=== PATIENT | male | born 1955 | race Caucasian/White ===

== ENCOUNTER 2018-12-16 23:18 | Inpatient (IN) | payer OTHER ==
[~2018-12-16 23:18] MED LIST: ISOVUE-370 76%-LOCM 1 ML ONE
--- NOTE | 2018-12-16 23:42 | RAD ---
Chest one view HISTORY: Chest pain. COMPARISON: 03/08/2016. FINDINGS: Cardiac silhouette is magnified by projection. Pulmonary vasculature is unremarkable. Media stinum is midline. No lobar consolidation or evidence of pneumothorax. IMPRESSION: No active cardiopulmonary abnormalities are demonstrated.
[2018-12-17] MEDS ORDERED: Ketorolac Tromethamine 30 MG/ML VIAL ONE (00:06)
[2018-12-17 00:18] LABS: #Basophils 0.1 thou/uL (0.0-0.2); #Lymphocytes 2.3 thou/uL (1.20-3.40); #Monocytes 0.5 thou/uL (0.11-0.59); %Basophils 1.5 % (0.0-1.0); %Eosinophils 0.6 % (0.0-10.0); %Lymphocytes 38.7 % (21.0-51.0); %Monocytes 9.1 % (0.0-10.0); Hemoglobin 14.5 g/dL (14.0-18.0); Mean Corpuscular HGB CONC 33.4 g/dL (32.0-36.0); Mean Corpuscular Volume 95.9 fL (78.0-98.0); Mean Platelet Volume 5.5 fL (7.4-10.4); Platelet Count 275 thou/uL (130-400); RBC Distribution Width 13.4 % (11.5-14.5); Red Blood Cell (RBC) Count 4.53 mill/uL (4.70-6.10)
[2018-12-17 00:27] LABS: Bilirubin Negative (Negative); Blood, Urine Negative (Negative); Clarity CLOUDY (Clear); Glucose, Urine (Dipstick) Negative (Negative); Leukocyte Negative (Negative); Nitrite Negative (Negative); Protein, Urine (Dipstick) Negative (Neg-Trace); Specific Gravity, Urine 1.004 (1.002-1.036); Urobilinogen 0.2 mg/dL (0.2-1.0); pH, Urine 7.5 (5.0-9.0)
[2018-12-17 00:37] LABS: Acetaminophen Less than 6.0 mcg/mL (10.0-30.0); Alcohol 288 mg/dL (Less than 10); Salicylate Less than 8.0 mg/dL (15.0-30.0)
[2018-12-17 00:38] LABS: ALT (SGPT) 22 U/L (8-55); AST (SGOT) 32 U/L (5-34); Albumin 4.2 g/dL (3.4-4.8); Alkaline Phosphatase 92 U/L (40-150); Anion Gap 13 mmol/L (10-20); BUN (Urea Nitrogen) 9 mg/dL (8.4-25.7); Bilirubin, Total 0.3 mg/dL (0.2-1.2); Calc. Creatinine Clearance 0 mL/min (70-130); Calcium 9.1 mg/dL (7.8-10.44); Carbon Dioxide 30 mmol/L (23-31); Chloride 106 mmol/L (98-107); Estimated GFR-MDRD 74; Globulin 3.2 g/dL (2.4-3.5); Glucose 89 mg/dL (80-115); Lipase 32 U/L (8-78); Potassium 3.9 mmol/L (3.5-5.1); Protein, Total 7.4 g/dL (5.8-8.1); Sodium 145 mmol/L (136-145)
[2018-12-17 00:41] LABS: Amphetamine Not Detected (NotDetected); Barbiturates Screen Not Detected (NotDetected); Benzodiazepine Screen Not Detected (NotDetected); Cocaine Metabolite Screen Not Detected (NotDetected); Medtox Control Line Valid? VALID (VALID); Medtox Reader # READER 4; Methadone Not Detected (NotDetected); Methamphetamine Not Detected (NotDetected); Opiate Screen Not Detected (NotDetected); Oxycodone Screen Not Detected (NotDetected); Phencyclidine (PCP) Not Detected (NotDetected); THC/Cannabinoid Screen Not Detected (NotDetected); Tricyclic Screen Not Detected (NotDetected)
[2018-12-17] MEDS ORDERED: Morphine 4 MG/ML VIAL ONE ×2 (01:27→04:50)
[2018-12-17] MEDS ORDERED: chlordiazePOXIDE HCl 25 MG CAP ONE (01:27)
[2018-12-17 03:24] LABS: Troponin I Less than 0.010 ng/mL (< 0.028)
[2018-12-17] MEDS ORDERED: Multivitamins, Adult 10 ML, Folic Acid 1 MG, Thiamine HCl 100 MG in Dextrose 5 %-0.45 %... IV SCH (04:00)
[2018-12-17] MEDS ORDERED: Acetaminophen 325 MG TAB PO PRN (04:37)
[2018-12-17 05:19] VITALS: BMI 26.5
--- NOTE | 2018-12-17 06:09 | HP ---
CHIEF COMPLAINT: Chest pain. HISTORY OF PRESENT ILLNESS: This patient is a 63-year-old male with a history of prior significant alcohol use, history of pyloric stenosis and history of gastric and duodenal ulcers, who presented via the emergency department. The patient reported that he was having some chest pain. He reported he had been pulling some weeds and started having the discomfort in his left chest area. He sat down outside to try to rest and fell out of the chair, says everything just went blank. He subsequently got up, went inside and tried to drink something and sit down again and the same thing happened. Reported that he was having some dizziness as well. Reports that the pain in his chest was 10/10. Reported that it happened a couple of times in the past, but has had spontaneously resolved and had not bothered him subsequent. He describes it is being in the left lateral sternal area. He is indicating that when the ER physician examined him there earlier, it was very tender. The pain does seem to increase with movement. He has some associated shortness of breath and when that resolves, he says he has a coughing or choking sensation. The patient also reports pain in his left hip area, states that has been present for the last year since he had a partial left knee replacement, says that the discomfort in that hip leads to him to fall frequently. REVIEW OF SYSTEMS: The patient reports that he has frequent vomiting after eating and that has been present for a couple of years. States that is worse with heavy or greasy type foods. Otherwise, all systems reviewed and all pertinent positives and negatives noted in history of present illness. PAST MEDICAL HISTORY: History of pyloric stenosis and history of gastric and duodenal ulcers and that records also indicate that the patient has a history of alcohol abuse and associated pancreatitis. PAST SURGICAL HISTORY: Had two lumbar diskectomies in the . Has had a left medial partial knee replacement, left wrist and left elbow surgery. FAMILY HISTORY: Both his parents are . He is unaware of any medical problems that they might have had. SOCIAL HISTORY: The patient reports he dips snuff, but does not smoke and says he drinks 4-5 beers per day in the past. He drinks 2-3 times that amount. States the last time he went without drinking more than 24 hours was last weekend where he went for 3 days with no alcohol and had no problems. He is single. He is full code. His brother would be his surrogate decision maker. ALLERGIES: NONE. MEDICATIONS: None. The patient reports that Dr. Berman has put him on B vitamins including folate previously, but when this ran out, he did not get any more and he takes nothing on a regular basis now. PHYSICAL EXAMINATION: VITAL SIGNS: Blood pressure 153/91, pulse 88, respirations 17, O2 saturation 96% on room air. GENERAL APPEARANCE: Age-appropriate male. He is somewhat difficult to understand simply because he does not enunciate very well and his words are a bit garbled. HEENT: PERRL. No OP lesions. NECK: Supple and symmetric. No lymphadenopathy, JVD, or bruits. HEART: Regular rate and rhythm. No murmurs, gallops, or rubs. LUNGS: Clear to auscultation with no wheezes or rales. ABDOMEN: Soft, nontender, and nondistended. Positive bowel sounds. No masses. No organomegaly. EXTREMITIES: No cyanosis, clubbing, or edema. MUSCULOSKELETAL: Reveals very slight tenderness to palpation in the left mid buttock and hip joint area. He has good flexion of the hip and only slight discomfort with internal and external rotation. He does not currently have any tenderness to palpation over the left chest area. LABORATORY DATA: White count 6.0, hemoglobin 14.5, platelets 275. Chemistries normal other than a CK of 205. Troponin is less than 0.01 x2. Urinalysis negative. Drug screen negative. Alcohol level was 288. Chest x-ray is negative. CT dissection protocol apparently reveals some pancreatic head mass, that full dictation is still pending. Pelvic x-rays also reportedly shows some evidence of small potentially lytic lesions, although that report is still pending as well. IMPRESSION AND PLAN: 1. Chest pain. The patient described more of a musculoskeletal type pain and initial tenderness to palpation, although that is not the case now after having received some pain medications. He is also describing some evidence of possibly near syncope, although he was clearly intoxicated at the time his labs were drawn here, so it is difficult to know what to make of that. We will keep him on tele. Continue to rule out for myocardial infarction. We will need to consider the possibility of stress testing and echocardiogram. 2. Left hip pain, unclear etiology, concern for the possibility of these small lytic lesions described by the ER physician, although we will need to follow up on the actual radiology report. 3. Possible pancreatic head mass. This patient has a history of pancreatitis and this may be a scar, but again we will need to get further input from the radiologist to know how to approach that going forward. He does not have significant tenderness at the pancreas presently. 4. Alcohol abuse. The patient has a long history of alcohol abuse, sounds like he is actually drinking less now than he has in the past. 5. Frequent postprandial vomiting in a patient with a history of pyloric stenosis. This may need to be followed upon and can likely be done as an outpatient. Job ID: [id number]
--- NOTE | 2018-12-17 07:24 | CT ---
CTA CHEST AND ABDOMEN AND PELVIS WITH CONTRAST WITH 3D VOLUME RENDERING CT AORTOGRAM: Date: 12/16/18 INDICATION: Chest pain. FINDINGS: There is no evidence of a focal dissection of the thoracoabdominal aorta. No aneurysmal dilatation or evidence of periaortic hematoma. The visualized bilateral iliac arteries are patent. The great vesse ls that emanate from the aortic arch, as well as from the abdominal aorta, reveal no significant sten osis. There are nonspecific scattered patchy bilateral pulmonary parenchymal opacities. There is evid ence of prior cholecystectomy with reservoir effect of the biliary system. There is also nonspecific prominence of the pancreatic duct. There is limited evaluation of the solid abdominal organs by arter ial phase of enhancement. The bowel is incompletely assessed without enteric contrast administration. Prominent degenerative change is present at the lower lumbar spine. Subtle nonspecific scattered oss eous lucencies are too small to definitively characterize. These are most notable within the pelvis, bilaterally. IMPRESSION: 1. No acute aortic dissection. 2. Nonspecific small osseous lucencies are incidentally noted. The possibility of small lytic metas tasis or marrow proliferative process cannot be entirely excluded on the basis of this exam. Therefor e, recommend clinical correlation, as well as imaging follow-up to exclude progression. While these f indings would be too small for detection by bone scan, bone scan could prove useful for evaluation of the entirety of the skeletal structures. POS: DEBBIE
--- NOTE | 2018-12-17 07:45 | RAD ---
AP PELVIS: Date: 12/17/18 INDICATION: History of pelvic pain. COMPARISON: Prior CT of pelvis dated 11/23/18. FINDINGS: There is mild degenerative arthrosis of both hips. No acute fracture is evident. There is advanced di sc degenerative disease at L4-5. IMPRESSION: No acute osseous abnormality. Scattered degenerative change. POS: BH
[2018-12-17 08:03] LABS: Troponin I Less than 0.010 ng/mL (< 0.028)
[2018-12-17 09:57] LABS: Troponin I Less than 0.010 ng/mL (< 0.028)
[2018-12-17] MEDS ORDERED: Bisacodyl 5 MG TAB PO PRN (10:56)
[2018-12-17] MEDS ORDERED: Eucerin (Mineral Oil/Petrolatum,White) 30 gm Jar TOP PRN (10:56)
[2018-12-17] MEDS ORDERED: Diabetic Tussin 200 MG/10 ML UDCUP PO PRN (10:56)
[2018-12-17] MEDS ORDERED: Sodium Chloride 0.65% Nasal 44 ML BOT EA NARE PRN (10:56)
[2018-12-17] MEDS ORDERED: Loratadine 10 MG TAB PO PRN (10:56)
[2018-12-17] MEDS ORDERED: Artificial Tears 18 DROP/0.9 ML EA EYE PRN (10:56)
[2018-12-17] MEDS ORDERED: Ondansetron ODT 4 MG TAB SL PRN (10:56)
[2018-12-17] MEDS ORDERED: Zolpidem Tartrate 5 MG TAB PO PRN (10:56)
[2018-12-17] MEDS ORDERED: Calcium Carbonate 500 MG ChewTAB PO PRN (10:56)
[2018-12-17] MEDS ORDERED: Cepastat Lozenges 1 LOZ PO PRN (10:56)
[2018-12-17] MEDS ORDERED: Loperamide HCl 2 MG CAP PO PRN (10:56)
[2018-12-17] MEDS ORDERED: hydrALAZINE 20 MG/ML VIAL SLOW IVP PRN (10:56)
[2018-12-17] MEDS ORDERED: Ondansetron PF 4 MG/2 ML Vial IVP PRN (10:56)
[2018-12-17] MEDS ORDERED: Senokot S 8.6-50 MG TAB PO PRN (10:56)
--- NOTE | 2018-12-17 19:01 | CON ---
DATE OF CONSULTATION: REASON FOR CONSULTATION: Gastric thickening and cirrhosis. HISTORY OF PRESENT ILLNESS: Mr. Acosta is a 63-year-old gentleman, who came to the emergency room at 2300 hours last night with complaints of chest pain. He reported at that time he had a heat stroke after working in his yard and he laid down inside and the pain came back. He felt like a sharp pain in the chest region and over the left precordium. When I asked him what it felt like, he stated "like a heart attack." He, however, notes he has not had a heart attack in the past. He had no diaphoresis or shortness of breath. Apparently, he has had also some left hip pain that he came in for. He reports that his primary physician told him he may have some liver problems in the past as well. In the emergency room, he had a negative evaluation with nonischemic EKG. A CT dissection and CAT scan that was ordered that showed no dissection, some possible bony abnormalities in the left bone. He was given Librium, banana bag, aspirin, Toradol, and normal saline. The diagnosis states that he brought him in for a possible pancreatic head mass. The CAT scan reports that he has a prior cholecystectomy, nonspecific prominence of pancreatic duct. Limited evaluation of solid abdominal organs by arterial phase enhancement. There was no oral contrast given. The final report notes no acute aortic dissection. Small nonspecific lucencies in the bone, it was felt these would be too small for detection on bone scan. This was apparently in the pelvis. There is no comment on a pancreatic head mass anywhere in the report. PAST MEDICAL HISTORY: Hypertension. The patient states he sees doctors in [place] occasionally. He has also been here with electrocution injury, previous carpal tunnel release. In 2011, he was seen by my partner, Dr. vAinash Blank, here, who has noted he has had a previous cholecystectomy at that time. He had an EGD that was 2011 and he had a duodenal stricture, an ulcer, retained gastric contents, and a severe erosive esophagitis. He had a CAT scan that showed diverticulosis, no diverticulitis. PAST SURGICAL HISTORY: 1. Cholecystectomy. 2. Lumbar diskectomy. 3. Medial partial knee replacement. 4. Left wrist and elbow surgery. PAST ENDOSCOPIC HISTORY: As above. REVIEW OF SYSTEMS: The patient denies any diarrhea. Denies any melena, hematochezia, or hematemesis. He intermittently has vomiting. He intermittently has reflux. He denies weight loss. FAMILY HISTORY: Unaware of medical family history. SOCIAL HISTORY: He dips snuff. He is drinking about 10 beers a day, tried to cut back recently. ALLERGIES: NONE. MEDICATIONS: 1. B vitamins. 2. Folate in the distant past. Medications, here; 1. Tylenol. 2. Dulcolax. 3. Tums. 4. B12. 5. Folic acid. 6. Robitussin. 7. Apresoline. 8. Hydrocodone. 9. Imodium. 10. Claritin. 11. Eucerin. 12. Zofran. 13. Protonix. 14. Senokot. 15. Thiamine. 16. Throat lozenges. 17. Ambien. PHYSICAL EXAMINATION: VITAL SIGNS: Blood pressure is 142/81, pulse is 67, and temperature is 98. GENERAL: The patient is resting comfortably in bed. He is in no distress. He states his chest pain has gone. He denies any abdominal pain. HEENT: His oropharynx, no lesions. NECK: Supple without any adenopathy. LUNGS: Clear. HEART: Regular rate and rhythm without murmurs. ABDOMEN: Soft and nontender without palpable hepatosplenomegaly. EXTREMITIES: Without clubbing, cyanosis, or edema. SKIN: Without stigmata of chronic liver disease. LABORATORY STUDIES: White count 6, hemoglobin 14, platelet count 275. Sodium 145, potassium 3.9, chloride 109, bicarb 30, BUN 9, and creatinine 1.1. AST 32, ALT 22, alkaline phosphatase 92, albumin 4.2, and lipase 32. AFP done was 6.3 that was on 12/17/2018. PSA is 4. ASSESSMENT: 1. Admission for chest pain and left hip pain, apparently this is felt to be noncardiac, although the patient states it felt like he was having a heart attack. He was intoxicated with a blood alcohol of 288 when he came in. He does not appear to be in any distress at this point in time. The primary team has ordered a bone scan. 2. Possible prominent pancreatic duct in the head of the pancreas with no overt mass or lesions in the head of the pancreas. Reviewing the report, it does not seem that they distinctly say there is a pancreatic head mass. CT dissection protocol study is not the right study to look at a pancreatic head mass. If this wants to be investigated if there is. He could be at risk for pancreatic malignancies. He may have had chronic pancreatitis in the past, but he denies it. If there is a desire to further look at this in the inpatient setting, a 3-phase CT scan with thin cuts of the pancreas would be the test to perform as he is in the observational setting, that could be done in the outpatient setting with his primary physician in followup. 3. Prior history of gastric outlet obstruction or pyloric stenosis and ulcer disease. Presently, he now has no complaints of gastric outlet symptoms. He has no signs of this on his CAT scan. He does have some symptoms of intermittent vomiting and regurgitation, but he is drinking 10-12 beers a day and he came in with a blood alcohol of over 300. I do not see any role for emergent evaluation of upper GI tract. RECOMMENDATIONS: 1. Multivitamin, thiamine, and folate. 2. Observe for DT withdrawals. 3. PPI therapy to protect from ulcer disease. 4. Again, if there is a desire to further evaluate the possible pancreatic abnormalities brought up on the dissection protocol CT, that would necessitate a 3-phase CT scan of the pancreas with oral and IV contrast, alternatively an MRCP, but again these could be done in the outpatient setting with his primary physician. We will follow from a distance. If I can be of further assistance, please do not hesitate to contact me. Job ID: [id number]
--- NOTE | 2018-12-17 19:20 | PRG ---
DATE OF SERVICE: 12/17/2018 SUBJECTIVE: Mr. Acosta is a 63-year-old male with past medical history significant for alcoholism, history of gastric and duodenal ulcers, as well as pyloric stenosis, who presented to the emergency department with complaints of chest and left hip pain. The patient complains of chest pain that is reproducible with palpation or movement of his left arm. He continues to complain of left hip pain and some general soreness throughout his body. He denies any substernal chest pain, shortness of breath, nausea, or vomiting. He denies palpitations. OBJECTIVE: VITAL SIGNS: Blood pressure 137/83, pulse 63, O2 saturation is 97% on room air, respirations are 20, temperature is 97.6. GENERAL: The patient is resting comfortably in bed, in no acute distress. He is alert and oriented x3. He appears his stated age. HEENT: His head is atraumatic and normocephalic. Extraocular eye movements intact. Mucous membranes are moist. NECK: No lymphadenopathy. No JVD. Trachea is midline. CV: S1 and S2. Regular rate and rhythm. No appreciable murmurs, rubs, or gallops. LUNGS: Regular respiratory rate and pattern, overall clear. ABDOMEN: Soft. Positive bowel sounds. Nontender. MUSCULOSKELETAL: No joint effusion or swelling, the patient is tender to palpation along the anterior portion of the left side of his chest. EXTREMITIES: No edema. Extremities are warm and well perfused. LABORATORY DATA: White blood cell count 6, hemoglobin 14.5, hematocrit 43.4, MCH 32, and platelet 275. Sodium 145, potassium 3.9, chloride 106, BUN 9, and creatinine 1.01. All liver enzymes within normal limits. Lipase is 32. AFP is 6.3. Plasma alcohol on arrival was 288 and is 142 this morning. ASSESSMENT: 1. Musculoskeletal chest and shoulder pain, likely secondary to falls yesterday when the patient was intoxicated. 2. Possible pancreatic head mass, with lytic lesions seen on bones per CT. 3. Alcohol abuse. PLAN: Given the complexity of CT findings, the plan will be for inpatient admission and further workup. Case discussed with Dr. Hernandez. We will also consult GI. Per Dr. Hernandez, we will follow up with tumor marker AFP as well as PSA. Given the complexity of the workup involved to appropriately diagnose the nature of the patient's pain and bony lesions, he meets inpatient status at this time. As mentioned, the above care of this patient was discussed with Dr. Hernandez, who agrees with the above. Job ID: [id number]
[2018-12-18] MEDS: HYDROcodone/Acetaminophen 5/325 mg Tablet PO PRN ×2 (00:15→17:02)
--- NOTE | 2018-12-18 08:54 | PDOC.PN ---
- Subjective Encounter Start Date: 12/18/18 Encounter Start Time: 08:10 Patient seen and examined. No new complaints. No overnight events - Objective Resuscitation Status - Order Detail: 12/17/18 04:37 Resuscitation Status Routine Resuscitation Status: FULL: Full Resuscitation MAR Reviewed: Yes Vital Signs & Weight: Vital Signs (12 hours) Temp Pulse Resp BP Pulse Ox 12/18/18 07:30 97.8 F 54 L 16 144/74 H 97 12/17/18 23:34 98.4 F 63 16 144/82 H 95 Weight Weight 164 lb 8 oz I&O: 12/17/18 12/18/18 12/19/18 06:59 06:59 06:59 Intake Total 1452 Output Total 301 Balance 1151 Result Diagrams: 12/17/18 00:05 12/17/18 00:05 EKG Reviewed by me: Yes Phys Exam - Physical Examination Constitutional: NAD HEENT: PERRLA, moist MMs, sclera anicteric Neck: no JVD, supple Respiratory: no wheezing, no rales, no rhonchi Cardiovascular: RRR, no significant murmur, no rub Gastrointestinal: soft, non-tender, no distention, positive bowel sounds Musculoskeletal: no edema, pulses present Neurological: non-focal, normal sensation Lymphatic: no nodes Psychiatric: normal affect, A&O x 3 Skin: no rash, normal turgor Dx/Plan (1) Bone metastases Code(s): C79.51 - SECONDARY MALIGNANT NEOPLASM OF BONE Status: Suspected (2) Pancreatic mass Status: Suspected (3) Gastric wall thickening Code(s): K31.89 - OTHER DISEASES OF STOMACH AND DUODENUM Status: Acute (4) Alcohol abuse Code(s): F10.10 - ALCOHOL ABUSE, UNCOMPLICATED Status: Chronic - Plan cont current plan of care * will get MRCP * will get bone scan * GI recommendation appreciated * medication reviewed as below * symptomatic treatment. Review of Systems - Review of Systems ENT: negative: Ear Pain, Ear Discharge, Nose Pain, Nose Discharge, Nose Congestion, Mouth Pain, Mouth Swelling, Throat Pain, Throat Swelling, Other Respiratory: negative: Cough, Dry, Shortness of Breath, Hemoptysis, SOB with Excertion, Pleuritic Pain, Sputum, Wheezing Cardiovascular: negative: chest pain, palpitations, orthopnea, paroxysmal nocturnal dyspnea, edema, light headedness, other Gastrointestinal: negative: Nausea, Vomiting, Abdominal Pain, Diarrhea, Constipation, Melena, Hematochezia, Other Genitourinary: negative: Dysuria, Frequency, Incontinence, Hematuria, Retention , Other Musculoskeletal: negative: Neck Pain, Shoulder Pain, Arm Pain, Back Pain, Hand Pain, Leg Pain, Foot Pain, Other Skin: negative: Rash, Lesions, Chris, Bruising, Other - Medications/Allergies Allergies/Adverse Reactions: Allergies Allergy/AdvReac Type Severity Reaction Status Date / Time No Known Drug Allergies Allergy Verified 12/17/18 05:22 Medications: Current Medications Acetaminophen (Tylenol) 650 mg PO Q4H PRN PRN Reason: Headache/Fever/Mild Pain (1-3) Hydrocodone Bitart/Acetaminophen ([place] 5/325) 1 tab PO Q4H PRN PRN Reason: Moderate Pain (4-6) Last Admin: 12/18/18 00:15 Dose: 1 tab Artificial Tears (Tears Naturale) 2 drop EA EYE PRN PRN PRN Reason: Dry Eyes Bisacodyl (Dulcolax) 10 mg PO DAILYPRN PRN PRN Reason: Constipation Calcium Carbonate (Tums) 1,000 mg PO Q4H PRN PRN Reason: Heartburn or Indigestion Cyanocobalamin (Vitamin B-12) 1,000 mcg PO DAILY [facility] Folic Acid (Folvite) 1 mg PO DAILY [facility] Guaifenesin (Robitussin Sf) 200 mg PO Q4H PRN PRN Reason: Cough Hydralazine HCl (Apresoline) 10 mg SLOW IVP Q4H PRN PRN Reason: SBP > 180 and HR < 70 Loperamide HCl (Imodium) 2 mg PO PRN PRN PRN Reason: Diarrhea/Loose Stools Loratadine (Claritin) 10 mg PO DAILYPRN PRN PRN Reason: Sinus Symptoms Mineral Oil/White Petrolatum (Eucerin Cream) 0 gm TOP BIDPRN PRN PRN Reason: Dry Skin Ondansetron HCl (Zofran Odt) 4 mg SL Q6H PRN PRN Reason: Nausea/Vomiting Ondansetron HCl (Zofran) 4 mg IVP Q6H PRN PRN Reason: Nausea/Vomiting Pantoprazole Sodium (Protonix) 40 mg PO DAILY [facility] Senna/Docusate Sodium (Senokot S) 2 tab PO BID PRN PRN Reason: Constipation Sodium Chloride ([place] Nasal [place] 0.65%) 0 ml EA NARE QIDPRN PRN PRN Reason: Nasal Congestion Thiamine HCl (Thiamine) 100 mg PO DAILY [facility] Throat Lozenges (Cepastat Lozenges) 1 jo ann PO Q2H PRN PRN Reason: Sore Throat Zolpidem Tartrate (Ambien) 5 mg PO HSPRN PRN PRN Reason: Insomnia
[2018-12-18] MEDS ORDERED: Lorazepam 0.5 MG TAB PO PRN (08:55)
[2018-12-18] MEDS: Cyanocobalamin (Vitamin B-12) 1,000 MCG TAB PO SCH (10:08)
[2018-12-18] MEDS: Folic Acid 1 MG TAB PO SCH (10:08)
[2018-12-18] MEDS: Thiamine 100 MG TAB PO SCH (10:08)
--- NOTE | 2018-12-18 12:46 | NM ---
EXAM: NM Bone Scan STANDARD PROVIDED CLINICAL HISTORY: Bone lesions COMPARISON: CT examination 12/17/2018 FINDINGS: 27 mCi technetium 99 M labeled MDP was given intravenously. Anterior and posterior whole-body planar imaging after a delay was performed as well as anterior and posterior planar imaging focused on the sternum. Degenerative changes are seen at the sternoclavicular and sternomanubrial joints. Degenerative change s are seen involving the shoulders and knees. Possible changes of arthroplasty involve the left knee. IMPRESSION: No scintigraphic evidence for osseous metastatic disease.
--- NOTE | 2018-12-18 17:49 | RAD ---
Left hip 2 views HISTORY: Fall. Left hip injury. FINDINGS: Mild joint space narrowing, osteophytosis, and subchondral sclerosis. Femoral head contours maintained. No acute fracture or dislocation. IMPRESSION: Mild osteoarthritic changes left hip.
[2018-12-19] MEDS: HYDROcodone/Acetaminophen 5/325 mg Tablet PO PRN (03:19)
--- NOTE | 2018-12-19 08:15 | MRI ---
Exam: MRI of the abdomen without and with contrast COMPARISON: None HISTORY: Pancreatic lesion. Chest pain and shortness of breath. History of cirrhosis. TECHNIQUE: Multiplanar multi sequence MR images were taken of the abdomen without and with IV contras t. MRCP images were performed. FINDINGS: Liver: No focal liver lesions are seen. The liver does not appear cirrhotic. There is mild stable miguel tral intrahepatic biliary dilatation. Gallbladder: Removed Common bile duct: Enlarged but stable and likely a reservoir effect from prior cholecystectomy. A cys tic duct remnant is visualized. Adrenal glands: Unremarkable. Kidneys: No hydronephrosis or focal renal lesions. Spleen: Unremarkable. Pancreas: No pancreatic mass is seen. There is increased prominence of the pancreatic duct.. Retroperitoneum: No enlarged lymph nodes Bones: No marrow signal abnormality. IMPRESSION: Slight increased prominence of the pancreatic duct without pancreatic mass visualized
[2018-12-19] MEDS: Folic Acid 1 MG TAB PO SCH (09:01)
[2018-12-19] MEDS: Cyanocobalamin (Vitamin B-12) 1,000 MCG TAB PO SCH (09:01)
[2018-12-19] MEDS: Thiamine 100 MG TAB PO SCH (09:01)
--- NOTE | 2018-12-19 12:01 | PDOC.PN ---
- Subjective Encounter Start Date: 12/19/18 Encounter Start Time: 07:45 Patient seen and examined. No new complaints. No overnight events - Objective Resuscitation Status - Order Detail: 12/17/18 04:37 Resuscitation Status Routine Resuscitation Status: FULL: Full Resuscitation MAR Reviewed: Yes Vital Signs & Weight: Vital Signs (12 hours) Temp Pulse Resp BP BP Pulse Ox 12/19/18 08:29 98.2 F 68 13 132/73 97 12/19/18 08:00 132/73 12/19/18 04:00 97.4 F L 64 14 143/85 H 98 Weight Weight 154 lb 9 oz I&O: 12/18/18 12/19/18 12/20/18 06:59 06:59 06:59 Intake Total 1452 700 Output Total 301 600 Balance 1151 100 Result Diagrams: 12/17/18 00:05 12/17/18 00:05 Radiology Reviewed by me: Yes Phys Exam - Physical Examination Constitutional: NAD HEENT: PERRLA, moist MMs, sclera anicteric Neck: no JVD, supple Respiratory: no wheezing, no rales, no rhonchi Cardiovascular: RRR, no significant murmur, no rub Gastrointestinal: soft, non-tender, no distention, positive bowel sounds Musculoskeletal: no edema, pulses present Neurological: non-focal, normal sensation, moves all 4 limbs Lymphatic: no nodes Psychiatric: normal affect, A&O x 3 Skin: no rash, normal turgor Dx/Plan (1) Bone metastases Code(s): C79.51 - SECONDARY MALIGNANT NEOPLASM OF BONE Status: Suspected (2) Pancreatic mass Status: Suspected (3) Gastric wall thickening Code(s): K31.89 - OTHER DISEASES OF STOMACH AND DUODENUM Status: Acute (4) Alcohol abuse Code(s): F10.10 - ALCOHOL ABUSE, UNCOMPLICATED Status: Chronic - Plan cont current plan of care * medication reviewed as below * symptomatic treatment * see discharge [place]. Review of Systems - Review of Systems ENT: negative: Ear Pain, Ear Discharge, Nose Pain, Nose Discharge, Nose Congestion, Mouth Pain, Mouth Swelling, Throat Pain, Throat Swelling, Other Respiratory: negative: Cough, Dry, Shortness of Breath, Hemoptysis, SOB with Excertion, Pleuritic Pain, Sputum, Wheezing Cardiovascular: negative: chest pain, palpitations, orthopnea, paroxysmal nocturnal dyspnea, edema, light headedness, other Gastrointestinal: negative: Nausea, Vomiting, Abdominal Pain, Diarrhea, Constipation, Melena, Hematochezia, Other Genitourinary: negative: Dysuria, Frequency, Incontinence, Hematuria, Retention , Other Musculoskeletal: negative: Neck Pain, Shoulder Pain, Arm Pain, Back Pain, Hand Pain, Leg Pain, Foot Pain, Other - Medications/Allergies Allergies/Adverse Reactions: Allergies Allergy/AdvReac Type Severity Reaction Status Date / Time No Known Drug Allergies Allergy Verified 12/17/18 05:22 Medications: Current Medications Acetaminophen (Tylenol) 650 mg PO Q4H PRN PRN Reason: Headache/Fever/Mild Pain (1-3) Hydrocodone Bitart/Acetaminophen ([place] 5/325) 1 tab PO Q4H PRN PRN Reason: Moderate Pain (4-6) Last Admin: 12/19/18 03:19 Dose: 1 tab Artificial Tears (Tears Naturale) 2 drop EA EYE PRN PRN PRN Reason: Dry Eyes Bisacodyl (Dulcolax) 10 mg PO DAILYPRN PRN PRN Reason: Constipation Calcium Carbonate (Tums) 1,000 mg PO Q4H PRN PRN Reason: Heartburn or Indigestion Cyanocobalamin (Vitamin B-12) 1,000 mcg PO DAILY [facility] Last Admin: 12/19/18 09:01 Dose: 1,000 mcg Folic Acid (Folvite) 1 mg PO DAILY [facility] Last Admin: 12/19/18 09:01 Dose: 1 mg Guaifenesin (Robitussin Sf) 200 mg PO Q4H PRN PRN Reason: Cough Hydralazine HCl (Apresoline) 10 mg SLOW IVP Q4H PRN PRN Reason: SBP > 180 and HR < 70 Loperamide HCl (Imodium) 2 mg PO PRN PRN PRN Reason: Diarrhea/Loose Stools Loratadine (Claritin) 10 mg PO DAILYPRN PRN PRN Reason: Sinus Symptoms Lorazepam (Ativan) 0.5 mg PO Q4H PRN PRN Reason: Anxiety Mineral Oil/White Petrolatum (Eucerin Cream) 0 gm TOP BIDPRN PRN PRN Reason: Dry Skin Ondansetron HCl (Zofran Odt) 4 mg SL Q6H PRN PRN Reason: Nausea/Vomiting Ondansetron HCl (Zofran) 4 mg IVP Q6H PRN PRN Reason: Nausea/Vomiting Pantoprazole Sodium (Protonix) 40 mg PO DAILY [facility] Last Admin: 12/19/18 09:01 Dose: 40 mg Senna/Docusate Sodium (Senokot S) 2 tab PO BID PRN PRN Reason: Constipation Sodium Chloride ([place] Nasal [place] 0.65%) 0 ml EA NARE QIDPRN PRN PRN Reason: Nasal Congestion Thiamine HCl (Thiamine) 100 mg PO DAILY [facility] Last Admin: 12/19/18 09:01 Dose: 100 mg Throat Lozenges (Cepastat Lozenges) 1 jo ann PO Q2H PRN PRN Reason: Sore Throat Zolpidem Tartrate (Ambien) 5 mg PO HSPRN PRN PRN Reason: Insomnia
[2018-12-19 12:44] VITALS: BP 155/83; TEMP 98.1
--- NOTE | 2018-12-19 13:14 | DIS ---
DATE OF ADMISSION: 12/17/2018 DATE OF DISCHARGE: 12/19/2018 PRIMARY CARE PHYSICIAN: Erickson Berman MD DISCHARGE DISPOSITION: Home. PRIMARY DISCHARGE DIAGNOSES: 1. Alcohol abuse. 2. Bone metastasis, ruled out. 3. Pancreatic mass, ruled out. SECONDARY DISCHARGE DIAGNOSIS: Alcohol abuse. PRIMARY PROCEDURE/OPERATION: None. RADIOLOGICAL INVESTIGATION: CT dissection, chest x-ray, pelvis x-ray, hip x-ray, bone scan, abdomen MRI. SIGNIFICANT LABORATORY DATA: Hemoglobin 14.5, creatinine 1.01. Cardiac enzyme negative. LFT and BMP normal. Urinalysis normal. Urine drug screen negative. DISCHARGE MEDICATION: 1. Folic acid 1 mg p.o. daily. 2. Thiamine 100 mg daily. 3. Vitamin B12 1000 mcg p.o. daily. 4. Protonix 40 mg p.o. daily. CONTRAINDICATION: None. CODE STATUS: Full code. INPATIENT DELINEATOR: Dr. Kothair. TEST RESULTS PENDING ON DISCHARGE: None. ALLERGIES: NO KNOWN DRUG ALLERGIES. DISCHARGE PLAN: Posthospital, the patient is advised to follow up with bacteriology technician. HOSPITAL COURSE: A 63-year-old male with above-mentioned medical problem, who was admitted by Dr. Strange. Please see his H and P for further details. The patient was intoxicated and he was complaining of vague chest pain. He had negative cardiac enzymes. His telemetry remained unremarkable. He had alcohol level that was significantly high. He had a CT abdomen and pelvis with suspected gastric wall thickening and pancreatic prominence and that is why we did MRI abdomen, which ruled out pancreatic mass. There was fullness of pancreatic duct and that is why he may need outpatient endoscopic ultrasound for evaluation and that is why I advised this patient to follow up with bacteriology technician. He also had suspected finding of bone metastasis and that is why we did a bone scan, which ruled out bone metastasis. This patient was completely asymptomatic. He was given counseling to avoid alcohol abuse. Otherwise, the patient is medically stable for discharge and he is advised to follow up with primary care physician and bacteriology technician. Job ID: [id number]
== END 2018-12-19 12:16 | disposition home or self-care (01) | DRG 897 ==
LOC: ERS 23:18 → OBSVTOIN 12-17 03:34 → 2SW 12-17 03:34 → 2NO 12-18 17:37
PROVIDERS: ADMIT Internal Medicine; ATTEND Internal Medicine
DX: F10.229 Alcohol dependence with intoxication, unspecified (principal); Y90.8 Blood alcohol level of 240 mg/100 ml or more; R07.89 Other chest pain; J45.909 Unspecified asthma, uncomplicated; K21.9 Gastro-esophageal reflux disease without esophagitis; M25.552 Pain in left hip; I10 Essential (primary) hypertension; K31.89 Other diseases of stomach and duodenum; Z72.0 Tobacco use; Z90.49 Acquired absence of other specified parts of digestive tract; Z79.899 Other long term (current) drug therapy
CPT/HCPCS: 36415; 71045; 71275; 72170; 74183; 78306; 80053; 80306; 80307; 81003; 82105; 82550; 83690; 84484; 85025; 93005; 96361; 96365; 96375; 96376; A9503; G0103; J1885; J2270; J3411; J7042; Q9966

== ENCOUNTER 2019-01-23 23:03 | Emergency (ER) | payer OTHER ==
[2019-01-23 23:53] LABS: Hemoglobin 13.6 g/dL (14.0-18.0); Mean Corpuscular HGB CONC 34.1 g/dL (32.0-36.0); Mean Corpuscular Hemoglobin 31.7 pg (27.0-31.0); Mean Platelet Volume 5.5 fL (7.4-10.4); Platelet Count 296 thou/uL (130-400); RBC Distribution Width 13.1 % (11.5-14.5); Red Blood Cell (RBC) Count 4.27 mill/uL (4.70-6.10); White Blood Cell (WBC) Count 4.1 thou/uL (4.8-10.8)
[2019-01-24 00:08] LABS: ALT (SGPT) 45 U/L (8-55); AST (SGOT) 75 U/L (5-34); Albumin 4.1 g/dL (3.4-4.8); Alcohol 258 mg/dL (Less than 10); Alkaline Phosphatase 146 U/L (40-150); Anion Gap 16 mmol/L (10-20); BUN (Urea Nitrogen) 7 mg/dL (8.4-25.7); Bilirubin, Total 0.5 mg/dL (0.2-1.2); CK (CPK) 231 U/L (30-200); Calc. Creatinine Clearance 0 mL/min (70-130); Calcium 8.8 mg/dL (7.8-10.44); Carbon Dioxide 21 mmol/L (23-31); Chloride 105 mmol/L (98-107); Estimated GFR-MDRD 76; Glucose 97 mg/dL (80-115); Lipase 28 U/L (8-78); Potassium 4.1 mmol/L (3.5-5.1); Protein, Total 7.1 g/dL (5.8-8.1); Sodium 138 mmol/L (136-145)
[2019-01-24 00:09] LABS: Lymphocytes 33 % (21-51); MDiff Complete? YES; Monocytes 14 % (0-10); Neutrophil 53 % (42-75); Platelet Morphology Comment Appears Adequate; RBC Morphology Normal
--- NOTE | 2019-01-24 00:41 | RAD ---
AP view chest. HISTORY: Chest pain. AP view chest is obtained. The lungs are well aerated. No evidence of active intrathoracic disease se en. IMPRESSION: unremarkable AP view chest.
[2019-01-24] MEDS ORDERED: Mag-Al 1200 mg/1200 mg/30 ML UDCUP ONE (00:43)
[2019-01-24] MEDS ORDERED: Lidocaine Viscous Sol 2% 15 ml UD Cup ONE (00:43)
[2019-01-24 10:29] LABS: Troponin I Less than 0.010 ng/mL (< 0.028)
== END 2019-01-24 11:40 | disposition home or self-care (01) ==
LOC: ERS 23:03
DX: R07.89 Other chest pain (principal); F10.129 Alcohol abuse with intoxication, unspecified; I10 Essential (primary) hypertension; J45.909 Unspecified asthma, uncomplicated; F17.220 Nicotine dependence, chewing tobacco, uncomplicated
CPT/HCPCS: 36415; 71045; 80053; 80307; 82550; 83690; 84484; 85025; 93005; 99406

== ENCOUNTER 2019-03-12 06:23 | Inpatient (IN) | payer OTHER ==
[2019-03-12] MEDS ORDERED: Nicotine 14 MG PATCH ONE (09:38)
[2019-03-12] MEDS ORDERED: Ondansetron ODT 4 MG TAB SL PRN (11:08)
[2019-03-12] MEDS ORDERED: Ondansetron PF 4 MG/2 ML Vial IVP PRN ×2 (11:08→12:59)
[2019-03-12] MEDS ORDERED: Acetaminophen 325 MG TAB PO PRN (11:08)
[2019-03-12] MEDS ORDERED: Nitroglycerin 50 MG/250 ML BOT 250 ML IVPB SCH (11:15)
[2019-03-12 11:48] VITALS: BMI 24.8
[2019-03-12] MEDS ORDERED: Lorazepam 2 MG/ML VIAL SLOW IVP PRN (12:59)
[2019-03-12] MEDS ORDERED: Ondansetron ODT 4 MG TAB PO PRN (12:59)
[2019-03-12 14:05] LABS: ALT (SGPT) 247 U/L (8-55); AST (SGOT) 262 U/L (5-34); Albumin 3.8 g/dL (3.4-4.8); Alkaline Phosphatase 208 U/L (40-150); Bilirubin, Direct 3.8 mg/dL (0.1-0.3); Bilirubin, Total 5.1 mg/dL (0.2-1.2); Protein, Total 6.9 g/dL (5.8-8.1)
[2019-03-12 14:10] LABS: Troponin I 0.026 ng/mL (< 0.028)
--- NOTE | 2019-03-12 14:53 | HP ---
PRIMARY CARE PHYSICIAN: Erickson Berman MD CHIEF COMPLAINT: "My body was hurting on the right side." HISTORY OF PRESENT ILLNESS: Mr. Acosta is a pleasant 63-year-old gentleman, who was recently discharged from our facility back in December. At that time, he was evaluated for possible pancreatic mass, which was ruled out by MRI of the abdomen and he is also known to have a history of alcohol abuse. He apparently had presented himself to the outside emergency room due to pain on his whole right side. He said it was hurting and he says it is worse when he tries to move in the chair. He also noted some nausea, and he said he vomited some water, but denies any hematemesis. He also noted some pains in the epigastric region as well, and says he has had some dyspnea on exertion off and on. As a result of this, he came to the emergency room, and at that time, it was found that his liver function tests were elevated above previous and he was also noted to have a dangerously high blood pressure, and for this reason, he is being admitted. Otherwise, he is a very poor historian and cannot really offer me much additional history. REVIEW OF SYSTEMS: Again, also quite unreliable due to the patient being a very poor historian, but all systems were reviewed and are negative, except for that mentioned in the history of present illness. PAST MEDICAL HISTORY: Significant for gastric and duodenal ulcers, alcohol abuse, and pancreatitis. PAST SURGICAL HISTORY: He has had lumbar diskitis, a left partial knee replacement, a left wrist and elbow surgery. ALLERGIES: NO KNOWN DRUG ALLERGIES. SOCIAL HISTORY: He dips snuff, and he is single. He drinks about he says quite a lot, that is what he told me, but at least 2 to 3 six packs a day. He says he has several children and grandchildren. FAMILY HISTORY: No history of any heritable diseases. CURRENT MEDICATIONS: These will need to be clarified, but he had been discharged on, 1. Thiamine 100 mg daily. 2. Protonix 40 mg daily. 3. Folic acid 1 mg daily. 4. Vitamin B12 1000 mcg p.o. daily. PHYSICAL EXAMINATION: GENERAL: He is alert and oriented. He appears to be in no acute distress. VITAL SIGNS: Current blood pressure is 158/90, heart rate is 63, respiratory rate of 17, and O2 saturation is 100% on room air. HEENT: Pupils are equal, round, and reactive to light. Extraocular muscles are intact. His sclerae are anicteric. Throat, there is no erythema, no exudates. NECK: No adenopathy. No bruits. He does have some mild scleral icterus. LUNGS: Clear to auscultation. He does have mild expiratory wheeze. CARDIOVASCULAR: He has a normal S1 and S2. There is no S3 or S4. No murmurs, clicks or rubs. ABDOMEN: Soft. He has some right upper quadrant tenderness; however, I am not able to palpate his liver. There is no rebound, no guarding. There was no evidence of ascites. No fluid wave. EXTREMITIES: There is no edema and no calf tenderness and no joint effusions. NEUROLOGICAL: The exam is grossly nonfocal. SKIN AND INTEGUMENT: Again, he does have some yellowish discoloration of the skin, but no rashes. LABORATORY RESULTS: His white blood cell count is 12, hemoglobin is 15, hematocrit is 44.5, and platelet count is 254. Sodium is 138, potassium is 3.6, chloride is 97, CO2 is 28, BUN of 15, creatinine of 1.2, glucose is 97. AST was 439, ALT was 306, alkaline phosphatase was 244, and his total bilirubin was 6.0. CK was 231. Acetaminophen level was less than 6. Urine drug screen was negative. ASSESSMENT AND PLAN: This is a 63-year-old gentleman, who presents to the emergency room with poorly controlled blood pressure. He seemed primarily to complain of right upper quadrant tenderness and epigastric pain, likely as a result of alcoholic hepatitis. His chest pain seemed to be less of a concern for him; however, he was found to have some EKG changes on admission with some T-wave inversions. For this reason, he is being admitted to the [facility] due to hypertensive urgency as well as alcoholic hepatitis. 1. For the hypertensive urgency, this has actually improved. We will start him on a scheduled antihypertensive as well as p.r.n. medications. 2. Alcoholic hepatitis. He has been counseled on the need for alcohol cessation. He will be placed on thiamine and folic acid as well as multivitamins. We will get coagulation panel, and with this, we can calculate a discriminant function and see if he would benefit from steroids. 3. Chest pain. I suspect this is likely related to the hypertensive urgency. He does not appear to be in any shape to do a stress test at this time. Therefore, we will defer that. Continue to trend his troponins and get an echocardiogram. If there is any significant wall motion abnormality or reduction in his ejection fraction, then we will consider a stress test. 4. For alcohol abuse, he will be placed on an [facility] protocol. Job ID: [id number]
[2019-03-12 16:34] LABS: Troponin I 0.022 ng/mL (< 0.028)
[2019-03-12] MEDS: traMADol HCl 50 MG TAB PO PRN (19:21)
[2019-03-13] MEDS: traMADol HCl 50 MG TAB PO PRN ×2 (04:19→09:14)
[2019-03-13 05:02] LABS: #Eosinphils 0.1 thou/uL (0.0-0.7); #Neutrophils 4.7 thou/uL (1.40-6.50); %Basophils 0.6 % (0.0-1.0); %Eosinophils 1.4 % (0.0-10.0); %Lymphocytes 14.6 % (21.0-51.0); %Monocytes 13.9 % (0.0-10.0); %Neutrophils 69.6 % (42.0-75.0); Hemoglobin 13.8 g/dL (14.0-18.0); Mean Corpuscular HGB CONC 33.5 g/dL (32.0-36.0); Mean Corpuscular Hemoglobin 33.2 pg (27.0-31.0); Mean Corpuscular Volume 99.1 fL (78.0-98.0); Mean Platelet Volume 6.1 fL (7.4-10.4); Platelet Count 219 thou/uL (130-400); RBC Distribution Width 13.1 % (11.5-14.5); Red Blood Cell (RBC) Count 4.16 mill/uL (4.70-6.10); White Blood Cell (WBC) Count 6.8 thou/uL (4.8-10.8)
[2019-03-13 05:24] LABS: ALT (SGPT) 190 U/L (8-55); AST (SGOT) 143 U/L (5-34); Albumin 3.6 g/dL (3.4-4.8); Alkaline Phosphatase 187 U/L (40-150); Anion Gap 12 mmol/L (10-20); BUN (Urea Nitrogen) 18 mg/dL (8.4-25.7); Bilirubin, Total 1.9 mg/dL (0.2-1.2); Calc. Creatinine Clearance 73 mL/min (70-130); Calcium 9.3 mg/dL (7.8-10.44); Carbon Dioxide 30 mmol/L (23-31); Cardiac Risk 2.8 (Less than 4.5); Chloride 96 mmol/L (98-107); Cholesterol 174 mg/dl (< 200 Desired); Estimated GFR-MDRD 72; Glucose 101 mg/dL (80-115); HDL Cholesterol 63 mg/dL (>60 Neg Risk); LDL Cholesterol, Calculated 87 mg/dL; Protein, Total 6.9 g/dL (5.8-8.1); Sodium 135 mmol/L (136-145); Triglycerides 120 mg/dL (Less than 150)
[2019-03-13 05:30] LABS: Potassium 2.9 mmol/L (3.5-5.1)
[2019-03-13] MEDS: Potassium Chloride 20 MEQ TAB PO SCH ×4 (07:41→21:01)
[2019-03-13] MEDS ORDERED: Thiamine 100 MG TAB PO SCH (09:00)
[2019-03-13] MEDS: Multivitamin W/ Minerals 1 TAB PO SCH (09:05)
[2019-03-13] MEDS: Amlodipine 5 MG TAB PO SCH (09:05)
[2019-03-13] MEDS: Folic Acid 1 MG TAB PO SCH (09:05)
[2019-03-13] MEDS ORDERED: hydrALAZINE 20 MG/ML VIAL SLOW IVP PRN (11:19)
[2019-03-13] MEDS ORDERED: Magnesium Sulfate 3 GM in Sodium Chloride 0.9% 100 ML IVPB SCH (11:30)
[2019-03-13] MEDS: Sodium Chloride 0.9% 1,000 ML IV SCH ×2 (11:48→21:01)
[2019-03-13 11:51] LABS: CRP (Inflammatory) 7.04 mg/dL (= or < 0.5)
--- NOTE | 2019-03-13 12:43 | CON ---
DATE OF CONSULTATION: 03/13/2019 REASON FOR CONSULTATION: IMCU placement. HISTORY OF PRESENT ILLNESS: The patient is a 63-year-old male, who is not very conversant. In fact, he does not want to talk to me at all. According to history and physical, he came in yesterday with right-sided abdominal pain. The patient did indicate to me he is hurting in the region of his liver. He has no other complaints at this time. Apparently, he is an alcoholic and drinks at least 2 to 3 six packs per day and has no desire to quit. At the time of admission, he had extremely elevated LFTs. PAST MEDICAL HISTORY: 1. Alcohol abuse. 2. Peptic ulcer disease. 3. Pancreatitis. PAST SURGICAL HISTORY: 1. Lumbar diskitis. 2. Left partial knee replacement. 3. Left wrist and elbow surgery. ALLERGIES: NONE. SOCIAL HISTORY: Alcohol intake as outlined above. Dips snuff. He is single. FAMILY MEDICAL HISTORY: Unremarkable. MEDICATIONS: Prior to admission, 1. Thiamine 100 mg daily. 2. Protonix 40 mg daily. 3. Folate 1 mg daily. 4. Vitamin B12 1000 mcg daily. There is no indication that he is taking any of these. REVIEW OF SYSTEMS: The patient basically will not answer any questions for me in that regard. PHYSICAL EXAMINATION: VITAL SIGNS: Temperature 98.6, pulse 79, blood pressure 120/75, O2 saturation 100%. GENERAL: He is awake and alert, and in no distress. HEENT: Unremarkable. NECK: Without adenopathy or JVD. LUNGS: Clear to auscultation. CARDIAC: S1 and S2 regular without audible murmur. ABDOMEN: Slightly tender in the right upper quadrant beneath the right costal margin. Otherwise, normoactive bowel sounds. EXTREMITIES: No clubbing, cyanosis, or edema. LABORATORY DATA: White blood cell count 6.8, hematocrit 41.2, and platelet count 219. Sodium 135, potassium 2.9, chloride 96, CO2 of 30, BUN 18, creatinine 1.0, glucose 101, AST 143, ALT 190, alkaline phosphatase 197, total bilirubin 1.0. Lipase is 14. Amylase does not appear to be measured. Plasma alcohol level was less than 10. ASSESSMENT: 1. Alcoholic hepatitis. 2. Severe alcohol abuse. PLAN: The patient seems to be stable with hydration and medical therapy. I think he can be transferred out to the medical floor. He needs to stop drinking, but that does not appear to be important to him at this time. We will follow. Job ID: [id number]
--- NOTE | 2019-03-13 14:01 | PDOC.PN ---
- Subjective Encounter Start Date: 03/13/19 Encounter Start Time: 10:15 Subjective: pt up in bed complains of pain to his abdomen - Objective Resuscitation Status - Order Detail: 03/12/19 12:53 Resuscitation Status Routine Resuscitation Status: FULL: Full Resuscitation Vital Signs & Weight: Vital Signs (12 hours) Temp Pulse Ox 03/13/19 10:38 98.3 F 03/13/19 08:00 98 03/13/19 07:28 98.6 F 03/13/19 04:00 97.7 F Weight Weight 158 lb 9.6 oz Most Recent Monitor Data Heart Rate from ECG 74 NIBP 131/81 NIBP BP-Mean 97 Respiration from ECG 16 SpO2 100 I&O: 03/12/19 03/13/19 03/14/19 06:59 06:59 06:59 Intake Total 1080 Output Total 550 Balance 530 Result Diagrams: 03/13/19 04:52 03/13/19 04:52 Phys Exam - Physical Examination Neck: no nodes, no JVD, supple, full ROM Respiratory: no wheezing, no rales, no rhonchi, wheezing present, clear to auscultation bilateral Cardiovascular: RRR, no significant murmur, no rub, gallop, irregular Gastrointestinal: soft, no distention, positive bowel sounds Dx/Plan (1) Abdominal pain Code(s): R10.9 - UNSPECIFIED ABDOMINAL PAIN Status: Acute (2) Alcohol abuse Code(s): F10.10 - ALCOHOL ABUSE, UNCOMPLICATED Status: Chronic (3) Elevated LFTs Code(s): R94.5 - ABNORMAL RESULTS OF LIVER FUNCTION STUDIES Status: Acute (4) Electrolyte abnormality Code(s): E87.8 - OTH DISORDERS OF ELECTROLYTE AND FLUID BALANCE, NEC Status: Acute - Plan will keep pt on cl diet. will continue pain meds -: lipase normal, will get ruq ultrasound * . Review of Systems - Review of Systems Respiratory: negative: Cough, Dry, Shortness of Breath, Hemoptysis, SOB with Excertion, Pleuritic Pain, Sputum, Wheezing Cardiovascular: negative: chest pain, palpitations, orthopnea, paroxysmal nocturnal dyspnea, edema, light headedness, other Gastrointestinal: Abdominal Pain - Medications/Allergies Allergies/Adverse Reactions: Allergies Allergy/AdvReac Type Severity Reaction Status Date / Time No Known Drug Allergies Allergy Verified 12/17/18 05:22 Medications: Current Medications Amlodipine Besylate (Norvasc) 5 mg PO DAILY [facility] Last Admin: 03/13/19 09:05 Dose: 5 mg Folic Acid (Folvite) 1 mg PO DAILY [facility] Last Admin: 03/13/19 09:05 Dose: 1 mg Hydralazine HCl (Apresoline) 5 mg SLOW IVP Q6H PRN PRN Reason: sbp >180 Sodium Chloride (Normal Saline 0.9%) 1,000 mls @ 100 mls/hr IV .Q10H [facility] Last Admin: 03/13/19 11:48 Dose: 1,000 mls Iron/Minerals/Multivitamins (Theragran M) 1 tab PO DAILY [facility] Last Admin: 03/13/19 09:05 Dose: 1 tab Lorazepam (Ativan) 1 mg SLOW IVP Q4H PRN PRN Reason: Anxiety/Agitation Morphine Sulfate (Morphine) 4 mg SLOW IVP Q4H PRN PRN Reason: Pain Ondansetron HCl (Zofran Odt) 4 mg PO Q6H PRN PRN Reason: Nausea/Vomiting Ondansetron HCl (Zofran) 4 mg IVP Q6H PRN PRN Reason: Nausea/Vomiting Pantoprazole Sodium (Protonix) 40 mg IVP BID [facility] Potassium Chloride (K-Dur) 40 meq PO Q6H [facility] Stop: 03/14/19 07:01 Last Admin: 03/13/19 12:49 Dose: 40 meq Sodium Chloride (Flush - Normal Saline) 10 ml IVF Q12HR [facility] Last Admin: 03/13/19 10:34 Dose: Not Given Sodium Chloride (Flush - Normal Saline) 10 ml IVF PRN PRN PRN Reason: Saline Flush Thiamine HCl (Thiamine Hcl) 100 mg SLOW IVP 0900 [facility]
[2019-03-13 14:25] LABS: Prothrombin Time 12.8 SEC (12.0-14.7)
[2019-03-13] MEDS: Morphine 4 MG/ML VIAL SLOW IVP PRN ×2 (16:21→21:05)
--- NOTE | 2019-03-13 16:29 | ULT ---
ULTRASOUND ABDOMEN LIMITED: (RIGHT UPPER QUADRANT) DATE: 03/13/2019 HISTORY: 63-year-old female with right upper quadrant abdominal pain FINDINGS: Gallbladder:Surgically absent. Common duct: 19 mm. Liver:No hepatomegaly. Diffusely slightly coarse echotexture. Mild to moderate intrahepatic biliary d uctal dilation. Pancreas:Completely obscured by shadowing from bowel gas. Right kidney:No hydronephrosis. IMPRESSION: 1) dilated biliary tree, especially the common duct (19 mm). This could be due to the status post cho lecystectomy, but correlation with serum bilirubin levels is recommended to rule out distal common bile duct obstruction. 2) probable hepatic steatosis. 3.) Status post cholecystectomy.
[2019-03-13] MEDS: Pantoprazole 40 MG VIAL IVP SCH (20:57)
[2019-03-14] MEDS: Potassium Chloride 20 MEQ TAB PO SCH ×2 (00:27→06:34)
[2019-03-14] MEDS: Morphine 4 MG/ML VIAL SLOW IVP PRN ×3 (00:29→09:00)
--- NOTE | 2019-03-14 08:27 | PRG ---
DATE OF SERVICE: 03/14/2019 SUBJECTIVE: He is sitting up in bed, eating his breakfast. He has no acute complaints. OBJECTIVE: VITAL SIGNS: Temperature 98.4, pulse 78, blood pressure 154/92, O2 saturation 99%. HEENT: Unremarkable. NECK: Without adenopathy, JVD, or bruits. LUNGS: Clear to auscultation without wheezing. CARDIAC: S1, S2. Regular. ABDOMEN: Soft. No right upper quadrant tenderness palpated today. EXTREMITIES: No clubbing, cyanosis, or edema. LABORATORY DATA: No new labs have resulted for today. ASSESSMENT: 1. Alcoholic hepatitis. 2. Severe alcohol abuse. 3. Electrolyte abnormalities. PLAN: This patient can be transferred out to the medical floor. No further Pulmonary recommendations. We will sign off. Job ID: [id number]
[2019-03-14] MEDS: Pantoprazole 40 MG VIAL IVP SCH ×2 (08:55→21:29)
[2019-03-14] MEDS: Folic Acid 1 MG TAB PO SCH (08:55)
[2019-03-14] MEDS: Amlodipine 5 MG TAB PO SCH (08:55)
[2019-03-14] MEDS: Sodium Chloride 0.9% 1,000 ML IV SCH ×2 (08:55→17:39)
[2019-03-14] MEDS: Multivitamin W/ Minerals 1 TAB PO SCH (08:55)
[2019-03-14] MEDS ORDERED: Thiamine HCl 200 MG/2 ML VIAL SLOW IVP SCH (09:00)
[2019-03-14 09:02] VITALS: BP 138/86
[2019-03-14 09:57] LABS: ALT (SGPT) 120 U/L (8-55); AST (SGOT) 63 U/L (5-34); Albumin 3.3 g/dL (3.4-4.8); Alkaline Phosphatase 166 U/L (40-150); Anion Gap 9 mmol/L (10-20); BUN (Urea Nitrogen) 9 mg/dL (8.4-25.7); Calc. Creatinine Clearance 83 mL/min (70-130); Calcium 8.5 mg/dL (7.8-10.44); Carbon Dioxide 27 mmol/L (23-31); Chloride 105 mmol/L (98-107); Estimated GFR-MDRD 83; Globulin 2.8 g/dL (2.4-3.5); Glucose 107 mg/dL (80-115); Protein, Total 6.1 g/dL (5.8-8.1); Sodium 136 mmol/L (136-145)
--- NOTE | 2019-03-14 14:10 | RAD ---
EXAM: XR Abdomen 1 View/KUB DATE: 03/14/2019 12:59 PM INDICATION: Abdominal pain COMPARISON: None. FINDING: There are cholecystectomy clips within the right upper quadrant. There is a prominent amoun t of retained stool within the ascending colon, transverse colon and descending colon. No acute osseous abnormalities noted. There is scattered degenerative and osteoarthritic change present. IMPRESSION:Mild to moderate amount of retained stool colon.
--- NOTE | 2019-03-14 16:14 | PDOC.PN ---
- Subjective Encounter Start Date: 03/14/19 Encounter Start Time: 12:30 Subjective: pt up in bed complains of pain to his abd - Objective Resuscitation Status - Order Detail: 03/12/19 12:53 Resuscitation Status Routine Resuscitation Status: FULL: Full Resuscitation Vital Signs & Weight: Vital Signs (12 hours) Temp BP 03/14/19 15:48 97.8 F 03/14/19 11:07 98.4 F 03/14/19 08:55 138/86 03/14/19 07:37 98.4 F Weight Admit Weight 158 lb 9.6 oz Weight 158 lb 9.6 oz Most Recent Monitor Data Heart Rate from ECG 63 NIBP 169/103 NIBP BP-Mean 125 Respiration from ECG 18 SpO2 96 I&O: 03/13/19 03/14/19 03/15/19 06:59 06:59 06:59 Intake Total 1080 2190 Output Total 550 1600 Balance 530 590 Result Diagrams: 03/13/19 04:52 03/14/19 09:07 Phys Exam - Physical Examination Respiratory: no wheezing, no rales, no rhonchi, wheezing present, clear to auscultation bilateral Cardiovascular: RRR, no significant murmur, no rub, gallop, irregular Gastrointestinal: soft, positive bowel sounds tender Musculoskeletal: no edema, pulses present, edema present Dx/Plan (1) Abdominal pain Code(s): R10.9 - UNSPECIFIED ABDOMINAL PAIN Status: Acute (2) Alcohol abuse Code(s): F10.10 - ALCOHOL ABUSE, UNCOMPLICATED Status: Chronic (3) Elevated LFTs Code(s): R94.5 - ABNORMAL RESULTS OF LIVER FUNCTION STUDIES Status: Acute (4) Electrolyte abnormality Code(s): E87.8 - OTH DISORDERS OF ELECTROLYTE AND FLUID BALANCE, NEC Status: Acute - Plan will get a abd xray -: will start stool softners -: advance diet, will continue ppi * . Review of Systems - Review of Systems Respiratory: negative: Cough, Dry, Shortness of Breath, Hemoptysis, SOB with Excertion, Pleuritic Pain, Sputum, Wheezing Cardiovascular: negative: chest pain, palpitations, orthopnea, paroxysmal nocturnal dyspnea, edema, light headedness, other Gastrointestinal: negative: Nausea, Vomiting, Abdominal Pain, Diarrhea, Constipation, Melena, Hematochezia, Other - Medications/Allergies Allergies/Adverse Reactions: Allergies Allergy/AdvReac Type Severity Reaction Status Date / Time No Known Drug Allergies Allergy Verified 12/17/18 05:22 Medications: Current Medications Amlodipine Besylate (Norvasc) 5 mg PO DAILY REPLACED BY [facility] Last Admin: 03/14/19 08:55 Dose: 5 mg Bisacodyl (Dulcolax) 10 mg PO NOW REPLACED BY [facility] Folic Acid (Folvite) 1 mg PO DAILY REPLACED BY [facility] Last Admin: 03/14/19 08:55 Dose: 1 mg Hydralazine HCl (Apresoline) 5 mg SLOW IVP Q6H PRN PRN Reason: sbp >180 Sodium Chloride (Normal Saline 0.9%) 1,000 mls @ 100 mls/hr IV .Q10H REPLACED BY [facility] Last Admin: 03/14/19 08:55 Dose: 1,000 mls Iron/Minerals/Multivitamins (Theragran M) 1 tab PO DAILY REPLACED BY [facility] Last Admin: 03/14/19 08:55 Dose: 1 tab Lorazepam (Ativan) 1 mg SLOW IVP Q4H PRN PRN Reason: Anxiety/Agitation Morphine Sulfate (Morphine) 4 mg SLOW IVP Q4H PRN PRN Reason: Pain Last Admin: 03/14/19 09:00 Dose: 4 mg Ondansetron HCl (Zofran Odt) 4 mg PO Q6H PRN PRN Reason: Nausea/Vomiting Ondansetron HCl (Zofran) 4 mg IVP Q6H PRN PRN Reason: Nausea/Vomiting Pantoprazole Sodium (Protonix) 40 mg IVP BID REPLACED BY [facility] Last Admin: 03/14/19 08:55 Dose: 40 mg Senna/Docusate Sodium (Senokot S) 1 tab PO BID REPLACED BY [facility] Sodium Chloride (Flush - Normal Saline) 10 ml IVF Q12HR REPLACED BY [facility] Last Admin: 03/14/19 09:02 Dose: 10 ml Sodium Chloride (Flush - Normal Saline) 10 ml IVF PRN PRN PRN Reason: Saline Flush Thiamine HCl (Thiamine Hcl) 100 mg SLOW IVP 0900 REPLACED BY [facility] Last Admin: 03/14/19 10:20 Dose: Not Given
[2019-03-14] MEDS ORDERED: Bisacodyl 5 MG TAB PO SCH (16:30)
[2019-03-14] MEDS: Senokot S 8.6-50 MG TAB PO SCH (21:28)
[2019-03-15] MEDS: Sodium Chloride 0.9% 1,000 ML IV SCH (03:56)
[2019-03-15 09:01] LABS: #Eosinphils 0.1 thou/uL (0.0-0.7); #Monocytes 0.8 thou/uL (0.11-0.59); #Neutrophils 3.4 thou/uL (1.40-6.50); %Basophils 0.4 % (0.0-1.0); %Eosinophils 1.2 % (0.0-10.0); %Lymphocytes 18.9 % (21.0-51.0); %Monocytes 14.2 % (0.0-10.0); %Neutrophils 65.3 % (42.0-75.0); Hemoglobin 14.5 g/dL (14.0-18.0); Mean Corpuscular HGB CONC 32.8 g/dL (32.0-36.0); Mean Corpuscular Hemoglobin 32.5 pg (27.0-31.0); Mean Corpuscular Volume 99.1 fL (78.0-98.0); Mean Platelet Volume 6.4 fL (7.4-10.4); Platelet Count 270 thou/uL (130-400); Red Blood Cell (RBC) Count 4.47 mill/uL (4.70-6.10); White Blood Cell (WBC) Count 5.3 thou/uL (4.8-10.8)
[2019-03-15 09:38] LABS: Anion Gap 11 mmol/L (10-20); BUN (Urea Nitrogen) 5 mg/dL (8.4-25.7); Calc. Creatinine Clearance 80 mL/min (70-130); Calcium 9.9 mg/dL (7.8-10.44); Carbon Dioxide 24 mmol/L (23-31); Chloride 105 mmol/L (98-107); Estimated GFR-MDRD 78; Glucose 87 mg/dL (80-115); Magnesium 1.9 mg/dL (1.6-2.6); Potassium 4.7 mmol/L (3.5-5.1); Sodium 135 mmol/L (136-145)
[2019-03-15] MEDS: Amlodipine 5 MG TAB PO SCH (09:54)
[2019-03-15] MEDS: Multivitamin W/ Minerals 1 TAB PO SCH (09:55)
[2019-03-15] MEDS: Folic Acid 1 MG TAB PO SCH (09:55)
[2019-03-15] MEDS: Senokot S 8.6-50 MG TAB PO SCH (09:55)
[2019-03-15 14:12] LABS: ALT (SGPT) 101 U/L (8-55); AST (SGOT) 45 U/L (5-34); Albumin 3.7 g/dL (3.4-4.8); Alkaline Phosphatase 175 U/L (40-150); Bilirubin, Direct 0.6 mg/dL (0.1-0.3); Bilirubin, Total 1.1 mg/dL (0.2-1.2)
[2019-03-15 15:14] VITALS: TEMP 99
--- NOTE | 2019-03-16 23:32 | DIS ---
DATE OF ADMISSION: 03/12/2019 DATE OF DISCHARGE: 03/15/2019 DISCHARGE DIAGNOSES: As of the followin. Abdominal pain. 2. Alcohol abuse. 3. Elevated LFTs. 4. Electrolyte abnormalities. HOSPITAL COURSE: The patient is a 63-year-old male who has a history of alcohol abuse, who presented to the hospital with complaints of generalized weakness, saying my whole body hurts on the right side. The patient in the past has been ruled out for pancreatic mass and has had a history of known alcohol abuse. The patient at this time did undergo a right upper abdominal ultrasound, which indicated significant hepatic steatosis and also dilated biliary tree, especially in the common bile duct. I did review his previous records, especially the MRI that he has had done on 12/23, which did indicate that he also had slight increased prominence of the pancreatic duct also and the common bile duct was enlarged, but likely reservoir from prior cholecystectomy. There was no visualization. At this time, the patient did have some elevated LFTs with total bilirubin of 1.9, AST of 143, ALT of 190, and alkaline phosphatase of 187. He was found to be hypokalemic. His bilirubin improved, but his LFTs continued to be mildly elevated. Job ID: [id number]
--- NOTE | 2019-03-16 23:59 | DIS ---
DATE OF ADMISSION: 03/12/2019 DATE OF DISCHARGE: 03/15/2019 DISCHARGE DIAGNOSES: As of the followin. Alcohol abuse. 2. Abdominal pain. 3. Elevated LFTs, most likely secondary to alcohol. 4. Electrolyte abnormalities. HOSPITAL COURSE: The patient is a 63-year-old male, who initially presented to the hospital with complaints of generalized abdominal pain and pain all over. The patient at this time was thought to have possible alcohol hepatitis. He also was found to be hypertensive at that time. The patient's coagulations were negative. His LFTs and bilirubin continued to improve. Electrolytes were replaced. He was initially observed in the IMCU. I did do a right-sided abdominal ultrasound which indicated hepatic steatosis and dilated biliary tree, especially common bile duct which was 90 mm dilated. The patient also was checked for lipase, which was normal. He did have an elevated CRP of 7.04. He was initially kept n.p.o., was given IV fluids and then transitioned to clear liquids. The patient actually improved. He was able to tolerate whole meal without any problems. The patient did not have any more nausea. He did have abdominal x-ray that indicated [id number] amount of retained stool in his colon. He was given laxatives. The patient was discharged back home. He was started on some following medications: 1. Norvasc 5 mg daily. 2. Folic acid one p.o. daily. 3. Protonix 40 mg b.i.d. 4. Thiamine 100 mg daily. Again, he will be discharged home. He will follow up with his primary care doctor. PHYSICAL EXAMINATION: VITAL SIGNS: 98.6 temperature, 71 heart rate, 128/75, and 99% on room air. GENERAL: He is awake, alert, and oriented x3. Does not appear in distress. CV: S1, S2 present. No murmurs, rubs, or gallops. ABDOMEN: Soft and nontender. Bowel sounds are present. EXTREMITIES: No edema. Again, he will be discharged home. He will follow up with his primary care doctor. Job ID: [id number]
--- NOTE | 2019-03-18 10:59 | EKG ---
Test Reason : ABD PAIN Blood Pressure : / mmHG Vent. Rate : 068 BPM Atrial Rate : 068 BPM P-R Int : 138 ms QRS Dur : 086 ms QT Int : 426 ms P-R-T Axes : 024 000 -02 degrees QTc Int : 452 ms Normal sinus rhythm Normal ECG Confirmed by TIFF RAMÍREZ ([id number]), fashion editor FLORA DONATO ([id number]) on 03/18/2019 10:59:21 AM Referred By: DESIREE Confirmed By:TIFF RAMÍREZ
--- NOTE | 2019-03-18 10:59 | EKG ---
Test Reason : Blood Pressure : / mmHG Vent. Rate : 076 BPM Atrial Rate : 076 BPM P-R Int : 128 ms QRS Dur : 084 ms QT Int : 392 ms P-R-T Axes : 063 -17 -11 degrees QTc Int : 441 ms Normal sinus rhythm Possible Left atrial enlargement Left ventricular hypertrophy Abnormal ECG Confirmed by TIFF RAMÍREZ ([id number]), wastewater plant civil engineer FLORA DONATO ([id number]) on 03/18/2019 10:59:15 AM Referred By: Confirmed By:TIFF RAMÍREZ
== END 2019-03-15 18:05 | disposition home or self-care (01) | DRG 433 ==
LOC: ERS 06:23 → IMCU/EMU 08:06
PROVIDERS: ADMIT Internal Medicine; ATTEND Internal Medicine
DX: K70.10 Alcoholic hepatitis without ascites (principal); F10.188 Alcohol abuse with other alcohol-induced disorder; K21.9 Gastro-esophageal reflux disease without esophagitis; I10 Essential (primary) hypertension; I16.0 Hypertensive urgency; E87.8 Other disorders of electrolyte and fluid balance, not elsewhere classified; K76.0 Fatty (change of) liver, not elsewhere classified; E87.6 Hypokalemia; Z79.899 Other long term (current) drug therapy
CPT/HCPCS: 36415; 74018; 76705; 80048; 80053; 80061; 80076; 83690; 83735; 84443; 85025; 85610; 85652; 85730; 86140; 93005; 93306; 94760; 96365; C9113; J2270; J3411; J3475; J3490

== ENCOUNTER 2019-08-09 19:09 | Observation (INO) | payer MEDICARE, MEDICAID ==
--- NOTE | 2019-08-09 19:56 | RAD ---
Exam: Chest one view HISTORY:Chest pain Comparison: 03/12/2019 FINDINGS: Cardiac silhouette: Normal Aorta: Unremarkable Pulmonary vessels: Normal Costophrenic angles: Clear LUNGS: No masses or consolidation. Pneumothorax: None Osseous abnormalities: None IMPRESSION: No acute cardiopulmonary process.
[2019-08-09 19:59] LABS: #Lymphocytes 2.9 thou/uL (1.20-3.40); #Monocytes 0.5 thou/uL (0.11-0.59); %Basophils 0.7 % (0.0-1.0); %Eosinophils 0.2 % (0.0-10.0); %Monocytes 7.9 % (0.0-10.0); %Neutrophils 46.1 % (42.0-75.0); Hemoglobin 14.8 g/dL (14.0-18.0); Mean Corpuscular HGB CONC 34.9 g/dL (32.0-36.0); Mean Corpuscular Hemoglobin 31.6 pg (27.0-31.0); Mean Corpuscular Volume 90.5 fL (78.0-98.0); Mean Platelet Volume 6.1 fL (7.4-10.4); Platelet Count 316 thou/uL (130-400); RBC Distribution Width 12.4 % (11.5-14.5); Red Blood Cell (RBC) Count 4.67 mill/uL (4.70-6.10); White Blood Cell (WBC) Count 6.4 thou/uL (4.8-10.8)
[2019-08-09] MEDS ORDERED: Ondansetron PF 4 MG/2 ML Vial ONE (20:14)
[2019-08-09] MEDS ORDERED: Morphine 4 MG/ML VIAL ONE (20:14)
[2019-08-09 20:24] LABS: ALT (SGPT) 44 U/L (8-55); AST (SGOT) 43 U/L (5-34); Albumin 4.2 g/dL (3.4-4.8); Alkaline Phosphatase 120 U/L (40-110); Anion Gap 18 mmol/L (10-20); BUN (Urea Nitrogen) 11 mg/dL (8.4-25.7); Bilirubin, Total 0.6 mg/dL (0.2-1.2); Calc. Creatinine Clearance 0 mL/min (70-130); Carbon Dioxide 21 mmol/L (23-31); Chloride 103 mmol/L (98-107); Estimated GFR-MDRD 75; Globulin 3.2 g/dL (2.4-3.5); Glucose 89 mg/dL (80-115); Lipase 25 U/L (8-78); Potassium 3.8 mmol/L (3.5-5.1); Protein, Total 7.4 g/dL (5.8-8.1); Sodium 138 mmol/L (136-145)
[2019-08-09] MEDS ORDERED: Aspirin Chewable 81 MG TAB ONE (21:04)
[2019-08-09] MEDS ORDERED: Fentanyl 100 MCG/2 ML VIAL ONE (22:04)
[2019-08-09 22:39] VITALS: BMI 27.0
[2019-08-10] MEDS ORDERED: Senokot S 8.6-50 MG TAB PO PRN (00:01)
[2019-08-10] MEDS ORDERED: Acetaminophen 325 MG TAB PO PRN (00:01)
[2019-08-10] MEDS ORDERED: Multivitamins, Adult 10 ML, Folic Acid 1 MG, Thiamine HCl 100 MG in Dextrose 5 %-0.45 %... IV SCH (00:15)
[2019-08-10 00:25] LABS: Troponin I Less than 0.010 ng/mL (< 0.028)
--- NOTE | 2019-08-10 01:11 | HP ---
PRIMARY CARE PHYSICIAN: None. CHIEF COMPLAINT: Chest pain. HISTORY OF PRESENT ILLNESS: Mr. Acosta is a 64-year-old man, who reported to the emergency room today via EMS with chief complaint of chest pain which started 2 days ago and worsening. He reported to EMS that he was short of breath and they gave him three nitro, some nitro paste, fluids, and Zofran en route. Patient denies any smoking, but does dip and reports he drinks alcohol daily. Reports that he drank two large beers today. He reports that he has been admitted for chest pain in the past, but denies any significant cardiology history. Does have a history of hypertension and GERD. On exam here, patient reports that he has left shoulder pain. Reports that it has been hurting for the last six months, but it does radiate into his chest. Chest x-ray in the emergency room was negative. LABORATORY DATA: White blood cell count 6.4, hemoglobin 14.8, hematocrit 42.2, and platelet count 316. Chemistry unremarkable other than a carbon dioxide of 21, AST 43, and alk phos 120. Troponin x1 is undetectable. Lipase is 25. EKG in the emergency room, normal sinus rhythm. It was compared to a previous EKG from March 12, 2019, which was similar. He had T-waves inverted in V2 V5, more pronounced on this EKG than the last one. He will be admitted to the observation unit for further management. REVIEW OF SYSTEMS: Reports the left shoulder pain that radiates into his chest. Reports some shortness of breath. Reports some nausea, intermittent abdominal pain. Denied fever or chills. Denied any change in stool. All systems are reviewed and are negative unless mentioned in the HPI. PAST MEDICAL HISTORY: GERD, stomach ulcers, pancreatitis, reflux, and hypertension. PAST SURGICAL HISTORY: Back surgery, knee surgery, and appendectomy. PSYCHIATRIC HISTORY: None. SOCIAL HISTORY: Drinks. He said three Tallboys beer everyday. Chews tobacco. Lives at home with family. ALLERGIES: NONE. CURRENT MEDICATIONS: He is supposed to be taking; 1. Norvasc 5 mg p.o. daily, but reports that he stopped taking that because it upset his stomach. 2. Does take two aspirins everyday. PHYSICAL EXAMINATION: VITAL SIGNS: Blood pressure 115/62, pulse is 80, respirations 18, temperature is 98.4, and pO2 sats are 95% on room air. CONSTITUTIONAL: The patient appears poorly groomed, appears intoxicated. HEENT: Head is atraumatic and normocephalic. Eyes, pupils are equally round and reactive to light. Extraocular muscles are intact. ENT; mouth exam is normal. Mucous membranes are moist. NECK: Normal range of motion. Trachea is midline. RESPIRATORY/CHEST: Breath sounds are clear. Chest expansion is equal. CARDIOVASCULAR: Regular heart rate and rhythm. Heart sounds are normal. ABDOMEN: Nontender. Bowel sounds are heard. BACK: Normal range of motion. No tenderness. Upper extremity, normal range of motion. Normal motor strength. Radial pulses are normal. Lower extremity, normal range of motion. Motor strength is normal. Pedal pulses are normal. No edema is noted. NEUROLOGIC: Oriented to person, place, and time. Speech is normal. SKIN: Warm and dry. Normal in color. PSYCH: He has normal affect. PLAN/ASSESSMENT: 1. Left shoulder pain radiates into the chest. Reports that this has been ongoing for six months, worse in the last 2 weeks. Potential EKG changes. Smell of alcohol on patient's breath is noticed. We will admit him to the observation unit. Banana bag is 70 mL per hour. Trend troponins. OLIVIER protocol started. Patient is more alert. Stress test in the a.m. to be considered. 2. Alcohol abuse. protocol, banana bag. 3. History of hypertension. Current blood pressure is 118/82. We will monitor. Add p.r.n. as needed. 4. GI and deep venous thrombosis prophylaxis started. Hospital course is dependent on clinical findings. Job ID: [id number]
[2019-08-10] MEDS ORDERED: Morphine 2 MG/ML SYRINGE SLOW IVP SCH (01:30)
[2019-08-10 03:37] LABS: #Basophils 0.1 thou/uL (0.0-0.2); #Lymphocytes 2.1 thou/uL (1.20-3.40); #Monocytes 0.4 thou/uL (0.11-0.59); %Basophils 1.4 % (0.0-1.0); %Eosinophils 0.9 % (0.0-10.0); %Lymphocytes 46.4 % (21.0-51.0); %Monocytes 9.2 % (0.0-10.0); %Neutrophils 42.2 % (42.0-75.0); Hemoglobin 13.2 g/dL (14.0-18.0); Mean Corpuscular HGB CONC 34.2 g/dL (32.0-36.0); Mean Corpuscular Hemoglobin 31.3 pg (27.0-31.0); Mean Corpuscular Volume 91.4 fL (78.0-98.0); Mean Platelet Volume 5.9 fL (7.4-10.4); Platelet Count 269 thou/uL (130-400); RBC Distribution Width 12.5 % (11.5-14.5); Red Blood Cell (RBC) Count 4.24 mill/uL (4.70-6.10); White Blood Cell (WBC) Count 4.6 thou/uL (4.8-10.8)
[2019-08-10 03:59] LABS: Anion Gap 14 mmol/L (10-20); BUN (Urea Nitrogen) 9 mg/dL (8.4-25.7); Calc. Creatinine Clearance 77 mL/min (70-130); Carbon Dioxide 22 mmol/L (23-31); Chloride 108 mmol/L (98-107); Estimated GFR-MDRD 73; Potassium 4.2 mmol/L (3.5-5.1); Sodium 140 mmol/L (136-145)
[2019-08-10 04:00] LABS: ALT (SGPT) 40 U/L (8-55); AST (SGOT) 42 U/L (5-34); Albumin 3.7 g/dL (3.4-4.8); Alkaline Phosphatase 107 U/L (40-110); Bilirubin, Total 0.6 mg/dL (0.2-1.2); Calcium 8.2 mg/dL (7.8-10.44); Cardiac Risk 2.9 (Less than 4.5); Cholesterol 212 mg/dl (< 200 Desired); Glucose 78 mg/dL (80-115); HDL Cholesterol 72 mg/dL (>60 Neg Risk); LDL Cholesterol, Calculated 114 mg/dL; Protein, Total 6.7 g/dL (5.8-8.1); Triglycerides 129 mg/dL (Less than 150)
[2019-08-10 04:02] LABS: Troponin I Less than 0.010 ng/mL (< 0.028)
[2019-08-10 04:16] LABS: Thyroid Stimulating Hormone 3.4641 uIU/mL (0.35-4.94)
[2019-08-10] MEDS ORDERED: Enoxaparin Sodium 40 MG/0.4 ML SYRINGE SC SCH (09:00)
[2019-08-10] MEDS ORDERED: Famotidine 20 MG TAB PO SCH (09:00)
--- NOTE | 2019-08-10 14:34 | NM ---
EXAM: CARDIAC SPECT HISTORY: Chest pain TECHNIQUE: A myocardial perfusion scan was performed using the single isotope 1 day protocol with laura hnetium 99m sestamibi. [10 mCi] was injected intravenously for the rest exam followed by 30 mCi for the stress study. Pharmacologic stress with adenosine was monitored and interpreted by JENA Medeiros FINDINGS: Homogeneous tracer distribution is seen in the myocardial segments on stress and rest image s without fixed or reversible defects. Gated SPECT LVEF: 71% Wall motion exam: Normal IMPRESSION: Normal myocardial perfusion scan
[2019-08-10 15:20] VITALS: BP 142/83; TEMP 97.7
[2019-08-10] MEDS ORDERED: ADENOSINE 60 MG/20 ML VIAL ONE (16:25)
--- NOTE | 2019-08-11 07:41 | DIS ---
DATE OF ADMISSION: 08/09/2019 DATE OF DISCHARGE: 08/10/2019 DISCHARGE DISPOSITION: Home. PRIMARY DISCHARGE DIAGNOSIS: Left shoulder pain/chest pain, acute coronary syndrome ruled out. SECONDARY DISCHARGE DIAGNOSES: Hypertension, gastroesophageal reflux disease, alcohol abuse. PROCEDURES DONE DURING HOSPITALIZATION: Chest x-ray done showed, no acute cardiopulmonary abnormality. Nuclear stress test showed normal wall motion with normal myocardial perfusion scan. Ejection fraction was 71%. H and H 13 and 38, MCV is 91 with platelet count of 269. BUN 9, creatinine 1.0, total cholesterol 212, triglycerides 129, LDL 114, HDL 72, vitamin B12 of 306, folic acid 14, TSH 3.46. Troponin x3 negative. DISCHARGE MEDICATIONS: Norvasc 5 mg p.o. daily. ALLERGIES: NO KNOWN DRUG ALLERGIES. DISCHARGE PLAN: The patient to follow up with his primary care physician, Dr. Berman, in 1 week BRIEF COURSE DURING HOSPITALIZATION: The patient initially came in with complaints of left shoulder and forearm pain. In view of risk factors, the patient was placed under observation on telemetry to rule out ACS. He has known history of alcohol abuse and has had hospitalizations here before. He has had 3 sets of troponin done, which was negative and nuclear stress test done, showed no reversible ischemia. He was counseled regarding alcohol usage and to stop it completely. He remained hemodynamically stable with no further chest pains. Likely, his left shoulder pain is musculoskeletal in nature. Please note, I have seen and examined the patient on the day of discharge. Job ID: [id number] MTDD
== END 2019-08-10 17:23 | disposition home or self-care (01) ==
LOC: ERS 19:09 → 2SW 22:35
PROVIDERS: ADMIT Internal Medicine; ATTEND Internal Medicine
DX: R07.9 Chest pain, unspecified (principal); M25.512 Pain in left shoulder; I10 Essential (primary) hypertension; K21.9 Gastro-esophageal reflux disease without esophagitis; F10.10 Alcohol abuse, uncomplicated; F17.220 Nicotine dependence, chewing tobacco, uncomplicated; Z79.82 Long term (current) use of aspirin; Z79.899 Other long term (current) drug therapy
CPT/HCPCS: 71045; 78452; 80053; 80061; 82607; 82746; 83690; 84484 ×3; 85025; 93005; 93017; 96361 ×2; 96365; 96372; 96375; 96376; 97139; 99285; A9500; G0378 ×3; 36415; 84443; 96374; J0153; J1650; J2270; J2405; J3010; J3411; J7042

== ENCOUNTER 2019-09-17 00:10 | Inpatient (IN) | payer MEDICARE, MEDICAID ==
[2019-09-17 00:49] LABS: Hemoglobin 13.8 g/dL (14.0-18.0); Mean Corpuscular HGB CONC 35.5 g/dL (32.0-36.0); Mean Corpuscular Hemoglobin 33.4 pg (27.0-31.0); Mean Platelet Volume 6.9 fL (7.4-10.4); Platelet Count 132 thou/uL (130-400); RBC Distribution Width 14.6 % (11.5-14.5); Red Blood Cell (RBC) Count 4.15 mill/uL (4.70-6.10); White Blood Cell (WBC) Count 8.5 thou/uL (4.8-10.8)
[2019-09-17 00:58] LABS: Band 5 % (5-11); Lymphocytes 1 % (21-51); MDiff Complete? YES; Monocytes 4 % (0-10); Neutrophil 90 % (42-75); Platelet Morphology Comment Appears Adequate
[2019-09-17 01:34] LABS: ALT (SGPT) 268 U/L (8-55); AST (SGOT) 1042 U/L (5-34); Albumin 3.6 g/dL (3.4-4.8); Alkaline Phosphatase 319 U/L (40-110); Anion Gap 20 mmol/L (10-20); BUN (Urea Nitrogen) 6 mg/dL (8.4-25.7); Bilirubin, Total 6.1 mg/dL (0.2-1.2); Calc. Creatinine Clearance 0 mL/min (70-130); Calcium 8.5 mg/dL (7.8-10.44); Carbon Dioxide 18 mmol/L (23-31); Chloride 100 mmol/L (98-107); Estimated GFR-MDRD 78; Glucose 83 mg/dL (80-115); Potassium 3.9 mmol/L (3.5-5.1); Protein, Total 6.6 g/dL (5.8-8.1); Sodium 134 mmol/L (136-145)
[2019-09-17] MEDS ORDERED: Ondansetron PF 4 MG/2 ML Vial ONE (01:39)
[2019-09-17] MEDS ORDERED: Morphine 4 MG/ML VIAL ONE (01:39)
[2019-09-17] MEDS ORDERED: Ondansetron PF 4 MG/2 ML Vial IVP PRN (03:47)
[2019-09-17] MEDS ORDERED: Ondansetron ODT 4 MG TAB PO PRN (03:47)
[2019-09-17] MEDS ORDERED: Acetaminophen 325 MG TAB PO PRN (03:47)
[2019-09-17] MEDS ORDERED: Sodium Chloride 0.9% 1,000 ML IV SCH (04:00)
[2019-09-17] MEDS: Sodium Chloride 0.9% 1,000 ML IV SCH ×3 (04:35→19:30)
[2019-09-17] MEDS: Piperacillin/Tazobactam 3.375 GM in Sodium Chloride 0.9% 100 ML IVPB SCH ×3 (04:35→19:30)
[2019-09-17 04:45] VITALS: BMI 25.8
--- NOTE | 2019-09-17 04:46 | HP ---
PRIMARY CARE PHYSICIAN: None. CHIEF COMPLAINT: Right upper abdominal pain x1 week, worsened x1 day. HISTORY OF PRESENT ILLNESS: This is a 64-year-old male, with past medical history of hypertension, GERD, prior cholecystectomy, and chronic daily beer intake without prior alcohol withdrawal symptoms, who presented to [facility] ER via EMS for 1-week history of pain in epigastrium and right upper quadrant associated with nausea and anorexia with increasing severity of pain today to 10/10 without radiation, prompting further ED evaluation via EMS. The patient has been trying oral ibuprofen 800 mg tablets without any pain relief. He reports his last episode of emesis was the day after being released from [facility] on 09/07/[facility], after trying to eat a microwave meal. For the past week, he has only attempted candies and liquid intake. He denies any changes to bowel or bladder function. He denies any sweats, but notes over the past couple of days having feeling hot and cold. In ER, laboratory values revealed unremarkable CBC but chemistries revealed a total bilirubin of 6.1, alkaline phosphatase of 319, AST 1042 and ALT of 268 with anion gap metabolic acidosis also noted on chemistries. The patient was administered IV morphine. A stat right upper quadrant ultrasound was done revealing a common bile duct dilatation up to 15 mm with increased liver echogenicity noted and no obvious focal hepatic lesions. On-call GI was consulted. The patient will be admitted for further evaluation. Review of prior electronic records notes similar hospital evaluation at which time a March 2019 ultrasound revealed a dilated biliary tree, especially involving the common duct measuring 19 mm and previously underwent an MRI of the abdomen in December 2018 revealing slight increased prominence of the pancreatic duct without pancreatic mass visualized and no focal liver lesion seen without cirrhotic appearing liver and mild stable central intrahepatic biliary dilatation. PAST MEDICAL HISTORY: Hypertension, GERD, chronic beer use. PAST SURGICAL HISTORY: Cholecystectomy, back surgery, knee surgery. SOCIAL HISTORY: The patient admits to dipping snuff. He drinks 4 cans of beer on a daily basis. He denies any illicit drug use. Denies any history of HIV or hepatitis. ALLERGIES: NONE DOCUMENTED. REVIEW OF SYSTEMS: Pertinent positives as per HPI. Remainder of review of systems negative. HOME MEDICATIONS: Reviewed as per admission medication reconciliation including; 1. Ibuprofen 800 mg tablets. 2. Aspirin. 3. Antacid medications. 4. Unspecified blood pressure medications. FAMILY HISTORY: The patient's grandmother had heart disease. The patient denies any family history of stroke. PHYSICAL EXAMINATION: VITAL SIGNS: T-max afebrile 99.2, pulse 84 to 91, sinus rhythm, blood pressure 120/70, oxygen saturation 97% on room air, respirations 14 to 16 unlabored. GENERAL APPEARANCE: This is an elderly appearing male who is awake, alert, oriented, coherent, lucid, nontoxic in appearance, in mild intermittent distress. HEENT: Normocephalic, atraumatic. No facial asymmetry. Pupils equally round. Extraocular muscles intact. No conjunctival pallor, but there is notable scleral icterus. Mucous membranes are moist. NECK: Supple. CARDIOVASCULAR: S1, S2. Regular rate and rhythm. No harsh murmurs. No chest wall tenderness to palpation. LUNGS: Bilateral equal air entry on bilateral anterior auscultation. Symmetrical chest expansion. No wheezing or rales. ABDOMEN: Soft, nondistended. There is tenderness to mild palpation in the epigastrium and right upper quadrant and the right mid abdomen. No peritoneal signs. Normoactive bowel sounds. EXTREMITIES: No edema, cyanosis, or deformities appreciated. Full passive range of motion of arms and legs. SKIN: Warm to touch without rash or pallor or abrasion. There is a jaundiced appearing skin discoloration noted. LABORATORY DATA: WBC 8.5, H and H 13.8/39, platelets 132. Chemistries; sodium 134, potassium 3.9, chloride 100, bicarb 18, glucose 80, BUN and creatinine 6/0.97, GFR 78. Troponin I negative x1. Total bilirubin 6.1, AST 1042, ALT 268, alkaline phosphatase 319, total protein 6.6, albumin 3.6, lipase of 18. IMAGING DATA: A right upper quadrant limited ultrasound reveals; 1. Increased echogenicity of the liver, most consistent with fibrosis and/or cirrhosis but steatosis could have a similar appearance. No focal hepatic lesions although ultrasound is inherently insensitive for detecting this. 2. Common bile duct dilatation to 15 mm. ASSESSMENT: 1. Obstructive jaundice with hyperbilirubinemia of unspecified etiology. Evaluate for choledocholithiasis. The patient will be admitted as inpatient status and placed on Med/Surg unit. He has had a prior history of cholecystectomy and has had similar symptoms in March 2019, at which time an abdominal ultrasound revealed CBD dilatation without choledocholithiasis. Ultrasound today also does not reveal choledocholithiasis. On-call Gastroenterology will be consulted for further evaluation. We will maintain patient n.p.o., bolus IV fluids 1 L with maintenance IV fluids, and continue empiric antibiotics for biliary coverage. If no obvious evidence of choledocholithiasis or biliary sludge, MRCP may be necessary to evaluate for any underlying tumors. We will trend LFTs and await further GI input. 2. Anion gap metabolic acidosis likely secondary to starvation ketoacidosis. Bolus IV fluids and continue maintenance fluids and monitor for anion gap closure. 3. Hypertension, benign. 4. History of cholecystectomy. 5. Nicotine dependence. The patient will require cessation counseling. 6. Chronic alcohol dependence with daily beer intake. The patient will require cessation counseling. He denies any prior history of alcohol withdrawal symptoms. 7. Deep venous thrombosis prophylaxis: Sequential compression devices. Avoid anticoagulation until further GI consultation is completed. 8. Disposition. The patient will be admitted to inpatient status and placed on Med/Surg unit. 9. Code status: Full code. 10. The patient is seen and examined on 09/17/2019. Job ID: [id number]
--- NOTE | 2019-09-17 07:39 | ULT ---
PRELIMINARY REPORT/[facility]/EMERGENCY AFTER HOURS PROCEDURE EXAM: US Abdomen Limited, Right Upper Quadrant. CLINICAL HISTORY: HX: RUQ AND EPIGASTRIC PAIN. SEE NOTES ON LAST IMAGE. THANKS TECHNIQUE: Real-time ultrasound of the right upper quadrant with image documentation. COMPARISON: None provided. FINDINGS: LIVER: The liver is diffusely increased in echogenicity with coarsened echotexture and nodularity sug gested. There are no focal hepatic lesions. Hepatopedal portal venous flow. GALLBLADDER: The gallbladder is removed. COMMON BILE DUCT: The common bile duct measures 15 mm. No contents seen within the common bile duct w ithin the field of view. PANCREAS: Unremarkable as visualized. The distal pancreas is obscured by overlying bowel gas. RIGHT KIDNEY: The right kidney measures 6.9 cm in length. No hydronephrosis or stones. IMPRESSION: 1. Increased echogenicity of the liver most consistent with fibrosis and/or cirrhosis. Steatosis co uld have a similar appearance. No focal hepatic lesions although ultrasound is inherently insensitive for detection of solid organ masses compared with CT and MRI. 2. Common bile duct dilation to 15 mm. This could represent reservoir effect from postcholecystecto my status although obstruction is not ruled out. Correlate with laboratory values and consider further evaluation with MRCP or ERCP as clinically warranted. ELECTRONICALLY SIGNED BY: Rhett Guzman M.D. Sep 17, 2019 1:24:33 AM TRAFFIC CONTROL TECHNICIAN This report is intended for review by the ordering physician only, in accordance of law. If you recei ve this report in error, please call [facility] at [phone]. FINAL REPORT US Gallbladder RUQ History: Pain Comparison: Gallbladder ultrasound March 2019 Findings: Real-time grayscale, color evaluation of the right upper quadrant of the abdomen was perfor med. Impression: Findings mostly consistent with the preliminary report. Marked intrahepatic and extra hep atic biliary dilatation, relatively similar to the comparison examination. Nonemergent follow-up ERCP/MRCP recommended. Transcribed Date/Time: 09/17/2019 7:49 AM
--- NOTE | 2019-09-17 08:05 | RAD ---
XR Chest 1 View Portable History: Chest pain Comparison: Radiograph August 2019 Findings: Pulmonary arteries are dilated. Mild atelectatic changes both lung bases. No confluent airs pace consolidation or pneumothorax. No acute osseous abnormality. Impression: 1. No acute intrathoracic abnormality. Next and 2. Findings of possible pericardial calcifications. Echocardiogram may be beneficial.
[2019-09-17 10:06] LABS: INR-International Normal Ratio 1.1; Prothrombin Time 14.3 SEC (12.0-14.7)
[2019-09-17] MEDS: Morphine 4 MG/ML VIAL SLOW IVP PRN ×2 (14:35→19:21)
[2019-09-17] MEDS: Multivitamins, Adult 10 ML, Folic Acid 1 MG, Thiamine HCl 100 MG in Dextrose 5 %-0.45 %... IV SCH (17:14)
[2019-09-17 17:31] LABS: Acetaminophen Less than 6.0 mcg/mL (10.0-30.0)
[2019-09-18] MEDS: Morphine 4 MG/ML VIAL SLOW IVP PRN ×4 (00:09→23:09)
--- NOTE | 2019-09-18 00:53 | CON ---
DATE OF CONSULTATION: 09/17/2019 REASON FOR CONSULT: Elevated liver enzymes. CONSULTING PHYSICIAN: Dr. Overton. HISTORY OF PRESENT ILLNESS: Mr. Swanson is a 64-year-old gentleman who has been in this hospital multiple times. Most recently, he was in the hospital and discharged on 08/11 when he had been here for chest pain. He had a nuclear stress test, showed normal myocardial perfusion scan with the ejection fraction of 71%. He returned the last night to the emergency room secondary to pain in the epigastric region. He states he has not had pain like this in the past, it has been worse over the past week, but he really states this started on , it is so sharp pain that seems to come from both sides. It does not radiate to the back. There has been no associated nausea, vomiting, although he has lost some appetite. He has had no fever or chills. No rashes. He has been taking ibuprofen at home. He is a heavy drinker of alcohol and last drink yesterday morning, actually he drinks about 3 to 7 tall boys a day. In the emergency room, he had a normal CBC, but he had a bilirubin of 6.1, alkaline phosphatase of 319, and AST and ALT of 1042 and 286. He was given some morphine and ultrasound showed a 15 mm common bile duct which is not new. At that time, he had an MRCP which showed mild prominence in the head of the pancreas but no overt mass seen. PAST MEDICAL HISTORY: Hypertension, reflux, chronic tobacco use, chronic nicotine use. PAST SURGICAL HISTORY: Previous cholecystectomy, back surgery, knee surgery. Carpal tunnel release. History of duodenal stricture with ulcer in 2011. SOCIAL HISTORY: The patient dips. He drinks about 4-8 cans of beer per day. Denies drug use. ALLERGIES: NONE KNOWN. MEDICATIONS: At home, 1. Ibuprofen 800 mg. 2. Aspirin. 3. Antacids. 4. Blood pressure medicine, does not know the name of. Medications here, 1. Acetaminophen. 2. Morphine. 3. Zofran. 4. Zosyn. 5. Normal saline 125 an hour. FAMILY HISTORY: Negative for liver disease. REVIEW OF SYSTEMS: The patient denies taking any Tylenol, NEW MEDICTIONS: Vitamins. He is feeling a little bit better now. He has had no fever or chills. He denies weight loss. Denies dysphagia, odynophagia, melena, hematochezia, or hematemesis. PHYSICAL EXAMINATION: GENERAL: He is resting in bed. VITAL SIGNS: Temperature is 98.3, T-max is 98.8, pulse 80, blood pressure is 104/56 to 103/58. He is sitting in bed comfortably. He is in no distress. LUNGS: Clear. HEART: Regular without clicks or murmurs. ABDOMEN: Soft. There is no tenderness. There is no rebound. There is no guarding. No palpable hepatomegaly. He has no spider angioma. LABORATORY DATA: White count is 8.5, hemoglobin is 13, platelet count is 132. Sodium is 134, potassium is 3.9, BUN is 6, creatinine is 0.97. Bilirubin 6.1, back in March it gone up to 5.1. His AST is 1042, in March was 430, but came down normal between those two. His ALT was 268, back in March it was 300. On 08/10, his liver function tests were notable for only an AST of 42, normal bilirubin, ALT, and alkaline phosphatase. Here his alkaline phosphatase is 319, lipase is 18. Cholesterol is 212. B12 of 306, previous gastrin of 301 in 2012. Previous labs for immunology significant for a negative monoclonal antibody in 2012. Alcohol level this admission was not obtained last night, but this morning was less than 10. ASSESSMENT: AST elevation with bilirubin elevation. Vague right upper quadrant pain with no overt signs of cholangitis. Normal white blood cell count, normal hemoglobin, normal platelets. He has had a persistently dilated common bile duct which dates back to last year. MRCP has not shown pancreatic masses or choledocholithiasis in the past. His pain is quite vague. Differential diagnosis would include choledocholithiasis or biliary obstruction, but reflux or peptic disease could cause the same pain. His elevated LFTs are a little bit atypical for choledocholithiasis and usually you will see ALT greater than AST in that setting. Other concerns to be viral hepatitis, toxin exposure including Tylenol. He does not look overtly ill and he is not coagulopathic and does not appear septic. RECOMMENDATIONS: I would check a Tylenol level in this patient, one has not been done. I placed him on a PPI as he has had ulcers before. He has epigastric pain. Get an MRCP to look at his biliary and have head of his pancreas scan. We will follow along with you. Job ID: [id number]
[2019-09-18] MEDS: Piperacillin/Tazobactam 3.375 GM in Sodium Chloride 0.9% 100 ML IVPB SCH ×3 (04:23→20:04)
[2019-09-18] MEDS: Sodium Chloride 0.9% 1,000 ML IV SCH ×3 (04:58→20:19)
[2019-09-18 05:31] LABS: INR-International Normal Ratio 1.1; Prothrombin Time 14.2 SEC (12.0-14.7)
[2019-09-18 05:53] LABS: ALT (SGPT) 371 U/L (8-55); AST (SGOT) 785 U/L (5-34); Albumin 3.2 g/dL (3.4-4.8); Alkaline Phosphatase 209 U/L (40-110); Anion Gap 13 mmol/L (10-20); BUN (Urea Nitrogen) 7 mg/dL (8.4-25.7); Calc. Creatinine Clearance 77 mL/min (70-130); Calcium 8.1 mg/dL (7.8-10.44); Carbon Dioxide 22 mmol/L (23-31); Chloride 103 mmol/L (98-107); Estimated GFR-MDRD 77; Glucose 96 mg/dL (80-115); Lipase 7 U/L (8-78); Potassium 3.8 mmol/L (3.5-5.1); Protein, Total 6.2 g/dL (5.8-8.1); Sodium 134 mmol/L (136-145)
[2019-09-18 06:03] LABS: #Lymphocytes 0.6 thou/uL (1.20-3.40); #Monocytes 0.4 thou/uL (0.11-0.59); #Neutrophils 6.7 thou/uL (1.40-6.50); %Eosinophils 0.3 % (0.0-10.0); %Lymphocytes 7.2 % (21.0-51.0); %Monocytes 5.1 % (0.0-10.0); %Neutrophils 87.4 % (42.0-75.0); Hemoglobin 12.8 g/dL (14.0-18.0); Mean Corpuscular Hemoglobin 31.7 pg (27.0-31.0); Mean Corpuscular Volume 96.1 fL (78.0-98.0); Mean Platelet Volume 7.4 fL (7.4-10.4); Platelet Count 108 thou/uL (130-400); RBC Distribution Width 14.9 % (11.5-14.5); Red Blood Cell (RBC) Count 4.02 mill/uL (4.70-6.10); White Blood Cell (WBC) Count 7.7 thou/uL (4.8-10.8)
[2019-09-18 06:09] LABS: HBCM Index 0.08 S/CO (0-0.79); HBSAg Index 0.12 S/CO (0-0.99); Hep A IgM AB Non-Reactive (NonReactive); Hep A IgM S/CO 0.12 S/CO (0-0.79); Hep B Surf Ag Non-Reactive S/CO (NonReactive); Hep C IgG Ab Non-Reactive (NonReactive); Hep C Index 0.08 S/CO (0-0.79); Hepatitis B Core IgM Abs Non-Reactive (NonReactive)
[2019-09-18] MEDS: Pantoprazole 40 MG VIAL IVP SCH (08:00)
--- NOTE | 2019-09-18 12:05 | MRI ---
MR of the abdomen without IV contrast INDICATION: Dilated intrahepatic and extra hepatic biliary ducts TECHNIQUE: Multiplanar multisequence MR images were obtained of the abdomen with and without contrast utilizing MRCP protocol. Contrast: No contrast administered COMPARISON: MR of the abdomen with and without contrast dated December 18, 2018 FINDINGS: Liver: There is worsening moderate intrahepatic biliary ductal dilatation when compared to the recent MR examination. The extrahepatic biliary ductal dilatation is also slightly more prominent. There is prominent fatty infiltration of the liver. Gallbladder and biliary system: There is a focal filling defect within the distal common bile duct me asuring 6.6 mm suspicious for choledocholithiasis.The common bile duct measures: 2.1 cm. The common bile duct previously measured 1.9 cm on the comparison dated December 18, 2018. Pancreas: There is worsening main pancreatic ductal dilatation with the duct measuring 6.8 mm within the pancreatic body. This previously measured 3.5 mm Adrenal glands: Normal appearing. Kidneys: Normal appearing.. Spleen: Normal in size and signal intensity. Retroperitoneum and peritoneal cavity: No free fluid or lymphadenopathy is evident. Osseous structures: Bone marrow signal intensity is within normal limits. IMPRESSION: 1. Worsening intrahepatic and extra hepatic biliary ductal dilatation with a 6.6 mm suspected stone i nvolving the distal common bile but near the ampulla. This is inducing worsening [id number] pancreatic ductal dilatation. 2. Prominent fatty liver
--- NOTE | 2019-09-18 12:35 | PDOC.HOSPP ---
- Subjective Encounter Date: 09/18/19 Encounter Time: 10:30 Subjective: has mild ruq pain, no nausea. C/o loose stools multiple times - Objective Vital Signs & Weight: Vital Signs (12 hours) Temp Pulse Resp BP BP Pulse Ox 09/18/19 08:00 94 L 09/18/19 07:13 98.1 F 85 18 110/67 94 L 09/18/19 05:52 98.1 F 63 18 104/66 94 L 09/18/19 04:00 98.2 F 74 16 101/65 95 Weight Weight 160 lb 1 oz I&O: 09/17/19 09/18/19 09/19/19 06:59 06:59 06:59 Intake Total 120 2279 Balance 120 2279 Result Diagrams: 09/18/19 05:07 09/18/19 05:07 Hospitalist ROS - Medication Medications: Active Medications Generic Name Dose Route Start Last Admin Trade Name Freq PRN Reason Stop Dose Admin Sodium Chloride 1,000 mls @ 125 mls/hr 09/17/19 04:00 09/18/19 12:30 Normal Saline 0.9% IV 1,000 mls .Q8H [facility] Administration Piperacillin Sod/Tazobactam 100 mls @ 200 mls/hr 09/17/19 04:00 09/18/19 12: 29 Sod 3.375 gm/ Sodium Chloride IVPB 100 mls 0400,1200,2000 [facility] Administration Multivitamins 10 ml/ Folic 1,011.2 mls @ 100 mls/hr 09/17/19 16:30 09/17/19 17:14 Acid 1 mg/ Thiamine HCl 100 mg IV 1,011.2 mls / Dextrose/Sodium Chloride Q24HR [facility] Administration Morphine Sulfate 4 mg 09/17/19 03:50 09/18/19 08:04 Morphine SLOW IVP 4 mg Q4H PRN Administration Severe Pain (7-10) Pantoprazole Sodium 40 mg 09/18/19 09:00 09/18/19 08:00 Protonix IVP 40 mg DAILY [facility] Administration - Exam General Appearance: awake alert Eye: PERRL, scleral icterus ENT: no oropharyngeal lesions, dry oral mucosa Neck: supple, no JVD Heart: RRR, no murmur Respiratory: no wheezes, no rales, no ronchi Gastrointestinal: soft, non-tender, non-distended, normal bowel sounds Extremities: no cyanosis, no edema Neurological: cranial nerve grossly intact, no focal deficits Psychiatric: normal affect, A&O x 3 Hosp A/P (1) Elevated LFTs Code(s): R94.5 - ABNORMAL RESULTS OF LIVER FUNCTION STUDIES Status: Acute (2) Choledocholithiasis Code(s): K80.50 - CALCULUS OF BILE DUCT W/O CHOLANGITIS OR CHOLECYST W/O OBST Status: Acute (3) Abdominal pain Code(s): R10.9 - UNSPECIFIED ABDOMINAL PAIN Status: Acute Qualifiers: Abdominal location: right upper quadrant Qualified Code(s): R10.11 - Right upper quadrant pain (4) HTN (hypertension) Code(s): I10 - ESSENTIAL (PRIMARY) HYPERTENSION Status: Chronic Qualifiers: Hypertension type: essential hypertension Qualified Code(s): I10 - Essential (primary) hypertension (5) Alcohol abuse Code(s): F10.10 - ALCOHOL ABUSE, UNCOMPLICATED Status: Chronic - Plan mrcp results noted await GI advice is on zosyn, morphine, iv hydration, npo for now prior ef was 40%, CT scan showed calcification around pericardium, repeat echo, bnp is normal hemostable to amb as tolerated
[2019-09-18] MEDS: Multivitamins, Adult 10 ML, Folic Acid 1 MG, Thiamine HCl 100 MG in Dextrose 5 %-0.45 %... IV SCH (16:21)
--- NOTE | 2019-09-18 18:38 | PRG ---
DATE OF SERVICE: 09/18/2019 SUBJECTIVE: Mr. Acosta still has epigastric abdominal pain today. He had MRI done today. OBJECTIVE: VITAL SIGNS: Temperature 98.1, pulse 85, and blood pressure 110/67. GENERAL: He is in no acute distress. He is awake and alert. LUNGS: Clear to auscultation bilaterally. HEART: Regular rate and rhythm without murmur. ABDOMEN: Soft, tender in the epigastric to right upper quadrant region. Bowel sounds are present. EXTREMITIES: No lower extremity edema. LABORATORY DATA: White blood cell count 7.7, hemoglobin 12.8, platelets 108. INR 1.1. Bilirubin 7.0, AST 785, ALT 391, alkaline phosphatase 209, creatinine 0.98, albumin 3.2, and lipase 7. IMPRESSION: 1. Choledocholithiasis. MRCP confirms evidence of choledocholithiasis with suspected 6.6 mm stone in the common bile duct. The common bile duct measures up to 2.1 cm. He has had prior cholecystectomy. 2. Alcohol abuse and alcoholic liver disease. His platelets are low, which along with the coarsened echotexture noted by ultrasound is suspicious for cirrhosis. RECOMMENDATIONS: ERCP tomorrow. I discussed the risks and benefits of the procedure with him including failure to cannulate, pancreatitis, bleeding, infection, and perforation. Job ID: [id number]
[2019-09-19] MEDS: Piperacillin/Tazobactam 3.375 GM in Sodium Chloride 0.9% 100 ML IVPB SCH ×3 (04:04→20:53)
[2019-09-19] MEDS: Sodium Chloride 0.9% 1,000 ML IV SCH ×3 (04:05→20:54)
[2019-09-19 05:51] LABS: #Monocytes 0.5 thou/uL (0.11-0.59); #Neutrophils 4.3 thou/uL (1.40-6.50); %Basophils 0.1 % (0.0-1.0); %Eosinophils 0.6 % (0.0-10.0); %Lymphocytes 17.2 % (21.0-51.0); %Monocytes 9.2 % (0.0-10.0); %Neutrophils 72.9 % (42.0-75.0); Hemoglobin 12.1 g/dL (14.0-18.0); Mean Corpuscular HGB CONC 30.9 g/dL (32.0-36.0); Mean Corpuscular Hemoglobin 30.1 pg (27.0-31.0); Mean Corpuscular Volume 97.5 fL (78.0-98.0); Mean Platelet Volume 7.4 fL (7.4-10.4); Platelet Count 105 thou/uL (130-400); RBC Distribution Width 14.9 % (11.5-14.5); Red Blood Cell (RBC) Count 4.02 mill/uL (4.70-6.10); White Blood Cell (WBC) Count 5.9 thou/uL (4.8-10.8)
[2019-09-19 06:08] LABS: Albumin 3.1 g/dL (3.4-4.8); Alkaline Phosphatase 215 U/L (40-110); Anion Gap 13 mmol/L (10-20); BUN (Urea Nitrogen) 4 mg/dL (8.4-25.7); Bilirubin, Total 7.2 mg/dL (0.2-1.2); Calc. Creatinine Clearance 86 mL/min (70-130); Calcium 8.6 mg/dL (7.8-10.44); Carbon Dioxide 24 mmol/L (23-31); Chloride 103 mmol/L (98-107); Estimated GFR-MDRD 87; Globulin 2.9 g/dL (2.4-3.5); Glucose 73 mg/dL (80-115); Potassium 3.2 mmol/L (3.5-5.1); Sodium 137 mmol/L (136-145)
[2019-09-19 06:09] LABS: ALT (SGPT) 317 U/L (8-55); AST (SGOT) 522 U/L (5-34); Lipase 7 U/L (8-78)
[2019-09-19] MEDS: Morphine 4 MG/ML VIAL SLOW IVP PRN ×2 (07:36→20:54)
[2019-09-19] MEDS: Pantoprazole 40 MG VIAL IVP SCH (07:37)
[2019-09-19] MEDS ORDERED: ePHEDrine/0.9% NaCl/PF SYRINGE 50 mg/10 ml ONE (09:47)
[2019-09-19] MEDS ORDERED: Glycopyrrolate 0.2 MG/ML 5 ML SYRINGE ONE (09:47)
[2019-09-19] MEDS ORDERED: Lidocaine 1% PF 5 ML VIAL ONE (09:47)
[2019-09-19] MEDS ORDERED: PROPOFOL 200 MG/20 ML VIAL ONE (09:47)
[2019-09-19] MEDS ORDERED: Ondansetron PF 4 MG/2 ML Vial ONE (09:47)
[2019-09-19] MEDS ORDERED: Rocuronium Bromide 10 MG/ML (10ML VIAL) ONE (09:47)
--- NOTE | 2019-09-19 11:36 | PDOC.HOSPP ---
- Subjective Encounter Date: 09/19/19 Encounter Time: 09:00 Subjective: abd pain is better, no nausea still has watery diarrhea is npo for ercp today - Objective Vital Signs & Weight: Vital Signs (12 hours) Temp Pulse Resp BP BP Pulse Ox 09/19/19 08:00 96 09/19/19 07:26 98.3 F 81 18 143/89 H 96 09/19/19 04:34 97.9 F 86 18 145/87 H 96 Weight Weight 160 lb 1 oz I&O: 09/18/19 09/19/19 09/20/19 06:59 06:59 06:59 Intake Total 2279 1750 Balance 2279 1750 Result Diagrams: 09/19/19 05:22 09/19/19 05:22 Hospitalist ROS - Medication Medications: Active Medications Generic Name Dose Route Start Last Admin Trade Name Freq PRN Reason Stop Dose Admin Sodium Chloride 1,000 mls @ 125 mls/hr 09/17/19 04:00 09/19/19 04:05 Normal Saline 0.9% IV 1,000 mls .Q8H [facility] Administration Piperacillin Sod/Tazobactam 100 mls @ 200 mls/hr 09/17/19 04:00 09/19/19 11: 20 Sod 3.375 gm/ Sodium Chloride IVPB 100 mls 0400,1200,2000 [facility] Administration Multivitamins 10 ml/ Folic 1,011.2 mls @ 100 mls/hr 09/17/19 16:30 09/18/19 16:21 Acid 1 mg/ Thiamine HCl 100 mg IV 1,011.2 mls / Dextrose/Sodium Chloride Q24HR [facility] Administration Morphine Sulfate 4 mg 09/17/19 03:50 09/19/19 07:36 Morphine SLOW IVP 4 mg Q4H PRN Administration Severe Pain (7-10) Pantoprazole Sodium 40 mg 09/18/19 09:00 09/19/19 07:37 Protonix IVP 40 mg DAILY [facility] Administration - Exam General Appearance: awake alert Eye: PERRL, scleral icterus ENT: no oropharyngeal lesions, moist mucosa Neck: supple, no JVD Heart: RRR, no murmur Respiratory: no wheezes, no rales Gastrointestinal: soft, non-distended, normal bowel sounds, no guarding, no rigidity Extremities: no cyanosis, no edema Neurological: cranial nerve grossly intact, no focal deficits Psychiatric: normal affect, A&O x 3 Hosp A/P (1) Elevated LFTs Code(s): R94.5 - ABNORMAL RESULTS OF LIVER FUNCTION STUDIES Status: Acute (2) Choledocholithiasis Code(s): K80.50 - CALCULUS OF BILE DUCT W/O CHOLANGITIS OR CHOLECYST W/O OBST Status: Acute (3) Abdominal pain Code(s): R10.9 - UNSPECIFIED ABDOMINAL PAIN Status: Acute Qualifiers: Abdominal location: right upper quadrant Qualified Code(s): R10.11 - Right upper quadrant pain (4) HTN (hypertension) Code(s): I10 - ESSENTIAL (PRIMARY) HYPERTENSION Status: Chronic Qualifiers: Hypertension type: essential hypertension Qualified Code(s): I10 - Essential (primary) hypertension (5) Alcohol abuse Code(s): F10.10 - ALCOHOL ABUSE, UNCOMPLICATED Status: Chronic - Plan For ERCP today, is npo mrcp results noted is on zosyn, morphine, iv hydration, npo for now prior ef was 40%, CT scan showed calcification around pericardium, repeat echo now no evidence of pericardial effusion or thickening, bnp is normal hemostable to amb as tolerated
[2019-09-19] MEDS ORDERED: Iothalamate Meglumine 60% 50 ML VIAL FS ONE (12:48)
[2019-09-19] MEDS ORDERED: Indomethacin 50 MG SUPP ONE (12:48)
[2019-09-19] MEDS ORDERED: Fentanyl 100 MCG/2 ML VIAL ONE (12:55)
--- NOTE | 2019-09-19 16:09 | OP ---
DATE OF PROCEDURE: 09/19/2019 PROCEDURES PERFORMED: 1. Endoscopic retrograde cholangiopancreatography (incomplete). 2. Esophagogastroduodenoscopy with dilation. INDICATION FOR PROCEDURE: Abnormal LFTs and abnormal imaging of the liver, showing probable choledocholithiasis. DESCRIPTION OF PROCEDURE: After the risks and benefits of the procedure were explained to the patient including risks of bleeding, infection, perforation, reactions to anesthesia, post-ERCP pancreatitis, and/or pain, informed consent was obtained. The patient was then taken to the endoscopy suite, where general anesthesia was administered with endotracheal tube intubation. Once the patient was intubated and sedated, he was maneuvered into the prone position in anticipation of the ERCP. Once in adequate position, the standard duodenoscope was introduced into the mouth with intubation of the esophagus and the stomach at least initially. At the pylorus within the stomach, a high-grade stricture was encountered with inability to pass the duodenoscope past the stricture. Subsequently, the duodenoscope was exchanged for a gastroscope with visualization of a moderate grade stricture at the pylorus. Using balloon dilation, the pylorus was then successively dilated to approximately 15 mm in size with a small mucosal rent noted along the inferior aspect of the pylorus. Upon completion of the dilation, the gastroscope was then exchanged back for the duodenoscope and the duodenoscope was advanced through the pylorus and into the small bowel successfully. However, significant increased mucosal erythema and edema were encountered within the duodenal bulb and second portion of the duodenum with inability to accurately identify the ampulla of Vater. Given the inability to identify the ampulla after multiple attempts, the procedure was then aborted and the patient was transferred to PACU in satisfactory condition. The patient tolerated the procedure well with no immediate perioperative complications. EGD FINDINGS: Esophagus: Normal-appearing mucosa was seen in the proximal, mid, and distal esophagus. There was no evidence of erosions, ulcerations, mass lesions, or active/recent bleeding. Stomach: Normal-appearing mucosa was seen in the gastric cardia, fundus, body, greater curvature, and incisura. However, within the antrum, a higher grade stricture/stenosis was encountered at the pylorus with significant increased surrounding mucosal erythema. As above, the duodenoscope was not initially able to be traversed across this stenosis as well as the gastroscope as well. Using successive dilation through the scope balloon, the pylorus was then successfully dilated to 15 mm in size and was then able to be safely traversed with both the gastroscope and duodenoscope. The pylorus was also noted to be eccentrically placed just left of midline when viewed with the EGD scope. Otherwise, there was no evidence of ulcerations or mass lesions. Minimal amount of bleeding was seen status post dilation with a small mucosal tear at the inferior aspect of the pylorus. Duodenum: Increased mucosal erythema and mild edema were seen in both the duodenal bulb and second portion of the duodenum. There was no evidence of erosions, ulcerations, mass lesions, or active/recent bleeding. However, with dilation of the pylorus, there was some increased bleeding, which obscured the view of the small intestinal mucosa. As such, the ampulla of Vater was not easily identified using the duodenoscope despite multiple attempts in order to identify it accurately. Otherwise, there was no evidence of erosions, ulcerations, mass lesions, or active/recent bleeding. ERCP FINDINGS: Limited views were obtained of the esophagus and stomach during the ERCP portion of this exam. Once the pylorus was successfully dilated to 15 mm, the duodenoscope was easily traversed through the pylorus and into the bulb and second portion. However, with the increased mucosal erythema, mild edema, and bleeding from the dilation of the pylorus, the ampulla was not able to be accurately identified. Therefore, no attempts at cannulation were made. As such, the procedure was then prematurely aborted. IMPRESSION: 1. Higher grade pyloric stricture status post dilation to 15 mm with a small mucosal rent and minimal amount of bleeding seen. 2. Unsuccessful identification of the ampulla of Vater with no attempts at cannulation made. RECOMMENDATIONS: 1. Would continue to trend the patient's LFTs for monitoring of liver function. 2. Would continue antibiotics as you are doing for prophylaxis against ascending cholangitis. 3. I will confer with Dr. Ramsay about re-attempting the ERCP tomorrow versus transferring the patient to a tertiary care facility for ERCP there. 4. Would continue pantoprazole 40 mg daily. 5. Would trend the patient's hemoglobin and hematocrit and transfuse as necessary to maintain hemoglobin and hematocrit of 7/21, especially with the dilation and bleeding seen afterwards. 6. Would monitor the patient in the postoperative period for signs of perforation versus post-ERCP pancreatitis (the latter being unlikely). We will continue to follow. Please call with any questions. Job ID: [id number]
[2019-09-19] MEDS: Multivitamins, Adult 10 ML, Folic Acid 1 MG, Thiamine HCl 100 MG in Dextrose 5 %-0.45 %... IV SCH (16:16)
[2019-09-20] MEDS: Piperacillin/Tazobactam 3.375 GM in Sodium Chloride 0.9% 100 ML IVPB SCH ×3 (03:44→19:45)
[2019-09-20] MEDS: Sodium Chloride 0.9% 1,000 ML IV SCH ×3 (03:45→19:47)
[2019-09-20] MEDS: Morphine 4 MG/ML VIAL SLOW IVP PRN ×3 (03:58→19:52)
[2019-09-20] MEDS: Pantoprazole 40 MG VIAL IVP SCH (07:49)
--- NOTE | 2019-09-20 12:14 | PDOC.HOSPP ---
- Subjective Encounter Date: 09/20/19 Encounter Time: 08:30 Subjective: Patient seen and examined. No new complaints. No overnight events, pt has mild epigastric abdominal pain - Objective Vital Signs & Weight: Vital Signs (12 hours) Temp Pulse Resp BP Pulse Ox 09/20/19 08:00 96 09/20/19 07:37 98.0 F 66 18 157/79 H 96 09/20/19 03:45 98.4 F 65 19 132/80 95 Weight Weight 160 lb 1 oz I&O: 09/19/19 09/20/19 09/21/19 06:59 06:59 06:59 Intake Total 1750 2039 360 Balance [id number] 360 Result Diagrams: 09/19/19 05:22 09/19/19 05:22 Radiology Reviewed by me: Yes Hospitalist ROS - Review of Systems Constitutional: denies: fever, chills, sweats, weakness, malaise, other Eyes: denies: pain, vision change, conjunctivae inflammation, eyelid inflammation, redness, other ENT: denies: ear pain, ear discharge, nose pain, nose discharge, nose congestion , mouth pain, mouth swelling, throat pain, throat swelling, other Respiratory: denies: cough, dry, shortness of breath, hemoptysis, SOB with excertion, pleuritic pain, sputum, wheezing, other Cardiovascular: denies: chest pain, palpitations, orthopnea, paroxysmal noc. dyspnea, edema, light headedness, other Gastrointestinal: reports: nausea, abdominal pain. denies: vomiting, diarrhea, constipation, melena, hematochezia, other Genitourinary: denies: dysuria, frequency, incontinence, hematuria, retention, other Musculoskeletal: denies: neck pain, shoulder pain, arm pain, back pain, hand pain, leg pain, foot pain, other Skin: denies: rash, lesions, delia, bruising, other - Medication Medications: Active Medications Generic Name Dose Route Start Last Admin Trade Name Freq PRN Reason Stop Dose Admin Sodium Chloride 1,000 mls @ 125 mls/hr 09/17/19 04:00 09/20/19 03:45 Normal Saline 0.9% IV 1,000 mls .Q8H [facility] Administration Piperacillin Sod/Tazobactam 100 mls @ 200 mls/hr 09/17/19 04:00 09/20/19 11: 32 Sod 3.375 gm/ Sodium Chloride IVPB 100 mls 0400,1200,2000 [facility] Administration Multivitamins 10 ml/ Folic 1,011.2 mls @ 100 mls/hr 09/17/19 16:30 09/19/19 16:16 Acid 1 mg/ Thiamine HCl 100 mg IV 1,011.2 mls / Dextrose/Sodium Chloride Q24HR [facility] Administration Morphine Sulfate 4 mg 09/17/19 03:50 09/20/19 03:58 Morphine SLOW IVP 4 mg Q4H PRN Administration Severe Pain (7-10) Pantoprazole Sodium 40 mg 09/18/19 09:00 09/20/19 07:49 Protonix IVP 40 mg DAILY [facility] Administration - Exam General Appearance: NAD, awake alert Eye: PERRL, scleral icterus ENT: normocephalic atraumatic, no oropharyngeal lesions Neck: supple, symmetric, no JVD, no thyromegaly Heart: RRR, no murmur, no gallops, no rubs Respiratory: CTAB, no wheezes, no rales, no ronchi Gastrointestinal: soft, non-distended, normal bowel sounds Gastrointestinal - other findings: RUQ tenderness Extremities: no cyanosis, no clubbing, no edema Skin: normal turgor, no lesions, no rashes Neurological: no focal deficits Musculoskeletal: normal tone, normal strength Psychiatric: normal affect, normal behavior, A&O x 3 Hosp A/P (1) Choledocholithiasis Code(s): K80.50 - CALCULUS OF BILE DUCT W/O CHOLANGITIS OR CHOLECYST W/O OBST Status: Acute (2) Elevated LFTs Code(s): R94.5 - ABNORMAL RESULTS OF LIVER FUNCTION STUDIES Status: Acute (3) Thrombocytopenia Code(s): D69.6 - THROMBOCYTOPENIA, UNSPECIFIED Status: Acute (4) Pyloric stenosis Code(s): K31.1 - ADULT HYPERTROPHIC PYLORIC STENOSIS Status: Acute (5) Fatty liver Code(s): K76.0 - FATTY (CHANGE OF) LIVER, NOT ELSEWHERE CLASSIFIED Status: Chronic (6) Alcohol abuse Code(s): F10.10 - ALCOHOL ABUSE, UNCOMPLICATED Status: Chronic (7) HTN (hypertension) Code(s): I10 - ESSENTIAL (PRIMARY) HYPERTENSION Status: Chronic Qualifiers: Hypertension type: essential hypertension Qualified Code(s): I10 - Essential (primary) hypertension - Plan old records reviewed/req 09/20/19 ERCP was not successful, will initiate transfer to higher level of care medication reviewed and continue to provide symptomatic care and supportive care will repeat labs if remains in house Review of Systems - Review of Systems Constitutional: negative: fever, chills, sweats, weakness, malaise, other Eyes: negative: pain, vision change, conjunctival inflammation, eyelid inflammation, redness, other ENT: negative: ear pain, ear discharge, nose pain, nose discharge, nose congestion, mouth pain, mouth swelling, throat pain, throat swelling, other Respiratory: negative: cough, dry, shortness of breath, hemoptysis, SOB with excertion, pleuritic pain, sputum, wheezing, other Cardiovascular: negative: chest pain, palpitations, orthopnea, paroxysmal nocturnal dyspnea, edema, light headedness, other Gastrointestinal: nausea, abdominal pain. negative: vomiting, diarrhea, constipation, melena, hematochezia, other Genitourinary: negative: dysuria, frequency, incontinence, hematuria, retention , other Musculoskeletal: negative: neck pain, shoulder pain, arm pain, back pain, hand pain, leg pain, foot pain, other Skin: negative: rash, lesions, delia, bruising, other Neurological: negative: weakness, numbness, incoordination, change in speech, confusion, seizures, other - Medications/Allergies Allergies/Adverse Reactions: Allergies Allergy/AdvReac Type Severity Reaction Status Date / Time No Known Drug Allergies Allergy Verified 08/09/19 22:57 Medications: Current Medications Acetaminophen (Tylenol) 650 mg PO Q4H PRN PRN Reason: Headache/Fever/Mild Pain (1-3) Sodium Chloride (Normal Saline 0.9%) 1,000 mls @ 125 mls/hr IV .Q8H [facility] Last Admin: 09/20/19 03:45 Dose: 1,000 mls Piperacillin Sod/Tazobactam (Sod 3.375 gm/ Sodium Chloride) 100 mls @ 200 mls/ hr IVPB 0400,1200,2000 [facility] Last Admin: 09/20/19 11:32 Dose: 100 mls Multivitamins 10 ml/ Folic Acid 1 mg/ Thiamine HCl 100 mg / Dextrose/Sodium Chloride 1,011.2 mls @ 100 mls/hr IV Q24HR [facility] Last Admin: 09/19/19 16:16 Dose: 1,011.2 mls Morphine Sulfate (Morphine) 4 mg SLOW IVP Q4H PRN PRN Reason: Severe Pain (7-10) Last Admin: 09/20/19 03:58 Dose: 4 mg Ondansetron HCl (Zofran Odt) 4 mg PO Q6H PRN PRN Reason: Nausea/Vomiting Ondansetron HCl (Zofran) 4 mg IVP Q6H PRN PRN Reason: Nausea/Vomiting Pantoprazole Sodium (Protonix) 40 mg IVP DAILY [facility] Last Admin: 09/20/19 07:49 Dose: 40 mg Sodium Chloride (Flush - Normal Saline) 10 ml IVF PRN PRN PRN Reason: Saline Flush
[2019-09-20] MEDS: Multivitamins, Adult 10 ML, Folic Acid 1 MG, Thiamine HCl 100 MG in Dextrose 5 %-0.45 %... IV SCH (16:14)
--- NOTE | 2019-09-20 18:11 | PRG ---
DATE OF SERVICE: 09/20/2019 SUBJECTIVE: Mr. Acosta does not have significant abdominal pain today. OBJECTIVE: VITAL SIGNS: Temperature 98.0, pulse 66, and blood pressure 157/79. GENERAL: He is in no acute distress. He is alert and oriented x3. LUNGS: Clear to auscultation bilaterally. HEART: Regular rate and rhythm without murmur. ABDOMEN: Soft. Mild epigastric tenderness without guarding. Bowel sounds are present. EXTREMITIES: No lower extremity edema. LABORATORY DATA: White blood cell count 5.9, hemoglobin 12.1 that from yesterday. LFTs from yesterday, bilirubin was 7.2, AST 522, ALT 317, alkaline phosphatase 215, and lipase 7. IMPRESSION: 1. Choledocholithiasis. MRCP confirms choledocholithiasis with suspected 6.6 mm stone in the common bile duct. The common bile duct was dilated up to 2.1 cm. He has had prior cholecystectomy. 2. Alcohol abuse and alcoholic liver disease. He has coarsened echotexture of the liver and low platelets concerning for possible cirrhosis. 3. Attempted endoscopic retrograde cholangiopancreatography by Dr. Mosher yesterday was incomplete. He had a pyloric stricture, which required balloon dilation to 15 mm to get the scope beyond the pylorus. The ampulla of Vater could not be identified and no attempt at cannulation was performed. RECOMMENDATIONS: We have recommended transfer to tertiary center for ERCP expertise and repeat attempt at ERCP. He has been accepted and is awaiting a bed. Job ID: [id number]
[2019-09-20 19:19] VITALS: BP 123/75; TEMP 98.1
--- NOTE | 2019-09-20 20:13 | PDOC.EVN ---
Event Note - Event Note Event Note: Covering for Dr Hernandez. I was notified that pt has bed available at [facility]. Pt being discharged to [facility].
--- NOTE | 2019-09-21 08:38 | DIS ---
DATE OF ADMISSION: 09/17/2019 DATE OF DISCHARGE: 09/20/2019 DISCHARGE DISPOSITION: [facility]. PRIMARY DISCHARGE DIAGNOSES: Choledocholithiasis, right upper quadrant abdominal pain due to problem #1, abnormal electrolytes, abnormal LFT, pyloric stenosis, status post dilatation. SECONDARY DISCHARGE DIAGNOSES: Thrombocytopenia, alcohol abuse, fatty liver, hypertension. PRIMARY PROCEDURE/OPERATION: Endoscopic retrograde cholangiopancreatography was tried but cannulation of CBD was unsuccessful. The patient had pyloric stenosis which was dilated and some rent and bleeding noted. RADIOLOGICAL INVESTIGATION: Abdominal ultrasound, abdomen MRI, echocardiography. SIGNIFICANT LABORATORY DATA: Hemoglobin 12.1. INR 1.1. Creatinine 0.88. AST 522, ALT 317, alkaline phosphatase 215, albumin 3.1. Hepatitis profile negative. DISCHARGE MEDICATIONS: Prior to admission, the patient was on; 1. Aspirin 325 mg daily. 2. Amlodipine 5 mg p.o. daily. After discharge from [facility], discharge medication will be deferred to them. CONTRAINDICATION: None. CODE STATUS: Full code. INPATIENT COMMUNICATIONS DIRECTOR: The patient was admitted under hospitalist service and Gastroenterology Team was consulted. TEST RESULTS PENDING ON DISCHARGE: None. ALLERGIES: NO KNOWN DRUG ALLERGIES. DISCHARGE PLAN: Posthospital, the patient will follow up with primary care physician as well as primary quality assurance representative. HOSPITAL COURSE: A 64-year-old male with above-mentioned medical problem, who was admitted by Dr. Overton. Please see his H and P for further details. The patient was having right upper quadrant abdominal pain. He was having jaundice. In the emergency room, the patient had abdominal ultrasound which showed fatty liver. The patient also underwent abdomen MRI which showed choledocholithiasis. Echocardiography was unremarkable. The patient was evaluated by Gastroenterology Team and the patient underwent ERCP procedure, but that ERCP procedure completely unsuccessful. There was pyloric stenosis and that I had to dilate and there was rent happen and some bleeding noted. Otherwise, normal esophagus without any ulceration. They were not able to identify ampulla of Vater. As ERCP was unsuccessful and the patient needs that procedure and that is why we transferred this patient to [facility] for higher level of care. On the day of discharge, the patient was seen and examined. Please see my progress note from that day. Bed was available last night and the patient was discharged to [facility]. Job ID: [id number]
--- NOTE | 2019-09-23 11:18 | EKG ---
Test Reason : Blood Pressure : / mmHG Vent. Rate : 098 BPM Atrial Rate : 098 BPM P-R Int : 124 ms QRS Dur : 070 ms QT Int : 352 ms P-R-T Axes : 072 -05 025 degrees QTc Int : 449 ms Normal sinus rhythm Possible Left atrial enlargement Borderline ECG Confirmed by ELIZABETH CALZADA M.D. ([id number]), editor continuity and script FLORA DONATO ([id number]) on 09/23/2019 11:18:11 AM Referred By: Confirmed By:ELIZABETH CALZADA M.D.
== END 2019-09-20 21:17 | disposition short-term general hospital (02) | DRG 445 ==
LOC: ERS 00:10 → T4-B 04:15
PROVIDERS: ADMIT Hospitalist; ATTEND Hospitalist
PROC: 0FJB8ZZ Inspection of Hepatobiliary Duct, Via Natural or Artificial Opening Endoscopic (ICD-10-PCS; principal; 2019-09-19)
PROC: 0D768ZZ Dilation of Stomach, Via Natural or Artificial Opening Endoscopic (ICD-10-PCS; 2019-09-19)
DX: K80.51 Calculus of bile duct without cholangitis or cholecystitis with obstruction (principal); E87.2 Acidosis; F10.288 Alcohol dependence with other alcohol-induced disorder; K31.1 Adult hypertrophic pyloric stenosis; I10 Essential (primary) hypertension; F17.220 Nicotine dependence, chewing tobacco, uncomplicated; D69.6 Thrombocytopenia, unspecified; K70.0 Alcoholic fatty liver; K21.9 Gastro-esophageal reflux disease without esophagitis; Z90.49 Acquired absence of other specified parts of digestive tract; Z79.82 Long term (current) use of aspirin; Z79.899 Other long term (current) drug therapy
CPT/HCPCS: 36415; 71045; 74181; 76000; 76705; 80053; 80074; 80307; 83690; 83880; 84484; 85025; 85610; 93005; 93306; 96374; 96375; C1726; C9113; J2001; J2270; J2405; J2543; J2704; J3010; J3411; J3490; J7042

== ENCOUNTER 2020-02-03 12:27 | Emergency (ER) | payer MEDICARE, OTHER ==
[2020-02-03] MEDS ORDERED: Iopamidol-370 76% 500 ML 1 ML ONE (13:09)
[2020-02-03] MEDS ORDERED: Morphine 4 MG/ML VIAL ONE ×2 (13:26→18:54)
[2020-02-03] MEDS ORDERED: Ondansetron PF 4 MG/2 ML Vial ONE (13:27)
[2020-02-03 13:35] LABS: Hemoglobin 12.3 g/dL (14.0-18.0); Mean Corpuscular HGB CONC 32.8 g/dL (32.0-36.0); Mean Corpuscular Hemoglobin 30.4 pg (27.0-31.0); Mean Corpuscular Volume 92.6 fL (78.0-98.0); Mean Platelet Volume 7.2 fL (7.4-10.4); Platelet Count 605 thou/uL (130-400); RBC Distribution Width 13.4 % (11.5-14.5); Red Blood Cell (RBC) Count 4.07 mill/uL (4.70-6.10); White Blood Cell (WBC) Count 24.6 thou/uL (4.8-10.8)
[2020-02-03 13:47] LABS: Acetaminophen Less than 6.0 mcg/mL (10.0-30.0); Alcohol Less than 10 mg/dL (Less than 10); Salicylate Less than 8.0 mg/dL (15.0-30.0)
[2020-02-03 13:48] LABS: Band 20 % (5-11); Lymphocytes 8 % (21-51); MDiff Complete? YES; Metamyelocyte 1 % (0-0); Monocytes 2 % (0-10); Neutrophil 69 % (42-75); Platelet Morphology Comment Appears Increased; Polychromasia SLIGHT = 2-3 cells (100X) (0-2/hpf); Target Cells SLIGHT = 2-5 cells (100X) (0-1/hpf); Toxic Granulation SLIGHT; Vacuoles SLIGHT
[2020-02-03 13:49] LABS: ALT (SGPT) 96 U/L (8-55); AST (SGOT) 90 U/L (5-34); Albumin 3.1 g/dL (3.4-4.8); Alcohol Less than 10 mg/dL (Less than 10); Alkaline Phosphatase 583 U/L (40-110); Anion Gap 16 mmol/L (10-20); BUN (Urea Nitrogen) 15 mg/dL (8.4-25.7); CK (CPK) 27 U/L (30-200); Calc. Creatinine Clearance 0 mL/min (70-130); Calcium 8.5 mg/dL (7.8-10.44); Carbon Dioxide 31 mmol/L (23-31); Chloride 88 mmol/L (98-107); Estimated GFR-MDRD 72; Globulin 3.7 g/dL (2.4-3.5); Glucose 100 mg/dL (80-115); Lipase 8 U/L (8-78); Potassium 3.2 mmol/L (3.5-5.1); Protein, Total 6.8 g/dL (5.8-8.1); Sodium 132 mmol/L (136-145)
--- NOTE | 2020-02-03 13:53 | RAD ---
LEFT HIP TWO VIEWS: 02/03/20 HISTORY: Fall, left hip pain. FINDINGS/IMPRESSION: No acute fracture or dislocation is seen. POS: OFF
[2020-02-03 14:57] LABS: Bilirubin 4+ (Negative); Blood, Urine 1+ (Negative); Clarity Turbid (Clear); Glucose, Urine (Dipstick) Normal (Negative); Leukocyte Negative Leu/uL (Negative); Mucous/LPF Rare LPF (<2+); Nitrite Negative (Negative); Protein, Urine (Dipstick) 20 mg/dL (Neg-Trace); Squamous Epithelial 0-3 HPF (0-3); Urobilinogen 3 mg/dL (Less than 2)
[2020-02-03 14:57] LABS: INR-International Normal Ratio 1.2; PTT 35.4 sec (22.9-36.1); Prothrombin Time 15.2 sec (12.0-14.7)
[2020-02-03 15:05] LABS: Medtox Reader # READER 1; Opiate Screen Detected (NotDetected)
[2020-02-03 15:06] LABS: Amphetamine Not Detected (NotDetected); Barbiturates Screen Not Detected (NotDetected); Benzodiazepine Screen Not Detected (NotDetected); Cocaine Metabolite Screen Not Detected (NotDetected); Medtox Control Line Valid? VALID (VALID); Methadone Not Detected (NotDetected); Methamphetamine Not Detected (NotDetected); Oxycodone Screen Not Detected (NotDetected); Phencyclidine (PCP) Not Detected (NotDetected); THC/Cannabinoid Screen Not Detected (NotDetected); Tricyclic Screen Not Detected (NotDetected)
[2020-02-03 15:11] LABS: RBC/HPF 0-3 HPF (0-3)
[2020-02-03 15:12] LABS: Bacteria/HPF None Seen HPF (None Seen)
[2020-02-03 15:13] LABS: Cellular Cast 0-3 LPF (None Seen)
[2020-02-03] MEDS ORDERED: Magnesium 2 GM/50 ML BAG (IN WATER) ONE (15:30)
[2020-02-03] MEDS ORDERED: Potassium Chloride 40 MEQ in Sodium Chloride 0.9% 250 ML 250 ML IVPB SCH (15:30)
--- NOTE | 2020-02-03 16:14 | CT ---
CT ABDOMEN AND PELVIS WITH IV CONTRAST: 02/03/20 HISTORY: Intermittent epigastric and right upper quadrant abdominal pain, jaundice. FINDINGS: Comparison to CT of 12/17/18 and contrast enhanced exam of 09/18/11. There are dependent changes in the lung bases. The patient is post cholecystectomy with intra and ext rahepatic biliary ductal dilatation and air in the biliary system. The common bile duct is proximally dilated and tapers to normal diameter in the head of the pancreas. The pancreatic duct is dilated me asuring 5 mm. This is stable compared to the exam of 12/17/18. No hepatic mass is identified. The sple en, pancreatic parenchyma, adrenal glands and kidneys are normal. No free air, free fluid or lymphade nopathy is seen in the abdomen or pelvis. The small bowel loops are not abnormally dilated. There is no evidence of aneurysmal dilatation of the abdominal aorta. There are degenerative changes in the sp ine. No evidence of pneumothoraces is seen. IMPRESSION: 1. Status post cholecystectomy with intrahepatic biliary dilatation. 2. Stable dilated pancreatic duct since 12/17/18. 3. Biliary air: Correlate for cholangitis, sphincterotomy POS: OFF
--- NOTE | 2020-02-03 16:18 | ULT ---
RIGHT UPPER QUADRANT ULTRASOUND CLINICAL HISTORY: Epigastric and right upper quadrant abdominal pain. COMPARISON: CT the abdomen and pelvis dated February 03, 2020 at 2:49 PM FINDINGS: Liver:There is moderate intrahepatic and extra hepatic biliary ductal dilatation. No focal hepatic le jaycee is evident. Intrahepatic bile ducts: Moderate intrahepatic biliary ductal dilatation.; Common bile duct: 1.9 cm. Gallbladder: Surgically absent Gracia's sign:None Main portal vein:Patent with hepatopedal flow. Pancreas:There is very mild ductal dilatation of the pancreas at the level pancreatic head measuring 5 mm. Right kidney: Right kidney measures 11.4 x 4.9 x 5.3 cm. No focal renal lesion or hydronephrosis. Additional findings: None. IMPRESSION: Moderate intrahepatic and extrahepatic biliary ductal dilatation. Findings may be related to postchol ecystectomy state. Distal obstructing process within the common bile duct is not entirely excluded. If clinically indicated further evaluation with MRCP may be helpful. Mild main pancreatic duct dilatation.
[2020-02-03] MEDS ORDERED: Piperacillin/Tazobactam 4.5 GM VIAL ONE (18:54)
== END 2020-02-03 21:51 | disposition short-term general hospital (02) ==
LOC: ERS 12:27
DX: E87.6 Hypokalemia (principal); E80.6 Other disorders of bilirubin metabolism; R10.11 Right upper quadrant pain; K21.9 Gastro-esophageal reflux disease without esophagitis; I10 Essential (primary) hypertension; K74.60 Unspecified cirrhosis of liver; F32.9 Major depressive disorder, single episode, unspecified; F17.220 Nicotine dependence, chewing tobacco, uncomplicated; Z79.82 Long term (current) use of aspirin; Z79.899 Other long term (current) drug therapy
CPT/HCPCS: 74177; 76705; 80053; 80306; 80307; 81003; 81015; 82140; 82550; 83690; 83735; 84484; 85025; 85610; 85730; 93005; 96361; 96365; 96366; 96368; 96375; 96376; J2270; J2405; J2543; J3475; J3480; J7050; Q9967

== ENCOUNTER 2020-04-26 08:13 | Outpatient (CLI) | payer MEDICARE, MEDICAID ==
--- NOTE | 2020-04-26 10:42 | MRI ---
MRI LUMBAR SPINE NONCONTRAST: DATE: 04/26/2020 HISTORY: 64-year-old male with lumbar radiculopathy COMPARISON: None FINDINGS: For the purposes of this report, it will be assumed that there are 5 lumbar-type vertebrae. Vertebral body heights are maintained. Vertebral body heights are maintained. Conus medullaris terminates at T12-L1. There is clumping of lo wer level cauda equina nerve roots bilaterally laterally, suggestive of chronic arachnoiditis. T12-L1:No high-grade disc space narrowing. Minimal disc bulge. No central spinal canal stenosis. No h igh-grade neural foraminal stenosis. L1-2:No high-grade disc space narrowing. Minimal retrolisthesis of L1 on L2. No central spinal canal stenosis. No high-grade neural foraminal stenosis. L2-3:Schmorl's node at anterior superior endplate of L3 with rim of marrow edema. Central annular fis sures. Mild disc space narrowing. No central or neural foraminal stenosis. L3-4:No high-grade disc space narrowing. Slight retrolisthesis of L3 on L4, plus diffuse disc bulge. No significant central spinal canal stenosis or high-grade neural foraminal stenosis. Mild bilateral facet DJD. L4-5:Moderate disc space narrowing, worse on the right side, where there are Modic type II endplate m arrow changes. Retrolisthesis of L4 on L5. Mild bilateral neural foraminal stenosis. Moderate bilateral facet DJD. No central spinal canal stenosis. Anterior epidural lipomatosis begins at this l evel, and extends down throughout all sacral levels. L5-S1: Right facet joint is hypoplastic and has some DJD. There is at least mild left facet DJD. No c entral spinal canal stenosis. Thecal sac is very small in caliber due to large anterior epidural lipomatosis. Mild right neural foraminal stenosis. No left neural foraminal stenosis. No high-grade d isc space narrowing. Diffuse disc bulge. Extensive annular fissures at mid and posterior aspects of the disc. There is a left hemilaminectomy defect, towards which the thecal sac is focally deviated. IMPRESSION: 1) lumbar spondylosis with multilevel degenerative disc disease of varying degrees, worst at L4-5, an d high-grade facet osteoarthrosis at L4-5. 2) no central spinal canal stenosis at any level (although there is severe narrowing of the thecal sa c at L5-S1 due to large amount of epidural fat). 3) no high-grade neural foraminal stenosis at any level. 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 5) status post left hemilaminectomy at L5-S1 with associated distortion of thecal sac.
== END 2020-04-26 08:14 | disposition home or self-care (01) ==
LOC: BICMRI 08:13
PROVIDERS: ATTEND Orthopaedic Surgery
DX: M47.26 Other spondylosis with radiculopathy, lumbar region (principal); M51.16 Intervertebral disc disorders with radiculopathy, lumbar region; Z98.890 Other specified postprocedural states
CPT/HCPCS: 72148

== ENCOUNTER 2020-05-27 10:23 | Inpatient (IN) | payer MEDICARE, MEDICAID, OTHER ==
[2020-05-27] MEDS ORDERED: Aspirin Chewable 81 MG TAB ONE (10:35)
[2020-05-27] MEDS ORDERED: Multivitamins, Adult 10 ML, Thiamine HCl 100 MG, Folic Acid 1 MG in Dextrose 5 %-0.45 %... IV SCH (11:00)
--- NOTE | 2020-05-27 11:04 | RAD ---
XR Chest 1 View Portable HISTORY: Chest pain COMPARISON: 09/17/2019 FINDINGS: The heart size is at upper limits of normal. The lungs are well expanded without focal area s of consolidation, pneumothorax or pleural effusions. IMPRESSION: No radiographic evidence of acute cardiopulmonary process.
[2020-05-27 11:16] LABS: Hemoglobin 12.7 g/dL (14.0-18.0); Mean Corpuscular HGB CONC 32.3 g/dL (32.0-36.0); Mean Corpuscular Hemoglobin 32.5 pg (27.0-31.0); Mean Platelet Volume 6.3 fL (7.4-10.4); Platelet Count 467 thou/uL (130-400); RBC Distribution Width 13.7 % (11.5-14.5); Red Blood Cell (RBC) Count 3.91 mill/uL (4.70-6.10); White Blood Cell (WBC) Count 16.3 thou/uL (4.8-10.8)
[2020-05-27 11:39] LABS: ALT (SGPT) 18 U/L (8-55); AST (SGOT) 22 U/L (5-34); Albumin 3.1 g/dL (3.4-4.8); Alkaline Phosphatase 211 U/L (40-110); Anion Gap 18 mmol/L (10-20); BUN (Urea Nitrogen) 5 mg/dL (8.4-25.7); Bilirubin, Total 0.5 mg/dL (0.2-1.2); Calc. Creatinine Clearance 0 mL/min (70-130); Carbon Dioxide 27 mmol/L (23-31); Chloride 97 mmol/L (98-107); Estimated GFR-MDRD Greater than 90; Globulin 4.6 g/dL (2.4-3.5); Glucose 95 mg/dL (80-115); Potassium 3.6 mmol/L (3.5-5.1); Protein, Total 7.7 g/dL (5.8-8.1); Sodium 138 mmol/L (136-145)
[2020-05-27 12:01] LABS: Band 18 % (5-11); Eosinophils 2 % (0-10); Lymphocytes 10 % (21-51); MDiff Complete? YES; Monocytes 10 % (0-10); Neutrophil 60 % (42-75); Platelet Morphology Comment Appears Increased; RBC Morphology Normal
--- NOTE | 2020-05-27 12:34 | PDOC.HHP ---
Hospitalist HPI - History of Present Illness Chest pain History of Present Illness: PCP: Dr. Berman Patient is a 65-year-old male with a past medical history significant for alcoholic cirrhosis, GERD, esophagitis, hypertension and alcohol abuse that presents to the emergency department for the above complaint. The patient reports having chest pain for the past several months. He reports that the pain is located sometimes in his abdomen and sometimes substernally, described as a dull aching pain, exacerbated and relieved by nothing. Denies any associated shortness of breath or cough. Has no history of COPD or asthma. He is a former smoker. No history of DVT/PE. Reports history of heavy alcohol intake. Drank approximately 24 beers per day, however, he changed to drinking 3 gallons of wine per week approximately 3 months ago. Reports feeling nauseous with intermittent vomiting which she describes as "all the time" denies hematemesis. Reports stooling daily, however, the last several stools have been green in color. Denies hematechezia or melena. Never been hospitalized for alcohol withdrawal. Denies any urinary symptoms. Reports his urine is clear or yellow. Denies any recent fever or chills. Of note, the patient reports that he had renal stents removed by Dr.Wasif Colón ([facility]) approximately 2 weeks ago. Again, denies any hematuria and dysuria. Denies fever or chills. No known sick contacts. ED Course: VITAL SIGNS WedMay 27, 2020 10:25 SCOT Ortiz Lacee BP: 122/88, Pulse: 101, Resp: 18, Temp: 98.3 (Oral), Pain: 10, O2 sat: 98 on (R oom Air), Time: 05/27/2020 10:25. VITAL SIGNS WedMay 27, 2020 12:19 SCOT Orourke Cullen BP: 121/77, Pulse: 79, Resp: 18, O2 sat: 99 on (Room Air), Time: 05/27/2020 12:19. Medication Administration: BANANA BAG 1 L IV Fluid Infusion Given 11:49 05/27/2020 Normal Saline 1 L IV Fluid Infusion Given 10:57 05/27/2020 Hospitalist ROS - Review of Systems Constitutional: denies: fever, chills Respiratory: denies: cough, shortness of breath, sputum, wheezing Cardiovascular: reports: chest pain. denies: palpitations, edema, light headedness Gastrointestinal: reports: nausea (Chronic), vomiting (Chronic), abdominal pain (Intermittent, chronic). denies: diarrhea, constipation, melena, hematochezia Genitourinary: denies: dysuria, hematuria Neurological: denies: weakness, incoordination, change in speech All other systems reviewed; all pertinent +/- noted in HPI/Subj - Medication Medications: aspirin oral tablet : Strength - 325 mg : ORAL Patient Dose: Unknown. amLODIPine tablet : Strength - 5 mg : ORAL Patient Dose: 5 mg Oral once a day. omeprazole capsule,delayed release(DR/EC) : Strength - 40 mg : ORAL Patient Dose: 40 mg Oral 2 times a day. latanoprost drops : Strength - 0.005 % : OPHTHALMIC (EYE) Patient Dose: 1 Drps Eyes Both once a day (at bedtime).ONE DROP INTO EACH EYE DAILY. brimonidine drops : Strength - 0.2 % : OPHTHALMIC (EYE) Patient Dose: 1 Drps Eye Right 2 times a day.INSTILL ONE DROP INTO RIGHT EYE TWICE DAILY. Allergies: NKDA Hospitalist History - Past Medical History Source: patient, RN notes reviewed Cardiac: reports: HTN Gastrointestinal: reports: GERD, Other (Esophagitis) Hepatobiliary: reports: Cirrhosis Psych: reports: Addictions (EtOH abuse), Depression - Past Surgical History Past Surgical History: reports: Appendectomy, Other (Back and knee surgery, renal stents) - Family History Family History: reports: cardiac disorder - Social History Smoking Status: Current every day smoker Tobacco Type: cigarettes Alcohol: reports: Heavy (Drinks 3 to 4 gallons of wine per week) Living Situation: With Family Occupation: Does not work Activity level: independent ambulation - Exam General Appearance: NAD, awake alert General - other findings: Appears older than stated age Eye: PERRL, scleral icterus (Mild) ENT: normocephalic atraumatic, dry oral mucosa Neck: supple, symmetric, no JVD Heart: RRR, no murmur, no gallops, no rubs, normal peripheral pulses Respiratory: CTAB, no wheezes, no rales, no ronchi, normal chest expansion, no tachypnea Respiratory - other findings: Diminished lower lobes Gastrointestinal: soft, no guarding, no rigidity, tender to palpation (Right upper quadrant, positive Garcia sign), distended Extremities: no cyanosis, no edema Skin: no rashes Neurological: cranial nerve grossly intact, no focal deficits Musculoskeletal: normal tone, normal strength Psychiatric: A&O x 3, flat affect Hospitalist Results - Labs Result Diagrams: 05/27/20 10:53 05/27/20 10:53 Lab results: WBC 16.3 thou/uL (4.8-10.8) H 05/27/20 10:53 Hgb 12.7 g/dL (14.0-18.0) L 05/27/20 10:53 Hct 39.4 % (42.0-52.0) L 05/27/20 10:53 MCV 101.0 fL (78.0-98.0) H 05/27/20 10:53 Plt Count 467 thou/uL (130-400) H 05/27/20 10:53 Band Neuts % (Manual) 18 % (5-11) H 05/27/20 10:53 Sodium 138 mmol/L (136-145) 05/27/20 10:53 Potassium 3.6 mmol/L (3.5-5.1) 05/27/20 10:53 Chloride 97 mmol/L (98-107) L 05/27/20 10:53 Carbon Dioxide 27 mmol/L (23-31) 05/27/20 10:53 BUN 5 mg/dL (8.4-25.7) L 05/27/20 10:53 Creatinine 0.83 mg/dL (0.7-1.3) 05/27/20 10:53 Glucose 95 mg/dL (80-115) 05/27/20 10:53 Calcium 9.0 mg/dL (7.8-10.44) 05/27/20 10:53 Total Bilirubin 0.5 mg/dL (0.2-1.2) 05/27/20 10:53 AST 22 U/L (5-34) 05/27/20 10:53 ALT 18 U/L (8-55) 05/27/20 10:53 Alkaline Phosphatase 211 U/L (40-110) H 05/27/20 10:53 Troponin I Less than 0.010 ng/mL (< 0.028) 05/27/20 10:53 B-Natriuretic Peptide 55.2 pg/mL (0-100) 05/27/20 10:53 Serum Total Protein 7.7 g/dL (5.8-8.1) 05/27/20 10:53 Albumin 3.1 g/dL (3.4-4.8) L 05/27/20 10:53 - EKG Interpretation EK lead EKG interpreted by Emergency Department Physician at time of study, Rate 96 bpm. Left axis deviation. Normal KS interval normal QRS duration. Inverted T waves in V2 through V5 subtle ST segment depression in V3. No ST segment elevation. Impression anterior lateral ischemia. - Radiology Interpretation Chest x-ray Status: report reviewed by me Additional Comment: IMPRESSION: No radiographic evidence of acute cardiopulmonary process. Hospitalist H&P A/P - Problem (1) Chest pain Code(s): R07.9 - CHEST PAIN, UNSPECIFIED Status: Acute (2) Alcohol abuse Code(s): F10.10 - ALCOHOL ABUSE, UNCOMPLICATED Status: Acute (3) Elevated alkaline phosphatase level Code(s): R74.8 - ABNORMAL LEVELS OF OTHER SERUM ENZYMES Status: Acute (4) Leukocytosis Code(s): D72.829 - ELEVATED WHITE BLOOD CELL COUNT, UNSPECIFIED Status: Acute (5) Macrocytic anemia Code(s): D53.9 - NUTRITIONAL ANEMIA, UNSPECIFIED Status: Resolved (6) GERD with esophagitis Code(s): K21.0 - GASTRO-ESOPHAGEAL REFLUX DISEASE WITH ESOPHAGITIS Status: Chronic (7) Hypertension Code(s): I10 - ESSENTIAL (PRIMARY) HYPERTENSION Status: Chronic - Plan Plan: 65/M with PMH alcohol abuse, cirrhosis, GERD with esophagitis and hypertension presents for chest pain x 2 mos. Will admit to telemetry floor, observation status. Expected length of stay greater than 2 midnights. Presented afebrile, NL BP, tachycardic, NL RR, NL SPO2. EKG normal sinus rhythm no ST elevation. CXR no acute process. Troponin negative, BNP 55.2. WBC 16.3, ALP 211. #Chest pain Symptoms sound more GI related. Trend troponins, check TSH, mag level. Patient took full dose aspirin x2 at home. Continue aspirin daily. #Alcohol abuse Drinks 3 gallons of wine per week. Drink 24 beers per day prior to changing to wine. We will start ASE protocol, Ativan as needed. Continue banana bag and IV fluids. Check electrolytes, UDS and serum drug screen. #Elevated alk phosphatase level ALP 211 PE: Positive Garcia sign T bili 0.5, AST 22, ALT 18 We will check GGT, PT/INR. RUQ ultrasound #Leukocytosis WBC 16.3, unknown etiology Presented afebrile. CXR negative. Check UA. #Macrocytic anemia Likely secondary to history of alcohol abuse. Denies hematemesis, hematochezia or melena. Hgb 12.7, HCT 39.4, stable We will check B12, folate and iron studies. #GERD with esophagitis Takes omeprazole 40 mg twice daily at home. Family member reports noncompliant. Will start on Protonix IVP twice daily. #Hypertension Presented normotensive and tachycardic. Takes amlodipine at home. Family member reports noncompliant with medications. We will monitor BP. We will restart home dose of amlodipine. SCDs for DVT prophylaxis. PPI for GI prophylaxis. Full code. Medical power trust and estates attorney is Sarah Aragon (cousin) at [phone]. Discussed case with Dr. Ching.
[2020-05-27] MEDS ORDERED: Nitroglycerin 0.4 MG TAB (25 Tab Bottle) SL PRN (12:59)
[2020-05-27] MEDS ORDERED: Acetaminophen 650 MG Suppository PR PRN (13:02)
[2020-05-27] MEDS ORDERED: Calcium Carbonate 500 MG ChewTAB PO PRN (13:02)
[2020-05-27] MEDS ORDERED: Diazepam 5 MG TAB PO PRN (13:22)
[2020-05-27] MEDS ORDERED: Lorazepam 2 MG/ML VIAL SLOW IVP PRN (13:25)
[2020-05-27] MEDS ORDERED: Diazepam 5 MG TAB PO SCH (13:30)
[2020-05-27] MEDS ORDERED: Thiamine HCl 200 MG/2 ML VIAL IM SCH (13:30)
[2020-05-27] MEDS ORDERED: Lorazepam 2 MG/ML VIAL SLOW IVP SCH (13:30)
--- NOTE | 2020-05-27 14:17 | ULT ---
Exam: Right upper quadrant ultrasound: HISTORY: Epigastric abdominal pain COMPARISON: Right upper quadrant ultrasound 02/03/[address] abdomen on 02/03/2020 FINDINGS: Liver: Increased echogenicity suggesting diffuse fatty infiltration. Liver is mildly enlarged measuri ng 18 cm in craniocaudal dimensions. There are linear echogenic foci with shadowing present in the left hepatic lobe most suggestive of gas. Patient was noted to have evidence of pneumobilia on prior CT exam which likely accounts for this finding. No focal hepatic mass is appreciated. Gallbladder: Surgically absent. Common bile duct: Dilated measuring 1.3 cm in diameter. Diameter of the common duct has decreased whe n compared to prior ultrasound examination where the dilated common duct measured 1.9 cm in diameter. Pancreas: Majority pancreas is obscured by shadowing from bowel gas. The limited visualized region of the head of the pancreas has a normal sonographic appearance. Right kidney: Right kidney demonstrates a normal sonographic appearance. The right kidney measures 1 1.1 cm in length. IVC: The visualized IVC demonstrates a normal sonographic appearance. IMPRESSION: 1. Hepatic steatosis with mild hepatomegaly. 2. Postcholecystectomy changes with dilatation of the common duct measuring 1.3 [address] in diameter. Di[address] ter of the common duct has diminished compared to prior study, and the common duct diameter was approximately 1.9 cm. 3. Linear echogenic foci left hepatic lobe with shadowing present suggesting gas within the left hepa tic lobe. Patient was noted to have evidence of pneumobilia on prior CT examination which likely accounts for this finding.
[2020-05-27 15:17] VITALS: BMI 25.8
[2020-05-27 15:31] LABS: Reticulocyte Count 2.1 % (0.5-1.5)
[2020-05-27 15:36] LABS: INR-International Normal Ratio 1.2; PTT 43.2 sec (22.9-36.1)
[2020-05-27 15:52] LABS: Iron 12 ug/dL (65-175); Iron Binding Capacity, Total 123 mcg/dL (261-462)
[2020-05-27 15:53] LABS: Troponin I Less than 0.010 ng/mL (< 0.028)
[2020-05-27 15:55] LABS: Acetaminophen Less than 6.0 mcg/mL (10.0-30.0); Alcohol Less than 10 mg/dL (Less than 10); Magnesium 1.9 mg/dL (1.6-2.6); Phosphorus 2.7 mg/dL (2.3-4.7); Salicylate Less than 8.0 mg/dL (15.0-30.0)
[2020-05-27 15:56] LABS: Gamma GT (GGT) 181 U/L (12-64); Iron 12 ug/dL (65-175); Iron Binding Capacity, Total 121 mcg/dL (261-462)
[2020-05-27 16:15] LABS: Ferritin 848.16 ng/mL (22-322); Thyroid Stimulating Hormone 0.679 uIU/mL (0.35-4.94)
[2020-05-27 18:04] LABS: Troponin I Less than 0.010 ng/mL (< 0.028)
[2020-05-27] MEDS: Pantoprazole 40 MG VIAL IVP SCH (20:20)
[2020-05-27] MEDS: Acetaminophen 325 MG TAB PO PRN (20:20)
[2020-05-27 22:14] LABS: Clarity Clear (Clear); Glucose, Urine (Dipstick) Normal (Negative); Ketone, Urine Negative (Negative); Leukocyte Negative Leu/uL (Negative); Nitrite Negative (Negative); Protein, Urine (Dipstick) 10 mg/dL (Neg-Trace); Specific Gravity, Urine 1.015 (1.002-1.036); Urobilinogen Normal mg/dL (Less than 2)
[2020-05-27 22:15] LABS: Bacteria/HPF None Seen HPF (None Seen); Bilirubin Negative (Negative); Blood, Urine 2+ (Negative); Mucous/LPF 1+ LPF (<2+); Squamous Epithelial 0-3 HPF (0-3); WBC/HPF 0-3 HPF (0-3)
[2020-05-27 22:21] LABS: Amphetamine Not Detected (NotDetected); Barbiturates Screen Not Detected (NotDetected); Benzodiazepine Screen Not Detected (NotDetected); Cocaine Metabolite Screen Not Detected (NotDetected); Medtox Control Line Valid? VALID (VALID); Medtox Reader # READER 1; Methadone Not Detected (NotDetected); Methamphetamine Not Detected (NotDetected); Opiate Screen Not Detected (NotDetected); Oxycodone Screen Not Detected (NotDetected); Phencyclidine (PCP) Not Detected (NotDetected); THC/Cannabinoid Screen Not Detected (NotDetected); Tricyclic Screen Not Detected (NotDetected)
[2020-05-27] MEDS: Sodium Chloride 0.9% 1,000 ML IV SCH (22:59)
--- NOTE | 2020-05-27 22:59 | CON ---
DATE OF CONSULTATION: 05/27/2020 REASON FOR CONSULTATION: Liver disease and abdominal pain. HISTORY OF PRESENT ILLNESS: Raghav Acosta is a 65-year-old man previously seen by my GI colleague, Dr. Mac Ramsay. He has a history of significant ongoing heavy alcohol abuse. He has had peptic ulcer disease with resulting duodenal stricture. He had several EGDs for dilation of duodenal stricture back in 2011. More recently, he presented here in September 2019 with choledocholithiasis, significant elevation in LFTs. My partner Dr. Mosher performed EGD and had a dilated duodenal stricture in order to advance the duodenoscope into the duodenum for attempted ERCP. However, the ampulla was unable to be identified at that time. The patient was actually transferred down to [facility] and underwent completion of ERCP with Dr. Beckford. Dr. Beckford left a biliary stent in place and had the patient followup about 1 month ago for biliary stent removal, which was evidently successful. Dr. Beckford had recommended the patient follow up with us for repeat dilations of his duodenal stricture and also mentioned that the patient had severe esophagitis noted. The patient was supposed to be taking omeprazole 40 mg twice daily, but he says he is not taking that at all. He says he will have some [id number] antacids from [id number]. With all of this, he says that for several months, but especially over the past month he has been having daily pain in the epigastrium, right upper quadrant and chest. This is a burning and stabbing sensation. It is associated with nausea and frequent vomiting which is nonbloody. The bowel movements are okay. There is no weight loss. Despite all of the pain and vomiting, he continues to drink very heavily. He will have 3 gallons of wine over the course of a week. Upon presentation here, LFTs are essentially normal except GGT elevation to 181, INR only 1.2, platelets normal. An abdominal ultrasound showed some common bile duct dilation 1.3 cm, but this is much improved from his September presentation. REVIEW OF SYSTEMS: Full review of systems including constitutional, head, eyes, ears, nose, throat, GI, , cardiovascular, respiratory, musculoskeletal, neurologic systems is negative except as noted in the HPI. PAST MEDICAL HISTORY: Chronic alcohol abuse; chronic nicotine use; hypertension; GERD; cholecystectomy; duodenal stricture with ulcer, status post multiple dilations in 2011 and 2019; back surgery; knee surgery; choledocholithiasis, status post ERCP in September 2019, subsequent stent removal around April 2020. SOCIAL HISTORY: The patient dips. He will have about 3 gallons of wine over the course of a week. No drug use. ALLERGIES: NO KNOWN DRUG ALLERGIES. HOME MEDICATIONS: His list includes; 1. Aspirin 325 mg daily. 2. Amlodipine 5 mg daily. 3. Omeprazole 40 mg twice daily, but he says he does not take omeprazole. FAMILY HISTORY: Noncontributory. PHYSICAL EXAMINATION: VITAL SIGNS: Temperature 98.2, pulse 93, blood pressure 131/67, and 97% oxygen saturation on room air. GENERAL: A 65-year-old man, lying in bed comfortably, in no acute distress. SKIN: No jaundice. No rashes were palpable. EYES: No scleral icterus. Extraocular movements intact. ENT: Mucous membranes moist. No oral lesions. LYMPH: No submandibular or supraclavicular lymphadenopathy. THYROID: Nontender to palpation. HEART: Regular rate and rhythm. LUNGS: Clear to auscultation bilaterally. ABDOMEN: Nondistended bowel sounds present. Soft. Tender to palpation in the epigastrium and right upper quadrant, but no guarding or rebound tenderness. EXTREMITIES: No peripheral edema. VESSELS: Radial pulses 2+ bilaterally. NEURO: Cranial nerves 2 through 12 intact bilaterally. No focal deficits. LABORATORY STUDIES: WBC 16.3, hemoglobin 12.7, and platelets 467. Folic acid 6.3. Vitamin B12 greater than 2000. TSH 0.67. Troponin negative. INR 1.2. GGT 181. Sodium 138, potassium 3.6, BUN 5, creatinine 0.83, and glucose 95. Total bilirubin 0.5, alkaline phosphatase 211, AST 22, ALT 18, and albumin 3.1. BNP only 55. Ferritin is 848, iron 12, TIBC 121 showing a mixed pattern. IMAGING STUDIES: Chest x-ray showed no acute processes. Abdominal ultrasound shows post cholecystectomy reservoir effect with common bile duct measuring 1.3 cm, which is much improved from prior presentation. He has fatty liver. ASSESSMENT AND PLAN: 1. Epigastric pain. 2. Chest pain. 3. Nausea and vomiting. 4. Duodenal stricture. 5. Ongoing alcohol abuse. The patient's current presentation really does not appear to represent any new biliary etiology. He does have some residual common bile duct dilation, but notably LFTs are nearly normal. He had good result from ERCP and eventually stent removal with Dr. Beckford last month. I think the elevation in GGT and alkaline phosphatase are due to his ongoing alcohol abuse. With regard to his symptoms, it is more likely that they represent ongoing severe esophagitis and perhaps new peptic ulcer disease, as well as his duodenal stricture with relative gastric outlet obstruction. I advised the patient that he really needs to take twice daily PPI as had been recommended by multiple providers in the past. He also really needs to quit drinking. We will schedule him for esophagogastroduodenoscopy tomorrow for reassessment, and potentially dilation of his known duodenal stricture. Thank you for the consultation. Please call anytime with questions or concerns. Job ID: [id number]
[2020-05-28] MEDS ORDERED: Diazepam 5 MG TAB PO PRN (04:00)
[2020-05-28 04:38] LABS: #Lymphocytes 1.3 thou/uL (1.20-3.40); #Monocytes 1.5 thou/uL (0.11-0.59); #Neutrophils 9.7 thou/uL (1.40-6.50); %Basophils 0.1 % (0.0-1.0); %Eosinophils 0.3 % (0.0-10.0); %Lymphocytes 10.2 % (21.0-51.0); %Monocytes 11.7 % (0.0-10.0); %Neutrophils 77.7 % (42.0-75.0); Hemoglobin 10.2 g/dL (14.0-18.0); Mean Corpuscular HGB CONC 32.9 g/dL (32.0-36.0); Mean Corpuscular Hemoglobin 33.1 pg (27.0-31.0); Platelet Count 360 thou/uL (130-400); RBC Distribution Width 13.7 % (11.5-14.5); Red Blood Cell (RBC) Count 3.08 mill/uL (4.70-6.10); White Blood Cell (WBC) Count 12.5 thou/uL (4.8-10.8)
[2020-05-28 04:58] LABS: ALT (SGPT) 13 U/L (8-55); AST (SGOT) 16 U/L (5-34); Albumin 2.4 g/dL (3.4-4.8); Alkaline Phosphatase 153 U/L (40-110); Anion Gap 12 mmol/L (10-20); BUN (Urea Nitrogen) 5 mg/dL (8.4-25.7); Bilirubin, Total 0.4 mg/dL (0.2-1.2); Calc. Creatinine Clearance 118 mL/min (70-130); Calcium 8.1 mg/dL (7.8-10.44); Carbon Dioxide 24 mmol/L (23-31); Cardiac Risk 2.4 (Less than 4.5); Chloride 105 mmol/L (98-107); Cholesterol 81 mg/dl (< 200 Desired); Estimated GFR-MDRD Greater than 90; Globulin 3.4 g/dL (2.4-3.5); Glucose 87 mg/dL (80-115); HDL Cholesterol 34 mg/dL (>60 Neg Risk); LDL Cholesterol, Calculated 37 mg/dL; Potassium 3.6 mmol/L (3.5-5.1); Protein, Total 5.8 g/dL (5.8-8.1); Sodium 137 mmol/L (136-145); Triglycerides 49 mg/dL (Less than 150)
[2020-05-28] MEDS: Pantoprazole 40 MG VIAL IVP SCH ×2 (08:14→20:01)
[2020-05-28] MEDS ORDERED: Aspirin 325 mg Enteric Coated Tablet PO SCH (09:00)
[2020-05-28] MEDS: Sodium Chloride 0.9% 1,000 ML IV SCH ×2 (09:18→22:30)
[2020-05-28 13:27] LABS: SARS-CoV-2 MS2 Positive; SARS-CoV-2 N Gene Negative; SARS-CoV-2 S Gene Negative; SARS-CoV-2 by NAA Not Detected (NotDetected); SARS-CoV-2 orf1ab Negative
[2020-05-28] MEDS ORDERED: PROPOFOL 200 MG/20 ML VIAL ONE (14:10)
[2020-05-28] MEDS ORDERED: Lidocaine 1% PF 5 ML VIAL ONE (14:10)
--- NOTE | 2020-05-28 14:26 | PDOC.HOSPP ---
- Subjective Encounter Date: 05/28/20 Subjective: Denies nausea, vomiting, or abdominal pain. - Objective Vital Signs & Weight: Vital Signs (12 hours) Temp Pulse Pulse Pulse Resp BP BP 05/28/20 11:20 98.3 F 100 18 05/28/20 08:52 87 85 134/86 139/78 05/28/20 07:28 98.1 F 86 16 05/28/20 06:15 97.4 F L 101 H 19 BP Pulse Ox 05/28/20 11:20 143/86 H 97 05/28/20 08:52 05/28/20 07:28 132/80 95 05/28/20 06:15 134/82 96 Weight Weight 165 lb 1.6 oz I&O: 05/27/20 05/28/20 05/29/20 06:59 06:59 06:59 Intake Total 340 995 Balance 340 995 Result Diagrams: 05/28/20 04:23 05/28/20 04:23 Hospitalist ROS - Medication Medications: Active Medications Generic Name Dose Route Start Last Admin Trade Name Freq PRN Reason Stop Dose Admin Acetaminophen 650 mg 05/27/20 13:02 05/27/20 20:20 Acetaminophen 325 Mg Tab PO 650 mg Q4H PRN Administration Headache/Fever/Mild Pain (1-3) Sodium Chloride 1,000 mls @ 100 mls/hr 05/27/20 13:00 05/28/20 09:18 Normal Saline 0.9% IV 1,000 mls .Q10H PERCY Administration Pantoprazole Sodium 40 mg 05/27/20 21:00 05/28/20 08:14 Pantoprazole 40 Mg Vial IVP 40 mg Q12HR PERCY Administration - Exam General Appearance: awake alert ENT: normocephalic atraumatic Neck: supple Respiratory: normal chest expansion, no tachypnea Neurological: cranial nerve grossly intact, no focal deficits Hosp A/P (1) Chest pain Code(s): R07.9 - CHEST PAIN, UNSPECIFIED Status: Acute (2) HTN (hypertension) Code(s): I10 - ESSENTIAL (PRIMARY) HYPERTENSION Status: Chronic Qualifiers: Hypertension type: essential hypertension Qualified Code(s): I10 - Essential (primary) hypertension (3) Alcohol abuse Code(s): F10.10 - ALCOHOL ABUSE, UNCOMPLICATED Status: Acute (4) Alcoholic gastritis Code(s): K29.20 - ALCOHOLIC GASTRITIS WITHOUT BLEEDING Status: Acute - Plan Epigastric pain with DDX of Alcoholic gastritis, esohagitis or PUD. Continue PPI. For EGD today.
[2020-05-28] MEDS ORDERED: Ondansetron HCl/PF 4 MG/2 ML Vial IVP PRN (17:09)
[2020-05-28] MEDS ORDERED: Promethazine HCl 25 MG/ML VIAL SLOW IVP PRN (17:09)
[2020-05-28] MEDS ORDERED: Promethazine HCl 25 MG/ML VIAL IM PRN (17:09)
[2020-05-28] MEDS ORDERED: Fentanyl 100 MCG/2 ML VIAL ONE (17:30)
[2020-05-28] MEDS: Multivitamin W/ Minerals 1 TAB PO SCH (18:12)
[2020-05-28] MEDS: Folic Acid 1 MG TAB PO SCH (18:12)
[2020-05-28] MEDS: Magnesium Oxide 400 MG TAB PO SCH (18:12)
[2020-05-28] MEDS: Thiamine 100 MG TAB PO SCH (18:12)
[2020-05-28] MEDS ORDERED: Aspirin 81 mg Enteric Coated Tablet PO SCH (18:30)
[2020-05-28] MEDS: Acetaminophen 325 MG TAB PO PRN (19:12)
[2020-05-28] MEDS: Ondansetron PF 4 MG/2 ML Vial IVP PRN (19:12)
--- NOTE | 2020-05-28 22:12 | OP ---
DATE OF PROCEDURE: 05/28/2020 PROCEDURE PERFORMED: Esophagogastroduodenoscopy with biopsy. INDICATIONS FOR PROCEDURE: Midepigastric abdominal pain, nausea, vomiting, and known duodenal stricture. DESCRIPTION OF PROCEDURE: After the risks and benefits of the procedure were explained to the patient including risks of bleeding, infection, perforation, reactions to anesthesia, aspiration and/or pain, informed consent was obtained. The patient was then taken to the endoscopy suite, where he was maneuvered into the left lateral decubitus position, followed by introduction of deep sedation via propofol and anesthesia support. Once the patient was adequately sedated, the standard gastroscope was introduced into the mouth with intubation of the esophagus, stomach, and the proximal small intestines with the findings listed below. The patient tolerated the procedure well with no immediate perioperative complications. Upon conclusion of the procedure, all equipment was removed from the patient and he was transferred to PACU in satisfactory condition. FINDINGS: Esophagus: Normal-appearing mucosa was seen in the proximal and mid esophagus; however, two small ulcerations were seen at the gastroesophageal junction measuring approximately 2 to 3 mm in size, but not extending between esophageal folds. There was no associated bleeding with these lesions. The diaphragmatic pinch was seen at approximately 40 cm while the gastroesophageal junction was seen at 37 cm denoting a 3-cm hiatal hernia. Otherwise, there was no evidence of mass lesions or active/recent bleeding. Stomach: Normal-appearing mucosa was seen in the gastric cardia, fundus, body, greater curvature, antrum, and incisura. There were no evidence of erosions, ulcerations, mass lesions or active/recent bleeding. Multiple random biopsies were taken from the gastric mucosa for evaluation of possible H pylori. Duodenum: Significant narrowing of the duodenum was observed in the distal duodenal bulb that was initially able to be traversed with some difficulty with the gastroscope. This narrowing of the duodenal bulb and extending into the second portion of the duodenum was likely secondary to a 2-cm clean-based duodenal ulceration with no evidence of active or recent bleeding. However, he did have associated edema, most likely contributing to the stenosis in this region. Multiple biopsies were taken from the ulceration and placed in a specimen jar for further evaluation. After traversing the narrowed area with some difficulty, normal-appearing mucosa was seen in the second portion and third portion of the duodenum. A large amount of bile was seen emanating from the remnants of the ampulla of Vater with surgical change consistent with prior ERCP. IMPRESSION: 1. A large duodenal ulceration seen along the anterior wall of the duodenal bulb measuring approximately 2 cm in diameter, was seen causing significant stenosis and edema extending into the second portion of the duodenum, but was traversed with some difficulty with the gastroscope; multiple biopsies taken for further evaluation. 2. 3-cm hiatal hernia. 3. LA grade B reflux esophagitis, likely secondary to #2. RECOMMENDATIONS: 1. We would follow up on the biopsy results with further care guided by their pathology report. 2. We would place the patient on a full liquid diet given the significant narrowing of the duodenum secondary to the ulceration. 3. We would continue the patient on pantoprazole 40 mg IV b.i.d. 4. We would refrain from any NSAIDs both during and after this admission. 5. We would most likely advance the patient's diet after approximately 5 to 7 days on a liquid diet and assess for response to therapy. 6. Antinausea, control as you are doing. 7. Strongly encouraged alcohol cessation. We will continue to follow. Please call with any questions. Job ID: [id number]
[2020-05-29] MEDS: Acetaminophen 325 MG TAB PO PRN ×4 (06:17→21:14)
[2020-05-29] MEDS: Sodium Chloride 0.9% 1,000 ML IV SCH ×2 (08:36→18:46)
[2020-05-29] MEDS: Pantoprazole 40 MG VIAL IVP SCH ×2 (08:37→21:14)
[2020-05-29] MEDS: Aspirin 81 mg Enteric Coated Tablet PO SCH (08:40)
[2020-05-29] MEDS: Thiamine 100 MG TAB PO SCH (08:43)
[2020-05-29] MEDS: Folic Acid 1 MG TAB PO SCH (08:43)
[2020-05-29] MEDS: Magnesium Oxide 400 MG TAB PO SCH (08:43)
[2020-05-29] MEDS: Multivitamin W/ Minerals 1 TAB PO SCH (08:43)
--- NOTE | 2020-05-29 15:28 | PDOC.HOSPP ---
- Subjective Encounter Date: 05/29/20 Subjective: Status post EGD. - Objective Vital Signs & Weight: Vital Signs (12 hours) Temp Pulse Resp BP Pulse Ox 05/29/20 11:30 98 F 78 16 133/78 98 05/29/20 07:46 98.3 F 93 16 138/87 96 05/29/20 04:04 97.6 F 90 20 148/87 H 97 Weight Weight 165 lb 1.6 oz I&O: 05/28/20 05/29/20 05/30/20 06:59 06:59 06:59 Intake Total 340 995 Balance 340 995 Result Diagrams: 05/28/20 04:23 05/28/20 04:23 Hospitalist ROS - Medication Medications: Active Medications Generic Name Dose Route Start Last Admin Trade Name Freq PRN Reason Stop Dose Admin Acetaminophen 650 mg 05/27/20 13:02 05/29/20 11:57 Acetaminophen 325 Mg Tab PO 650 mg Q4H PRN Administration Headache/Fever/Mild Pain (1-3) Aspirin 81 mg 05/29/20 09:00 05/29/20 08:40 Aspirin 81 Mg Enteric Coated Tablet PO 81 mg DAILY PERCY Administration Folic Acid 1 mg 05/28/20 09:00 05/29/20 08:43 Folic Acid 1 Mg Tab PO Not Given DAILY PERCY Sodium Chloride 1,000 mls @ 100 mls/hr 05/27/20 13:00 05/29/20 08:36 Normal Saline 0.9% IV 1,000 mls .Q10H PERCY Administration Iron/Minerals/Multivitamins 1 tab 05/28/20 09:00 05/29/20 08:43 Multivitamin W/ Minerals 1 Tab PO Not Given DAILY PERCY Magnesium Oxide 400 mg 05/28/20 09:00 05/29/20 08:43 Magnesium Oxide 400 Mg Tab PO Not Given DAILY PERCY Ondansetron HCl 4 mg 05/27/20 13:02 05/28/20 19:12 Ondansetron Pf 4 Mg/2 Ml Vial IVP 4 mg Q6H PRN Administration Nausea/Vomiting Pantoprazole Sodium 40 mg 05/27/20 21:00 05/29/20 08:37 Pantoprazole 40 Mg Vial IVP 40 mg Q12HR PERCY Administration Sodium Chloride 10 ml 05/27/20 12:59 05/28/20 20:01 Flush - Normal Saline 10 Ml Syringe IVF 10 ml PRN PRN Administration Saline Flush Thiamine HCl 100 mg 05/28/20 09:00 05/29/20 08:43 Thiamine 100 Mg Tab PO Not Given DAILY PERCY - Exam General Appearance: awake alert Neck: supple, no JVD Heart: RRR Respiratory: normal chest expansion, no tachypnea Gastrointestinal: soft Neurological: cranial nerve grossly intact, no new deficit Hosp A/P (1) Duodenal ulcer Status: Acute (2) Chest pain Code(s): R07.9 - CHEST PAIN, UNSPECIFIED Status: Acute (3) HTN (hypertension) Code(s): I10 - ESSENTIAL (PRIMARY) HYPERTENSION Status: Chronic Qualifiers: Hypertension type: essential hypertension Qualified Code(s): I10 - Essential (primary) hypertension (4) Alcohol abuse Code(s): F10.10 - ALCOHOL ABUSE, UNCOMPLICATED Status: Acute - Plan Status post EGD showing duodenal ulcer with edema causing narrowing of the lumen. Continue PPI and liquid diet. Alcoholic gastritis ruled out.
[2020-05-29] MEDS: Mag-Al 1200 mg/1200 mg/30 ML UDCUP PO PRN (15:52)
--- NOTE | 2020-05-29 18:32 | PRG ---
DATE OF SERVICE: 05/29/2020 SUBJECTIVE: Mr. Acosta tolerating a liquid diet. He notes epigastric pain. He has had no vomiting. OBJECTIVE: VITAL SIGNS: Temperature is 97, pulse 76, blood pressure 152/82. ABDOMEN: Soft, nontender. There is no rebound. There is no guarding. ASSESSMENT: 1. Partial gastric outlet obstruction from large duodenal ulcer with edema, status post biopsy. Pathology pending. 2. Nausea and vomiting, resolved. 3. Leukocytosis, improving with drop in white count from 16 to 12. RECOMMENDATIONS: 1. Continue IV PPI b.i.d. 2. Low residue diet. 3. Continue on observation. If he has improved p.o. intake, lack of nausea and vomiting, and stable hemoglobin 24 to 48 hours, consider discharge home on p.o. PPI b.i.d. If he does not and fails medical therapy, we could place NG tube and continue a week of IV PPIs. If that did not work, he would need a surgery. We will follow along with you. Job ID: [id number]
[2020-05-29] MEDS: Brimonidine Tartrate 0.2% Ophth Soln 5 ml Bottle R EYE SCH (21:13)
[2020-05-29] MEDS: Latanoprost 0.005% Ophth Soln 2.5 ml Bottle EA EYE SCH (21:14)
[2020-05-30] MEDS: Mag-Al 1200 mg/1200 mg/30 ML UDCUP PO PRN ×3 (00:21→09:20)
[2020-05-30] MEDS: Acetaminophen 325 MG TAB PO PRN ×2 (03:39→08:38)
[2020-05-30] MEDS: Sodium Chloride 0.9% 1,000 ML IV SCH ×2 (03:43→13:44)
[2020-05-30] MEDS: Multivitamin W/ Minerals 1 TAB PO SCH (08:39)
[2020-05-30] MEDS: Magnesium Oxide 400 MG TAB PO SCH (08:39)
[2020-05-30] MEDS: Thiamine 100 MG TAB PO SCH (08:39)
[2020-05-30] MEDS: Folic Acid 1 MG TAB PO SCH (08:39)
[2020-05-30] MEDS: Aspirin 81 mg Enteric Coated Tablet PO SCH (08:39)
[2020-05-30] MEDS: Pantoprazole 40 MG VIAL IVP SCH ×2 (08:42→21:44)
[2020-05-30] MEDS: Latanoprost 0.005% Ophth Soln 2.5 ml Bottle EA EYE SCH ×2 (09:00→21:44)
[2020-05-30] MEDS: Brimonidine Tartrate 0.2% Ophth Soln 5 ml Bottle R EYE SCH ×2 (09:00→21:44)
[2020-05-30] MEDS: Ondansetron PF 4 MG/2 ML Vial IVP PRN ×2 (09:00→17:05)
[2020-05-30 10:54] LABS: #Eosinphils 0.1 thou/uL (0.0-0.7); #Lymphocytes 0.7 thou/uL (1.20-3.40); #Neutrophils 5.7 thou/uL (1.40-6.50); %Basophils 0.3 % (0.0-1.0); %Eosinophils 0.7 % (0.0-10.0); %Lymphocytes 9.8 % (21.0-51.0); %Monocytes 13.3 % (0.0-10.0); %Neutrophils 75.8 % (42.0-75.0); Hemoglobin 9.1 g/dL (14.0-18.0); Mean Corpuscular HGB CONC 32.5 g/dL (32.0-36.0); Mean Corpuscular Hemoglobin 33.4 pg (27.0-31.0); Mean Platelet Volume 5.8 fL (7.4-10.4); Platelet Count 398 thou/uL (130-400); RBC Distribution Width 13.7 % (11.5-14.5); Red Blood Cell (RBC) Count 2.73 mill/uL (4.70-6.10); White Blood Cell (WBC) Count 7.5 thou/uL (4.8-10.8)
[2020-05-30 11:14] LABS: Anion Gap 12 mmol/L (10-20); BUN (Urea Nitrogen) 4 mg/dL (8.4-25.7); Calc. Creatinine Clearance 133 mL/min (70-130); Calcium 7.8 mg/dL (7.8-10.44); Carbon Dioxide 22 mmol/L (23-31); Chloride 107 mmol/L (98-107); Estimated GFR-MDRD Greater than 90; Glucose 113 mg/dL (80-115); Potassium 3.3 mmol/L (3.5-5.1); Sodium 138 mmol/L (136-145)
[2020-05-30] MEDS: Fluconazole 100 MG TAB PO SCH (11:35)
[2020-05-30] MEDS: Morphine 4 MG/ML VIAL SLOW IVP PRN ×3 (11:37→21:57)
--- NOTE | 2020-05-30 11:53 | PRG ---
DATE OF SERVICE: 05/30/2020 SUBJECTIVE: Mr. Acosta complains of ongoing chest discomfort, which is random and also when trying to eat or drink. He has some migratory abdominal pain as well. He has continued on full liquid diet, but says that he was not able to tolerate even Cream of Wheat today, ended up throwing it up. OBJECTIVE: VITAL SIGNS: Temperature 98.9, pulse 80, blood pressure 174/99, 97% oxygen saturation on room air. GENERAL: Lying in bed comfortably, in no acute distress. HEART: Regular rate and rhythm. LUNGS: Clear to auscultation bilaterally. ABDOMEN: Bowel sounds present, soft. Diffuse tenderness to palpation, but no guarding rebound or rebound tenderness. EXTREMITIES: No peripheral edema. LABORATORY STUDIES: WBC down to 7.5, hemoglobin 9.1, platelets 398. INR 1.2 sodium 137, potassium 3.6, BUN 5, creatinine 0.65. ASSESSMENT/PLAN: 1. Large duodenal ulcer, with partial gastric outlet obstruction. 2. Abdominal pain, likely secondary to duodenal ulcer. We are still awaiting results of gastric biopsies. He continues on IV pantoprazole twice daily. I again discussed with the patient that it is going to take some time for this duodenal ulceration to heal. It is only partially obstructing. I agree that the goal should be to try to advance him to a low residue diet if he is able to tolerate this. If he is not able to advance his diet or maintain caloric intake within the next week or so, if he continues to have vomiting, then we may need to consult a surgeon for consideration of bypass. For today, continue on full liquid diet, see how he does. 3. Aminta esophagitis. I have spoken with Dr. Shakeel tillman in [place] who performed recent endoscopy on the patient. Dr. Beckford says that some biopsies came back showing Aminta esophagitis on his most recent EGD here, this was not specifically remarked upon, but it was noted he had several distal esophageal ulcerations. I wonder if his ongoing chest pain symptoms may actually be related to Aminta infection, which again was biopsy-proven on recent EGD in [place], and has not been treated since. Therefore, I am going to go ahead and start him on oral fluconazole 200 mg daily for a planned 14-day course. Job ID: [id number]
[2020-05-30] MEDS ORDERED: Potassium Chloride 20 MEQ TAB PO SCH (16:00)
--- NOTE | 2020-05-30 16:04 | PDOC.HOSPP ---
- Subjective Encounter Date: 05/30/20 Subjective: The patient still complaining of abdominal pain and nausea. - Objective Vital Signs & Weight: Vital Signs (12 hours) Temp Pulse Resp BP Pulse Ox 05/30/20 11:46 99.0 F 73 16 139/75 95 05/30/20 08:10 98.9 F 80 18 174/99 H 97 Weight Weight 165 lb 1.6 oz I&O: 05/29/20 05/30/20 05/31/20 06:59 06:59 06:59 Intake Total 995 1063 Output Total 500 Balance 995 563 Result Diagrams: 05/30/20 10:39 05/30/20 10:39 Hospitalist ROS - Medication Medications: Active Medications Generic Name Dose Route Start Last Admin Trade Name Freq PRN Reason Stop Dose Admin Acetaminophen 650 mg 05/27/20 13:02 05/30/20 08:38 Acetaminophen 325 Mg Tab PO 650 mg Q4H PRN Administration Headache/Fever/Mild Pain (1-3) Al Hydroxide/Mg Hydroxide 30 ml 05/27/20 13:25 05/30/20 09:20 Mag-Al 1200 Mg/1200 Mg/30 Ml Udcup PO 30 ml Q4H PRN Administration Indigestion Aspirin 81 mg 05/29/20 09:00 05/30/20 08:39 Aspirin 81 Mg Enteric Coated Tablet PO 81 mg DAILY PERCY Administration Brimonidine Tartrate 1 drop 05/29/20 21:00 05/30/20 09:00 Brimonidine Tartrate 0.2% Ophth Soln 5 Ml Bottle R EYE 1 drop BID PERCY Administration Fluconazole 200 mg 05/30/20 12:00 05/30/20 11:35 Fluconazole 100 Mg Tab PO 06/13/20 12:01 200 mg 1200 PERCY Administration Folic Acid 1 mg 05/28/20 09:00 05/30/20 08:39 Folic Acid 1 Mg Tab PO 1 mg DAILY PERCY Administration Sodium Chloride 1,000 mls @ 100 mls/hr 05/27/20 13:00 05/30/20 13:44 Normal Saline 0.9% IV 1,000 mls .Q10H PERCY Administration Iron/Minerals/Multivitamins 1 tab 05/28/20 09:00 05/30/20 08:39 Multivitamin W/ Minerals 1 Tab PO 1 tab DAILY PERCY Administration Latanoprost 1 drop 05/29/20 21:00 05/30/20 09:00 Latanoprost 0.005% Ophth Soln 2.5 Ml Bottle EA EYE Not Given BID PERCY Magnesium Oxide 400 mg 05/28/20 09:00 05/30/20 08:39 Magnesium Oxide 400 Mg Tab PO 400 mg DAILY PERCY Administration Morphine Sulfate 4 mg 05/30/20 09:35 05/30/20 11:37 Morphine 4 Mg/Ml Vial SLOW IVP 4 mg Q4H PRN Administration Pain Ondansetron HCl 4 mg 05/27/20 13:02 05/30/20 09:00 Ondansetron Pf 4 Mg/2 Ml Vial IVP 4 mg Q6H PRN Administration Nausea/Vomiting Pantoprazole Sodium 40 mg 05/27/20 21:00 05/30/20 08:42 Pantoprazole 40 Mg Vial IVP 40 mg Q12HR PERCY Administration Sodium Chloride 10 ml 05/27/20 12:59 05/29/20 21:16 Flush - Normal Saline 10 Ml Syringe IVF 10 ml PRN PRN Administration Saline Flush Thiamine HCl 100 mg 05/28/20 09:00 05/30/20 08:39 Thiamine 100 Mg Tab PO 100 mg DAILY PERCY Administration - Exam General Appearance: awake alert Neck: supple, no JVD Respiratory: normal chest expansion, no tachypnea Neurological: cranial nerve grossly intact, no focal deficits Hosp A/P (1) Duodenal ulcer Status: Acute (2) Chest pain Code(s): R07.9 - CHEST PAIN, UNSPECIFIED Status: Acute (3) HTN (hypertension) Code(s): I10 - ESSENTIAL (PRIMARY) HYPERTENSION Status: Chronic Qualifiers: Hypertension type: essential hypertension Qualified Code(s): I10 - Essential (primary) hypertension (4) Alcohol abuse Code(s): F10.10 - ALCOHOL ABUSE, UNCOMPLICATED Status: Acute - Plan Status post EGD showing duodenal ulcer with edema causing narrowing of the lumen. Continue PPI and liquid diet. Aminta esophagitis now on fluconazole. SCDs for DVT prophylaxis.
[2020-05-30] MEDS: Ondansetron ODT 4 MG TAB PO PRN (21:56)
[2020-05-31] MEDS: Sodium Chloride 0.9% 1,000 ML IV SCH ×3 (00:50→21:20)
[2020-05-31] MEDS: Morphine 4 MG/ML VIAL SLOW IVP PRN ×3 (02:23→21:14)
[2020-05-31 07:25] LABS: #Eosinphils 0.1 thou/uL (0.0-0.7); #Lymphocytes 1.7 thou/uL (1.20-3.40); #Monocytes 1.5 thou/uL (0.11-0.59); #Neutrophils 7.1 thou/uL (1.40-6.50); %Basophils 0.2 % (0.0-1.0); %Eosinophils 0.8 % (0.0-10.0); %Monocytes 14.4 % (0.0-10.0); %Neutrophils 68.7 % (42.0-75.0); Hemoglobin 9.4 g/dL (14.0-18.0); Mean Corpuscular HGB CONC 32.7 g/dL (32.0-36.0); Mean Corpuscular Hemoglobin 33.4 pg (27.0-31.0); Platelet Count 460 thou/uL (130-400); RBC Distribution Width 14.1 % (11.5-14.5); White Blood Cell (WBC) Count 10.4 thou/uL (4.8-10.8)
[2020-05-31 07:26] LABS: Anion Gap 13 mmol/L (10-20); BUN (Urea Nitrogen) Less than 4 mg/dL (8.4-25.7); Calc. Creatinine Clearance 118 mL/min (70-130); Carbon Dioxide 22 mmol/L (23-31); Chloride 106 mmol/L (98-107); Estimated GFR-MDRD Greater than 90; Glucose 78 mg/dL (80-115); Potassium 3.7 mmol/L (3.5-5.1); Sodium 137 mmol/L (136-145)
[2020-05-31] MEDS: Magnesium Oxide 400 MG TAB PO SCH (08:33)
[2020-05-31] MEDS: Aspirin 81 mg Enteric Coated Tablet PO SCH (08:33)
[2020-05-31] MEDS: Acetaminophen 325 MG TAB PO PRN ×2 (08:33→22:39)
[2020-05-31] MEDS: Folic Acid 1 MG TAB PO SCH (08:33)
[2020-05-31] MEDS: Multivitamin W/ Minerals 1 TAB PO SCH (08:33)
[2020-05-31] MEDS: Thiamine 100 MG TAB PO SCH (08:33)
[2020-05-31] MEDS: Brimonidine Tartrate 0.2% Ophth Soln 5 ml Bottle R EYE SCH ×2 (08:33→21:12)
[2020-05-31] MEDS: Pantoprazole 40 MG VIAL IVP SCH ×2 (08:33→21:13)
[2020-05-31] MEDS: Latanoprost 0.005% Ophth Soln 2.5 ml Bottle EA EYE SCH ×2 (08:34→21:12)
--- NOTE | 2020-05-31 12:53 | PRG ---
DATE OF SERVICE: 05/31/2020 SUBJECTIVE: Mr. Acosta says he is feeling about the same with regard to abdominal discomfort and nausea, but he has not had any vomiting. He is tolerating clear liquid diet. His chest discomfort is better this morning after starting fluconazole last night. OBJECTIVE: VITAL SIGNS: Temperature 99.1, pulse 85, blood pressure 137/74, 95% oxygen saturation on room air. GENERAL: No acute distress. Lying in bed comfortably. HEART: Regular rate and rhythm. LUNGS: Clear to auscultation bilaterally. ABDOMEN: Bowel sounds are present throughout. Mild distention, tympanitic to percussion. Some tenderness to palpation in the upper abdomen. EXTREMITIES: No peripheral edema. LABORATORY STUDIES: WBC 10.4, hemoglobin 9.4, platelets 460. Sodium 137, potassium 3.7, BUN less than 4, creatinine 0.65. ASSESSMENT/PLAN: 1. Duodenal ulcer with partial gastric outlet obstruction. The patient is tolerating clear liquids, but it is unclear to me whether he is going to be able to advance diet further and meet caloric intake needs. Continuing on IV PPI twice daily. Notably, the gastric biopsies were negative for H pylori. We will add some Ensure today. If the patient is not able to advance his diet to meet caloric needs in the days going forward, we may need to get surgical consultation for consideration of bypass. 2. Aminta esophagitis. This was diagnosed recently down at [facility] in [place]. We started fluconazole yesterday. Anticipate a 2-week course of fluconazole 200 mg daily. Chest pain is better today. Job ID: [id number]
[2020-05-31] MEDS: Fluconazole 100 MG TAB PO SCH (13:02)
--- NOTE | 2020-05-31 17:33 | PDOC.HOSPP ---
- Subjective Encounter Date: 05/31/20 Subjective: The patient is tolerating liquid diet. Still complaining of abdominal pain. Denies nausea or vomiting. - Objective Vital Signs & Weight: Vital Signs (12 hours) Temp Pulse Resp BP BP Pulse Ox 05/31/20 08:00 137/74 95 05/31/20 07:19 99.1 F 85 16 137/74 95 Weight Weight 165 lb 1.6 oz I&O: 05/30/20 05/31/20 06/01/20 06:59 06:59 06:59 Intake Total 1063 1920 Output Total 500 Balance 563 1920 Result Diagrams: 05/31/20 06:51 05/31/20 06:51 Hospitalist ROS - Medication Medications: Active Medications Generic Name Dose Route Start Last Admin Trade Name Freq PRN Reason Stop Dose Admin Acetaminophen 650 mg 05/27/20 13:02 05/31/20 08:33 Acetaminophen 325 Mg Tab PO 650 mg Q4H PRN Administration Headache/Fever/Mild Pain (1-3) Al Hydroxide/Mg Hydroxide 30 ml 05/27/20 13:25 05/30/20 09:20 Mag-Al 1200 Mg/1200 Mg/30 Ml Udcup PO 30 ml Q4H PRN Administration Indigestion Aspirin 81 mg 05/29/20 09:00 05/31/20 08:33 Aspirin 81 Mg Enteric Coated Tablet PO 81 mg DAILY PERCY Administration Brimonidine Tartrate 1 drop 05/29/20 21:00 05/31/20 08:33 Brimonidine Tartrate 0.2% Ophth Soln 5 Ml Bottle R EYE 1 drop BID PERCY Administration Fluconazole 200 mg 05/30/20 12:00 05/31/20 13:02 Fluconazole 100 Mg Tab PO 06/13/20 12:01 200 mg 1200 PERCY Administration Folic Acid 1 mg 05/28/20 09:00 05/31/20 08:33 Folic Acid 1 Mg Tab PO 1 mg DAILY PERCY Administration Sodium Chloride 1,000 mls @ 100 mls/hr 05/27/20 13:00 05/31/20 08:34 Normal Saline 0.9% IV 1,000 mls .Q10H PERCY Administration Iron/Minerals/Multivitamins 1 tab 05/28/20 09:00 05/31/20 08:33 Multivitamin W/ Minerals 1 Tab PO 1 tab DAILY PERCY Administration Latanoprost 1 drop 05/29/20 21:00 05/31/20 08:34 Latanoprost 0.005% Ophth Soln 2.5 Ml Bottle EA EYE Not Given BID PERCY Magnesium Oxide 400 mg 05/28/20 09:00 05/31/20 08:33 Magnesium Oxide 400 Mg Tab PO 400 mg DAILY PERCY Administration Morphine Sulfate 4 mg 05/30/20 09:35 05/31/20 16:50 Morphine 4 Mg/Ml Vial SLOW IVP 4 mg Q4H PRN Administration Pain Ondansetron HCl 4 mg 05/27/20 13:02 05/30/20 21:56 Ondansetron Odt 4 Mg Tab PO 4 mg Q6H PRN Administration Nausea/Vomiting Ondansetron HCl 4 mg 05/27/20 13:02 05/30/20 17:05 Ondansetron Pf 4 Mg/2 Ml Vial IVP 4 mg Q6H PRN Administration Nausea/Vomiting Pantoprazole Sodium 40 mg 05/27/20 21:00 05/31/20 08:33 Pantoprazole 40 Mg Vial IVP 40 mg Q12HR PERCY Administration Sodium Chloride 10 ml 05/27/20 12:59 05/29/20 21:16 Flush - Normal Saline 10 Ml Syringe IVF 10 ml PRN PRN Administration Saline Flush Thiamine HCl 100 mg 05/28/20 09:00 05/31/20 08:33 Thiamine 100 Mg Tab PO 100 mg DAILY PERCY Administration - Exam General Appearance: awake alert ENT: normocephalic atraumatic Neck: supple, no JVD Respiratory: normal chest expansion, no tachypnea Gastrointestinal: soft, non-distended, tender to palpation Extremities: no cyanosis, no clubbing, no edema Neurological: cranial nerve grossly intact, no weakness Hosp A/P (1) Duodenal ulcer Status: Acute (2) Chest pain Code(s): R07.9 - CHEST PAIN, UNSPECIFIED Status: Acute (3) HTN (hypertension) Code(s): I10 - ESSENTIAL (PRIMARY) HYPERTENSION Status: Chronic Qualifiers: Hypertension type: essential hypertension Qualified Code(s): I10 - Essential (primary) hypertension (4) Alcohol abuse Code(s): F10.10 - ALCOHOL ABUSE, UNCOMPLICATED Status: Acute - Plan Status post EGD showing duodenal ulcer with edema causing narrowing of the lumen. Continue PPI. He is tolerating liquid diet albeit with some abdominal pain. Will advance as tolerated. Aminta esophagitis now on fluconazole. SCDs for DVT prophylaxis.
[2020-05-31] MEDS: Ondansetron ODT 4 MG TAB PO PRN (21:12)
[2020-06-01 05:52] LABS: Anion Gap 13 mmol/L (10-20); BUN (Urea Nitrogen) Less than 4 mg/dL (8.4-25.7); Calc. Creatinine Clearance 128 mL/min (70-130); Calcium 7.8 mg/dL (7.8-10.44); Carbon Dioxide 16 mmol/L (23-31); Chloride 109 mmol/L (98-107); Estimated GFR-MDRD Greater than 90; Glucose 65 mg/dL (80-115); Sodium 134 mmol/L (136-145)
[2020-06-01 06:03] LABS: Hemoglobin 9.4 g/dL (14.0-18.0); Mean Corpuscular HGB CONC 31.4 g/dL (32.0-36.0); Mean Platelet Volume 6.3 fL (7.4-10.4); Platelet Count 440 thou/uL (130-400); RBC Distribution Width 14.4 % (11.5-14.5); Red Blood Cell (RBC) Count 2.93 mill/uL (4.70-6.10); White Blood Cell (WBC) Count 10.3 thou/uL (4.8-10.8)
[2020-06-01 06:04] LABS: Band 3 % (5-11); Lymphocytes 14 % (21-51); MDiff Complete? YES; Monocytes 12 % (0-10); Neutrophil 71 % (42-75)
[2020-06-01] MEDS: Multivitamin W/ Minerals 1 TAB PO SCH (07:31)
[2020-06-01] MEDS: Folic Acid 1 MG TAB PO SCH (07:31)
[2020-06-01] MEDS: Morphine 4 MG/ML VIAL SLOW IVP PRN ×3 (07:31→20:36)
[2020-06-01] MEDS: Acetaminophen 325 MG TAB PO PRN ×3 (07:31→20:35)
[2020-06-01] MEDS: Thiamine 100 MG TAB PO SCH (07:31)
[2020-06-01] MEDS: Magnesium Oxide 400 MG TAB PO SCH (07:31)
[2020-06-01] MEDS: Pantoprazole 40 MG VIAL IVP SCH ×2 (07:31→20:21)
[2020-06-01] MEDS: Aspirin 81 mg Enteric Coated Tablet PO SCH (07:31)
[2020-06-01] MEDS: Sodium Chloride 0.9% 1,000 ML IV SCH ×2 (07:32→16:41)
[2020-06-01] MEDS: Brimonidine Tartrate 0.2% Ophth Soln 5 ml Bottle R EYE SCH ×2 (07:33→20:21)
[2020-06-01] MEDS: Latanoprost 0.005% Ophth Soln 2.5 ml Bottle EA EYE SCH ×2 (07:33→20:20)
[2020-06-01] MEDS: Fluconazole 100 MG TAB PO SCH (12:09)
--- NOTE | 2020-06-01 14:11 | PRG ---
DATE OF SERVICE: 06/01/2020 SUBJECTIVE: Mr. Acosta is feeling okay today. He does not have much appetite, but he is not nauseated. He has not had any vomiting. He is tolerating a full liquid diet. Chronic abdominal discomfort persists. OBJECTIVE: VITAL SIGNS: Temperature 99.0, pulse 88, blood pressure 146/77, and 94% oxygen saturation on room air. GENERAL: No acute distress. HEART: Regular rate and rhythm. LUNGS: Clear to auscultation bilaterally. ABDOMEN: Nondistended. Bowel sounds present. Soft. Some generalized tenderness to palpation, but no guarding or rebound tenderness. EXTREMITIES: No peripheral edema. LABORATORY STUDIES: WBC 10.3, hemoglobin 9.4, and platelets 440. Sodium 134, potassium 4.0, BUN less than 4, creatinine 0.60, and glucose 65. ASSESSMENT AND PLAN: 1. Duodenal ulcer with partial gastric outlet obstruction. The patient has continued to tolerate a full liquid diet. We are going to go ahead and cautiously advance diet to a fiber-restricted diet. Continue with the Ensure twice daily. Continue with the IV proton pump inhibitor twice daily. Notably, the gastric biopsies were negative for Helicobacter pylori. If the patient is not able to advance his diet to meet caloric needs in the days going forward, we may need to get surgical consultation for consideration of bypass. 2. Aminta esophagitis. This was diagnosed recently down at [facility] in [place]. We started fluconazole 2 days ago. Anticipate a 2-week course of fluconazole 200 mg daily. 3. Chest pain, has improved. Job ID: [id number]
--- NOTE | 2020-06-01 16:48 | PDOC.HOSPP ---
- Subjective Subjective: tolerating full liquid diet. no acute event overnight. H&H stable. diet advanced by GI - Objective Vital Signs & Weight: Vital Signs (12 hours) Temp Pulse Resp BP BP BP Pulse Ox 06/01/20 12:53 98.4 F 69 18 118/70 95 06/01/20 12:00 118/70 06/01/20 08:00 99.0 F 88 20 146/77 H 146/77 H 94 L 06/01/20 07:21 99.0 F 88 20 146/77 H 94 L Weight Weight 165 lb 1.6 oz I&O: 05/31/20 06/01/20 06/02/20 06:59 06:59 06:59 Intake Total 1919 1550 Balance 1919 1550 Result Diagrams: 06/01/20 05:08 06/01/20 05:08 Radiology Reviewed by me: Yes EKG Reviewed by me: Yes Hospitalist ROS - Medication Medications: Active Medications Generic Name Dose Route Start Last Admin Trade Name Freq PRN Reason Stop Dose Admin Acetaminophen 650 mg 05/27/20 13:02 06/01/20 07:31 Acetaminophen 325 Mg Tab PO 650 mg Q4H PRN Administration Headache/Fever/Mild Pain (1-3) Al Hydroxide/Mg Hydroxide 30 ml 05/27/20 13:25 05/30/20 09:20 Mag-Al 1200 Mg/1200 Mg/30 Ml Udcup PO 30 ml Q4H PRN Administration Indigestion Aspirin 81 mg 05/29/20 09:00 06/01/20 07:31 Aspirin 81 Mg Enteric Coated Tablet PO 81 mg DAILY [facility] Administration Brimonidine Tartrate 1 drop 05/29/20 21:00 06/01/20 07:33 Brimonidine Tartrate 0.2% Ophth Soln 5 Ml Bottle R EYE 1 drop BID [facility] Administration Fluconazole 200 mg 05/30/20 12:00 06/01/20 12:09 Fluconazole 100 Mg Tab PO 06/13/20 12:01 200 mg 1200 [facility] Administration Folic Acid 1 mg 05/28/20 09:00 06/01/20 07:31 Folic Acid 1 Mg Tab PO 1 mg DAILY [facility] Administration Sodium Chloride 1,000 mls @ 100 mls/hr 05/27/20 13:00 06/01/20 07:32 Normal Saline 0.9% IV 1,000 mls .Q10H [facility] Administration Iron/Minerals/Multivitamins 1 tab 05/28/20 09:00 06/01/20 07:31 Multivitamin W/ Minerals 1 Tab PO 1 tab DAILY [facility] Administration Latanoprost 1 drop 05/29/20 21:00 06/01/20 07:33 Latanoprost 0.005% Ophth Soln 2.5 Ml Bottle EA EYE Not Given BID [facility] Magnesium Oxide 400 mg 05/28/20 09:00 06/01/20 07:31 Magnesium Oxide 400 Mg Tab PO 400 mg DAILY [facility] Administration Morphine Sulfate 4 mg 05/30/20 09:35 06/01/20 14:25 Morphine 4 Mg/Ml Vial SLOW IVP 4 mg Q4H PRN Administration Pain Ondansetron HCl 4 mg 05/27/20 13:02 05/31/20 21:12 Ondansetron Odt 4 Mg Tab PO 4 mg Q6H PRN Administration Nausea/Vomiting Ondansetron HCl 4 mg 05/27/20 13:02 05/30/20 17:05 Ondansetron Pf 4 Mg/2 Ml Vial IVP 4 mg Q6H PRN Administration Nausea/Vomiting Pantoprazole Sodium 40 mg 05/27/20 21:00 06/01/20 07:31 Pantoprazole 40 Mg Vial IVP 40 mg Q12HR [facility] Administration Sodium Chloride 10 ml 05/27/20 12:59 05/29/20 21:16 Flush - Normal Saline 10 Ml Syringe IVF 10 ml PRN PRN Administration Saline Flush Thiamine HCl 100 mg 05/28/20 09:00 06/01/20 07:31 Thiamine 100 Mg Tab PO 100 mg DAILY [facility] Administration - Exam General Appearance: NAD Eye: PERRL ENT: normocephalic atraumatic Neck: supple Heart: RRR Respiratory: CTAB, no wheezes Gastrointestinal: soft, non-tender Extremities: no cyanosis Skin: normal turgor Neurological: cranial nerve grossly intact Musculoskeletal: normal tone Psychiatric: normal affect Hosp A/P - Plan Patient is 65 years gentleman who has significant past medical history of alcohol abuse, alcoholic liver cirrhosis, GERD with esophagitis, hypertension, who presented to the ED with complaint of chest pain intermittently x2 months. Patient is now status post EGD, found to have duodenal ulcer with partial gastric outlet obstruction. Duodenal ulcer with partial gastric outlet obstruction - s/p EGD. Neg for H pylori --cont IV PPI BID as per GI, diet advanced so far tolerated it well Candid Esophagitis --cont Diflucan x 2 weeks Chest pain - secondary to above --trop neg x 3 HTN, essential - controlled --Resume Norvasc Alcohol abuse --counseled, cont Folic/Thiamine
[2020-06-02] MEDS: Morphine 4 MG/ML VIAL SLOW IVP PRN ×5 (01:03→20:47)
[2020-06-02] MEDS: Sodium Chloride 0.9% 1,000 ML IV SCH ×2 (01:04→13:03)
[2020-06-02] MEDS: Acetaminophen 325 MG TAB PO PRN ×4 (05:02→20:15)
[2020-06-02] MEDS: Amlodipine 5 MG TAB PO SCH (08:31)
[2020-06-02] MEDS: Multivitamin W/ Minerals 1 TAB PO SCH (08:32)
[2020-06-02] MEDS: Pantoprazole 40 MG VIAL IVP SCH ×2 (08:32→19:52)
[2020-06-02] MEDS: Aspirin 81 mg Enteric Coated Tablet PO SCH (08:32)
[2020-06-02] MEDS: Folic Acid 1 MG TAB PO SCH (08:32)
[2020-06-02] MEDS: Magnesium Oxide 400 MG TAB PO SCH (08:32)
[2020-06-02] MEDS: Thiamine 100 MG TAB PO SCH (08:32)
[2020-06-02] MEDS: Latanoprost 0.005% Ophth Soln 2.5 ml Bottle EA EYE SCH ×2 (08:33→19:52)
[2020-06-02] MEDS: Brimonidine Tartrate 0.2% Ophth Soln 5 ml Bottle R EYE SCH ×2 (08:33→19:51)
[2020-06-02 09:45] LABS: #Eosinphils 0.1 thou/uL (0.0-0.7); #Lymphocytes 1.4 thou/uL (1.20-3.40); #Monocytes 1.2 thou/uL (0.11-0.59); #Neutrophils 7.2 thou/uL (1.40-6.50); %Basophils 0.3 % (0.0-1.0); %Lymphocytes 14.4 % (21.0-51.0); %Monocytes 11.7 % (0.0-10.0); %Neutrophils 72.5 % (42.0-75.0); Hemoglobin 9.3 g/dL (14.0-18.0); Mean Corpuscular HGB CONC 32.7 g/dL (32.0-36.0); Mean Corpuscular Hemoglobin 33.2 pg (27.0-31.0); Mean Platelet Volume 6.2 fL (7.4-10.4); Platelet Count 595 thou/uL (130-400); RBC Distribution Width 14.5 % (11.5-14.5); Red Blood Cell (RBC) Count 2.81 mill/uL (4.70-6.10); White Blood Cell (WBC) Count 9.9 thou/uL (4.8-10.8)
[2020-06-02 10:00] LABS: Anion Gap 13 mmol/L (10-20); BUN (Urea Nitrogen) Less than 4 mg/dL (8.4-25.7); Calc. Creatinine Clearance 118 mL/min (70-130); Carbon Dioxide 22 mmol/L (23-31); Chloride 106 mmol/L (98-107); Estimated GFR-MDRD Greater than 90; Glucose 104 mg/dL (80-115); Potassium 3.8 mmol/L (3.5-5.1); Sodium 137 mmol/L (136-145)
--- NOTE | 2020-06-02 12:09 | PRG ---
DATE OF SERVICE: 06/02/2020 SUBJECTIVE: Mr. Acosta had some chicken breast last night and then he had some toast and eggs this morning. He says he is feeling quite full and nauseated with a lot of epigastric bloating. He does not have any more appetite. He wonders if he might have eaten too much, too fast. He has been otherwise stable. Chest discomfort is improved from before. OBJECTIVE: VITAL SIGNS: Temperature 98.6, pulse 88, blood pressure 148/78, and oxygen saturation 96% on room air. GENERAL: No acute distress. HEART: Regular rate and rhythm. LUNGS: Clear to auscultation bilaterally. ABDOMEN: Nondistended. Bowel sounds present. Soft. Some tenderness to palpation in the epigastrium. No guarding or rebound tenderness. EXTREMITIES: No peripheral edema. LABORATORY STUDIES: WBC is 9.9, hemoglobin 9.3, and platelets 595. Sodium 137, potassium 3.8, BUN less than 4, and creatinine 0.65. ASSESSMENT AND PLAN: 1. Large duodenal ulcer, with partial gastric outlet obstruction. We are trying to advance his diet to a fiber restricted diet and continue with the Ensure twice daily. He has been able to keep down breakfast so far today, but has had more nausea. We are trying to get a sense of whether he is going to be able to advance his diet enough to meet caloric needs at the days going forward, as we treat the ulcer aggressively with IV PPI twice daily. If he is not able to adequately advance his diet, we will need to get surgical consultation for consideration of bypass. If he is, then he could be discharged on pantoprazole 40 mg twice daily. Notably, his gastric biopsies were negative for Helicobacter pylori. 2. Aminta esophagitis. This was diagnosed recently down at [facility] in [place], today is day 4 of a 2-week course of fluconazole 200 mg daily. Job ID: [id number] [facility]
[2020-06-02] MEDS: Fluconazole 100 MG TAB PO SCH (13:02)
--- NOTE | 2020-06-02 15:27 | PDOC.HOSPP ---
- Subjective Subjective: Pt reports he ate some toasts and egg this am. He so far tolerate it OK. had some nausea - Objective Vital Signs & Weight: Vital Signs (12 hours) Temp Pulse Resp BP BP BP Pulse Ox 06/02/20 12:00 98.6 F 78 16 103/62 103/62 95 06/02/20 11:38 98.6 F 78 16 103/62 95 06/02/20 08:31 88 148/78 H 06/02/20 08:00 98.6 F 81 18 148/78 H 148/78 H 96 06/02/20 04:00 99.4 F 88 18 149/80 H 149/80 H 95 Weight Weight 165 lb 1.6 oz I&O: 06/01/20 06/02/20 06/03/20 06:59 06:59 06:59 Intake Total 1550 1680 Balance 1550 1680 Result Diagrams: 06/02/20 09:34 06/02/20 09:34 Hospitalist ROS - Medication Medications: Active Medications Generic Name Dose Route Start Last Admin Trade Name Fre PRN Reason Stop Dose Admin Acetaminophen 650 mg 05/27/20 13:02 06/02/20 13:01 Acetaminophen 325 Mg Tab PO 650 mg Q4H PRN Administration Headache/Fever/Mild Pain (1-3) Al Hydroxide/Mg Hydroxide 30 ml 05/27/20 13:25 05/30/20 09:20 Mag-Al 1200 Mg/1200 Mg/30 Ml Udcup PO 30 ml Q4H PRN Administration Indigestion Amlodipine Besylate 5 mg 06/02/20 09:00 06/02/20 08:31 Amlodipine 5 Mg Tab PO 5 mg DAILY [facility] Administration Aspirin 81 mg 05/29/20 09:00 06/02/20 08:32 Aspirin 81 Mg Enteric Coated Tablet PO 81 mg DAILY [facility] Administration Brimonidine Tartrate 1 drop 05/29/20 21:00 06/02/20 08:33 Brimonidine Tartrate 0.2% Ophth Soln 5 Ml Bottle R EYE 1 drop BID [facility] Administration Fluconazole 200 mg 05/30/20 12:00 06/02/20 13:02 Fluconazole 100 Mg Tab PO 06/13/20 12:01 200 mg 1200 [facility] Administration Folic Acid 1 mg 05/28/20 09:00 06/02/20 08:32 Folic Acid 1 Mg Tab PO 1 mg DAILY [facility] Administration Iron/Minerals/Multivitamins 1 tab 05/28/20 09:00 06/02/20 08:32 Multivitamin W/ Minerals 1 Tab PO Not Given DAILY [facility] Latanoprost 1 drop 05/29/20 21:00 06/02/20 08:33 Latanoprost 0.005% Ophth Soln 2.5 Ml Bottle EA EYE Not Given BID [facility] Magnesium Oxide 400 mg 05/28/20 09:00 06/02/20 08:32 Magnesium Oxide 400 Mg Tab PO 400 mg DAILY [facility] Administration Morphine Sulfate 4 mg 05/30/20 09:35 06/02/20 13:03 Morphine 4 Mg/Ml Vial SLOW IVP 4 mg Q4H PRN Administration Pain Ondansetron HCl 4 mg 05/27/20 13:02 05/31/20 21:12 Ondansetron Odt 4 Mg Tab PO 4 mg Q6H PRN Administration Nausea/Vomiting Ondansetron HCl 4 mg 05/27/20 13:02 05/30/20 17:05 Ondansetron Pf 4 Mg/2 Ml Vial IVP 4 mg Q6H PRN Administration Nausea/Vomiting Pantoprazole Sodium 40 mg 05/27/20 21:00 06/02/20 08:32 Pantoprazole 40 Mg Vial IVP 40 mg Q12HR [facility] Administration Sodium Chloride 10 ml 05/27/20 12:59 05/29/20 21:16 Flush - Normal Saline 10 Ml Syringe IVF 10 ml PRN PRN Administration Saline Flush Thiamine HCl 100 mg 05/28/20 09:00 06/02/20 08:32 Thiamine 100 Mg Tab PO 100 mg DAILY [facility] Administration Hosp A/P - Plan General Appearance: NAD Eye: PERRL ENT: normocephalic atraumatic Neck: supple Heart: RRR Respiratory: CTAB, no wheezes Gastrointestinal: soft, non-tender Extremities: no cyanosis Skin: normal turgor Neurological: cranial nerve grossly intact Musculoskeletal: normal tone Psychiatric: normal affect Patient is 65 years gentleman who has significant past medical history of alcohol abuse, alcoholic liver cirrhosis, GERD with esophagitis, hypertension, who presented to the ED with complaint of chest pain intermittently x2 months. Patient is now status post EGD, found to have duodenal ulcer with partial gastric outlet obstruction. Duodenal ulcer with partial gastric outlet obstruction - s/p EGD. Neg for H pylori --cont IV PPI BID as per GI, diet advanced so far tolerated it well --Home when OK with GI, and consider surgical eval if he is unable to keep up with his caloric demand Candid Esophagitis --cont Diflucan x 2 weeks Chest pain - secondary to above --trop neg x 3 HTN, essential - controlled --Resume Norvasc Alcohol abuse --counseled, cont Folic/Thiamine
[2020-06-03] MEDS: Morphine 4 MG/ML VIAL SLOW IVP PRN ×3 (01:24→12:21)
[2020-06-03] MEDS: Acetaminophen 325 MG TAB PO PRN ×2 (03:49→18:00)
[2020-06-03 05:53] LABS: #Eosinphils 0.1 thou/uL (0.0-0.7); #Lymphocytes 1.6 thou/uL (1.20-3.40); #Monocytes 1.3 thou/uL (0.11-0.59); #Neutrophils 7.6 thou/uL (1.40-6.50); %Basophils 0.3 % (0.0-1.0); %Eosinophils 0.9 % (0.0-10.0); %Lymphocytes 14.7 % (21.0-51.0); Hemoglobin 8.4 g/dL (14.0-18.0); Mean Corpuscular HGB CONC 32.5 g/dL (32.0-36.0); Mean Platelet Volume 6.5 fL (7.4-10.4); Platelet Count 584 thou/uL (130-400); RBC Distribution Width 14.6 % (11.5-14.5); Red Blood Cell (RBC) Count 2.54 mill/uL (4.70-6.10); White Blood Cell (WBC) Count 10.6 thou/uL (4.8-10.8)
[2020-06-03 06:08] LABS: Anion Gap 14 mmol/L (10-20); BUN (Urea Nitrogen) Less than 4 mg/dL (8.4-25.7); Calc. Creatinine Clearance 130 mL/min (70-130); Calcium 8.1 mg/dL (7.8-10.44); Carbon Dioxide 23 mmol/L (23-31); Chloride 105 mmol/L (98-107); Estimated GFR-MDRD Greater than 90; Glucose 77 mg/dL (80-115); Potassium 3.5 mmol/L (3.5-5.1); Sodium 138 mmol/L (136-145)
[2020-06-03] MEDS: Magnesium Oxide 400 MG TAB PO SCH (08:33)
[2020-06-03] MEDS: Thiamine 100 MG TAB PO SCH (08:33)
[2020-06-03] MEDS: Aspirin 81 mg Enteric Coated Tablet PO SCH (08:33)
[2020-06-03] MEDS: Folic Acid 1 MG TAB PO SCH (08:34)
[2020-06-03] MEDS: Multivitamin W/ Minerals 1 TAB PO SCH (08:34)
[2020-06-03] MEDS: Amlodipine 5 MG TAB PO SCH (08:34)
[2020-06-03] MEDS: Brimonidine Tartrate 0.2% Ophth Soln 5 ml Bottle R EYE SCH ×2 (08:35→18:07)
[2020-06-03] MEDS: Pantoprazole 40 MG VIAL IVP SCH ×2 (08:35→20:36)
[2020-06-03] MEDS: Latanoprost 0.005% Ophth Soln 2.5 ml Bottle EA EYE SCH ×2 (09:30→18:08)
--- NOTE | 2020-06-03 11:08 | PRG ---
DATE OF SERVICE: 06/03/2020 SUBJECTIVE: Mr. Acosta is not very talkative today. In fact, he just frankly refuses to answer most of my questions. He reports he was unable to tolerate more than just a bit of eggs today and could eat hardly any of his dinner yesterday due to continued nausea. He has not had any vomiting. He continues to have intermittent abdominal pain. PHYSICAL EXAMINATION: VITAL SIGNS: Temperature 99.2, pulse 94, blood pressure 117/67, 95% oxygen saturation on room air. GENERAL: No acute distress. Appears depressed, refusing to answer many questions, eventually stopped responding to me at all. HEART: Regular rate and rhythm. LUNGS: Clear to auscultation bilaterally. ABDOMEN: Bowel sounds are present. The abdomen is soft. Some tenderness to palpation in the upper abdomen. EXTREMITIES: No peripheral edema. LABORATORY STUDIES: WBC 10.6, hemoglobin 8.4, platelets 584. Sodium 138, potassium 3.5, BUN less than 4, creatinine 0.59. ASSESSMENT AND PLAN: 1. Large duodenal ulcer with stenosis resulting in partial gastric outlet obstruction. We have really been unable to advance his diet to fiber strict diet over the past several days. At this point, I do not think he is going to be able to maintain adequate caloric intake. This has been despite aggressive treatment of the ulcer with IV proton pump inhibitor twice daily. Note that biopsies were negative for Helicobacter pylori. At this time, we will go ahead and request surgical opinion on whether he might benefit from bypass operation. 2. Aminta esophagitis. The patient is on day 5 of a 2-week course of fluconazole 200 mg daily. Job ID: [id number]
[2020-06-03] MEDS: Fluconazole 100 MG TAB PO SCH (12:24)
[2020-06-03] MEDS: HYDROcodone/Acetaminophen 5/325 mg Tablet PO PRN ×2 (14:33→20:37)
[2020-06-03] MEDS ORDERED: Lidocaine 2% Viscous Solution 20 ML, Aluminum & Magnesium Hydroxide 30 ML, Donnatal Eli... SSW SCH (18:00)
[2020-06-03] MEDS: Morphine 2 MG/ML VIAL SLOW IVP PRN (18:13)
--- NOTE | 2020-06-03 18:30 | PDOC.HOSPP ---
- Subjective Subjective: still complaints of intermittent chest discomfort especially after he eats surgery was consulted. - Objective Vital Signs & Weight: Vital Signs (12 hours) Temp Pulse Resp BP BP Pulse Ox 06/03/20 18:18 98.5 F 06/03/20 12:27 98.6 F 06/03/20 08:08 99.2 F 94 20 117/67 95 06/03/20 08:00 117/67 95 Weight Weight 165 lb 1.6 oz I&O: 06/02/20 06/03/20 06/04/20 06:59 06:59 06:59 Intake Total 1680 630 240 Balance 1680 630 240 Result Diagrams: 06/03/20 05:25 06/03/20 05:25 Hospitalist ROS - Medication Medications: Active Medications Generic Name Dose Route Start Last Admin Trade Name Freq PRN Reason Stop Dose Admin Acetaminophen 650 mg 05/27/20 13:02 06/03/20 18:00 Acetaminophen 325 Mg Tab PO 650 mg Q4H PRN Administration Headache/Fever/Mild Pain (1-3) Hydrocodone Bitart/Acetaminophen 1 tab 06/03/20 12:08 06/03/20 14:33 Hydrocodone/Acetaminophen 5/325 Mg Tablet PO 1 tab Q4H PRN Administration Moderate to Severe Pain (6-10) Al Hydroxide/Mg Hydroxide 30 ml 05/27/20 13:25 05/30/20 09:20 Mag-Al 1200 Mg/1200 Mg/30 Ml Udcup PO 30 ml Q4H PRN Administration Indigestion Amlodipine Besylate 5 mg 06/02/20 09:00 06/03/20 08:34 Amlodipine 5 Mg Tab PO 5 mg DAILY [facility] Administration Aspirin 81 mg 05/29/20 09:00 06/03/20 08:33 Aspirin 81 Mg Enteric Coated Tablet PO 81 mg DAILY [facility] Administration Brimonidine Tartrate 1 drop 05/29/20 21:00 06/03/20 18:07 Brimonidine Tartrate 0.2% Ophth Soln 5 Ml Bottle R EYE 1 drop BID [facility] Administration Fluconazole 200 mg 05/30/20 12:00 06/03/20 12:24 Fluconazole 100 Mg Tab PO 06/13/20 12:01 200 mg 1200 [facility] Administration Folic Acid 1 mg 05/28/20 09:00 06/03/20 08:34 Folic Acid 1 Mg Tab PO 1 mg DAILY [facility] Administration Iron/Minerals/Multivitamins 1 tab 05/28/20 09:00 06/03/20 08:34 Multivitamin W/ Minerals 1 Tab PO Not Given DAILY [facility] Latanoprost 1 drop 05/29/20 21:00 06/03/20 18:08 Latanoprost 0.005% Ophth Soln 2.5 Ml Bottle EA EYE 1 drop BID [facility] Administration Magnesium Oxide 400 mg 05/28/20 09:00 06/03/20 08:33 Magnesium Oxide 400 Mg Tab PO 400 mg DAILY [facility] Administration Morphine Sulfate 2 mg 06/03/20 17:57 06/03/20 18:13 Morphine 2 Mg/Ml Vial SLOW IVP 2 mg Q3H PRN Administration Severe Pain (7-10) Nitroglycerin 0.4 mg 05/27/20 12:59 06/03/20 18:03 Nitroglycerin 0.4 Mg Tab (25 Tab Bottle) SL 0.4 mg Q5MIN PRN Administration Chest Pain Ondansetron HCl 4 mg 05/27/20 13:02 05/31/20 21:12 Ondansetron Odt 4 Mg Tab PO 4 mg Q6H PRN Administration Nausea/Vomiting Ondansetron HCl 4 mg 05/27/20 13:02 05/30/20 17:05 Ondansetron Pf 4 Mg/2 Ml Vial IVP 4 mg Q6H PRN Administration Nausea/Vomiting Pantoprazole Sodium 40 mg 05/27/20 21:00 06/03/20 08:35 Pantoprazole 40 Mg Vial IVP 40 mg Q12HR [facility] Administration Sodium Chloride 10 ml 05/27/20 12:59 06/03/20 08:38 Flush - Normal Saline 10 Ml Syringe IVF 10 ml PRN PRN Administration Saline Flush Thiamine HCl 100 mg 05/28/20 09:00 06/03/20 08:33 Thiamine 100 Mg Tab PO 100 mg DAILY [facility] Administration Hosp A/P - Plan General Appearance: NAD Eye: PERRL ENT: normocephalic atraumatic Neck: supple Heart: RRR Respiratory: CTAB, no wheezes Gastrointestinal: soft, non-tender Extremities: no cyanosis Skin: normal turgor Neurological: cranial nerve grossly intact Musculoskeletal: normal tone Psychiatric: normal affect Patient is 65 years gentleman who has significant past medical history of alcohol abuse, alcoholic liver cirrhosis, GERD with esophagitis, hypertension, who presented to the ED with complaint of chest pain intermittently x2 months. Patient is now status post EGD, found to have duodenal ulcer with partial gastric outlet obstruction. Duodenal ulcer with partial gastric outlet obstruction - s/p EGD. Neg for H pylori --cont IV PPI BID as per GI, --pt is not able to maintain adequate coloric intake. Surgery was consulted. Candid Esophagitis --cont Diflucan x 2 weeks Chest pain - secondary to above --trop neg x 3 HTN, essential - controlled --Resume Norvasc Alcohol abuse --counseled, cont Folic/Thiamine
[2020-06-04] MEDS: Morphine 2 MG/ML VIAL SLOW IVP PRN ×7 (00:32→23:18)
[2020-06-04] MEDS: HYDROcodone/Acetaminophen 5/325 mg Tablet PO PRN ×3 (01:47→21:10)
[2020-06-04] MEDS: Acetaminophen 325 MG TAB PO PRN (05:26)
[2020-06-04 06:02] LABS: #Eosinphils 0.1 thou/uL (0.0-0.7); #Lymphocytes 1.6 thou/uL (1.20-3.40); #Monocytes 1.1 thou/uL (0.11-0.59); #Neutrophils 7.8 thou/uL (1.40-6.50); %Basophils 0.2 % (0.0-1.0); %Lymphocytes 15.1 % (21.0-51.0); %Monocytes 10.5 % (0.0-10.0); %Neutrophils 73.3 % (42.0-75.0); Hemoglobin 9.3 g/dL (14.0-18.0); Mean Corpuscular HGB CONC 31.4 g/dL (32.0-36.0); Mean Corpuscular Hemoglobin 32.2 pg (27.0-31.0); Mean Platelet Volume 6.1 fL (7.4-10.4); Platelet Count 666 thou/uL (130-400); RBC Distribution Width 14.5 % (11.5-14.5); Red Blood Cell (RBC) Count 2.89 mill/uL (4.70-6.10); White Blood Cell (WBC) Count 10.7 thou/uL (4.8-10.8)
[2020-06-04 06:25] LABS: Anion Gap 10 mmol/L (10-20); BUN (Urea Nitrogen) 4 mg/dL (8.4-25.7); Calc. Creatinine Clearance 122 mL/min (70-130); Calcium 8.2 mg/dL (7.8-10.44); Carbon Dioxide 28 mmol/L (23-31); Chloride 103 mmol/L (98-107); Estimated GFR-MDRD Greater than 90; Glucose 91 mg/dL (80-115); Potassium 3.7 mmol/L (3.5-5.1); Sodium 137 mmol/L (136-145)
[2020-06-04] MEDS: Latanoprost 0.005% Ophth Soln 2.5 ml Bottle EA EYE SCH ×2 (08:39→20:12)
[2020-06-04] MEDS: Brimonidine Tartrate 0.2% Ophth Soln 5 ml Bottle R EYE SCH ×2 (08:40→20:12)
[2020-06-04] MEDS: Folic Acid 1 MG TAB PO SCH (08:41)
[2020-06-04] MEDS: Magnesium Oxide 400 MG TAB PO SCH (08:41)
[2020-06-04] MEDS: Aspirin 81 mg Enteric Coated Tablet PO SCH (08:41)
[2020-06-04] MEDS: Amlodipine 5 MG TAB PO SCH (08:42)
[2020-06-04] MEDS: Multivitamin W/ Minerals 1 TAB PO SCH ×2 (08:42→08:56)
[2020-06-04] MEDS: Pantoprazole 40 MG VIAL IVP SCH ×2 (08:43→20:13)
[2020-06-04 08:49] LABS: Magnesium 1.5 mg/dL (1.6-2.6); Phosphorus 2.5 mg/dL (2.3-4.7)
[2020-06-04] MEDS: Thiamine 100 MG TAB PO SCH (08:54)
[2020-06-04] MEDS: Multivitamins, Adult 10 ML, Folic Acid 1 MG, Thiamine HCl 100 MG in Dextrose 5 %-0.45 %... IV SCH (09:36)
--- NOTE | 2020-06-04 09:39 | PDOC.EVN ---
Event Note - Event Note Event Note: Consult dicated. Will re-assess tomorrow. Possible surgery . Options would include gastro-J alone or with antrectomy.
[2020-06-04] MEDS ORDERED: Magnesium Sulfate 4 GM in Sodium Chloride 0.9% 250 ML 250 ML IVPB SCH (10:00)
--- NOTE | 2020-06-04 10:36 | PDOC.HOSPP ---
- Subjective Encounter Date: 06/04/20 Encounter Time: 10:20 Subjective: Patient seen and examined for gastric outlet obstruction due to severe peptic ulcer disease. Continues to have intractable abdominal pain controlled with IV morphine and [place] on an as-needed basis. Denies any nausea or vomiting. Currently on GI soft diet. - Objective Vital Signs & Weight: Vital Signs (12 hours) Temp Pulse Resp BP BP BP Pulse Ox 06/04/20 08:42 82 06/04/20 08:00 98.9 F 82 16 115/70 115/70 93 L 06/04/20 04:00 98.9 F 97 20 125/72 95 06/04/20 03:45 125/72 06/03/20 23:56 98.5 F 79 20 111/67 94 L 06/03/20 23:40 111/67 Weight Weight 165 lb 1.6 oz I&O: 06/03/20 06/04/20 06/05/20 06:59 06:59 06:59 Intake Total 630 1660 Balance 630 1660 Result Diagrams: 06/04/20 05:43 06/04/20 05:43 Additional Labs: Laboratory Tests 06/04/20 05:40 Magnesium 1.5 L Radiology Reviewed by me: Yes (Chest x-ray negative for infiltrate) Hospitalist ROS - Review of Systems Respiratory: denies: cough, dry, shortness of breath, hemoptysis, SOB with ex certion, pleuritic pain, sputum, wheezing, other Cardiovascular: denies: chest pain, palpitations, orthopnea, paroxysmal noc. dyspnea, edema, light headedness, other - Medication Medications: Active Medications Generic Name Dose Route Start Last Admin Trade Name Freq PRN Reason Stop Dose Admin Acetaminophen 650 mg 05/27/20 13:02 06/04/20 05:26 Acetaminophen 325 Mg Tab PO 650 mg Q4H PRN Administration Headache/Fever/Mild Pain (1-3) Hydrocodone Bitart/Acetaminophen 1 tab 06/03/20 12:08 06/04/20 08:53 Hydrocodone/Acetaminophen 5/325 Mg Tablet PO 1 tab Q4H PRN Administration Moderate to Severe Pain (6-10) Al Hydroxide/Mg Hydroxide 30 ml 05/27/20 13:25 05/30/20 09:20 Mag-Al 1200 Mg/1200 Mg/30 Ml Udcup PO 30 ml Q4H PRN Administration Indigestion Amlodipine Besylate 5 mg 06/02/20 09:00 06/04/20 08:42 Amlodipine 5 Mg Tab PO 5 mg DAILY [facility] Administration Aspirin 81 mg 05/29/20 09:00 06/04/20 08:41 Aspirin 81 Mg Enteric Coated Tablet PO 81 mg DAILY [facility] Administration Brimonidine Tartrate 1 drop 05/29/20 21:00 06/04/20 08:40 Brimonidine Tartrate 0.2% Ophth Soln 5 Ml Bottle R EYE 1 drop BID [facility] Administration Fluconazole 200 mg 05/30/20 12:00 06/03/20 12:24 Fluconazole 100 Mg Tab PO 06/13/20 12:01 200 mg 1200 [facility] Administration Folic Acid 1 mg 05/28/20 09:00 06/04/20 08:41 Folic Acid 1 Mg Tab PO 1 mg DAILY [facility] Administration Multivitamins 10 ml/ Folic 1,011.2 mls @ 75 mls/hr 06/04/20 09:00 06/04/20 09:36 Acid 1 mg/ Thiamine HCl 100 mg IV 1,011.2 mls / Dextrose/Sodium Chloride 0900 [facility] Administration Iron/Minerals/Multivitamins 1 tab 05/28/20 09:00 06/04/20 08:56 Multivitamin W/ Minerals 1 Tab PO Not Given DAILY [facility] Latanoprost 1 drop 05/29/20 21:00 06/04/20 08:39 Latanoprost 0.005% Ophth Soln 2.5 Ml Bottle EA EYE 1 drop BID [facility] Administration Morphine Sulfate 2 mg 06/03/20 17:57 06/04/20 08:45 Morphine 2 Mg/Ml Vial SLOW IVP 2 mg Q3H PRN Administration Severe Pain (7-10) Nitroglycerin 0.4 mg 05/27/20 12:59 06/03/20 18:03 Nitroglycerin 0.4 Mg Tab (25 Tab Bottle) SL 0.4 mg Q5MIN PRN Administration Chest Pain Ondansetron HCl 4 mg 05/27/20 13:02 05/31/20 21:12 Ondansetron Odt 4 Mg Tab PO 4 mg Q6H PRN Administration Nausea/Vomiting Ondansetron HCl 4 mg 05/27/20 13:02 05/30/20 17:05 Ondansetron Pf 4 Mg/2 Ml Vial IVP 4 mg Q6H PRN Administration Nausea/Vomiting Pantoprazole Sodium 40 mg 05/27/20 21:00 06/04/20 08:43 Pantoprazole 40 Mg Vial IVP 40 mg Q12HR [facility] Administration Sodium Chloride 10 ml 05/27/20 12:59 06/03/20 08:38 Flush - Normal Saline 10 Ml Syringe IVF 10 ml PRN PRN Administration Saline Flush Thiamine HCl 100 mg 05/28/20 09:00 06/04/20 08:54 Thiamine 100 Mg Tab PO Not Given DAILY [facility] - Exam General Appearance: ill appearing Neck: supple, no JVD Heart: RRR, no gallops Respiratory: no wheezes, no ronchi Gastrointestinal: soft, normal bowel sounds, no guarding, no rigidity, tender to palpation (Mainly over the right side) Extremities: no cyanosis, no clubbing Neurological: no new deficit Psychiatric: A&O x 3 Hosp A/P (1) Gastric outlet obstruction Code(s): K31.1 - ADULT HYPERTROPHIC PYLORIC STENOSIS Status: Acute (2) Peptic ulcer disease Code(s): K27.9 - PEPTIC ULC, SITE UNSP, UNSP AC OR CHR, W/O HEMOR OR PERF Status: Acute (3) Aminta esophagitis Code(s): B37.81 - CANDIDAL ESOPHAGITIS Status: Acute (4) Electrolyte abnormality Code(s): E87.8 - OTH DISORDERS OF ELECTROLYTE AND FLUID BALANCE, NEC Status: Acute (5) Other issues per previous notes - Plan DVT proph w/SCDs 06/04 Surgical input appreciated. Will continue IV PPIs with oral fluconazole. Replace magnesium. Add multivitamin bag daily. Hold NSAIDs. Continue morphine with hydrocodone for pain control. Increase ambulation. Counseled on alcohol cessation. Continue other medications as above. A.m. labs. Other problems: Folic acid deficiency, chronic alcoholism with alcoholic cirrhosis, hiatal hernia, hypertension, glaucoma, moderate protein calorie malnutrition, atypical chest pain on admission secondary to above, chronic anemia suspected due to nutritional deficiency,
[2020-06-04] MEDS ORDERED: Lorazepam 1 MG TAB PO PRN (10:40)
--- NOTE | 2020-06-04 10:49 | CON ---
DATE OF CONSULTATION: 06/03/2020 CHIEF COMPLAINT: Gastric outlet obstruction. HISTORY OF PRESENT ILLNESS: This is a 65-year-old male with a history of smoking, alcohol abuse, and peptic ulcer disease, who presents with a history of large ulcer in the anterior duodenal bulb associated with stenosis of the gastric outlet. He is not able to eat, has been previously seen by GI and had a recent endoscopy, which showed that an EGD scope did pass through this area. However, there was some difficulty. This morning, the patient notes that he had tolerated some food, but felt full very fast. No vomiting. He has been hemodynamically stable. PAST MEDICAL HISTORY: Includes; 1. Hypertension. 2. GERD. 3. Peptic ulcer disease. 4. Cirrhosis, although he denies history of paracentesis or variceal bleeding. 5. Depression. PAST SURGICAL HISTORY: 1. Appendectomy. 2. Back surgery. MEDICATIONS: Taken daily at home; 1. Aspirin. 2. Amlodipine. 3. Omeprazole. 4. Latanoprost. 5. Brimonidine ophthalmic. FAMILY HISTORY: Noncontributory to GI malignancy or anesthetic-related complication. REVIEW OF SYSTEMS: Ten-system review of systems is otherwise negative as described above. PHYSICAL EXAMINATION: VITAL SIGNS: Blood pressure 125/72, pulse 97, respirations 20. HEENT: Sclerae anicteric. Oropharynx clear. NECK: No lymphadenopathy. CHEST: Clear. HEART: Regular rate. ABDOMEN: Soft, nontender, nondistended. No abdominal or inguinal hernias. EXTREMITIES: No ischemia or edema to extremities. LABORATORY DATA: White blood cell count is 10, hemoglobin 9.3, platelets are 666. Sodium 137, potassium 3.7, creatinine 0.6. Albumin was 2.4 back on 05/28. LFTs were normal except alkaline phosphatase elevated at 153. ASSESSMENT: Gastric outlet obstruction and duodenal stricture secondary to severe peptic ulcer disease in a patient, who smokes and drinks and has heavy alcohol intake. PLAN: Options would include more minimally invasive gastrojejunostomy versus antrectomy with gastrojejunostomy. If we thought that there was any risk of malignancy to this ulcer, then an antrectomy would be preferred. However, an antrectomy would be associated with more morbidity, high risk of complications including duodenal stump blowout, ampullary stenosis, and prolonged nonhealing. I think that given his smoking and alcohol history, he would probably get over this faster just with a gastrojejunostomy for palliation. He will need to be on PPI for the rest of his life. If we performed gastrojejunostomy without antrectomy, then risk of recurrent ulcers or anastomotic stenosis would be higher, especially if he continues to smoke. We will reassess him tomorrow. My plan would be surgery on . Job ID: [id number]
[2020-06-04] MEDS: Fluconazole 100 MG TAB PO SCH (11:11)
[2020-06-04] MEDS: traMADol HCl 50 MG TAB PO SCH ×2 (14:48→20:10)
[2020-06-05] MEDS: Morphine 2 MG/ML VIAL SLOW IVP PRN ×4 (02:41→23:37)
[2020-06-05] MEDS: HYDROcodone/Acetaminophen 5/325 mg Tablet PO PRN ×3 (05:00→22:24)
[2020-06-05 06:11] LABS: #Eosinphils 0.2 thou/uL (0.0-0.7); #Lymphocytes 1.6 thou/uL (1.20-3.40); #Monocytes 1.1 thou/uL (0.11-0.59); #Neutrophils 8.2 thou/uL (1.40-6.50); %Basophils 0.3 % (0.0-1.0); %Eosinophils 1.4 % (0.0-10.0); %Lymphocytes 14.6 % (21.0-51.0); %Monocytes 10.2 % (0.0-10.0); %Neutrophils 73.6 % (42.0-75.0); Hemoglobin 8.6 g/dL (14.0-18.0); Mean Corpuscular HGB CONC 32.6 g/dL (32.0-36.0); Mean Platelet Volume 6.3 fL (7.4-10.4); Platelet Count 646 thou/uL (130-400); RBC Distribution Width 14.5 % (11.5-14.5); White Blood Cell (WBC) Count 11.1 thou/uL (4.8-10.8)
[2020-06-05 06:38] LABS: ALT (SGPT) 11 U/L (8-55); AST (SGOT) 25 U/L (5-34); Albumin 2.5 g/dL (3.4-4.8); Alkaline Phosphatase 109 U/L (40-110); Anion Gap 13 mmol/L (10-20); BUN (Urea Nitrogen) 5 mg/dL (8.4-25.7); Bilirubin, Total 0.4 mg/dL (0.2-1.2); Calc. Creatinine Clearance 130 mL/min (70-130); Calcium 7.9 mg/dL (7.8-10.44); Carbon Dioxide 23 mmol/L (23-31); Chloride 101 mmol/L (98-107); Estimated GFR-MDRD Greater than 90; Globulin 3.8 g/dL (2.4-3.5); Glucose 77 mg/dL (80-115); Magnesium 1.9 mg/dL (1.6-2.6); Phosphorus 2.5 mg/dL (2.3-4.7); Potassium 3.7 mmol/L (3.5-5.1); Protein, Total 6.3 g/dL (5.8-8.1); Sodium 133 mmol/L (136-145)
[2020-06-05] MEDS: Thiamine 100 MG TAB PO SCH (08:05)
[2020-06-05] MEDS: traMADol HCl 50 MG TAB PO SCH ×3 (08:05→20:19)
[2020-06-05] MEDS: Amlodipine 5 MG TAB PO SCH (08:05)
[2020-06-05] MEDS: Folic Acid 1 MG TAB PO SCH (08:05)
[2020-06-05] MEDS: Multivitamin W/ Minerals 1 TAB PO SCH ×2 (08:05→08:07)
[2020-06-05] MEDS: Latanoprost 0.005% Ophth Soln 2.5 ml Bottle EA EYE SCH ×2 (08:06→20:18)
[2020-06-05] MEDS: Pantoprazole 40 MG VIAL IVP SCH ×2 (08:06→20:19)
[2020-06-05] MEDS: Brimonidine Tartrate 0.2% Ophth Soln 5 ml Bottle R EYE SCH ×2 (08:06→20:19)
[2020-06-05] MEDS: Multivitamins, Adult 10 ML, Folic Acid 1 MG, Thiamine HCl 100 MG in Dextrose 5 %-0.45 %... IV SCH (08:15)
--- NOTE | 2020-06-05 08:30 | PRG ---
DATE OF SERVICE: 06/04/2020 SUBJECTIVE: Mr. Acosta still has epigastric pain and bloating. He is tolerating a fiber-restricted diet this evening, but he has not had much of it yet. OBJECTIVE: VITAL SIGNS: Temperature 99.2, pulse 86, and blood pressure 115/66. GENERAL: He is in no acute distress. Alert and oriented x3. He says very little and is not very engaging in the conversation. He does have significant history of alcohol use. LUNGS: Clear to auscultation bilaterally. HEART: Regular rate and rhythm without murmur. ABDOMEN: Soft. Mild tenderness in epigastric region without guarding. Bowel sounds are present. EXTREMITIES: No lower extremity edema. LABORATORY DATA: White blood cell count 10.7, hemoglobin 9.3, and platelets 666. INR 1.2. Creatinine 0.63, bilirubin 0.4, AST 16, ALT 13, and alkaline phosphatase 153. Ferritin 848, his iron and TIBC are low. Folate was a little low at 6.3, previously. IMPRESSION: 1. Chronic gastric outlet obstruction with duodenal ulceration and stricture. This has previously caused complications with stricturing of the bile duct and he required endoscopic retrograde cholangiopancreatography with stent placement, but this has since been removed. He does not have ongoing biliary obstruction, but he still does not tolerate his oral diet well and we have recommended a gastrojejunostomy at this point. 2. History of alcohol abuse. 3. Anemia of chronic disease and folate deficiency. RECOMMENDATIONS: I have discussed the case with Dr. Sin. Plan is to proceed with gastrojejunostomy on . Option for antrectomy will be considered further at the time of surgery based on the anatomy and degree of scar tissue. Other factors including whether or not the liver appears cirrhotic at the time may also play a role. Access to his bile duct would be more challenging if he does end up with an antrectomy. However at this time, at least he is not obstructed from a biliary standpoint. Job ID: [id number]
--- NOTE | 2020-06-05 09:32 | PDOC.HOSPP ---
- Subjective Encounter Date: 06/05/20 Encounter Time: 09:00 Subjective: Patient seen and examined for gastric outlet obstruction due to severe peptic ulcer disease. Still has significant abdominal pain. No nausea or vomiting. Small bowel movement yesterday. - Objective Vital Signs & Weight: Vital Signs (12 hours) Temp Pulse Resp BP BP BP Pulse Ox 06/05/20 08:05 91 113/70 06/05/20 07:38 98.9 F 91 18 113/70 95 06/05/20 04:00 98.9 F 91 18 139/80 95 06/04/20 23:34 97.8 F 95 18 101/61 97 Weight Weight 165 lb 1.6 oz I&O: 06/04/20 06/05/20 06/06/20 06:59 06:59 06:59 Intake Total 1660 1800 Balance 1660 1800 Result Diagrams: 06/05/20 05:40 06/05/20 05:40 Hospitalist ROS - Review of Systems Respiratory: denies: cough, dry, shortness of breath, hemoptysis, SOB with excertion, pleuritic pain, sputum, wheezing, other Cardiovascular: denies: chest pain, palpitations, orthopnea, paroxysmal noc. dyspnea, edema, light headedness, other - Medication Medications: Active Medications Generic Name Dose Route Start Last Admin Trade Name Freq PRN Reason Stop Dose Admin Acetaminophen 650 mg 05/27/20 13:02 06/04/20 05:26 Acetaminophen 325 Mg Tab PO 650 mg Q4H PRN Administration Headache/Fever/Mild Pain (1-3) Hydrocodone Bitart/Acetaminophen 1 tab 06/03/20 12:08 06/05/20 05:00 Hydrocodone/Acetaminophen 5/325 Mg Tablet PO 1 tab Q4H PRN Administration Moderate to Severe Pain (6-10) Al Hydroxide/Mg Hydroxide 30 ml 05/27/20 13:25 05/30/20 09:20 Mag-Al 1200 Mg/1200 Mg/30 Ml Udcup PO 30 ml Q4H PRN Administration Indigestion Amlodipine Besylate 5 mg 06/02/20 09:00 06/05/20 08:05 Amlodipine 5 Mg Tab PO 5 mg DAILY PERCY Administration Brimonidine Tartrate 1 drop 05/29/20 21:00 06/05/20 08:06 Brimonidine Tartrate 0.2% Ophth Soln 5 Ml Bottle R EYE 1 drop BID PERCY Administration Fluconazole 200 mg 05/30/20 12:00 06/04/20 11:11 Fluconazole 100 Mg Tab PO 06/13/20 12:01 200 mg 1200 PERCY Administration Folic Acid 1 mg 05/28/20 09:00 06/05/20 08:05 Folic Acid 1 Mg Tab PO 1 mg DAILY PERCY Administration Multivitamins 10 ml/ Folic 1,011.2 mls @ 75 mls/hr 06/04/20 09:00 06/05/20 08:15 Acid 1 mg/ Thiamine HCl 100 mg IV 1,011.2 mls / Dextrose/Sodium Chloride 0900 PERCY Administration Iron/Minerals/Multivitamins 1 tab 05/28/20 09:00 06/05/20 08:07 Multivitamin W/ Minerals 1 Tab PO Not Given DAILY COUNTS INCLUDE 234 BEDS AT THE [facility] Latanoprost 1 drop 05/29/20 21:00 06/05/20 08:06 Latanoprost 0.005% Ophth Soln 2.5 Ml Bottle EA EYE Not Given BID COUNTS INCLUDE 234 BEDS AT THE [facility] Morphine Sulfate 2 mg 06/03/20 17:57 06/05/20 09:28 Morphine 2 Mg/Ml Vial SLOW IVP 2 mg Q3H PRN Administration Severe Pain (7-10) Nitroglycerin 0.4 mg 05/27/20 12:59 06/03/20 18:03 Nitroglycerin 0.4 Mg Tab (25 Tab Bottle) SL 0.4 mg Q5MIN PRN Administration Chest Pain Ondansetron HCl 4 mg 05/27/20 13:02 05/31/20 21:12 Ondansetron Odt 4 Mg Tab PO 4 mg Q6H PRN Administration Nausea/Vomiting Ondansetron HCl 4 mg 05/27/20 13:02 05/30/20 17:05 Ondansetron Pf 4 Mg/2 Ml Vial IVP 4 mg Q6H PRN Administration Nausea/Vomiting Pantoprazole Sodium 40 mg 05/27/20 21:00 06/05/20 08:06 Pantoprazole 40 Mg Vial IVP 40 mg Q12HR PERCY Administration Sodium Chloride 10 ml 05/27/20 12:59 06/03/20 08:38 Flush - Normal Saline 10 Ml Syringe IVF 10 ml PRN PRN Administration Saline Flush Thiamine HCl 100 mg 05/28/20 09:00 06/05/20 08:05 Thiamine 100 Mg Tab PO 100 mg DAILY PERCY Administration Tramadol HCl 50 mg 06/04/20 15:00 06/05/20 08:05 Tramadol Hcl 50 Mg Tab PO 50 mg TID PERCY Administration - Exam General Appearance: ill appearing Neck: supple, no JVD Heart: RRR, no gallops Respiratory: no wheezes, no rales Gastrointestinal: no guarding, no rigidity, tender to palpation Gastrointestinal - other findings: Mild to moderate tenderness over the xena umbilical/epigastric region Extremities: no cyanosis, no clubbing Musculoskeletal: generalized weakness Psychiatric: normal affect, A&O x 3 Hosp A/P (1) Gastric outlet obstruction Code(s): K31.1 - ADULT HYPERTROPHIC PYLORIC STENOSIS Status: Acute (2) Peptic ulcer disease Code(s): K27.9 - PEPTIC ULC, SITE UNSP, UNSP AC OR CHR, W/O HEMOR OR PERF Status: Acute (3) Aminta esophagitis Code(s): B37.81 - CANDIDAL ESOPHAGITIS Status: Acute (4) Electrolyte abnormality Code(s): E87.8 - OTH DISORDERS OF ELECTROLYTE AND FLUID BALANCE, NEC Status: Acute (5) Other issues per previous notes - Plan DVT proph w/SCDs 06/05 Add 20 M EQ of potassium chloride and banana bag daily. Continue IV PPIs. Continue Diflucan. Continue current pain regimen. Continue amlodipine and other medications as above. Continue physical therapy. DVT prophylaxis with SCDs. 06/04 Surgical input appreciated. Will continue IV PPIs with oral fluconazole. Replace magnesium. Add multivitamin bag daily. Hold NSAIDs. Continue morphine with hydrocodone for pain control. Increase ambulation. Counseled on alcohol cessation. Continue other medications as above. A.m. labs. Other problems: Folic acid deficiency, chronic alcoholism with alcoholic cirrhosis, hiatal hernia, hypertension, glaucoma, moderate protein calorie malnutrition, atypical chest pain on admission secondary to above, chronic anemia suspected due to nutritional deficiency,
[2020-06-05] MEDS: Fluconazole 100 MG TAB PO SCH (12:42)
--- NOTE | 2020-06-05 17:04 | PRG ---
DATE OF SERVICE: 06/05/2020 REASON FOR CONSULTATION: Duodenal stricture/ulceration. SUBJECTIVE: The patient states that he continues to have increased right upper quadrant abdominal pain with ingestion of the lower fiber diet that he has been eating thus far, but otherwise denies any nausea, vomiting, fevers, chills, hematemesis, melena, or hematochezia. He is set for surgery for tomorrow. OBJECTIVE: VITAL SIGNS: Temperature 98.8, pulse 81, blood pressure 127/74, respiratory rate 20, saturating 96% on room air. GENERAL: The patient was lying in bed, in no acute distress. Alert and oriented x4. CARDIOVASCULAR: Regular rate and rhythm. RESPIRATORY: Clear to auscultation bilaterally. ABDOMEN: Normoactive bowel sounds. Soft, nondistended. Mild tenderness to palpation in the midepigastric and right upper quadrant. EXTREMITIES: No cyanosis, clubbing, or edema. LABORATORY DATA: CBC with a white blood cell count of 11.1, hemoglobin 8.6, hematocrit 26.3, and platelets 646. Chemistry with a sodium of 133, potassium 3.7, chloride 101, CO2 of 23, BUN 5, creatinine 0.59, glucose 77, AST 25, ALT 11, alkaline phosphatase 109, total bilirubin 0.4. IMAGING DATA: No current GI imaging is available for review. ASSESSMENT: 1. Chronic gastric outlet obstruction secondary to duodenal ulceration and stricture. The patient was evaluated in early 2019 for choledocholithiasis, and a duodenal stricture was seen at that time, but was able to be traversed with the duodenoscope; however, shortly before admission, the patient experienced increased midepigastric abdominal pain, nausea, and vomiting with repeat upper endoscopy showing continued ulceration and stricture formation of the duodenal bulb with difficulty moving past it with the standard gastroscope. Biopsy is showing peptic duodenitis with focal erosion and random gastric biopsies without the presence of H pylori. At this point, the patient has been evaluated by General Surgery with plans for possible antrectomy or gastrojejunostomy tomorrow to alleviate the duodenal stricture. 2. History of alcohol abuse. 3. Anemia of chronic disease with folate deficiency. RECOMMENDATIONS: 1. Plan to proceed with probable gastrojejunostomy tomorrow via Dr. Sin. 2. Evaluation of the liver tomorrow during surgery and possible biopsy to establish diagnosis of cirrhosis secondary to chronic alcohol abuse. 3. Pain control per primary team. 4. We will continue the patient on lower fiber diet with n.p.o. at midnight in anticipation of the surgical operation tomorrow. We will continue to follow peripherally at this time. Please call with any questions. Job ID: [id number]
[2020-06-06] MEDS: Morphine 2 MG/ML VIAL SLOW IVP PRN ×2 (05:01→08:04)
[2020-06-06 05:52] LABS: #Eosinphils 0.1 thou/uL (0.0-0.7); #Lymphocytes 1.8 thou/uL (1.20-3.40); #Monocytes 1.1 thou/uL (0.11-0.59); %Basophils 0.5 % (0.0-1.0); %Lymphocytes 18.1 % (21.0-51.0); %Monocytes 10.5 % (0.0-10.0); %Neutrophils 69.9 % (42.0-75.0); Hemoglobin 9.1 g/dL (14.0-18.0); Mean Corpuscular HGB CONC 32.5 g/dL (32.0-36.0); Mean Corpuscular Hemoglobin 32.8 pg (27.0-31.0); Mean Platelet Volume 6.7 fL (7.4-10.4); Platelet Count 681 thou/uL (130-400); RBC Distribution Width 14.8 % (11.5-14.5); Red Blood Cell (RBC) Count 2.77 mill/uL (4.70-6.10)
[2020-06-06 06:16] LABS: Anion Gap 15 mmol/L (10-20); BUN (Urea Nitrogen) 4 mg/dL (8.4-25.7); Calc. Creatinine Clearance 124 mL/min (70-130); Calcium 8.2 mg/dL (7.8-10.44); Carbon Dioxide 22 mmol/L (23-31); Chloride 102 mmol/L (98-107); Estimated GFR-MDRD Greater than 90; Glucose 70 mg/dL (80-115); Magnesium 1.6 mg/dL (1.6-2.6); Potassium 3.7 mmol/L (3.5-5.1); Sodium 135 mmol/L (136-145)
[2020-06-06] MEDS: Brimonidine Tartrate 0.2% Ophth Soln 5 ml Bottle R EYE SCH (08:03)
[2020-06-06] MEDS: Latanoprost 0.005% Ophth Soln 2.5 ml Bottle EA EYE SCH (08:04)
[2020-06-06] MEDS: Pantoprazole 40 MG VIAL IVP SCH (08:06)
[2020-06-06] MEDS ORDERED: Magnesium 2 GM/50 ML 2 GM in Premix Bag 1 BAG IVPB SCH (08:45)
[2020-06-06] MEDS ORDERED: Magnesium Sulfate 2 GM in Sodium Chloride 0.9% 100 ML IVPB SCH (08:45)
[2020-06-06] MEDS ORDERED: [UNRECOGNIZED DRUG - OTHER] IV SCH (09:00)
[2020-06-06] MEDS ORDERED: MULTIVITAMINS IV SCH (09:00)
[2020-06-06] MEDS ORDERED: THIAMINE HCL IV SCH (09:00)
[2020-06-06] MEDS ORDERED: FOLIC ACID IV SCH (09:00)
[2020-06-06] MEDS ORDERED: Fentanyl 100 MCG/2 ML VIAL ONE ×4 (09:16→12:38)
[2020-06-06] MEDS ORDERED: Rocuronium Bromide 10 MG/ML (10ML VIAL) ONE (10:23)
[2020-06-06] MEDS ORDERED: Lidocaine 1% PF 5 ML VIAL ONE (10:23)
[2020-06-06] MEDS ORDERED: PROPOFOL 200 MG/20 ML VIAL ONE (10:23)
[2020-06-06] MEDS ORDERED: Succinylcholine Chloride 20 MG/ML 10 ml SYRINGE FS ONE (10:23)
[2020-06-06] MEDS ORDERED: cefOXitin Sodium/Dextrose,Iso 2 GM in Premix Bag 1 BAG IVPB SCH (10:30)
[2020-06-06] MEDS: Multivitamin W/ Minerals 1 TAB PO SCH (10:30)
[2020-06-06] MEDS: traMADol HCl 50 MG TAB PO SCH (10:31)
[2020-06-06] MEDS ORDERED: Lorazepam 2 MG/ML VIAL SLOW IVP PRN (12:02)
[2020-06-06] MEDS ORDERED: Dextrose 50% Abboject 50 ML SYRINGE SLOW IVP PRN (12:02)
[2020-06-06] MEDS ORDERED: Ondansetron PF 4 MG/2 ML Vial IVP PRN ×2 (12:02→12:46)
[2020-06-06] MEDS ORDERED: Promethazine HCl 25 MG/ML VIAL IM PRN ×3 (12:02→12:46)
[2020-06-06] MEDS ORDERED: Dextrose 5% in Water 1,000 ML IV PRN (12:02)
[2020-06-06] MEDS ORDERED: hydrALAZINE 20 MG/ML VIAL SLOW IVP PRN ×2 (12:02→17:54)
[2020-06-06] MEDS ORDERED: Promethazine HCl 25 MG/ML VIAL ONE (12:09)
[2020-06-06] MEDS ORDERED: Sodium Chloride 0.9% (PF) 10 ML VIAL FS PRN (12:15)
[2020-06-06] MEDS ORDERED: Promethazine HCl 25 MG/ML VIAL SLOW IVP PRN (12:25)
[2020-06-06] MEDS ORDERED: Ondansetron HCl/PF 4 MG/2 ML Vial IVP PRN (12:25)
[2020-06-06] MEDS ORDERED: diphenhydrAMINE 25 MG CAP PO PRN (12:46)
[2020-06-06] MEDS ORDERED: diphenhydrAMINE 50 MG/ML VIAL IM PRN (12:46)
[2020-06-06] MEDS ORDERED: diphenhydrAMINE 50 MG/ML VIAL IVP PRN (12:46)
[2020-06-06] MEDS ORDERED: Naloxone HCl 0.4 mg/ml Vial IV PRN (12:46)
[2020-06-06] MEDS ORDERED: Communication Order-Pharmacy FS SCH (13:00)
[2020-06-06] MEDS: Amlodipine 5 MG TAB PO SCH (13:10)
[2020-06-06] MEDS: Fluconazole 100 MG TAB PO SCH (13:10)
[2020-06-06] MEDS: D5 1/2 NS w/20 mEq KCL 1,000 ML IV SCH (14:03)
--- NOTE | 2020-06-06 17:54 | PDOC.HOSPP ---
- Subjective Encounter Date: 06/06/20 Encounter Time: 11:30 Subjective: Patient seen and examined for gastric outlet obstruction. Status post surgery today. No new overnight events. - Objective Vital Signs & Weight: Vital Signs (12 hours) Temp Pulse Resp BP BP Pulse Ox 06/06/20 16:00 125/78 06/06/20 13:10 90 06/06/20 07:30 98.9 F 90 18 123/65 93 L Weight Admit Weight 165 lb 1.6 oz Weight 165 lb 1.6 oz I&O: 06/05/20 06/06/20 06/07/20 06:59 06:59 06:59 Intake Total 1800 500 500 Output Total 600 Balance 1800 500 -100 Result Diagrams: 06/06/20 05:22 06/06/20 05:22 Hospitalist ROS - Review of Systems Respiratory: denies: cough, dry, shortness of breath, hemoptysis, SOB with excertion, pleuritic pain, sputum, wheezing, other Cardiovascular: denies: chest pain, palpitations, orthopnea, paroxysmal noc. dyspnea, edema, light headedness, other - Medication Medications: Active Medications Generic Name Dose Route Start Last Admin Trade Name Freq PRN Reason Stop Dose Admin Potassium Chloride/Dextrose/Sod Cl 1,000 mls @ 100 mls/hr 06/06/20 12:02 06/06/20 14:03 D5 1/2 Ns W/20 Meq Kcl IV 1,000 mls .Q10H PERCY Administration - Exam General Appearance: ill appearing Heart: RRR, no gallops Respiratory: no wheezes, no ronchi Gastrointestinal: soft Extremities: no cyanosis Musculoskeletal: generalized weakness Hosp A/P (1) Gastric outlet obstruction Code(s): K31.1 - ADULT HYPERTROPHIC PYLORIC STENOSIS Status: Acute (2) Peptic ulcer disease Code(s): K27.9 - PEPTIC ULC, SITE UNSP, UNSP AC OR CHR, W/O HEMOR OR PERF Status: Acute (3) Aminta esophagitis Code(s): B37.81 - CANDIDAL ESOPHAGITIS Status: Suspected (4) Electrolyte abnormality Code(s): E87.8 - OTH DISORDERS OF ELECTROLYTE AND FLUID BALANCE, NEC Status: Acute (5) Other issues per previous notes - Plan DVT proph w/SCDs, GI proph 06/06 Continue IV PPIs. Continue IV fluid with dextrose. Replace magnesium. Add PRN antihypertensives. Continue NG tube. A.m. labs. N.p.o. Continue physical therapy. Diflucan discontinued per general surgery. 06/05 Add 20 M EQ of potassium chloride and banana bag daily. Continue IV PPIs. Continue Diflucan. Continue current pain regimen. Continue amlodipine and other medications as above. Continue physical therapy. DVT prophylaxis with SCDs. 06/04 Surgical input appreciated. Will continue IV PPIs with oral fluconazole. Replace magnesium. Add multivitamin bag daily. Hold NSAIDs. Continue morphine with hydrocodone for pain control. Increase ambulation. Counseled on alcohol cessation. Continue other medications as above. A.m. labs. Other problems: Folic acid deficiency, chronic alcoholism with alcoholic cirrhosis, hiatal hernia, hypertension, glaucoma, moderate protein calorie malnutrition, atypical chest pain on admission secondary to above, chronic anemia suspected due to nutritional deficiency,
--- NOTE | 2020-06-06 18:30 | PRG ---
DATE OF SERVICE: 06/06/2020 SUBJECTIVE: Mr. Acosta has just had surgery today. He is still pretty sleepy. He is having good urine output about 50 mL an hour per the nurse. The op report is not yet available for review. OBJECTIVE: VITAL SIGNS: Temperature is 98.9, pulse is 90, blood pressure 125/78. ABDOMEN: Soft, nontender. Dressings in place. LUNGS: Clear. Decreased breath sounds. HEART: Regular rate and rhythm. EXTREMITIES: Reveal no clubbing, cyanosis, or edema. LABORATORY DATA: White count is 10, hemoglobin is 9.1, and platelet count is 681. Sodium is 135, potassium 3.7, BUN and creatinine are 4 and 0.62. Pathology from his gastric biopsy showed no H pylori in the stomach, peptic duodenitis with focal erosions, no evidence of malignancy. ASSESSMENT: 1. Stricture, pyloric outlet and duodenal bulb. 2. Large duodenal ulcer. In talking with Dr. Sin, he says there was quite a bit of inflation of his abdomen, which makes one wonder about microperforation. In any event, a gastrojejunostomy was performed for gastric outlet obstruction. RECOMMENDATIONS: 1. Feeding per General Surgery. 2. Continue b.i.d. PPI for ulcer disease. We will follow along. Job ID: [id number]
--- NOTE | 2020-06-07 00:14 | PDOC.EVN ---
Event Note - Event Note Event Note: Nurse called. Patient reporting uncontrolled pain, s/p gastrojejunostomy. 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 Mild tachycardia, NL BP, RR, sP02, afebrile. On exam, patient was resting with eyes closed, NAD. When he awoke to name verbally, he reported some Right abdomen pain, denies nausea and vomiting. NGT in place to suction. Active BS througout, no guarding, rigidity, no rebound. Incision site intact, no exudates. No signs of acute abdomen. Will continue to monitor.
[2020-06-07] MEDS: D5 1/2 NS w/20 mEq KCL 1,000 ML IV SCH ×4 (00:28→19:39)
[2020-06-07 07:27] LABS: #Eosinphils 0.1 thou/uL (0.0-0.7); #Lymphocytes 1.7 thou/uL (1.20-3.40); #Monocytes 1.7 thou/uL (0.11-0.59); #Neutrophils 12.4 thou/uL (1.40-6.50); %Basophils 0.1 % (0.0-1.0); %Eosinophils 0.5 % (0.0-10.0); %Lymphocytes 10.7 % (21.0-51.0); %Monocytes 10.4 % (0.0-10.0); %Neutrophils 78.2 % (42.0-75.0); Hemoglobin 9.6 g/dL (14.0-18.0); Mean Corpuscular HGB CONC 32.2 g/dL (32.0-36.0); Mean Corpuscular Hemoglobin 32.5 pg (27.0-31.0); Mean Platelet Volume 6.2 fL (7.4-10.4); Platelet Count 883 thou/uL (130-400); RBC Distribution Width 15.3 % (11.5-14.5); Red Blood Cell (RBC) Count 2.94 mill/uL (4.70-6.10); White Blood Cell (WBC) Count 15.9 thou/uL (4.8-10.8)
--- NOTE | 2020-06-07 07:37 | PDOC.GSPN ---
Surgery Progress Note: Subj - Subjective Patient reports: still having pain Narrative: Mr. Raghav Blood is a 65 yo male 1 day post gastrojejunostomy for evaluation. He complains of abdominal pain. He states that the pain is diffusely around the abdomen. Hurts worse with touch. Temp at 99.9, pulse at 101. He is currently on NPO, but he had a few ice chips earlier, which he did not tolerate well, stating that his stomach hurts after eating the ice chips. NG tube shows 850mL of dark stomach acid. His urine output has been normal so far, 600mL within the last 12 hours. No observational abnormalities with the urine. Surgery Progress Note: Obj - Vital signs Vital signs: Vital Signs - Most Recent Temp Pulse Resp BP Pulse Ox 99.9 F H 99 20 128/80 95 06/07/20 04:44 06/07/20 04:44 06/07/20 04:44 06/07/20 04:44 06/07/20 04:44 - Physical Exam General: moderate distress, moderate pain, severe pain (moderate to severe pain. Abdomen Hurts with light touch.) Cardiovascular: no murmur, other (HR 101, slightly tachycardic) Respiratory: normal respiratory effort, other (Auscultation could not be performed due to patients pain.) Abdomen: distended, other (Auscultation of bowel sounds and palpation of abdomen couldn't be performed due to Patient's pain.) Wound: healing well, erythma/edema (slight erythema surrounding wound site.) Surgery Progress Note: Results - Labs Result Diagrams: 06/07/20 07:06 06/07/20 07:06 Lab results: Laboratory Results - last 24 hr 06/07/20 07:06 WBC 15.9 H RBC 2.94 L Hgb 9.6 L Hct 29.7 L MCV 101.0 H MCH 32.5 H MCHC 32.2 RDW 15.3 H Plt Count 883 H MPV 6.2 L Neutrophils % 78.2 H Lymphocytes % 10.7 L Monocytes % 10.4 H Eosinophils % 0.5 Basophils % 0.1 Neutrophils # 12.4 H Lymphocytes # 1.7 Monocytes # 1.7 H Eosinophils # 0.1 Basophils # 0.0 Surgery Progress Note: A/P - Problem (1) Gastric outlet obstruction Current Visit: Yes Code(s): K31.1 - ADULT HYPERTROPHIC PYLORIC STENOSIS Status: Acute - Plan Plan: Mr. Acosta is a 65 yo male 1 day post gastrojejunostomy for evaluation. Plan: Continue NG tube placement for acid. Continue to monitor vitals, urine output, and electrolytes. Continue taking PPI for ulcer disease. Addendum - Physician - Physician Attestation Date/Time: 06/07/20 1110 I personally performed or re-performed the physical examination and medical decision making. I have verified all student documentation or findings, including history, physical exam and/or medical decision making. POD 1 -keep NG until output down -He needs to ambulate -DC lew
[2020-06-07 07:47] LABS: Anion Gap 13 mmol/L (10-20); BUN (Urea Nitrogen) 4 mg/dL (8.4-25.7); Calc. Creatinine Clearance 117 mL/min (70-130); Calcium 8.2 mg/dL (7.8-10.44); Carbon Dioxide 24 mmol/L (23-31); Chloride 102 mmol/L (98-107); Estimated GFR-MDRD Greater than 90; Glucose 112 mg/dL (80-115); Magnesium 1.8 mg/dL (1.6-2.6); Phosphorus 2.7 mg/dL (2.3-4.7); Potassium 4.6 mmol/L (3.5-5.1); Sodium 134 mmol/L (136-145)
[2020-06-07] MEDS ORDERED: Magnesium 2 GM/50 ML 2 GM in Premix Bag 1 BAG IVPB SCH (08:00)
[2020-06-07] MEDS: Pantoprazole 40 MG VIAL IVP SCH (09:24)
[2020-06-07] MEDS: fentaNYL Citrate/PF 2,000 MCG in Sodium Chloride 0.9% 60 ML IV PRN (10:12)
[2020-06-07] MEDS ORDERED: Chloraseptic Spray 180 ml Bottle PO PRN (10:28)
--- NOTE | 2020-06-07 14:38 | PDOC.HOSPP ---
- Subjective Encounter Date: 06/07/20 Encounter Time: 09:15 Subjective: Patient seen and examined for gastric outlet obstruction. 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 NG tube in place. Not passing gas. - Objective Vital Signs & Weight: Vital Signs (12 hours) Temp Pulse Resp BP BP BP Pulse Ox 06/07/20 11:00 98.9 F 102 H 20 128/80 98 06/07/20 09:20 93 L 06/07/20 07:40 128/78 06/07/20 07:38 98.9 F 102 H 18 128/78 93 L 06/07/20 04:44 99.9 F H 99 20 128/80 95 06/07/20 04:00 128/80 Weight Admit Weight 165 lb 1.6 oz Weight 165 lb 1.6 oz I&O: 06/06/20 06/07/20 06/08/20 06:59 06:59 06:59 Intake Total 500 1600 Output Total 1750 Balance 500 -150 Result Diagrams: 06/07/20 07:06 06/07/20 07:06 Additional Labs: Accuchecks 06/07/20 06/06/20 11:11 18:13 POC Glucose 109 H 85 Hospitalist ROS - Review of Systems Respiratory: denies: cough, dry, shortness of breath, hemoptysis, SOB with excertion, pleuritic pain, sputum, wheezing, other Cardiovascular: denies: chest pain, palpitations, orthopnea, paroxysmal noc. dyspnea, edema, light headedness, other - Medication Medications: Active Medications Generic Name Dose Route Start Last Admin Trade Name Freq PRN Reason Stop Dose Admin Potassium Chloride/Dextrose/Sod Cl 1,000 mls @ 100 mls/hr 06/06/20 12:02 06/07/20 09:23 D5 1/2 Ns W/20 Meq Kcl IV 1,000 mls .Q10H PERCY Administration Fentanyl Citrate 2,000 mcg/ 100 mls @ 0 mls/hr 06/06/20 12:46 06/07/20 10:12 Sodium Chloride IV 100 mls INF PRN Administration Pain As Directed Pantoprazole Sodium 40 mg 06/07/20 09:00 06/07/20 09:24 Pantoprazole 40 Mg Vial IVP 40 mg DAILY PERYC Administration - Exam General Appearance: NAD Heart: RRR, no gallops Respiratory: no wheezes, no ronchi Gastrointestinal: no guarding, no rigidity Extremities: no cyanosis Neurological: no new deficit Hosp A/P (1) Gastric outlet obstruction Code(s): K31.1 - ADULT HYPERTROPHIC PYLORIC STENOSIS Status: Acute (2) Peptic ulcer disease Code(s): K27.9 - PEPTIC ULC, SITE UNSP, UNSP AC OR CHR, W/O HEMOR OR PERF Status: Acute (3) Aminta esophagitis Code(s): B37.81 - CANDIDAL ESOPHAGITIS Status: Suspected (4) Electrolyte abnormality Code(s): E87.8 - OTH DISORDERS OF ELECTROLYTE AND FLUID BALANCE, NEC Status: Acute (5) Other issues per previous notes - Plan 06/07 Hemoglobin stable. Replace magnesium. Continue IV fluids continue IV PPIs. 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 TPN if okay with general surgerycompleted form in the chart per dietitian. A.m. labs 06/06 Continue IV PPIs. Continue IV fluid with dextrose. Replace magnesium. Add PRN antihypertensives. Continue NG tube. A.m. labs. N.p.o. Continue physical therapy. Diflucan discontinued per general surgery. 06/05 Add 20 M EQ of potassium chloride and banana bag daily. Continue IV PPIs. Continue Diflucan. Continue current pain regimen. Continue amlodipine and other medications as above. Continue physical therapy. DVT prophylaxis with SCDs. 06/04 Surgical input appreciated. Will continue IV PPIs with oral fluconazole. Replace magnesium. Add multivitamin bag daily. Hold NSAIDs. Continue morphine with hydrocodone for pain control. Increase ambulation. Counseled on alcohol cessation. Continue other medications as above. A.m. labs. Other problems: Folic acid deficiency, chronic alcoholism with alcoholic cirrhosis, hiatal hernia, hypertension, glaucoma, moderate protein calorie malnutrition, atypical chest pain on admission secondary to above, chronic anemia suspected due to nutritional deficiency,
--- NOTE | 2020-06-07 15:58 | PRG ---
DATE OF SERVICE: 06/07/2020 SUBJECTIVE: Mr. Acosta still has some abdominal discomfort. His Nuno catheter has been removed just a while ago. His nurses note his pain has gotten better and under control. OBJECTIVE: VITAL SIGNS: Temperature max 100.2 last night, it was 98.9 at 11:00 today; pulse 102 to 99; blood pressure 120/80. LUNGS: Clear. HEART: Regular without clicks or murmurs. ABDOMEN: Soft. He is tender with some voluntary guarding. LABORATORY DATA: White count 15,000 today, hemoglobin 9.6, platelet count 883. Sodium 134, potassium 4.6, BUN and creatinine of 4 and 0.6. ASSESSMENT AND RECOMMENDATIONS: 1. Status post gastrojejunostomy for gastric outlet obstruction from large duodenal ulcer. In talking with the surgeon, there were no signs of cirrhosis. 2. The patient has ongoing pain that is difficult to control. Dr. Sin says there was lot of inflammation at the pancreas and stomach. His elevated lipase would indicate inflammatory process. He will need to be watched closely because of the significant amount of pain he is having. 3. He is due to void. If he does not, he will need the catheter put back in as he has potentially quite a bit of inflammation in his abdomen, which may cause urinary retention. I will follow from a distance. Job ID: [id number]
--- NOTE | 2020-06-07 18:05 | OP ---
DATE OF PROCEDURE: 06/06/2020 PREOPERATIVE DIAGNOSES: 1. Gastric outlet obstruction from chronic peptic ulcer disease and duodenal stricture. 2. History of biliary stricture status post stent placement. POSTOPERATIVE DIAGNOSES: 1. Gastric outlet obstruction from chronic peptic ulcer disease and duodenal stricture. 2. History of biliary stricture status post stent placement. PROCEDURE PERFORMED: Open gastrojejunostomy loop. ANESTHESIA: General. ESTIMATED BLOOD LOSS: Minimal. COMPLICATIONS: None. SPECIMENS: None. FINDINGS: Significant chronic inflammatory change in the area of the duodenum. Significant inflammatory change in the area of the pancreas as well. No obvious malignancy. DESCRIPTION OF PROCEDURE: The patient was taken to the operating room and laid supine on the operating room table. After general anesthetic was obtained, the abdomen was shaved, prepped, and draped in a sterile fashion. A midline incision was made, cautery was used to dissect down to and enter the abdominal cavity without injury. Bookwalter retractor was placed. The gastrocolic ligament was opened, exposing the lesser sac. There was fairly significant inflammatory change in the lesser sac near the pancreas, which was heavily calcified, likely secondary to chronic inflammation. Significant locally invasive, locally inflammatory change in the area of the duodenum. Decision was made not to perform antrectomy, especially given the patient's potential need for access to this area via ERCP in the future. A 30 cm was marched from ligament of Treitz in this area. The small bowel was able to be brought up through the transverse colon mesentery and laid against the posterior aspect of the stomach. A [id number] anastomosis was performed using a TA 60. The common gastrotomy and enterotomy was closed using a transverse Vicryl suture in 2 layers. A crotch stitch was placed. The mesentery defect was closed loosely to the bowel. There was no evidence of bleeding in the abdomen. There was no injury to any intra-abdominal structures. All incisions were irrigated. The abdomen was irrigated. Midline fascia was closed using #1 PDS from the top and the bottom and tied in the middle. Subcutaneous tissues were irrigated and the skin was closed using 3-0 Vicryl, 4-0 Monocryl, and Dermabond. The patient was sent to Recovery in stable condition. All instrument counts, needle counts, and lap counts were correct. Job ID: [id number]
[2020-06-08] MEDS: fentaNYL Citrate/PF 2,000 MCG in Sodium Chloride 0.9% 60 ML IV PRN ×2 (00:55→22:28)
[2020-06-08] MEDS: Zolpidem Tartrate 5 MG TAB PO PRN ×2 (01:12→20:07)
[2020-06-08] MEDS ORDERED: Acetaminophen 325 MG TAB PO PRN (01:30)
[2020-06-08 06:22] LABS: #Basophils 0.1 thou/uL (0.0-0.2); #Eosinphils 0.2 thou/uL (0.0-0.7); #Lymphocytes 1.8 thou/uL (1.20-3.40); #Monocytes 2.1 thou/uL (0.11-0.59); #Neutrophils 13.2 thou/uL (1.40-6.50); %Basophils 0.4 % (0.0-1.0); %Eosinophils 1.2 % (0.0-10.0); %Lymphocytes 10.3 % (21.0-51.0); %Monocytes 12.3 % (0.0-10.0); %Neutrophils 75.9 % (42.0-75.0); Hemoglobin 8.9 g/dL (14.0-18.0); Mean Corpuscular HGB CONC 33.1 g/dL (32.0-36.0); Mean Corpuscular Hemoglobin 32.8 pg (27.0-31.0); Mean Platelet Volume 6.1 fL (7.4-10.4); Platelet Count 851 thou/uL (130-400); RBC Distribution Width 15.2 % (11.5-14.5); Red Blood Cell (RBC) Count 2.72 mill/uL (4.70-6.10); White Blood Cell (WBC) Count 17.4 thou/uL (4.8-10.8)
[2020-06-08 06:45] LABS: Anion Gap 13 mmol/L (10-20); BUN (Urea Nitrogen) Less than 4 mg/dL (8.4-25.7); Calc. Creatinine Clearance 120 mL/min (70-130); Calcium 8.2 mg/dL (7.8-10.44); Carbon Dioxide 23 mmol/L (23-31); Chloride 101 mmol/L (98-107); Estimated GFR-MDRD Greater than 90; Glucose 98 mg/dL (80-115); Magnesium 1.8 mg/dL (1.6-2.6); Potassium 4.8 mmol/L (3.5-5.1); Sodium 132 mmol/L (136-145)
[2020-06-08 06:48] LABS: Lipase Less than 4 U/L (8-78); Phosphorus 2.5 mg/dL (2.3-4.7)
[2020-06-08] MEDS: Pantoprazole 40 MG VIAL IVP SCH (09:37)
--- NOTE | 2020-06-08 11:47 | PDOC.HOSPP ---
- Subjective Encounter Date: 06/08/20 Encounter Time: 08:00 Subjective: c/o abd pain, no nausea has not gotten up so far no bm or flatus - Objective Vital Signs & Weight: Vital Signs (12 hours) Temp Pulse Resp BP BP BP Pulse Ox 06/08/20 11:40 98.7 F 06/08/20 09:42 94 L 06/08/20 08:00 97.8 F 96 18 119/76 119/76 94 L 06/08/20 04:00 99.6 F 105 H 18 126/78 126/78 92 L 06/08/20 00:00 100.5 F H 104 H 20 134/72 134/72 94 L Weight Admit Weight 165 lb 1.6 oz Weight 165 lb 1.6 oz I&O: 06/07/20 06/08/20 06/09/20 06:59 06:59 06:59 Intake Total 1600 2420 Output Total 1750 1250 Balance -150 1170 Result Diagrams: 06/08/20 05:53 06/08/20 05:53 Additional Labs: Accuchecks 06/08/20 06/07/20 06/07/20 05:21 19:58 16:04 POC Glucose 96 97 92 Hospitalist ROS - Medication Medications: Active Medications Generic Name Dose Route Start Last Admin Trade Name Freq PRN Reason Stop Dose Admin Potassium Chloride/Dextrose/Sod Cl 1,000 mls @ 100 mls/hr 06/06/20 12:02 06/07/20 19:39 D5 1/2 Ns W/20 Meq Kcl IV 1,000 mls .Q10H PERCY Administration Fentanyl Citrate 2,000 mcg/ 100 mls @ 0 mls/hr 06/06/20 12:46 06/08/20 00:55 Sodium Chloride IV 100 mls INF PRN Administration Pain As Directed Pantoprazole Sodium 40 mg 06/07/20 09:00 06/08/20 09:37 Pantoprazole 40 Mg Vial IVP 40 mg DAILY PERCY Administration Zolpidem Tartrate 5 mg 06/06/20 12:46 06/08/20 01:12 Zolpidem Tartrate 5 Mg Tab PO 5 mg HSPRN PRN Administration Insomnia - Exam General Appearance: awake alert Eye: PERRL, anicteric sclera ENT: no oropharyngeal lesions, dry oral mucosa Neck: supple, no JVD Heart: RRR, no murmur Respiratory: no wheezes, no rales Gastrointestinal: distended, diminished bowl sounds, voluntary guarding Extremities: no cyanosis, no edema Neurological: cranial nerve grossly intact, no focal deficits Hosp A/P (1) Acute duodenal ulcer with gastric outlet obstruction Code(s): K26.3 - ACUTE DUODENAL ULCER WITHOUT HEMORRHAGE OR PERFORATION Status: Acute (2) Duodenal ulcer Status: Acute (3) Postoperative anemia Code(s): D64.9 - ANEMIA, UNSPECIFIED Status: Acute (4) Alcohol abuse Code(s): F10.10 - ALCOHOL ABUSE, UNCOMPLICATED Status: Chronic (5) Hypertension Code(s): I10 - ESSENTIAL (PRIMARY) HYPERTENSION Status: Chronic Qualifiers: Hypertension type: essential hypertension Qualified Code(s): I10 - Essential (primary) hypertension (6) HTN (hypertension) Code(s): I10 - ESSENTIAL (PRIMARY) HYPERTENSION Status: Chronic Qualifiers: Hypertension type: essential hypertension Qualified Code(s): I10 - Essential (primary) hypertension - Plan is s/p open gastro-jejunostomy loop for gastric outlet obstr sec to large duodenal ulcer prior h/o duodenal stricture is on iv fluids, protonix, 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
[2020-06-08] MEDS: D5 1/2 NS w/20 mEq KCL 1,000 ML IV SCH ×2 (14:24→20:21)
--- NOTE | 2020-06-08 15:13 | PRG ---
DATE OF SERVICE: 06/08/2020 SUBJECTIVE: The patient is postop day #2. He reports quite a bit of pain in his abdomen. No nausea or vomiting. Said he may have passed a little gas. OBJECTIVE: VITAL SIGNS: His temperature is 98.7, pulse is 90, blood pressure 143/78. GENERAL: He is awake, but seems a little shaky. LUNGS: Clear. HEART: Regular rate and rhythm. ABDOMEN: Very tender, very sensitive. He has quite a bit of ecchymosis around the incision. Really no bowel sounds. LABORATORY DATA: His white count 17, H and H 8.9 and 26.9, platelet count 851,000. His electrolytes; sodium 132, creatinine is 0.6, glucose 98, CO2 of 23. ASSESSMENT: Status post gastrojejunostomy for gastric outlet obstruction, more pain than I would anticipate. PLAN: We will reassess over the next 12 hours. May benefit from repeat CT. Job ID: [id number]
--- NOTE | 2020-06-08 15:51 | PRG ---
DATE OF SERVICE: 06/08/2020 SUBJECTIVE: Mr. Acosta still complains of pain. He is really not getting out of bed much, but he was not getting out of bed much before surgery. He is postop day 3. OBJECTIVE: VITAL SIGNS: Temperature max 100.5, temperature current 98.7. He is now sitting up on the side of the bed. Pulse is 90, down from 105 to 110; blood pressure 143/78. ABDOMEN: Slightly protuberant. Wound is healing well. Slight erythema at the rostral aspect of the wound, but no exudate and no drainage with palpation of this. LABORATORY DATA: White count higher today 17.4, hemoglobin 8.9, platelet count 851,000 from 589 prior to surgery. ASSESSMENT: 1. Gastric outlet obstruction, status post gastrojejunostomy. 2. No signs of cirrhosis. There was concerns about this apparently previously. 3. History of heavy alcohol abuse. 4. Thrombocytosis, likely reactive and inflammatory. 5. Leukocytosis, postoperative. No signs of overt abdominal sepsis. RECOMMENDATIONS: 1. We would reinstitute Lovenox for DVT prophylaxis. He has not been on it because he had a duodenal ulcer. 2. Continue IV PPI. 3. His NG tube was clamped, but this is just because he was getting up to the bathroom earlier, but Dr. Byrd NG tube and which is reasonable. 4. We will defer to General Surgery today when CT of his abdomen, but agree presently he does not seem to have a septic abdomen. He is making urine and renal function appears stable. I agree with a liter of NG output yesterday place for now. If he is not improving in next 24 to 48 hours, we would consider repeat imaging of the abdomen. Again, we will defer to Surgery as he is postop now. Job ID: [id number]
[2020-06-08] MEDS: Enoxaparin Sodium 40 MG/0.4 ML SYRINGE SC SCH (20:19)
[2020-06-09 06:09] LABS: #Eosinphils 0.4 thou/uL (0.0-0.7); #Lymphocytes 1.7 thou/uL (1.20-3.40); #Monocytes 1.8 thou/uL (0.11-0.59); #Neutrophils 12.2 thou/uL (1.40-6.50); %Basophils 0.1 % (0.0-1.0); %Eosinophils 2.3 % (0.0-10.0); %Lymphocytes 10.3 % (21.0-51.0); %Monocytes 10.9 % (0.0-10.0); %Neutrophils 76.3 % (42.0-75.0); Hemoglobin 8.9 g/dL (14.0-18.0); Mean Corpuscular HGB CONC 32.6 g/dL (32.0-36.0); Mean Corpuscular Hemoglobin 32.3 pg (27.0-31.0); Mean Corpuscular Volume 99.1 fL (78.0-98.0); Mean Platelet Volume 5.8 fL (7.4-10.4); Platelet Count 931 thou/uL (130-400); RBC Distribution Width 15.2 % (11.5-14.5); Red Blood Cell (RBC) Count 2.74 mill/uL (4.70-6.10)
[2020-06-09 06:27] LABS: Anion Gap 13 mmol/L (10-20); BUN (Urea Nitrogen) Less than 4 mg/dL (8.4-25.7); Calc. Creatinine Clearance 122 mL/min (70-130); Calcium 8.3 mg/dL (7.8-10.44); Carbon Dioxide 23 mmol/L (23-31); Chloride 100 mmol/L (98-107); Estimated GFR-MDRD Greater than 90; Glucose 100 mg/dL (80-115); Magnesium 1.6 mg/dL (1.6-2.6); Potassium 4.1 mmol/L (3.5-5.1); Sodium 132 mmol/L (136-145)
[2020-06-09] MEDS: D5 1/2 NS w/20 mEq KCL 1,000 ML IV SCH ×2 (07:30→18:48)
[2020-06-09] MEDS: Pantoprazole 40 MG VIAL IVP SCH (08:43)
[2020-06-09] MEDS ORDERED: Sodium Chloride 0.9% 1,000 ML IV SCH (10:30)
--- NOTE | 2020-06-09 11:36 | PDOC.HOSPP ---
- Subjective Encounter Date: 06/09/20 Encounter Time: 10:15 Subjective: c/o abd pain, no nausea pulled his ng tube after I saw earlier this am - Objective Vital Signs & Weight: Vital Signs (12 hours) Temp Pulse Resp BP BP Pulse Ox 06/09/20 11:25 98.4 F 102 H 20 127/74 94 L 06/09/20 07:28 99.3 F 107 H 20 133/77 95 06/09/20 04:00 99.2 F 105 H 20 123/80 123/80 94 L 06/09/20 02:20 107 H 93 L 06/09/20 00:00 98.7 F 104 H 18 127/78 127/78 92 L Weight Admit Weight 165 lb 1.6 oz Weight 165 lb 1.6 oz I&O: 06/08/20 06/09/20 06/10/20 06:59 06:59 06:59 Intake Total 2420 2400 Output Total 1750 1950 Balance 670 450 Result Diagrams: 06/09/20 05:55 06/09/20 05:55 Additional Labs: Accuchecks 06/09/20 06/08/20 06/08/20 04:13 19:58 16:10 POC Glucose 93 85 82 06/08/20 11:45 POC Glucose 100 Hospitalist ROS - Medication Medications: Active Medications Generic Name Dose Route Start Last Admin Trade Name Freq PRN Reason Stop Dose Admin Enoxaparin Sodium 40 mg 06/08/20 21:00 06/08/20 20:19 Enoxaparin Sodium 40 Mg/0.4 Ml Syringe SC Not Given 2100 PERCY Potassium Chloride/Dextrose/Sod Cl 1,000 mls @ 100 mls/hr 06/06/20 12:02 06/08/20 20:21 D5 1/2 Ns W/20 Meq Kcl IV 1,000 mls .Q10H PERCY Administration Fentanyl Citrate 2,000 mcg/ 100 mls @ 0 mls/hr 06/06/20 12:46 06/08/20 22:28 Sodium Chloride IV 100 mls INF PRN Administration Pain As Directed Sodium Chloride 1,000 mls @ 500 mls/hr 06/09/20 10:30 06/09/20 11:29 Normal Saline 0.9% IV 06/09/20 12:29 1,000 mls .Q2H PERCY Administration Pantoprazole Sodium 40 mg 06/07/20 09:00 06/09/20 08:43 Pantoprazole 40 Mg Vial IVP 40 mg DAILY PERCY Administration Phenol 0 ml 06/07/20 10:28 06/08/20 20:23 Chloraseptic [place] 180 Ml Bottle PO 2 sprays BIDPRN PRN Administration Sore Throat Sodium Chloride 10 ml 06/06/20 12:15 06/09/20 08:43 Sodium Chloride 0.9% (Pf) 10 Ml Vial FS 10 ml PRN PRN Administration RECONSTITUTION Zolpidem Tartrate 5 mg 06/06/20 12:46 06/08/20 20:07 Zolpidem Tartrate 5 Mg Tab PO 5 mg HSPRN PRN Administration Insomnia - Exam General Appearance: awake alert, ill appearing Eye: PERRL, anicteric sclera ENT: no oropharyngeal lesions, dry oral mucosa Neck: supple, no JVD Heart: RRR, no murmur Respiratory: no wheezes, no rales Gastrointestinal: soft, distended Extremities: no cyanosis, no edema Neurological: cranial nerve grossly intact, no focal deficits Hosp A/P (1) Acute duodenal ulcer with gastric outlet obstruction Code(s): K26.3 - ACUTE DUODENAL ULCER WITHOUT HEMORRHAGE OR PERFORATION Status: Acute (2) Duodenal ulcer Status: Acute (3) Postoperative anemia Code(s): D64.9 - ANEMIA, UNSPECIFIED Status: Acute (4) Alcohol abuse Code(s): F10.10 - ALCOHOL ABUSE, UNCOMPLICATED Status: Chronic (5) Hypertension Code(s): I10 - ESSENTIAL (PRIMARY) HYPERTENSION Status: Chronic Qualifiers: Hypertension type: essential hypertension Qualified Code(s): I10 - Essential (primary) hypertension (6) HTN (hypertension) Code(s): I10 - ESSENTIAL (PRIMARY) HYPERTENSION Status: Chronic Qualifiers: Hypertension type: essential hypertension Qualified Code(s): I10 - Essential (primary) hypertension - Plan is s/p open gastro-jejunostomy loop for gastric outlet obstr sec to large duodenal ulcer prior h/o duodenal stricture is on iv fluids, protonix, 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 hemostable
--- NOTE | 2020-06-09 11:40 | PRG ---
DATE OF SERVICE: 06/09/2020 SUBJECTIVE: The patient is still having abdominal pain. He pulled his NG tube out this morning and feels some nausea and passing gas. OBJECTIVE: VITAL SIGNS: His temperature is 99.3, pulse 107, blood pressure 133/77. GENERAL: He is awake. ABDOMEN: Distended. He still has ecchymosis around the incision with some mild erythema. LABORATORY DATA: His white count is 16, down from 17.4; H and H of 8.9 and 27; and platelet count 931,000. His electrolytes; sodium 132, BUN of less than 4, creatinine 0.6. He has put out 1500 of bile from his NG tube. PLAN: Plan is to give him some saline to try and replace his NG output and get him out of bed walking. Replace the NG tube. LETHA. Job ID: [id number]
[2020-06-09] MEDS ORDERED: Iopamidol-370 76% 500 ML 1 ML ONE (14:04)
--- NOTE | 2020-06-09 16:39 | RAD ---
KUB: History: Small bowel obstruction. FINDINGS: Bowel gas pattern appears nonobstructive. Surgical clips are seen in the right upper quadrant of the abdomen. There arthritic changes of the spine. No renal calculi are seen. IMPRESSION: 1. No signs of bowel obstruction. 2. Incidental note is made of air in the biliary tree. This is probably related to the cholecystectom y change. It has been present on previous CT study. POS: OFF
[2020-06-09] MEDS ORDERED: fentaNYL Citrate/PF 2,000 MCG in Sodium Chloride 0.9% 60 ML IV PRN (16:40)
--- NOTE | 2020-06-09 17:06 | CT ---
CT ABDOMEN AND PELVIS PERFORMED WITH CONTRAST ENHANCEMENT: History: Abdominal pain. Patient is status post gastrojejunostomy four days ago. Unable to tolerate o ral contrast. Abdominal pain, nausea. History of appendectomy and renal stents. Comparison: 02-03-2020 FINDINGS: The lung bases show atelectatic change. Very small left pleural effusion. Fatty change of the liver i s noted. Pneumobilia is again seen with post op cholecystectomy change. Spleen is within normal limit s of size. Pancreas shows some minimal fat stranding, probably related to the recent surgery. There is a gastrojejunostomy present. There is a very small fluid density collection just to the righ t of the gastrojejunostomy measuring 2 cm. This could just be post op. There is some minimal free air which would be compatible with the recent surgery and fat stranding in the omental fat. Right and left adrenal glands and right and left kidneys are normal in size. There is no significant periaortic or mesenteric adenopathy. CT OF PELVIS PERFORMED WITH CONTRAST ENHANCEMENT: There is some free fluid within the pelvis which could just be related to the recent surgery. No barb opathy or mass. There are arthritic changes of the spine. IMPRESSION: 1. Post op gastrojejunostomy change. There is a tiny 2 cm fluid collection just to the right of the a nastomosis. This may just represent post op collection. Only free fluid seen within the abdomen is ac tually within the pelvis. A small leak is not definitely excluded, but again this just could be a sma ll post op fluid collection near the anastomotic suture line. 2. Fatty change of the liver. Stable pneumobilia. 3. Minimal fat stranding around the pancreas. This could be a sequelae of surgery. Another possibilit y would be co-existent pancreatitis. Clinical correlation is recommended. 4. Bibasilar atelectasis with a small left effusion. POS: OFF
[2020-06-09] MEDS: Enoxaparin Sodium 40 MG/0.4 ML SYRINGE SC SCH (20:35)
--- NOTE | 2020-06-09 21:38 | PRG ---
DATE OF SERVICE: 06/09/2020 SUBJECTIVE: Mr. Acosta reports his NG tube fell out again. He refuses to have it replaced. OBJECTIVE: VITAL SIGNS: Temperature is 99.3, T-max last night was 100.5, blood pressure 137/74, pulse 102. ABDOMEN: Protuberant. No bowel sounds. LUNGS: Decreased breath sounds at the bases. HEART: Regular rate and rhythm. LABORATORY DATA: White count 16, hemoglobin is 8.9 and stable, platelet count 931. ASSESSMENT: 1. Status post gastrojejunostomy for gastric outlet obstruction from an ulcer. 2. Persistent ileus with vomiting, refuses NG tube placement. 3. The patient remains on a fentanyl pump p.r.n. for pain. 4. The patient remains on proton pump inhibitor. 5. The patient remains on peripheral parenteral nutrition. 6. The patient has persistent leukocytosis, which is concerning for inflammatory process. RECOMMENDATIONS: 1. Replace NG tube. 2. Discontinue fentanyl pain pump. 3. CT scan of abdomen and pelvis to rule out leak. He is on Protonix. He is on fentanyl. Job ID: [id number]
[2020-06-10] MEDS: D5 1/2 NS w/20 mEq KCL 1,000 ML IV SCH ×2 (04:39→15:50)
[2020-06-10] MEDS: Pantoprazole 40 MG VIAL IVP SCH (09:02)
--- NOTE | 2020-06-10 09:45 | PDOC.GSPN ---
Surgery Progress Note: Subj - Subjective Patient reports: still having pain Narrative: Mr. Acosta is a 65-year-old male with a past medical history of alcoholism, gastric outlet obstruction due to peptic ulcer disease, and duodenal stricture, is post op day 4 from an open gastrojejunostomy loop. He was very agitated and was throwing his blankets across the room when I walked in. He refused to answer any questions and complained that he, "can't eat" and "hasn't eaten anything in 25 days" and "wants to leave this place." He appeared to be in a lot of pain when moving from his bed to get more medication from his fentanyl pain pump. He refused physical exam and swatted my hand away. Per his nurse, he has been difficult all morning; she said that his wound is healing well and that it is no t draining. He does not have an NG tube. Surgery Progress Note: Obj - Vital signs Vital signs: Vital Signs - Most Recent Temp Pulse Resp BP Pulse Ox 98.4 F 93 18 131/73 98 06/10/20 07:21 06/10/20 07:21 06/10/20 07:21 06/10/20 07:21 06/10/20 07:21 - Physical Exam General: moderate distress, moderate pain, chronically ill Integumentary: no abnormal pigmentation, no rash Psychiatric: other (Was extremely agitated and irritable. Refused to answer questions and refused examination) Surgery Progress Note: Results - Labs Result Diagrams: 06/09/20 05:55 06/09/20 05:55 Lab results: Laboratory Results - last 12 hr 06/10/20 05:22 POC Glucose 82 Surgery Progress Note: A/P - Problem (1) Acute duodenal ulcer with gastric outlet obstruction Current Visit: Yes Code(s): K26.3 - ACUTE DUODENAL ULCER WITHOUT HEMORRHAGE OR PERFORATION Status: Acute - Plan Plan: Mr. Acosta was extremely agitated and has been non compliant. He refused exa mination and was threatening to leave the hospital; this has made evaluating and treating him difficult. Will continue to do as much care as he allows. Attempt to place a NG tube and try to get him ambulating. Addendum - Physician - Physician Attestation Date/Time: 06/10/20 [id number] I personally performed or re-performed the physical examination and medical decision making. I have verified all student documentation or findings, including history, physical exam and/or medical decision making. CT showed small collection but no contrast extravasation. 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 Try full liquid diet, DC COUNTER ATTENDANT
--- NOTE | 2020-06-10 11:06 | PRG ---
DATE OF SERVICE: 06/10/2020 SUBJECTIVE: Mr. Acosta did not have his NG tube no vomiting today. The nurse is not sure about overnight. He did have some loose stools today with the first bowel movement. He is still using RATE SETTER, states he has abdominal pain. OBJECTIVE: VITAL SIGNS: Temperature is 98, blood pressure 131/73, respirations 18, O2 saturation 98%. ABDOMEN: Protuberant. Bowel sounds are quiescent. EXTREMITIES: No clubbing, cyanosis, or edema. LABORATORY DATA: White count 16, hemoglobin 8.9, platelet count 931. CT scan yesterday showed small fluid collection to the right of the anastomosis of the gastrojejunostomy, there was no air in that. Small amount of free fluid in the pelvis. Pneumobilia from previous procedures. Minimal fat stranding of the pancreas, basilar atelectasis. ASSESSMENT: Duodenal ulcer, partial obstructing, repetitive vomiting, unable to advance from liquid diet despite IV PPI b.i.d., now status post gastrojejunostomy with quite a bit of inflammatory changes in the upper abdomen. Dr. Sin is pancreas is very hard. There are no overt masses in the pancreas on CAT scan. The lipase ordered over the weekend was normal. No signs of pancreatic inflammation. PLAN: We will go ahead and check a CA 19-9. If this is excessively high, could indicate pancreatic malignancy, but I think this is surprisingly all chronic inflammation related to his duodenal ulcer, which was biopsied multiple times and was benign. Job ID: [id number]
--- NOTE | 2020-06-10 12:30 | PDOC.HOSPP ---
- Subjective Encounter Date: 06/10/20 Encounter Time: 08:15 Subjective: c/o abd pain, no nausea. Had liq stool this am and is passing flatus per patient refuses to use i.spirometry, does not want to walk both due to pain was seen sitting on bed and taking a few steps yesterday - Objective Vital Signs & Weight: Vital Signs (12 hours) Temp Pulse Resp BP BP BP Pulse Ox 06/10/20 09:02 98 06/10/20 07:21 98.4 F 93 18 131/73 98 06/10/20 04:00 97.4 F L 92 20 128/76 128/76 95 Weight Admit Weight 165 lb 1.6 oz Weight 165 lb 1.6 oz I&O: 06/09/20 06/10/20 06/11/20 06:59 06:59 06:59 Intake Total 2400 1972 Output Total 1950 550 Balance 450 1422 Result Diagrams: 06/09/20 05:55 06/09/20 05:55 Additional Labs: Accuchecks 06/10/20 06/10/20 06/09/20 10:31 05:22 20:04 POC Glucose 96 82 97 06/09/20 15:43 POC Glucose 80 Hospitalist ROS - Medication Medications: Active Medications Generic Name Dose Route Start Last Admin Trade Name Freq PRN Reason Stop Dose Admin Enoxaparin Sodium 40 mg 06/08/20 21:00 06/09/20 20:35 Enoxaparin Sodium 40 Mg/0.4 Ml Syringe SC 40 mg 2100 PERCY Administration Potassium Chloride/Dextrose/Sod Cl 1,000 mls @ 100 mls/hr 06/06/20 12:02 06/10/20 04:39 D5 1/2 Ns W/20 Meq Kcl IV 1,000 mls .Q10H PERCY Administration Fentanyl Citrate 2,000 mcg/ 100 mls @ 0 mls/hr 06/09/20 16:40 06/10/20 06:35 Sodium Chloride IV 100 mls INF PRN Administration Pain As Directed Pantoprazole Sodium 40 mg 06/07/20 09:00 06/10/20 09:02 Pantoprazole 40 Mg Vial IVP 40 mg DAILY PERCY Administration Phenol 0 ml 06/07/20 10:28 06/08/20 20:23 Chloraseptic [place] 180 Ml Bottle PO 2 sprays BIDPRN PRN Administration Sore Throat Sodium Chloride 10 ml 06/06/20 12:15 06/09/20 08:43 Sodium Chloride 0.9% (Pf) 10 Ml Vial FS 10 ml PRN PRN Administration RECONSTITUTION Zolpidem Tartrate 5 mg 06/06/20 12:46 06/08/20 20:07 Zolpidem Tartrate 5 Mg Tab PO 5 mg HSPRN PRN Administration Insomnia - Exam General Appearance: awake alert Eye: anicteric sclera ENT: no oropharyngeal lesions, dry oral mucosa Neck: supple, no JVD Heart: RRR, no murmur Respiratory: no wheezes, no rales Gastrointestinal: soft, non-distended, normal bowel sounds, no guarding, no rigidity Extremities: no cyanosis, no edema Neurological: cranial nerve grossly intact, no focal deficits Hosp A/P (1) Acute duodenal ulcer with gastric outlet obstruction Code(s): K26.3 - ACUTE DUODENAL ULCER WITHOUT HEMORRHAGE OR PERFORATION Status: Acute (2) Duodenal ulcer Status: Acute (3) Postoperative anemia Code(s): D64.9 - ANEMIA, UNSPECIFIED Status: Acute (4) Alcohol abuse Code(s): F10.10 - ALCOHOL ABUSE, UNCOMPLICATED Status: Chronic (5) Hypertension Code(s): I10 - ESSENTIAL (PRIMARY) HYPERTENSION Status: Chronic Qualifiers: Hypertension type: essential hypertension Qualified Code(s): I10 - Essential (primary) hypertension (6) HTN (hypertension) Code(s): I10 - ESSENTIAL (PRIMARY) HYPERTENSION Status: Chronic Qualifiers: Hypertension type: essential hypertension Qualified Code(s): I10 - Essential (primary) hypertension - Plan is s/p open gastro-jejunostomy loop for gastric outlet obstr sec to large duodenal ulcer prior h/o duodenal stricture is on iv fluids, protonix, 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
[2020-06-10] MEDS ORDERED: Brimonidine Tartrate 0.2% Ophth Soln 5 ml Bottle R EYE SCH (13:45)
[2020-06-10] MEDS: Latanoprost 0.005% Ophth Soln 2.5 ml Bottle EA EYE SCH ×2 (15:49→20:42)
[2020-06-10] MEDS: Brimonidine Tartrate 0.2% Ophth Soln 5 ml Bottle R EYE SCH (20:36)
[2020-06-10] MEDS: Enoxaparin Sodium 40 MG/0.4 ML SYRINGE SC SCH (20:37)
[2020-06-10] MEDS: Hydrocodone-Acetamin 15 ML UDCUP PO PRN (20:38)
[2020-06-10] MEDS: Fentanyl 100 MCG/2 ML VIAL SLOW IVP PRN (22:26)
[2020-06-11] MEDS: D5 1/2 NS w/20 mEq KCL 1,000 ML IV SCH ×3 (02:48→20:39)
[2020-06-11] MEDS: Fentanyl 100 MCG/2 ML VIAL SLOW IVP PRN ×3 (05:49→22:30)
--- NOTE | 2020-06-11 06:36 | PDOC.GSPN ---
Surgery Progress Note: Subj - Subjective Patient reports: had a bowel movement, positive flatus, tolerating liquids well, voiding w/o difficulty, having loose stools Narrative: Mr. Acosta seems to be doing somewhat better today; he was willing to talk to me and let me do a physical exam. He still reports pain, a 10/10, but he said that it is somewhat better with the current pain medication. 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 He mainly reports pain when getting in and out of his bed. He is tolerating the liquid diet well; he has liked the ensure shakes and did not report any symptoms with eating. He still is having some loose stools and reported one this morning- no blood in stool or urine. He has also passed gas and is voiding ok. He does report "some knots" on his stomach where his incision is that have caused him some pain and bother him. He denies nausea or vomiting. He does report a slight cough which brings up some mucus. He reports waking from his bed to the bathroom multiple times in a day. Overall, he was much more cooperative today. Surgery Progress Note: Obj - Vital signs Vital signs: Vital Signs - Most Recent Temp Pulse Resp BP Pulse Ox 98.9 F 88 20 122/69 97 06/10/20 19:55 06/10/20 19:55 06/10/20 19:55 06/10/20 20:00 06/10/20 20:00 - Physical Exam General: moderate distress, moderate pain, chronically ill Cardiovascular: regular rate and rhythm Respiratory: clear to auscultation, breath sounds present Abdomen: soft, decreased bowel sounds, tender Integumentary: no rash Wound: dressing clean,dry,intact, healing well Surgery Progress Note: Results - Labs Result Diagrams: 06/09/20 05:55 06/09/20 05:55 Lab results: Laboratory Results - last 12 hr 06/10/20 20:03 POC Glucose 93 Surgery Progress Note: A/P - Problem (1) Acute duodenal ulcer with gastric outlet obstruction Current Visit: Yes Code(s): K26.3 - ACUTE DUODENAL ULCER WITHOUT HEMORRHAGE OR PERFORATION Status: Acute - Plan Plan: Mr. Acosta was more compliant today and appeared to be in a better mood. Continue his current pain regimen and further encourage him to walk and move around. Continue the liquid diet as tolerated. Still complaining of bloating but had a few loose bm's yesterday. Continue full liquids for now. Would really benefit from half-way
[2020-06-11] MEDS: Hydrocodone-Acetamin 15 ML UDCUP PO PRN ×2 (08:33→15:36)
[2020-06-11] MEDS: Brimonidine Tartrate 0.2% Ophth Soln 5 ml Bottle R EYE SCH ×2 (08:34→20:39)
[2020-06-11] MEDS: Pantoprazole 40 MG VIAL IVP SCH (08:34)
[2020-06-11 09:45] LABS: #Eosinphils 0.5 thou/uL (0.0-0.7); #Lymphocytes 1.1 thou/uL (1.20-3.40); #Monocytes 0.7 thou/uL (0.11-0.59); #Neutrophils 4.9 thou/uL (1.40-6.50); %Basophils 0.7 % (0.0-1.0); %Lymphocytes 14.7 % (21.0-51.0); %Monocytes 10.1 % (0.0-10.0); %Neutrophils 67.5 % (42.0-75.0); Hemoglobin 8.1 g/dL (14.0-18.0); Mean Corpuscular HGB CONC 32.2 g/dL (32.0-36.0); Mean Corpuscular Hemoglobin 31.6 pg (27.0-31.0); Mean Corpuscular Volume 98.1 fL (78.0-98.0); Mean Platelet Volume 5.7 fL (7.4-10.4); Platelet Count 798 thou/uL (130-400); RBC Distribution Width 15.4 % (11.5-14.5); Red Blood Cell (RBC) Count 2.55 mill/uL (4.70-6.10); White Blood Cell (WBC) Count 7.2 thou/uL (4.8-10.8)
[2020-06-11 10:09] LABS: ALT (SGPT) 11 U/L (8-55); AST (SGOT) 23 U/L (5-34); Albumin 2.3 g/dL (3.4-4.8); Alkaline Phosphatase 76 U/L (40-110); Anion Gap 13 mmol/L (10-20); BUN (Urea Nitrogen) Less than 4 mg/dL (8.4-25.7); Bilirubin, Total 0.5 mg/dL (0.2-1.2); Calc. Creatinine Clearance 120 mL/min (70-130); Calcium 8.1 mg/dL (7.8-10.44); Carbon Dioxide 20 mmol/L (23-31); Chloride 106 mmol/L (98-107); Estimated GFR-MDRD Greater than 90; Globulin 3.6 g/dL (2.4-3.5); Glucose 113 mg/dL (80-115); Protein, Total 5.9 g/dL (5.8-8.1); Sodium 135 mmol/L (136-145)
--- NOTE | 2020-06-11 13:00 | PDOC.HOSPP ---
- Subjective Encounter Date: 06/11/20 Encounter Time: 09:30 Subjective: has abd pain, no new complaints is ambulating in room gets agitated off and on, he threw i.spirometer when I asked him to use it, appeared like he did it on purpose. - Objective Vital Signs & Weight: Vital Signs (12 hours) Temp Pulse Resp BP BP Pulse Ox 06/11/20 12:00 97.5 F L 104 H 22 H 116/77 99 06/11/20 08:30 97 06/11/20 07:38 98.5 F 92 18 121/71 97 Weight Admit Weight 165 lb 1.6 oz Weight 165 lb 1.6 oz I&O: 06/10/20 06/11/20 06/12/20 06:59 06:59 06:59 Intake Total 1972 2978 Output Total 550 Balance 1422 2978 Result Diagrams: 06/11/20 09:28 06/11/20 09:27 Additional Labs: Accuchecks 06/11/20 06/11/20 06/10/20 11:03 04:26 20:03 POC Glucose 110 H 101 H 93 06/10/20 16:00 POC Glucose 98 Hospitalist ROS - Medication Medications: Active Medications Generic Name Dose Route Start Last Admin Trade Name Freq PRN Reason Stop Dose Admin Hydrocodone Bitart/Acetaminophen 15 ml 06/10/20 13:21 06/11/20 08:33 Hydrocodone-Acetamin 15 Ml Udcup PO 15 ml Q6H PRN Administration Pain Brimonidine Tartrate 1 drop 06/10/20 21:00 06/11/20 08:34 Brimonidine Tartrate 0.2% Ophth Soln 5 Ml Bottle R EYE 1 drop BID PERCY Administration Enoxaparin Sodium 40 mg 06/08/20 21:00 06/10/20 20:37 Enoxaparin Sodium 40 Mg/0.4 Ml Syringe SC 40 mg 2100 PERCY Administration Fentanyl 25 mcg 06/10/20 13:21 06/11/20 05:49 Fentanyl 100 Mcg/2 Ml Vial SLOW IVP 25 mcg Q4H PRN Administration Mild Pain (1-3) Potassium Chloride/Dextrose/Sod Cl 1,000 mls @ 100 mls/hr 06/06/20 12:02 06/11/20 02:48 D5 1/2 Ns W/20 Meq Kcl IV 1,000 mls .Q10H PERCY Administration Latanoprost 1 drop 06/10/20 21:00 06/10/20 20:42 Latanoprost 0.005% Ophth Soln 2.5 Ml Bottle EA EYE 1 applic HS PERCY Administration Pantoprazole Sodium 40 mg 06/07/20 09:00 06/11/20 08:34 Pantoprazole 40 Mg Vial IVP 40 mg DAILY PERCY Administration Phenol 0 ml 06/07/20 10:28 06/08/20 20:23 Chloraseptic [place] 180 Ml Bottle PO 2 sprays BIDPRN PRN Administration Sore Throat Sodium Chloride 10 ml 06/06/20 12:15 06/09/20 08:43 Sodium Chloride 0.9% (Pf) 10 Ml Vial FS 10 ml PRN PRN Administration RECONSTITUTION Zolpidem Tartrate 5 mg 06/06/20 12:46 06/08/20 20:07 Zolpidem Tartrate 5 Mg Tab PO 5 mg HSPRN PRN Administration Insomnia - Exam General Appearance: awake alert Eye: PERRL, anicteric sclera ENT: no oropharyngeal lesions, moist mucosa Neck: supple, no JVD Heart: RRR, no murmur Respiratory: no wheezes, no rales Gastrointestinal: soft, non-distended, normal bowel sounds Extremities: no cyanosis, no edema Neurological: cranial nerve grossly intact, no focal deficits Psychiatric: normal affect, A&O x 3 Hosp A/P (1) Acute duodenal ulcer with gastric outlet obstruction Code(s): K26.3 - ACUTE DUODENAL ULCER WITHOUT HEMORRHAGE OR PERFORATION Status: Acute (2) Duodenal ulcer Status: Acute (3) Postoperative anemia Code(s): D64.9 - ANEMIA, UNSPECIFIED Status: Acute (4) Alcohol abuse Code(s): F10.10 - ALCOHOL ABUSE, UNCOMPLICATED Status: Chronic (5) Hypertension Code(s): I10 - ESSENTIAL (PRIMARY) HYPERTENSION Status: Chronic Qualifiers: Hypertension type: essential hypertension Qualified Code(s): I10 - Essential (primary) hypertension (6) HTN (hypertension) Code(s): I10 - ESSENTIAL (PRIMARY) HYPERTENSION Status: Chronic Qualifiers: Hypertension type: essential hypertension Qualified Code(s): I10 - Essential (primary) hypertension - Plan d/w Ms.Dubcak Noe patient's sister who he lives with. Likely home with HH and nursing in am if cleared by gen surgery. is s/p open gastro-jejunostomy loop for gastric outlet obstr sec to large duodenal ulcer prior h/o duodenal stricture is on iv fluids, protonix PT to mobilize as tolerated, needs to get out of bed/chair tolerating liq diet hemostable dc plan in am if cleared by surgery
[2020-06-11] MEDS ORDERED: Mag-Al Plus 1200 MG/1200 MG/120 MG/30 ML UDCUP PO PRN (13:49)
--- NOTE | 2020-06-11 16:36 | EKG ---
Test Reason : Blood Pressure : / mmHG Vent. Rate : 096 BPM Atrial Rate : 096 BPM P-R Int : 122 ms QRS Dur : 084 ms QT Int : 386 ms P-R-T Axes : 054 -16 -35 degrees QTc Int : 487 ms Normal sinus rhythm Prolonged QT Abnormal ECG Confirmed by TIKA DÍAZ, LUKASZ Cardoza ([id number]), video tape editor MAYANK FREY ([id number]) on 06/11/2020 4:36:01 PM Referred By: Confirmed By:LUKASZ VILLELA MD
[2020-06-11] MEDS: Latanoprost 0.005% Ophth Soln 2.5 ml Bottle EA EYE SCH (20:38)
[2020-06-11] MEDS: Enoxaparin Sodium 40 MG/0.4 ML SYRINGE SC SCH (20:39)
[2020-06-12] MEDS: Fentanyl 100 MCG/2 ML VIAL SLOW IVP PRN ×3 (02:30→17:09)
[2020-06-12] MEDS: D5 1/2 NS w/20 mEq KCL 1,000 ML IV SCH ×2 (04:31→18:41)
[2020-06-12] MEDS: Hydrocodone-Acetamin 15 ML UDCUP PO PRN ×3 (04:35→21:27)
[2020-06-12] MEDS: Brimonidine Tartrate 0.2% Ophth Soln 5 ml Bottle R EYE SCH ×2 (08:14→21:26)
[2020-06-12] MEDS: Pantoprazole 40 MG VIAL IVP SCH (08:14)
--- NOTE | 2020-06-12 12:58 | PRG ---
DATE OF SERVICE: 06/12/2020 SUBJECTIVE: Mr. Acosta is tolerating the full liquids without difficulty, still complaining of pain. OBJECTIVE: VITAL SIGNS: He is afebrile. His vital signs are stable. ABDOMEN: He has had multiple bowel movements. His abdomen is soft, minimally distended. His midline incision is healing well. There is no evidence of infection. ASSESSMENT: Status post palliative for gastric outlet obstruction from peptic ulcer disease. PLAN: I would recommend he do a soup diet for another few days and then kind of casserole diet after that. He should be ready for discharge per Medicine. I would like him to see me back in my office in 2 weeks for wound check. Job ID: [id number]
--- NOTE | 2020-06-12 13:13 | PDOC.HOSPP ---
- Subjective Encounter Date: 06/12/20 Encounter Time: 12:00 Subjective: no new complaints is tolerating liq diet - Objective Vital Signs & Weight: Vital Signs (12 hours) Temp Pulse Resp BP BP Pulse Ox 06/12/20 11:00 97.7 F 95 20 107/63 94 L 06/12/20 08:00 97.8 F 78 20 121/73 99 06/12/20 07:47 97.8 F 78 20 121/73 97 Weight Admit Weight 165 lb 1.6 oz Weight 165 lb 1.6 oz I&O: 06/11/20 06/12/20 06/13/20 06:59 06:59 06:59 Intake Total 2978 1640 Balance 2978 1640 Result Diagrams: 06/11/20 09:28 06/11/20 09:27 Additional Labs: Accuchecks 06/12/20 06/12/20 06/11/20 11:08 05:11 20:25 POC Glucose 94 86 91 06/11/20 16:19 POC Glucose 90 Hospitalist ROS - Medication Medications: Active Medications Generic Name Dose Route Start Last Admin Trade Name Freq PRN Reason Stop Dose Admin Hydrocodone Bitart/Acetaminophen 15 ml 06/10/20 13:21 06/12/20 04:35 Hydrocodone-Acetamin 15 Ml Udcup PO 15 ml Q6H PRN Administration Pain Brimonidine Tartrate 1 drop 06/10/20 21:00 06/12/20 08:14 Brimonidine Tartrate 0.2% Ophth Soln 5 Ml Bottle R EYE 1 drop BID PERCY Administration Enoxaparin Sodium 40 mg 06/08/20 21:00 06/11/20 20:39 Enoxaparin Sodium 40 Mg/0.4 Ml Syringe SC 40 mg 2100 PERCY Administration Fentanyl 25 mcg 06/10/20 13:21 06/12/20 08:58 Fentanyl 100 Mcg/2 Ml Vial SLOW IVP 25 mcg Q4H PRN Administration Mild Pain (1-3) Potassium Chloride/Dextrose/Sod Cl 1,000 mls @ 100 mls/hr 06/06/20 12:02 06/12/20 04:31 D5 1/2 Ns W/20 Meq Kcl IV 1,000 mls .Q10H PERCY Administration Latanoprost 1 drop 06/10/20 21:00 06/11/20 20:38 Latanoprost 0.005% Ophth Soln 2.5 Ml Bottle EA EYE 1 applic HS PERCY Administration Pantoprazole Sodium 40 mg 06/07/20 09:00 06/12/20 08:14 Pantoprazole 40 Mg Vial IVP 40 mg DAILY PERCY Administration Phenol 0 ml 06/07/20 10:28 06/08/20 20:23 Chloraseptic [place] 180 Ml Bottle PO 2 sprays BIDPRN PRN Administration Sore Throat Sodium Chloride 10 ml 06/06/20 12:15 06/09/20 08:43 Sodium Chloride 0.9% (Pf) 10 Ml Vial FS 10 ml PRN PRN Administration RECONSTITUTION Zolpidem Tartrate 5 mg 06/06/20 12:46 06/08/20 20:07 Zolpidem Tartrate 5 Mg Tab PO 5 mg HSPRN PRN Administration Insomnia - Exam General Appearance: awake alert Eye: PERRL, anicteric sclera ENT: no oropharyngeal lesions, moist mucosa Neck: supple, no JVD Heart: RRR, no murmur Respiratory: no wheezes, no rales Gastrointestinal: soft, non-distended, normal bowel sounds, no guarding, no rigidity Extremities: no cyanosis, no edema Neurological: cranial nerve grossly intact, no focal deficits Psychiatric: normal affect, A&O x 3 Hosp A/P (1) Acute duodenal ulcer with gastric outlet obstruction Code(s): K26.3 - ACUTE DUODENAL ULCER WITHOUT HEMORRHAGE OR PERFORATION Status: Acute (2) Duodenal ulcer Status: Acute (3) Postoperative anemia Code(s): D64.9 - ANEMIA, UNSPECIFIED Status: Acute (4) Alcohol abuse Code(s): F10.10 - ALCOHOL ABUSE, UNCOMPLICATED Status: Chronic (5) Hypertension Code(s): I10 - ESSENTIAL (PRIMARY) HYPERTENSION Status: Chronic Qualifiers: Hypertension type: essential hypertension Qualified Code(s): I10 - Essential (primary) hypertension (6) HTN (hypertension) Code(s): I10 - ESSENTIAL (PRIMARY) HYPERTENSION Status: Chronic Qualifiers: Hypertension type: essential hypertension Qualified Code(s): I10 - Essential (primary) hypertension - Plan d/w Ms.Dubcak Noe patient's sister who he lives with. Home with and nursing in am (family cant pick him today). is s/p open gastro-jejunostomy loop for gastric outlet obstr sec to large duodenal ulcer prior h/o duodenal stricture is on protonix To mobilize as tolerated tolerating liq diet, to continue soup diet for 2-3 days then casserole diet after that per gen surg adv. hemostable
--- NOTE | 2020-06-12 17:19 | PRG ---
DATE OF SERVICE: 06/12/2020 SUBJECTIVE: Mr. Acosta complains of epigastric discomfort. He has no nausea or vomiting. He is tolerating liquid diet well. He reports normal bowel movement today. OBJECTIVE: VITAL SIGNS: Temperature 98.6, pulse 76, blood pressure 109/76. GENERAL: He is in no acute distress. LUNGS: Clear to auscultation bilaterally. HEART: Regular rate and rhythm without murmur. ABDOMEN: Mildly distended. Bowel sounds are present. He is tender over the incisional site. EXTREMITIES: No lower extremity edema. LABORATORY DATA: Hemoglobin is 8.1. IMPRESSION: 1. Duodenal ulcer with gastric outlet obstruction, status post gastrojejunostomy. He is tolerating a full liquid diet now. 2. His pancreas was noted to be firm at the time of surgery. Order for CA-19-9 was placed today. RECOMMENDATIONS: 1. Follow up in GI clinic to go over the results of the CA-19-9 and for chronic management. 2. I will sign off for now, please call if GI can be of assistance. Job ID: [id number]
[2020-06-12] MEDS: Latanoprost 0.005% Ophth Soln 2.5 ml Bottle EA EYE SCH (21:26)
[2020-06-12] MEDS: Enoxaparin Sodium 40 MG/0.4 ML SYRINGE SC SCH (21:27)
[2020-06-13] MEDS: Fentanyl 100 MCG/2 ML VIAL SLOW IVP PRN (00:57)
[2020-06-13] MEDS: D5 1/2 NS w/20 mEq KCL 1,000 ML IV SCH (06:18)
[2020-06-13 07:58] VITALS: BP 120/76; TEMP 98.2
[2020-06-13] MEDS: Pantoprazole 40 MG VIAL IVP SCH (08:08)
[2020-06-13] MEDS: Brimonidine Tartrate 0.2% Ophth Soln 5 ml Bottle R EYE SCH (08:08)
--- NOTE | 2020-06-13 15:35 | DIS ---
DATE OF ADMISSION: 05/28/2020 DATE OF DISCHARGE: 06/13/2020 DISCHARGE DISPOSITION: To home with [facility]. PRIMARY DISCHARGE DIAGNOSES: Gastric outlet obstruction, status post gastrojejunostomy loop for the same. He was found to have had large duodenal ulcer with prior history of duodenal stricture as well, postop anemia, chronic alcohol abuse, and hypertension. PROCEDURES DONE DURING HOSPITALIZATION: Chest x-ray on the day of admission showed no acute cardiopulmonary process. Right upper quadrant ultrasound done on the day of admission showed hepatic steatosis with mild hepatomegaly. Upper endoscopy done by Dr. Mosher on 05/28/2020 showed large duodenal ulceration seen along the anterior wall of the duodenal bulb measuring 2 cm in diameter. This was causing significant stenosis and edema extending into the 2nd portion of the duodenum, but was traversed with some difficulty with the gastroscope. Multiple biopsies were obtained here. LA grade B reflux esophagitis was seen. Histopathology from upper endoscopy biopsies done showed peptic duodenitis with focal erosion. Mild reactive gastropathy. No H pylori organisms were seen. On 06/06/2020, the patient has had open gastrojejunostomy loop done for gastric outlet obstruction from chronic peptic ulcer disease and duodenal stricture. H and H of 8 and 25, platelet count 798, white count of 7.2, BUN of 4, creatinine 0.6 on 06/11/2020. Albumin was 2.3 on 06/11/2020. COVID-19 PCR was not detected on 05/27/2020. DISCHARGE MEDICATIONS: 1. Brimonidine eye drops as before. 2. Latanoprost eye drops as before. 3. Motrin 400 mg p.o. 3 times daily p.r.n. for pain. 4. Norvasc 5 mg p.o. daily. 5. Protonix 40 mg p.o. daily. ALLERGIES: NO KNOWN DRUG ALLERGIES. DISCHARGE PLAN: The patient to follow up with Dr. Sin in 1 week; Dr. Erickson Berman, his primary care physician in 1 week. BRIEF COURSE DURING HOSPITALIZATION: The patient initially got admitted on the 27 of May with complaints of nausea, vomiting, and abdominal pain. He also complained of chest pain. He reportedly was drinking more than 20 beers per day. In view of this history, the patient was initially admitted to telemetry. He has had consultation with Dr. Sina Dale on arrival. A right upper quadrant ultrasound done did not reveal any significant abnormality to explain the patient's symptoms. He finally had upper endoscopy done on 05/28/2020, which showed a large duodenal ulcer with edema and significant stenosis of the first portion of duodenum. The patient was on a trial on liquid diet, but he subsequently failed. He has had surgical consultation with Dr. Sin and finally the patient has had open gastrojejunostomy loop done for severe gastric outlet obstruction with duodenal stricture. Postprocedure, the patient had complained of severe pain and was on a fentanyl STUNT MAN for nearly 4 days post surgery. This was finally discontinued and he was noncompliant with ambulation and following therapeutic advice. He has tolerated full liquid diet. He has been slowly weaned into soft food prior to discharge. He is advised to use incentive spirometry and abstain completely from alcohol. I have given complete updates to his sister with whom he is planning to stay. He needs to follow up with Dr. Sin in a week and he also needs to have close followup with his primary care physician. He has been cleared for discharge by Dr. Sin here. Please note, I have seen and examined the patient on the day of discharge. Job ID: [id number]
== END 2020-06-13 10:53 | disposition home health service (06) | DRG 327 ==
LOC: ERS 10:23 → 2SW 12:02 → OBSVTOIN 05-28 16:24 → T4-A 05-30 18:47
PROVIDERS: ADMIT Internal Medicine; ATTEND Internal Medicine
PROC: 0DB98ZX Excision of Duodenum, Via Natural or Artificial Opening Endoscopic, Diagnostic (ICD-10-PCS; 2020-05-28)
PROC: 0DB78ZX Excision of Stomach, Pylorus, Via Natural or Artificial Opening Endoscopic, Diagnostic (ICD-10-PCS; 2020-05-28)
PROC: 0D160ZA Bypass Stomach to Jejunum, Open Approach (ICD-10-PCS; principal; 2020-06-06)
DX: K31.1 Adult hypertrophic pyloric stenosis (principal); K26.3 Acute duodenal ulcer without hemorrhage or perforation; B37.81 Candidal esophagitis; E44.0 Moderate protein-calorie malnutrition; K31.5 Obstruction of duodenum; D62 Acute posthemorrhagic anemia; K56.7 Ileus, unspecified; Z20.828 Contact with and (suspected) exposure to other viral communicable diseases; K70.30 Alcoholic cirrhosis of liver without ascites; K21.00 Gastro-esophageal reflux disease with esophagitis, without bleeding; I10 Essential (primary) hypertension; F32.9 Major depressive disorder, single episode, unspecified; F17.210 Nicotine dependence, cigarettes, uncomplicated; K44.9 Diaphragmatic hernia without obstruction or gangrene; D72.829 Elevated white blood cell count, unspecified; F10.20 Alcohol dependence, uncomplicated; H40.9 Unspecified glaucoma; D52.9 Folate deficiency anemia, unspecified; D63.8 Anemia in other chronic diseases classified elsewhere; E87.8 Other disorders of electrolyte and fluid balance, not elsewhere classified; D47.3 Essential (hemorrhagic) thrombocythemia; Z79.82 Long term (current) use of aspirin; Z79.899 Other long term (current) drug therapy; Z90.49 Acquired absence of other specified parts of digestive tract; Z68.25 Body mass index [BMI] 25.0-25.9, adult
CPT/HCPCS: 36415; 36416; 71045; 74018; 74177; 76705; 80048; 80053; 80061; 80306; 80307; 81001; 82607; 82728; 82746; 82977; 83540; 83550; 83690; 83735; 83880; 84100; 84443; 84484; 85025; 85046; 85610; 85730; 86301; 86304; 87635; 88305; 88312; 93005; 94760; 96361; 96365; 96366; 96367; 96372; 96375; 96376; C9113; G0378; J1650; J2270; J2405; J2550; J2704; J3010; J3411; J3475; J3480; J3490; J7042; J7050; Q0162; Q9967; U0003

== ENCOUNTER 2020-06-16 18:23 | Emergency (ER) | payer MEDICARE, OTHER ==
[2020-06-16] MEDS ORDERED: Morphine 4 MG/ML VIAL ONE (19:42)
[2020-06-16] MEDS ORDERED: Ondansetron PF 4 MG/2 ML Vial ONE (19:42)
[2020-06-16 20:14] LABS: #Basophils 0.1 thou/uL (0.0-0.2); #Eosinphils 0.4 thou/uL (0.0-0.7); #Lymphocytes 2.3 thou/uL (1.20-3.40); #Neutrophils 6.2 thou/uL (1.40-6.50); %Basophils 0.7 % (0.0-1.0); %Eosinophils 4.5 % (0.0-10.0); %Lymphocytes 22.9 % (21.0-51.0); %Neutrophils 61.9 % (42.0-75.0); Hemoglobin 11.3 g/dL (14.0-18.0); Mean Corpuscular HGB CONC 33.5 g/dL (32.0-36.0); Mean Corpuscular Hemoglobin 32.4 pg (27.0-31.0); Mean Corpuscular Volume 96.7 fL (78.0-98.0); Mean Platelet Volume 5.9 fL (7.4-10.4); Platelet Count 955 thou/uL (130-400); Red Blood Cell (RBC) Count 3.49 mill/uL (4.70-6.10)
[2020-06-16 21:17] LABS: Chloride 100 mmol/L (98-107); Potassium 4.1 mmol/L (3.5-5.1); Sodium 133 mmol/L (136-145)
[2020-06-16 21:19] LABS: Albumin 2.8 g/dL (3.4-4.8); Globulin 4.1 g/dL (2.4-3.5); Protein, Total 6.9 g/dL (5.8-8.1)
[2020-06-16 21:20] LABS: Anion Gap 17 mmol/L (10-20); Bilirubin, Total 0.5 mg/dL (0.2-1.2); Carbon Dioxide 20 mmol/L (23-31)
[2020-06-16 21:21] LABS: Glucose 77 mg/dL (80-115)
[2020-06-16 21:24] LABS: AST (SGOT) 26 U/L (5-34); Alkaline Phosphatase 85 U/L (40-110)
[2020-06-16 21:25] LABS: Calc. Creatinine Clearance 0 mL/min (70-130); Estimated GFR-MDRD 67
[2020-06-16 21:26] LABS: BUN (Urea Nitrogen) 13 mg/dL (8.4-25.7)
[2020-06-16 21:28] LABS: ALT (SGPT) 14 U/L (8-55); Lipase 19 U/L (8-78)
[2020-06-16 21:40] LABS: Bacteria/HPF None Seen HPF (None Seen); Bilirubin Negative (Negative); Blood, Urine 1+ (Negative); Clarity Clear (Clear); Glucose, Urine (Dipstick) Normal (Negative); Ketone, Urine 10 mg/dL (Negative); Leukocyte Negative Leu/uL (Negative); Nitrite Negative (Negative); Protein, Urine (Dipstick) 10 mg/dL (Neg-Trace); RBC/HPF 0-3 HPF (0-3); Specific Gravity, Urine 1.017 (1.002-1.036); Squamous Epithelial 0-3 HPF (0-3); Urobilinogen Normal mg/dL (Less than 2)
[2020-06-16] MEDS ORDERED: Aspirin 325 MG TAB ONE (22:01)
== END 2020-06-16 22:17 | disposition home or self-care (01) ==
LOC: ERS 18:23
DX: G89.18 Other acute postprocedural pain (principal); K21.9 Gastro-esophageal reflux disease without esophagitis; I10 Essential (primary) hypertension; F32.9 Major depressive disorder, single episode, unspecified; F17.220 Nicotine dependence, chewing tobacco, uncomplicated; Z79.82 Long term (current) use of aspirin; Z79.899 Other long term (current) drug therapy
CPT/HCPCS: 36415; 80053; 81003; 81015; 83690; 85025; 96374; 96375; J2270; J2405

== ENCOUNTER 2020-07-22 18:50 | Observation (INO) | payer MEDICARE, MEDICAID ==
--- NOTE | 2020-07-22 19:20 | RAD ---
RADIOGRAPH CHEST 1 VIEW: DATE: 07/22/2020 HISTORY: 65-year-old male with chest pain FINDINGS: The visualized lung cooney are clear. The cardiomediastinal silhouette and hilar shadows are normal. The lateral costophrenic angles are sharp. The osseous structures appear normal. There is no pneumothorax. IMPRESSION: Negative.
[2020-07-22 19:46] LABS: #Lymphocytes 2.2 thou/uL (1.20-3.40); #Monocytes 0.7 thou/uL (0.11-0.59); #Neutrophils 3.2 thou/uL (1.40-6.50); %Basophils 0.6 % (0.0-1.0); %Eosinophils 0.3 % (0.0-10.0); %Lymphocytes 35.7 % (21.0-51.0); %Monocytes 11.7 % (0.0-10.0); %Neutrophils 51.7 % (42.0-75.0); Hemoglobin 13.7 g/dL (14.0-18.0); Mean Corpuscular HGB CONC 33.4 g/dL (32.0-36.0); Mean Corpuscular Hemoglobin 31.3 pg (27.0-31.0); Mean Corpuscular Volume 93.6 fL (78.0-98.0); Platelet Count 394 thou/uL (130-400); RBC Distribution Width 17.3 % (11.5-14.5); White Blood Cell (WBC) Count 6.2 thou/uL (4.8-10.8)
[2020-07-22 20:12] LABS: ALT (SGPT) 24 U/L (8-55); AST (SGOT) 55 U/L (5-34); Albumin 3.5 g/dL (3.4-4.8); Alkaline Phosphatase 182 U/L (40-110); Anion Gap 18 mmol/L (10-20); BUN (Urea Nitrogen) 9 mg/dL (8.4-25.7); Bilirubin, Total 0.3 mg/dL (0.2-1.2); Calc. Creatinine Clearance 0 mL/min (70-130); Calcium 8.8 mg/dL (7.8-10.44); Carbon Dioxide 31 mmol/L (23-31); Chloride 82 mmol/L (98-107); Estimated GFR-MDRD Greater than 90; Globulin 4.4 g/dL (2.4-3.5); Glucose 92 mg/dL (80-115); Protein, Total 7.9 g/dL (5.8-8.1); Sodium 128 mmol/L (136-145)
[2020-07-22] MEDS ORDERED: Acetaminophen 325 MG TAB PO PRN (22:49)
[2020-07-22] MEDS ORDERED: Acetaminophen 650 MG Suppository PR PRN (22:49)
[2020-07-22] MEDS ORDERED: Sodium Chloride 0.9% 1,000 ML IV SCH (23:00)
--- NOTE | 2020-07-22 23:14 | PDOC.HHP ---
Hospitalist HPI - History of Present Illness Chest pain History of Present Illness: ADMISSION DATE: 07/22/2012 TIME OF ASSESSMENT: 2099 PRIMARY CARE PHYSICIAN: Dr. Berman CHIEF COMPLAINT: Chest pain intermittent for the last week HPI: Mr. Ochoa is a 65-year-old gentleman who presents to the emergency department with complaints of persistent chest pain that has been intermittent for the last week. He is a poor historian and is unable to describe the pain and is unsure if there is any association with activity but has noted that it occurs even while he is at rest. States the pain was on the left side of his chest when it woke him up from his sleep this morning at 4 AM. Currently its on the right side of his sternum. He states it comes and goes every 30 minutes today. Unable to compared to what the pain has been like earlier this week and if it has progressed in terms of severity or frequency. When asked what prompted him to come into the emergency department today he states it was b ecause it would not go away. He was admitted to the hospital on 05/28/2020 until 06/13/2020 and during his hospitalization underwent a gastrojejunostomy loop for gastric outlet obstruction. He had been found to have a large duodenal ulcer with prior history of duodenal stricture. He has a known history of alcohol abuse and has continued drinking since discharge. States he drinks about a half a gallon of wine every day. Denies any emesis or hematemesis. Denies any shortness of breath, cough or hemoptysis. Lower extremity swelling or calf tenderness. He has been afebrile. He does report having mild abdominal discomfort which he feels is due to the recent surgery. He reports some drainage from the mid abdominal incision that is nearly completely healed and the area that was draining is now scabbed over with no active bleeding or discharge. His cousin is helping him with dressing changes. Has not noted any erythema or warmth to the wound. Reports persistent diarrhea that occurs with any p.o. intake including liquids. States this was going on before his surgery. Denies any br ight red blood per rectum or melena. All other review systems are negative. He had an echocardiogram done on 09/18/2019 which showed an EF of 50 to 55%. Left atrium mildly dilated. Mild MR and mild TR present ED COURSE: In the emergency department he had an EKG done that showed a normal sinus rhythm with a heart rate of 90. He had T wave inversions in V1, V2, V3 and V4. No ST changes. Lab studies done showed a white count of 6.2, hemoglobin 13.7, hematocrit 41.1, platelets 394, neutrophils 51.7%. Initial troponin negative. Sodium 128, potassium 3, BUN 9, creatinine 0.76, GFR greater than 90, glucose 92, LFTs notable for an AST of 55, alk phos 182. Chest x-ray was negative. He received 324 mg of aspirin was given 1 L of normal saline. PAST MEDICAL HISTORY: 1. Gastric outlet obstruction, status post gastrojejunostomy loop 2. Duodenal ulcer, with history of duodenal stricture 3. Chronic alcohol abuse 4. Hypertension 5. Hepatic steatosis/hepatomegaly 6. GERD 7. Cirrhosis 8. Depression PAST SURGICAL HISTORY: 1. Status post gastrojejunostomy loop done 06/03/2020 2. Appendectomy 3. Back surgery SOCIAL HISTORY: Patient lives alone. He is fully independent. Reports heavy alcohol abuse and admits to drinking half a gallon of wine daily. Resports chekwing tobacco. Denies illicit drug use. FAMILY HISTORY: Noncontributory ALLERGIES: No known drug allergies CURRENT MEDICATIONS: 1. Aspirin 325 mg p.o. daily 2. Amlodipine 5 mg p.o. daily 3. Omeprazole 40 mg p.o. twice daily 5. Latanoprost 1 drop to both eyes at bedtime Hospitalist History - Past Medical History Hepatobiliary: reports: Cirrhosis Psych: reports: Addictions (EtOH abuse), Depression - Past Surgical History Past Surgical History: reports: Appendectomy, Other (Back and knee surgery, renal stents) - Social History Alcohol: reports: Heavy (Drinks 3 to 4 gallons of wine per week) Occupation: Does not work - Exam General Appearance: NAD, awake alert General - other findings: VS: HR 92, BP 117/82, RR 19, O2 sat 97% on room air Eye: PERRL, anicteric sclera ENT: normocephalic atraumatic, moist mucosa Neck: supple, no lymphadenopathy Heart: RRR, normal peripheral pulses Respiratory: CTAB, no wheezes, no rales, no ronchi, normal chest expansion, no tachypnea Respiratory - other findings: pain on palpation of anteior chest wall, no bone deformity or bruising Gastrointestinal: soft, non-distended, normal bowel sounds, no guarding, no rigidity Gastrointestinal - other findings: mild generalized discomfort with palpation Extremities: no edema Skin: no lesions, no rashes Neurological: cranial nerve grossly intact, normal sensation to touch, no weakness Hospitalist Results - Labs Result Diagrams: 07/22/20 19:23 07/22/20 19:23 Lab results: WBC 6.2 thou/uL (4.8-10.8) 07/22/20 19:23 Hgb 13.7 g/dL (14.0-18.0) L 07/22/20 19:23 Hct 41.1 % (42.0-52.0) L 07/22/20 19:23 MCV 93.6 fL (78.0-98.0) 07/22/20 19:23 Plt Count 394 thou/uL (130-400) 07/22/20 19:23 Neutrophils % 51.7 % (42.0-75.0) 07/22/20 19:23 Sodium 128 mmol/L (136-145) L 07/22/20 19:23 Potassium 3.0 mmol/L (3.5-5.1) L 07/22/20 19:23 Chloride 82 mmol/L (98-107) L 07/22/20 19:23 Carbon Dioxide 31 mmol/L (23-31) 07/22/20 19:23 BUN 9 mg/dL (8.4-25.7) 07/22/20 19:23 Creatinine 0.76 mg/dL (0.7-1.3) 07/22/20 19:23 Glucose 92 mg/dL (80-115) 07/22/20 19:23 Calcium 8.8 mg/dL (7.8-10.44) 07/22/20 19:23 Total Bilirubin 0.3 mg/dL (0.2-1.2) 07/22/20 19:23 AST 55 U/L (5-34) H 07/22/20 19:23 ALT 24 U/L (8-55) 07/22/20 19:23 Alkaline Phosphatase 182 U/L (40-110) H 07/22/20 19:23 Troponin I Less than 0.010 ng/mL (< 0.028) 07/22/20 19:23 B-Natriuretic Peptide 29.6 pg/mL (0-100) 07/22/20 19:20 Serum Total Protein 7.9 g/dL (5.8-8.1) 07/22/20 19:23 Albumin 3.5 g/dL (3.4-4.8) 07/22/20 19:23 - Radiology Interpretation Chest x-ray Status: report reviewed by me Hospitalist H&P A/P - Problem (1) Chest pain Code(s): R07.9 - CHEST PAIN, UNSPECIFIED Status: Acute Assessment and Plan: Continue to trend troponins Cardiac monitoring Given recent surgery/hospitalization will check D-Dimer Pain is reproducible one exam, denies any trauma that he can recall Consider CT Chest noncontrast vs. contrast pending d-dimer Give GI Cocktail and continue PPI, could be GI related given history of heavy al cohol abuse and know GI ulcers. NPO after midnight Check lipid panel with AM labs Continue Aspirin Check lipase, Mg+ and TSH (2) Hyponatremia Code(s): E87.1 - HYPO-OSMOLALITY AND HYPONATREMIA Status: Acute Assessment and Plan: Likely due to volume depletion given severe diarrhea. Given 1L of NS in ED Continue gentle hydration and monitor Na+ (3) Hypokalemia Code(s): E87.6 - HYPOKALEMIA Status: Acute Assessment and Plan: Replace and continue to monitor Check Mg+ as well (4) Diarrhea Code(s): R19.7 - DIARRHEA, UNSPECIFIED Status: Acute Assessment and Plan: stool studies, if negative for C.diff will give Imodium. (5) Alcohol abuse Code(s): F10.10 - ALCOHOL ABUSE, UNCOMPLICATED Status: Chronic Assessment and Plan: [facility] protocol initiated No evidence of DTs at present, will hold diazepam for now. (6) HTN (hypertension) Code(s): I10 - ESSENTIAL (PRIMARY) HYPERTENSION Status: Chronic Qualifiers: Hypertension type: essential hypertension Qualified Code(s): I10 - Essential (primary) hypertension Assessment and Plan: Resume home meds once verified Monitor BP. (7) GERD (gastroesophageal reflux disease) Code(s): K21.9 - GASTRO-ESOPHAGEAL REFLUX DISEASE WITHOUT ESOPHAGITIS Status: Chronic Assessment and Plan: Resume Protonix 40 mg IV BID. (8) Depression Code(s): F32.9 - MAJOR DEPRESSIVE DISORDER, SINGLE EPISODE, UNSPECIFIED Status: Chronic Assessment and Plan: Resume home medications once verified. - Plan Plan: FULL code status Case discussed with Dr. Alvarado who agrees with plan as above.
[2020-07-22] MEDS ORDERED: Lorazepam 2 MG/ML VIAL SLOW IVP PRN (23:39)
[2020-07-22 23:45] LABS: Lactic Acid 3.4 mmol/L (0.5-2.2)
[2020-07-22] MEDS ORDERED: Lidocaine 2% Viscous Solution 10 ML, Aluminum & Magnesium Hydroxide 30 ML SSW SCH (23:45)
[2020-07-22] MEDS ORDERED: Thiamine HCl 200 MG/2 ML VIAL IM SCH (23:45)
[2020-07-22] MEDS ORDERED: Sodium Chloride 0.9% (PF) 10 ML VIAL FS PRN (23:45)
[2020-07-23 01:15] VITALS: BMI 25.1
[2020-07-23 02:25] LABS: #Eosinphils 0.1 thou/uL (0.0-0.7); #Lymphocytes 1.6 thou/uL (1.20-3.40); #Monocytes 1.1 thou/uL (0.11-0.59); #Neutrophils 4.6 thou/uL (1.40-6.50); %Basophils 0.7 % (0.0-1.0); %Eosinophils 0.7 % (0.0-10.0); %Lymphocytes 21.7 % (21.0-51.0); %Monocytes 14.8 % (0.0-10.0); %Neutrophils 62.1 % (42.0-75.0); Hemoglobin 13.2 g/dL (14.0-18.0); Mean Corpuscular HGB CONC 35.4 g/dL (32.0-36.0); Mean Corpuscular Hemoglobin 33.7 pg (27.0-31.0); Mean Corpuscular Volume 95.1 fL (78.0-98.0); Mean Platelet Volume 5.9 fL (7.4-10.4); Platelet Count 334 thou/uL (130-400); RBC Distribution Width 17.3 % (11.5-14.5); Red Blood Cell (RBC) Count 3.91 mill/uL (4.70-6.10); White Blood Cell (WBC) Count 7.4 thou/uL (4.8-10.8)
[2020-07-23 02:45] LABS: Anion Gap 17 mmol/L (10-20); BUN (Urea Nitrogen) 10 mg/dL (8.4-25.7); Calc. Creatinine Clearance 86 mL/min (70-130); Calcium 8.2 mg/dL (7.8-10.44); Carbon Dioxide 31 mmol/L (23-31); Chloride 85 mmol/L (98-107); Estimated GFR-MDRD Greater than 90; Glucose 105 mg/dL (80-115); Magnesium 2.5 mg/dL (1.6-2.6); Sodium 130 mmol/L (136-145)
[2020-07-23 03:01] LABS: Potassium 2.9 mmol/L (3.5-5.1)
[2020-07-23] MEDS ORDERED: Potassium Chloride 20 MEQ in Premix Bag 1 BAG IVPB SCH (03:30)
[2020-07-23] MEDS ORDERED: ADENOSINE 60 MG/20 ML VIAL ONE (08:46)
[2020-07-23] MEDS ORDERED: Magnesium Oxide 400 MG TAB PO SCH (09:00)
[2020-07-23] MEDS ORDERED: Folic Acid 1 MG TAB PO SCH (09:00)
[2020-07-23] MEDS ORDERED: Amlodipine 5 MG TAB PO SCH (09:00)
[2020-07-23] MEDS ORDERED: Brimonidine Tartrate 0.2% Ophth Soln 5 ml Bottle R EYE SCH (09:00)
[2020-07-23] MEDS ORDERED: Multivitamin W/ Minerals 1 TAB PO SCH (09:00)
[2020-07-23] MEDS ORDERED: Famotidine 20 MG TAB PO SCH (09:00)
[2020-07-23] MEDS ORDERED: Pantoprazole 40 MG VIAL IVP SCH (09:00)
[2020-07-23] MEDS ORDERED: Thiamine 100 MG TAB PO SCH (09:00)
[2020-07-23] MEDS ORDERED: Potassium Chloride 20 MEQ TAB PO SCH ×2 (09:15→14:00)
[2020-07-23 12:32] VITALS: BP 127/72; TEMP 97.4
[2020-07-23 13:20] LABS: Anion Gap 13 mmol/L (10-20); BUN (Urea Nitrogen) 10 mg/dL (8.4-25.7); Calc. Creatinine Clearance 78 mL/min (70-130); Calcium 8.4 mg/dL (7.8-10.44); Carbon Dioxide 32 mmol/L (23-31); Chloride 89 mmol/L (98-107); Estimated GFR-MDRD 88; Glucose 101 mg/dL (80-115); Magnesium 2.6 mg/dL (1.6-2.6); Potassium 3.2 mmol/L (3.5-5.1); Sodium 131 mmol/L (136-145)
--- NOTE | 2020-07-23 13:42 | NM ---
Radionucleotide stress and rest myocardial perfusion scan with CT attenuation correction and SPECT im aging Left ventricular wall motion evaluation and ejection fraction HISTORY: Chest pain. FINDINGS: Adenosine protocol. Heterogeneous uptake of radiotracer throughout the left ventricular dino cardium. No focal perfusion defect or reversibility. QGS analysis of gated SPECT images shows no focal wall motion abnormalities. Ejection fraction calcul ated at 75%. IMPRESSION : No evidence of ischemia. Normal LVEF.
[2020-07-23] MEDS ORDERED: Lidocaine 2% Viscous Solution 10 ML, Aluminum & Magnesium Hydroxide 30 ML SSW SCH (14:15)
[2020-07-23 14:17] LABS: SARS-CoV-2 MS2 Positive; SARS-CoV-2 N Gene Negative; SARS-CoV-2 S Gene Negative; SARS-CoV-2 by NAA Not Detected (NotDetected); SARS-CoV-2 orf1ab Negative
[2020-07-23] MEDS ORDERED: Latanoprost 0.005% Ophth Soln 2.5 ml Bottle EA EYE SCH (21:00)
--- NOTE | 2020-07-24 02:46 | DIS ---
DATE OF ADMISSION: 07/22/2020 DATE OF DISCHARGE: 07/23/2020 DISCHARGE DIAGNOSES: 1. Atypical chest pain, most likely secondary to reflux. 2. History of gastric outlet obstruction. 3. Duodenal ulcer. 4. Chronic alcohol abuse. HOSPITAL COURSE: The patient is a 65-year-old male, who continues to drink, who presents to the hospital with chest pain. Upon further examination, his chest pain appeared to be more of burning-like sensation and reproducible on palpation. His lipase was normal. His H and H were stable. The patient underwent a stress test. His troponins x3 were negative. His stress test was negative. I did speak with the patient and the patient's who is at the bedside. The patient has ran out of his prescription for Protonix. He has been taking [id number] medication without any effect. I have asked him to stop drinking because he continues to drink, which is not helping his current situation. The patient also was given a script for Protonix and was asked to follow up with GI as an outpatient. The patient this time was able to tolerate orals, and then he was discharged. He will follow up with his Primary. I have significantly considered to this patient not to drink alcohol. His D-dimer was mildly elevated at 0.57. Based on his age, appropriate criteria greater than 0.66 would account for a CTA, however, he is not hypoxic. He is currently not short of breath. I will hold off. I will not order a CTA. The patient at this time was discharged home. HOME MEDICATIONS: Will be, 1. Protonix 40 mg daily. 2. I have asked him not to take the ibuprofen. 3. Folic acid one daily. 4. Thiamine 100 mg daily. 5. Amlodipine 5 mg daily. 6. Latanoprost eyedrops one drop to each eye at night. PHYSICAL EXAMINATION: VITAL SIGNS: On discharge; temperature of 98.6, 85, 127/72, 100% on room air, respirations are 12. GENERAL: He is awake, alert, and oriented x3. Does not appear in distress. CV: S1, S2 present. No murmurs, rubs, or gallops. Again, he will be discharged home, follow up with his primary and GI. Job ID: [id number]
--- NOTE | 2020-07-27 15:30 | EKG ---
Test Reason : Blood Pressure : / mmHG Vent. Rate : 090 BPM Atrial Rate : 090 BPM P-R Int : 134 ms QRS Dur : 082 ms QT Int : 430 ms P-R-T Axes : 060 -20 -09 degrees QTc Int : 526 ms Normal sinus rhythm Left atrial enlargement Prolonged QT Abnormal ECG Confirmed by TIKA DÍAZ, LUKASZ Cardoza ([id number]), editor managing newspaper FLORA DONATO ([id number]) on 07/27/2020 3:29:55 PM Referred By: Confirmed By:LUKASZ VILLELA MD
== END 2020-07-23 16:15 | disposition home or self-care (01) ==
LOC: ERS 18:50 → 2SE 20:44
PROVIDERS: ADMIT Internal Medicine; ATTEND Internal Medicine
DX: R07.89 Other chest pain (principal); K26.9 Duodenal ulcer, unspecified as acute or chronic, without hemorrhage or perforation; F10.10 Alcohol abuse, uncomplicated; E87.1 Hypo-osmolality and hyponatremia; E87.6 Hypokalemia; F17.220 Nicotine dependence, chewing tobacco, uncomplicated; K21.9 Gastro-esophageal reflux disease without esophagitis; F32.9 Major depressive disorder, single episode, unspecified; Z79.82 Long term (current) use of aspirin; Z79.899 Other long term (current) drug therapy; Z20.828 Contact with and (suspected) exposure to other viral communicable diseases
CPT/HCPCS: 71045; 78452; 80048 ×2; 80053; 83605; 83630; 83690; 83735; 83880; 84443; 84484 ×3; 85025 ×2; 85379; 87045; 87046; 87324; 87427 ×2; 87449 ×2; 93005; 93017; 97139; 99285; A9500; U0003; 36415; 87635; 96374; 96375; C9113; G0378; J0153; J3411; J3475; J3480; J3490

== ENCOUNTER 2020-08-14 19:03 | Observation (INO) | payer MEDICARE, MEDICAID ==
--- NOTE | 2020-08-14 19:40 | RAD ---
XR Chest 1 View Portable History: Chest pain Comparison: Radiograph July 2020 Findings: Lungs are clear. No pneumothorax or effusion. Cardiac silhouette and mediastinal contours a re within normal limits. No acute osseous abnormality. Impression: No acute intrathoracic abnormality.
[2020-08-14 19:43] LABS: Hemoglobin 12.3 g/dL (14.0-18.0); Mean Corpuscular HGB CONC 33.4 g/dL (32.0-36.0); Mean Corpuscular Hemoglobin 31.7 pg (27.0-31.0); Mean Corpuscular Volume 94.9 fL (78.0-98.0); Mean Platelet Volume 5.8 fL (7.4-10.4); Platelet Count 246 thou/uL (130-400); RBC Distribution Width 16.8 % (11.5-14.5); Red Blood Cell (RBC) Count 3.88 mill/uL (4.70-6.10); White Blood Cell (WBC) Count 4.6 thou/uL (4.8-10.8)
[2020-08-14 20:00] LABS: Acetaminophen Less than 6.0 mcg/mL (10.0-30.0); Alcohol 267 mg/dL (Less than 10); Salicylate Less than 8.0 mg/dL (15.0-30.0)
[2020-08-14 20:01] LABS: ALT (SGPT) 16 U/L (8-55); AST (SGOT) 31 U/L (5-34); Alkaline Phosphatase 128 U/L (40-110); Anion Gap 12 mmol/L (10-20); BUN (Urea Nitrogen) Less than 4 mg/dL (8.4-25.7); Bilirubin, Total 0.2 mg/dL (0.2-1.2); Calc. Creatinine Clearance 0 mL/min (70-130); Calcium 7.3 mg/dL (7.8-10.44); Carbon Dioxide 21 mmol/L (23-31); Chloride 107 mmol/L (98-107); Globulin 3.3 g/dL (2.4-3.5); Glucose 84 mg/dL (80-115); Lipase 22 U/L (8-78); Potassium 4.1 mmol/L (3.5-5.1); Protein, Total 6.3 g/dL (5.8-8.1); Sodium 136 mmol/L (136-145)
[2020-08-14 20:25] LABS: Eosinophils 1 % (0-10); Lymphocytes 26 % (21-51); MDiff Complete? YES; Monocytes 8 % (0-10); Neutrophil 35 % (42-75); Platelet Morphology Comment Appears Adequate; Reactive Lymphocytes 30 % (0-10)
[2020-08-14 20:44] LABS: Bilirubin Negative (Negative); Blood, Urine Negative (Negative); Clarity Clear (Clear); Glucose, Urine (Dipstick) Normal (Negative); Ketone, Urine Negative (Negative); Leukocyte Negative Leu/uL (Negative); Nitrite Negative (Negative); Protein, Urine (Dipstick) Negative (Neg-Trace); Specific Gravity, Urine 1.005 (1.002-1.036); Urobilinogen Normal mg/dL (Less than 2)
[2020-08-14 20:56] LABS: Amphetamine Not Detected (NotDetected); Barbiturates Screen Not Detected (NotDetected); Benzodiazepine Screen Not Detected (NotDetected); Cocaine Metabolite Screen Not Detected (NotDetected); Medtox Control Line Valid? VALID (VALID); Medtox Reader # READER 1; Methadone Not Detected (NotDetected); Methamphetamine Not Detected (NotDetected); Opiate Screen Not Detected (NotDetected); Oxycodone Screen Not Detected (NotDetected); Phencyclidine (PCP) Not Detected (NotDetected); THC/Cannabinoid Screen Not Detected (NotDetected); Tricyclic Screen Not Detected (NotDetected)
[2020-08-14] MEDS ORDERED: Mag-Al 1200 mg/1200 mg/30 ML UDCUP ONE (21:27)
[2020-08-14] MEDS ORDERED: Lidocaine Viscous Sol 2% 15 ml UD Cup ONE (21:27)
[2020-08-14] MEDS ORDERED: Ondansetron PF 4 MG/2 ML Vial IVP PRN (23:15)
[2020-08-14] MEDS ORDERED: Nitroglycerin 0.4 MG TAB (25 Tab Bottle) SL PRN (23:15)
--- NOTE | 2020-08-14 23:42 | PDOC.BPN ---
- Brief Progress Note [id number] HP dictated
[2020-08-15 00:53] LABS: Troponin I Less than 0.010 ng/mL (< 0.028)
[2020-08-15] MEDS ORDERED: traMADol HCl 50 MG TAB PO PRN (01:26)
[2020-08-15] MEDS ORDERED: traMADol HCl 50 MG TAB ONE (01:32)
[2020-08-15] MEDS: Sodium Chloride 0.9% 1,000 ML IV SCH ×2 (01:39→12:59)
--- NOTE | 2020-08-15 02:40 | HP ---
CHIEF COMPLAINT: Chest pain. HISTORY OF PRESENT ILLNESS: Mr. Acosta is a 65-year-old male with past medical history of alcohol abuse, duodenal ulcer with gastric outlet obstruction, GERD, pancreatitis, hypertension, liver cirrhosis, among others, presents to the emergency room with sudden onset of chest pain, that started prior to arrival. The patient describes the chest pain as left-sided, without shortness of breath. He notes he has been coughing up sputum for the last five weeks after he had a procedure/surgery. He denies nausea, vomiting, or sweating. In the emergency room, the patient was given GI cocktail without any relief. He was given aspirin and nitroglycerin spray with some improvement in the chest pain. The patient recently had a cardiac stress test which was unremarkable. Initial workup in the emergency room, the patient had alcohol level of 267, WBC count is 4.6, hemoglobin 12.3, platelets 246. Troponin less than 0.01. Chest x-ray, no acute finding. The patient is being admitted to hospital for further management and to rule out acute coronary syndrome. PAST MEDICAL HISTORY: As mentioned above in the history of present illness. PAST SURGICAL HISTORY: 1. Surgery for duodenal ulcer with gastric outlet obstruction. 2. Appendectomy. 3. Knee surgery. 4. Back surgery. PAST PSYCHIATRIC HISTORY: Depression. SOCIAL HISTORY: The patient drinks 3 to 4 gallons of wine a week. He drinks every day, more than 5 drinks per day. He denies drug use. He currently chews tobacco. FAMILY HISTORY: Reviewed and noncontributory. HOME MEDICATIONS: See home medication reconciliation form for updated medications. ALLERGIES: NO KNOWN ALLERGIES. REVIEW OF SYSTEMS: Review of 14 systems negative except what is mentioned in the history of present illness. PHYSICAL EXAMINATION: GENERAL: The patient is awake, alert, in moderate distress. VITAL SIGNS: Blood pressure is 127/91, pulse is 101, respiratory rate is 16, and oxygen saturation 98% on room air. HEENT: Normocephalic, atraumatic. NECK: Supple. No JVD. CHEST: Fair bilateral air entry. ABDOMEN: Soft. Mild epigastric tenderness. Bowel sounds present. NEURO: Anxious, awake, alert, moving extremities. PSYCH: Anxious. EXTREMITIES: No clubbing, no cyanosis. GENITOURINARY: No suprapubic tenderness. No flank tenderness. IMAGING STUDIES: As mentioned above in the history of present illness. LABORATORY DATA: As mentioned above in the history of present illness. ASSESSMENT: 1. Acute chest pain, rule out acute coronary syndrome. 2. Alcohol abuse. 3. Liver cirrhosis. 4. Hypertension. 5. History of peptic ulcers. 6. Gastroesophageal reflux disease. PLAN: 1. Admit. 2. The patient on telemetry monitoring. 3. Serial troponins. 4. Cardiac stress test was done back in July, which was unremarkable, we will reassess in a.m. 5. Reconcile home medications. 6. Avoid NSAIDs. 7. DVT prophylaxis as appropriate. 8. Reconcile home medications. 9. Expected length of stay, at least 1 midnight if patient is stable and further workup negative. Job ID: [id number]
[2020-08-15 03:27] LABS: Troponin I Less than 0.010 ng/mL (< 0.028)
[2020-08-15 06:35] LABS: SARS-CoV-2 MS2 Positive; SARS-CoV-2 N Gene Negative; SARS-CoV-2 S Gene Negative; SARS-CoV-2 by NAA Not Detected (NotDetected); SARS-CoV-2 orf1ab Negative
[2020-08-15] MEDS ORDERED: Ondansetron PF 4 MG/2 ML Vial ONE (06:55)
[2020-08-15] MEDS ORDERED: Famotidine/PF 20 mg/2ml Vial SLOW IVP SCH (09:00)
[2020-08-15] MEDS ORDERED: Aspirin Chewable 81 MG TAB PO SCH (09:00)
[2020-08-15] MEDS ORDERED: Nitroglycerin 0.4 MG TAB 1 EACH ONE (09:31)
[2020-08-15] MEDS ORDERED: Famotidine/PF 20 mg/2ml Vial ONE (09:31)
[2020-08-15] MEDS ORDERED: Aspirin Chewable 81 MG TAB ONE (09:31)
--- NOTE | 2020-08-15 10:29 | PDOC.HOSPP ---
- Subjective Encounter Date: 08/15/20 Subjective: Patient reports he continues to have some chest pain. He had chest pain this morning requiring medication. He says he received morphine. The record reflects he is not have morphine ordered nor has he received any. Looks like he actually probably received some Zofran. He reports that prior to the medication his chest wall was tender to touch however it is not currently. Attempts to get further information from the patient are frustrating as I end up more confused. Patient does report he continues to drink half a gallon of wine every day. He says he has been taking his pantoprazole at home. - Objective Result Diagrams: 08/14/20 19:18 08/14/20 19:18 Hospitalist ROS - Medication Medications: Active Medications Generic Name Dose Route Start Last Admin Trade Name Freq PRN Reason Stop Dose Admin Aspirin 81 mg 08/15/20 09:00 08/15/20 09:45 Aspirin Chewable 81 Mg Tab PO 81 mg DAILY PERCY Administration Sodium Chloride 1,000 mls @ 75 mls/hr 08/14/20 23:15 08/15/20 01:39 Normal Saline 0.9% IV 1,000 mls .[id number] PERCY Administration Nitroglycerin 0.4 mg 08/14/20 23:15 08/15/20 09:46 Nitroglycerin 0.4 Mg Tab (25 Tab Bottle) SL 0.4 mg Q5MIN PRN Administration Chest Pain Ondansetron HCl 4 mg 08/14/20 23:15 08/15/20 06:57 Ondansetron Pf 4 Mg/2 Ml Vial IVP 4 mg Q6H PRN Administration Nausea/Vomiting Tramadol HCl 50 mg 08/15/20 01:26 08/15/20 01:38 Tramadol Hcl 50 Mg Tab PO 50 mg Q4H PRN Administration Moderate to Severe Pain (5-10) - Exam General Appearance: NAD, awake alert Heart: RRR, no murmur, no gallops, no rubs, normal peripheral pulses Respiratory: no wheezes, no ronchi, rales (Modest, scattered, bilateral) Gastrointestinal: soft, non-tender, non-distended, normal bowel sounds, no palpable masses, no hepatomegaly, no splenomegaly Gastrointestinal - other findings: Healing midline incisional scar appears healthy Extremities: no cyanosis, no clubbing, no edema Skin: normal turgor Neurological: no focal deficits Musculoskeletal: normal tone Psychiatric: normal affect, normal behavior Psychiatric - other findings: Extremely difficult time giving his history Hosp A/P (1) Acute alcoholic intoxication in alcoholism (blood level 0.08-0.29) Code(s): F10.229 - ALCOHOL DEPENDENCE WITH INTOXICATION, UNSPECIFIED Status: Acute (2) Chest pain Code(s): R07.9 - CHEST PAIN, UNSPECIFIED Status: Acute (3) Tachycardia Code(s): R00.0 - TACHYCARDIA, UNSPECIFIED Status: Acute (4) Peptic ulcer disease Code(s): K27.9 - PEPTIC ULC, SITE UNSP, UNSP AC OR CHR, W/O HEMOR OR PERF Status: Acute - Plan Patient is a 65-year-old male with a history of longstanding alcohol abuse and alcoholism. Patient currently drinks half a gallon of wine per day. Patient presented here about 2 months ago with chest pain. At that time the patient was found to have significant peptic ulcer disease with gastric outlet obstruction requiring surgical intervention with a gastrojejunostomy loop. He subsequently was admitted again for chest pain at which time he had a negative stress test about 1 month ago. Patient returns again reporting chest pain in his left anterior chest. As with his previous admission it appears to be more musculoskeletal related in my opinion. He reports he has been taking his pantoprazole at home. Chest pain: Patient had a recent surgical intervention for gastric outlet obstruction due to severe peptic ulcer disease inflammation and scarring. He presented with chest pain on that occasion. He subsequently was admitted a second time 1 month ago for chest pain during which time he underwent a stress test which was negative. At this point I do not suspect he has angina. His troponins are negative. His EKG is equivocal. He has some T wave flattening which is very nonspecific. Telemetry has been unremarkable. He reports tenderness to palpation in the costochondral margin on the left side. We will ask for GIs input. Likely the patient can be discharged with symptomatic treatment. Alcoholism: Patient has a longstanding history of alcoholism. He has caused severe damage to his GI tract yet continues to drink half a gallon of wine per day. Given the ongoing alcohol abuse unclear how we will be able to help him with his other symptoms. Patient is well aware that the alcohol has led to this damage it has not pursued cessation. We will give the patient thiamine and folate. Peptic ulcer disease: Likely related to the chronic alcohol abuse. Patient reports he has been taking his pantoprazole at home once a day. For now we will put him on IV twice daily with the plan to likely discharge on p.o. pantoprazole twice daily. GI consult just to ensure there is nothing further that we need to investigate at this time although suspect that is not likely. Acute alcohol intoxication: Patient was acutely intoxicated on admission. Currently he has mild tachycardia which likely is representing some early signs of withdrawal. If he needs to stay will place him on ASE protocol.
[2020-08-15] MEDS ORDERED: Pantoprazole 40 MG VIAL IVP SCH ×2 (10:30→21:00)
[2020-08-15] MEDS ORDERED: Folic Acid 1 MG TAB PO SCH (11:15)
[2020-08-15] MEDS ORDERED: Thiamine 100 MG TAB PO SCH (11:15)
[2020-08-15] MEDS ORDERED: Pantoprazole 40 MG VIAL ONE (11:29)
[2020-08-15 12:26] VITALS: BMI 24.7
--- NOTE | 2020-08-15 13:42 | CON ---
DATE OF CONSULTATION: 08/15/2020 REASON FOR CONSULTATION: Atypical chest pain, history of cirrhosis, history of peptic ulcer disease, status post gastrojejunal anastomosis. CONSULTING PROVIDER: Sina Strange MD HISTORY OF PRESENT ILLNESS: The patient is a 65-year-old male with past medical history of GERD, pancreatitis, hypertension, alcohol abuse, cirrhosis of the liver, duodenal ulcer, status post diversion with gastrojejunostomy, presenting with complaints of chest pain. He states that he was in his usual state of health until approximately 1 week ago when he began having increased left-sided chest pain, characterized as a sharp/stabbing type sensation, was intermittent to the point where it would occur every other day and would last for 5 to 10 minutes and reach a severity of 10/10. However, over the last 24 hours, the patient experienced acute worsening of this chest pain that prompted him to seek healthcare assistance in the [facility] ER. This is not the 1st time the patient has been evaluated for this chest pain with prior bouts of this chest pain being evaluated by Cardiology with a noncardiac etiology being more likely. This pain that he describes is worse with bending over, coughing, and pressure to the region, better only with the pain medications he has been given thus far. We talked with the patient. He also states that he has been taking the pantoprazole every day, but seems to be taking it in the mornings with breakfast (V8 juice). He also endorses increased nausea, vomiting with nonbloody emesis, minimal amounts of bleeding from his nose, and the sensation of regurgitation. However, he denies any fevers, chills, hematemesis, melena, hematochezia, dysphagia, odynophagia, diarrhea, constipation, or weight loss. REVIEW OF SYSTEMS: A 10-category review of systems was obtained with all responses negative except for the pertinent positives as listed in HPI. PAST MEDICAL HISTORY: As per HPI. PAST SURGICAL HISTORY: 1. Surgical diversion of the proximal small intestine with the gastrojejunostomy. 2. Appendectomy. 3. Knee surgery. 4. Back surgery. FAMILY HISTORY: No GI malignancies. SOCIAL HISTORY: He drinks approximately 3 to 4 gallons of wine a week. He also currently chews tobacco, but denies any illicit drug use. OUTPATIENT MEDICATIONS: Reviewed. ALLERGIES: NO KNOWN DRUG ALLERGIES. PHYSICAL EXAMINATION: VITAL SIGNS: Temperature 98.5, pulse 95, blood pressure 152/93, respiratory rate 18, and saturating 98% on room air. GENERAL: The patient was lying in bed, in no acute distress. Alert and oriented x4, albeit the patient was a poor historian. HEENT: Normocephalic and atraumatic. Neck is supple. No JVD or scleral icterus noted. CARDIOVASCULAR: Regular rate and rhythm with no discernable murmurs, gallops, or rubs. RESPIRATORY: Clear to auscultation bilaterally with no discernable wheezes or rales. CHEST: Significant tender to palpation between the 7th and 8th ribs in the midclavicular line, reproducing the patient's chest pain. ABDOMEN: Normoactive bowel sounds. Soft and nondistended. Tenderness to palpation in the periumbilical region and right upper quadrant, consistent with pain along surgical incision sites. EXTREMITIES: No cyanosis, clubbing, or edema. LABORATORY DATA: CBC with a white blood cell count of 4.6, hemoglobin 12.3, hematocrit 36.8, and platelets 246. Chemistry with a sodium of 136, potassium 4.1, chloride 107, CO2 of 21, BUN less than 4, creatinine 0.7, glucose 84, AST 31, ALT 16, alkaline phosphatase 128, total bilirubin 0.2, and albumin 3.0. IMAGING DATA: Chest x-ray was obtained on 08/14/2020, which showed no acute intrathoracic abnormality. Nuclear stress test was obtained on 07/23/2020, which showed no evidence of ischemia and normal left ventricular ejection fraction. ASSESSMENT AND PLAN: The patient is a 65-year-old male with past medical history of alcohol abuse, gastroesophageal reflux disease, pancreatitis, hypertension, duodenal ulceration status post diversion with gastrojejunostomy, and cirrhosis of the liver, presenting with left-sided chest pain consistent with costochondritis, abdominal pain consistent with postsurgical pain. 1. Chest pain: The patient is presenting with increased intermittent chest pain that has been present for at least the last week, characterized as a sharp/stabbing type sensation, but worsening over the last 24 hours to become more constant in nature rather than intermittent course it was prior to this. Evaluation of this chest pain approximately 1 month ago showed no evidence of cardiac ischemia with normal/preserved left ventricular ejection fraction, making a cardiac etiology much less likely. However, on physical examination today with palpation of the left chest in the midclavicular line, I was able to reproduce the pain, making costochondritis a much more likely diagnosis at this time. Recommendations: a. Encouraged the patient to continue pantoprazole 40 mg daily, but advised him to take it 30 to 45 minutes before the ingestion of breakfast/V8 juice. b. Pain control per primary team for costochondritis. Would attempt to minimize any NSAIDs if possible given his history of cirrhosis. c. No upper endoscopy is indicated at this time given lack of additional GI alarm features. 2. Abdominal pain: The patient is presenting with abdominal pain. It has been present since his surgery approximately 5 to 6 weeks ago with pain on palpation today centered around the incision sites. Given the gastrojejunostomy as a diverting tactic for the large duodenal ulceration, resulting in gastric outlet obstruction. This seems fairly typical after that sort of procedure. I would only continue to monitor for any additional worsening or increased nausea and vomiting, that may be indicative of gastrojejunal anastomosis stricture/stenosis. Recommendations: Continue to monitor the patient's abdominal pain with low threshold to obtain a CT scan of the abdomen for further evaluation if he continues to have persistent nausea and vomiting. We will sign off at this time. Please call with any questions. Job ID: [id number]
[2020-08-15 16:00] VITALS: BP 134/85; TEMP 98.1
[2020-08-16] MEDS ORDERED: Thiamine 100 MG TAB PO SCH (09:00)
[2020-08-16] MEDS ORDERED: Folic Acid 1 MG TAB PO SCH (09:00)
[2020-08-16] MEDS ORDERED: FLU VACC QS2020-21(65YR UP)/PF 240 MCG/0.7 ML SYRINGE IM ONE (12:45)
== END 2020-08-15 20:15 | disposition home or self-care (01) ==
LOC: ERS 19:03 → 2NO 23:13 → ERHOLD 23:15 → 2NO 08-15 12:31
PROVIDERS: ADMIT Internal Medicine; ATTEND Internal Medicine
DX: R07.89 Other chest pain (principal); K74.60 Unspecified cirrhosis of liver; F10.229 Alcohol dependence with intoxication, unspecified; I10 Essential (primary) hypertension; K21.9 Gastro-esophageal reflux disease without esophagitis; F17.220 Nicotine dependence, chewing tobacco, uncomplicated; F32.9 Major depressive disorder, single episode, unspecified; K27.9 Peptic ulcer, site unspecified, unspecified as acute or chronic, without hemorrhage or perforation; R10.9 Unspecified abdominal pain; Z79.82 Long term (current) use of aspirin; Z79.899 Other long term (current) drug therapy; Z98.890 Other specified postprocedural states; Z20.828 Contact with and (suspected) exposure to other viral communicable diseases; Y90.8 Blood alcohol level of 240 mg/100 ml or more
CPT/HCPCS: 71045; 80053; 80306; 80307; 81003; 83690; 84484 ×2; 85025; 93005; 94760 ×2; 96374; 96375; 99285; G0378 ×3; U0003; 36415; 87635; C9113; J2405; S0028

== ENCOUNTER 2020-11-22 15:58 | Inpatient (IN) | payer MEDICARE, MEDICAID ==
[2020-11-22] MEDS ORDERED: Boostrix 0.5 ML (Tdap) VIAL ONE (16:36)
[2020-11-22 16:48] LABS: Hemoglobin 11.8 g/dL (14.0-18.0); Mean Corpuscular HGB CONC 35.4 g/dL (32.0-36.0); Mean Corpuscular Hemoglobin 34.3 pg (27.0-31.0); Mean Platelet Volume 5.9 fL (7.4-10.4); Platelet Count 213 thou/uL (130-400); RBC Distribution Width 14.6 % (11.5-14.5); Red Blood Cell (RBC) Count 3.43 mill/uL (4.70-6.10); White Blood Cell (WBC) Count 6.7 thou/uL (4.8-10.8)
[2020-11-22 17:01] LABS: ALT (SGPT) 28 U/L (8-55); AST (SGOT) 49 U/L (5-34); Albumin 2.5 g/dL (3.4-4.8); Alkaline Phosphatase 125 U/L (40-110); Anion Gap 17 mmol/L (10-20); BUN (Urea Nitrogen) 8 mg/dL (8.4-25.7); Bilirubin, Total 0.5 mg/dL (0.2-1.2); CK (CPK) 79 U/L (30-200); Calc. Creatinine Clearance 0 mL/min (70-130); Calcium 6.8 mg/dL (7.8-10.44); Carbon Dioxide 30 mmol/L (23-31); Globulin 2.5 g/dL (2.4-3.5); Glucose 83 mg/dL (80-115); Lipase 25 U/L (8-78); Magnesium 1.7 mg/dL (1.6-2.6)
[2020-11-22] MEDS ORDERED: Lidocaine 1% w/Epinephrine 1:100K 20 ML VIAL ONE (17:04)
[2020-11-22 17:08] LABS: Chloride 74 mmol/L (98-107); Potassium 2.5 mmol/L (3.5-5.1); Sodium 118 mmol/L (136-145)
[2020-11-22] MEDS ORDERED: NS 0.9% w/ 20 MEQ KCL 1,000 ML ONE ×2 (17:12)
[2020-11-22 17:13] LABS: Band 1 % (5-11); Lymphocytes 12 % (21-51); MDiff Complete? YES; Monocytes 16 % (0-10); Neutrophil 70 % (42-75); Platelet Morphology Comment Appears Adequate; Polychromasia SLIGHT = 2-3 cells (100X) (0-2/hpf); Reactive Lymphocytes 1 % (0-10)
[2020-11-22] MEDS ORDERED: Thiamine HCl 200 MG/2 ML VIAL SLOW IVP SCH (17:15)
[2020-11-22] MEDS ORDERED: Folic Acid 1 MG, Multivitamins, Adult 10 ML in Dextrose 5 %-0.45 % NaCl 1,000 ML IV SCH (17:15)
[2020-11-22] MEDS ORDERED: Ondansetron PF 4 MG/2 ML Vial IVP PRN (20:13)
[2020-11-22] MEDS ORDERED: Ondansetron ODT 4 MG TAB PO PRN (20:13)
[2020-11-22 21:36] LABS: Anion Gap 14 mmol/L (10-20); BUN (Urea Nitrogen) 7 mg/dL (8.4-25.7); Calc. Creatinine Clearance 0 mL/min (70-130); Carbon Dioxide 26 mmol/L (23-31); Chloride 86 mmol/L (98-107); Glucose 86 mg/dL (80-115); Magnesium 1.7 mg/dL (1.6-2.6); Sodium 123 mmol/L (136-145)
[2020-11-22 21:43] LABS: Potassium 2.7 mmol/L (3.5-5.1)
[2020-11-22 21:54] VITALS: BMI 20.5
[2020-11-22] MEDS ORDERED: Magnesium 2 GM/50 ML 2 GM in Premix Bag 1 BAG IVPB SCH ×2 (22:00→23:30)
[2020-11-22] MEDS: Potassium Chloride 20 MEQ TAB PO SCH (22:45)
[2020-11-22] MEDS: Dextrose 5% in Water 1,000 ML IV SCH (22:46)
[2020-11-22] MEDS ORDERED: Electrolyte Replacement Protocol FS PRN (23:30)
[2020-11-22 23:50] LABS: Troponin I 0.011 ng/mL (< 0.028)
[2020-11-23] MEDS: Potassium Chloride 40 MEQ in Sodium Chloride 0.9% 250 ML 250 ML IVPB SCH ×2 (00:19→06:21)
[2020-11-23] MEDS: Acetaminophen 325 MG TAB PO PRN ×4 (01:33→22:40)
[2020-11-23 02:01] LABS: Anion Gap 12 mmol/L (10-20); BUN (Urea Nitrogen) 7 mg/dL (8.4-25.7); Calc. Creatinine Clearance 84 mL/min (70-130); Calcium 6.9 mg/dL (7.8-10.44); Carbon Dioxide 27 mmol/L (23-31); Chloride 87 mmol/L (98-107); Glucose 84 mg/dL (80-115); Sodium 123 mmol/L (136-145)
[2020-11-23] MEDS: Potassium Chloride 20 MEQ TAB PO SCH (02:53)
[2020-11-23] MEDS ORDERED: Electrolyte Replacement Protocol 1 EACH FS SCH (04:00)
[2020-11-23] MEDS ORDERED: Electrolyte Replacement Protocol FS PRN (04:15)
[2020-11-23 04:46] LABS: Anion Gap 12 mmol/L (10-20); BUN (Urea Nitrogen) 7 mg/dL (8.4-25.7); Calc. Creatinine Clearance 84 mL/min (70-130); Calcium 7.1 mg/dL (7.8-10.44); Carbon Dioxide 27 mmol/L (23-31); Chloride 89 mmol/L (98-107); Glucose 75 mg/dL (80-115); Magnesium 2.2 mg/dL (1.6-2.6); Potassium 3.1 mmol/L (3.5-5.1); Sodium 125 mmol/L (136-145)
[2020-11-23 04:51] LABS: SARS-CoV-2 PCR by NAA Not Detected (NotDetected)
[2020-11-23 04:51] LABS: Hemoglobin 12.1 g/dL (14.0-18.0); Lymphocytes 14 % (21-51); MDiff Complete? YES; Mean Corpuscular HGB CONC 33.7 g/dL (32.0-36.0); Mean Corpuscular Hemoglobin 33.2 pg (27.0-31.0); Mean Corpuscular Volume 98.4 fL (78.0-98.0); Monocytes 11 % (0-10); Neutrophil 75 % (42-75); Platelet Count 208 thou/uL (130-400); Platelet Morphology Comment Appears Adequate; RBC Distribution Width 15.2 % (11.5-14.5); Red Blood Cell (RBC) Count 3.66 mill/uL (4.70-6.10); White Blood Cell (WBC) Count 7.5 thou/uL (4.8-10.8)
[2020-11-23 04:54] LABS: Phosphorus 1.6 mg/dL (2.3-4.7)
[2020-11-23 05:17] LABS: Bacteria/HPF None Seen HPF (None Seen); Bilirubin Negative (Negative); Blood, Urine 1+ (Negative); Clarity Clear (Clear); Glucose, Urine (Dipstick) Normal (Negative); Ketone, Urine Negative (Negative); Leukocyte Negative Leu/uL (Negative); Nitrite Negative (Negative); Protein, Urine (Dipstick) Negative (Neg-Trace); RBC/HPF 0-3 HPF (0-3); Specific Gravity, Urine 1.004 (1.002-1.036); Squamous Epithelial None Seen HPF (0-3); Urobilinogen Normal mg/dL (Less than 2); WBC/HPF None Seen HPF (0-3)
[2020-11-23] MEDS: PHOS-NAK 1 PKT PACK PO SCH ×2 (06:38→11:01)
[2020-11-23] MEDS: Enoxaparin Sodium 40 MG/0.4 ML SYRINGE SC SCH (08:11)
[2020-11-23] MEDS: Dextrose 5% in Water 1,000 ML IV SCH ×3 (08:11→20:03)
[2020-11-23 09:05] LABS: Anion Gap 12 mmol/L (10-20); BUN (Urea Nitrogen) 7 mg/dL (8.4-25.7); Calc. Creatinine Clearance 81 mL/min (70-130); Calcium 7.3 mg/dL (7.8-10.44); Carbon Dioxide 29 mmol/L (23-31); Chloride 92 mmol/L (98-107); Glucose 88 mg/dL (80-115); Sodium 130 mmol/L (136-145)
[2020-11-23] MEDS ORDERED: Potassium Chloride 20 MEQ TAB PO SCH ×2 (09:30→13:15)
[2020-11-23 12:37] LABS: Anion Gap 12 mmol/L (10-20); BUN (Urea Nitrogen) 7 mg/dL (8.4-25.7); Calc. Creatinine Clearance 81 mL/min (70-130); Calcium 7.1 mg/dL (7.8-10.44); Carbon Dioxide 28 mmol/L (23-31); Chloride 93 mmol/L (98-107); Glucose 93 mg/dL (80-115); Potassium 3.1 mmol/L (3.5-5.1); Sodium 130 mmol/L (136-145)
[2020-11-23 12:37] LABS: Anion Gap 12 mmol/L (10-20); BUN (Urea Nitrogen) 7 mg/dL (8.4-25.7); Calc. Creatinine Clearance 83 mL/min (70-130); Calcium 6.9 mg/dL (7.8-10.44); Carbon Dioxide 26 mmol/L (23-31); Chloride 93 mmol/L (98-107); Glucose 93 mg/dL (80-115); Potassium 3.1 mmol/L (3.5-5.1); Sodium 128 mmol/L (136-145)
[2020-11-23 18:46] LABS: Anion Gap 11 mmol/L (10-20); BUN (Urea Nitrogen) 6 mg/dL (8.4-25.7); Calc. Creatinine Clearance 83 mL/min (70-130); Calcium 7.2 mg/dL (7.8-10.44); Carbon Dioxide 29 mmol/L (23-31); Chloride 94 mmol/L (98-107); Glucose 78 mg/dL (80-115); Potassium 3.4 mmol/L (3.5-5.1); Sodium 131 mmol/L (136-145)
[2020-11-23 23:52] LABS: Anion Gap 11 mmol/L (10-20); BUN (Urea Nitrogen) 6 mg/dL (8.4-25.7); Calc. Creatinine Clearance 84 mL/min (70-130); Calcium 7.4 mg/dL (7.8-10.44); Carbon Dioxide 26 mmol/L (23-31); Chloride 96 mmol/L (98-107); Glucose 85 mg/dL (80-115); Potassium 3.7 mmol/L (3.5-5.1); Sodium 129 mmol/L (136-145)
[2020-11-24] MEDS: Acetaminophen 325 MG TAB PO PRN ×4 (04:23→22:08)
[2020-11-24] MEDS: Dextrose 5% in Water 1,000 ML IV SCH (04:27)
[2020-11-24 05:29] LABS: Anion Gap 12 mmol/L (10-20); BUN (Urea Nitrogen) 5 mg/dL (8.4-25.7); Calc. Creatinine Clearance 90 mL/min (70-130); Calcium 7.3 mg/dL (7.8-10.44); Carbon Dioxide 23 mmol/L (23-31); Chloride 97 mmol/L (98-107); Glucose 74 mg/dL (80-115); Potassium 3.4 mmol/L (3.5-5.1); Sodium 129 mmol/L (136-145)
[2020-11-24 05:45] LABS: Hemoglobin 12.4 g/dL (14.0-18.0); Mean Corpuscular HGB CONC 34.6 g/dL (32.0-36.0); Mean Corpuscular Hemoglobin 35.5 pg (27.0-31.0); Mean Platelet Volume 5.9 fL (7.4-10.4); Platelet Count 189 thou/uL (130-400); RBC Distribution Width 15.5 % (11.5-14.5); Red Blood Cell (RBC) Count 3.48 mill/uL (4.70-6.10); White Blood Cell (WBC) Count 5.5 thou/uL (4.8-10.8)
[2020-11-24 05:46] LABS: MDiff Complete? YES; Neutrophil 100 % (42-75)
[2020-11-24] MEDS ORDERED: Potassium Chloride 20 MEQ TAB PO SCH (07:30)
[2020-11-24] MEDS: Enoxaparin Sodium 40 MG/0.4 ML SYRINGE SC SCH (09:20)
[2020-11-24] MEDS: Folic Acid/Vit B Comp W-C PO SCH (09:20)
[2020-11-24 10:17] LABS: Vitamin D, 25 Hydroxy 10.3 ng/ml (> 30.0)
[2020-11-24 10:22] LABS: Thyroid Stimulating Hormone 0.6307 uIU/mL (0.35-4.94)
[2020-11-24] MEDS ORDERED: Mag-Al Plus 1200 MG/1200 MG/120 MG/30 ML UDCUP PO PRN (14:03)
[2020-11-25] MEDS: Acetaminophen 325 MG TAB PO PRN ×4 (03:11→20:20)
[2020-11-25 04:55] LABS: Anion Gap 10 mmol/L (10-20); BUN (Urea Nitrogen) 5 mg/dL (8.4-25.7); Calc. Creatinine Clearance 84 mL/min (70-130); Calcium 7.6 mg/dL (7.8-10.44); Carbon Dioxide 25 mmol/L (23-31); Chloride 102 mmol/L (98-107); Glucose 75 mg/dL (80-115); Potassium 3.8 mmol/L (3.5-5.1); Sodium 133 mmol/L (136-145)
[2020-11-25] MEDS: Folic Acid/Vit B Comp W-C PO SCH (09:02)
[2020-11-25] MEDS: Enoxaparin Sodium 40 MG/0.4 ML SYRINGE SC SCH (09:03)
[2020-11-25] MEDS: Cholecalciferol 1,000 UNITS (25 MCG) TAB PO SCH (09:03)
[2020-11-25] MEDS: Senokot S 8.6-50 MG TAB PO SCH (20:20)
[2020-11-26] MEDS: Cholecalciferol 1,000 UNITS (25 MCG) TAB PO SCH (08:42)
[2020-11-26] MEDS: Enoxaparin Sodium 40 MG/0.4 ML SYRINGE SC SCH (08:42)
[2020-11-26] MEDS: Folic Acid/Vit B Comp W-C PO SCH (08:42)
[2020-11-26] MEDS: Polyethylene Glycol 3350 17 GM Packet PO SCH (08:43)
[2020-11-26] MEDS: Senokot S 8.6-50 MG TAB PO SCH ×2 (08:43→21:00)
[2020-11-26] MEDS: Acetaminophen 325 MG TAB PO PRN ×3 (08:47→20:57)
[2020-11-26 12:05] LABS: Anion Gap 7 mmol/L (10-20); BUN (Urea Nitrogen) 7 mg/dL (8.4-25.7); Calc. Creatinine Clearance 93 mL/min (70-130); Calcium 7.8 mg/dL (7.8-10.44); Carbon Dioxide 26 mmol/L (23-31); Chloride 102 mmol/L (98-107); Glucose 92 mg/dL (80-115); Potassium 3.6 mmol/L (3.5-5.1); Sodium 131 mmol/L (136-145)
[2020-11-27 04:45] LABS: Anion Gap 11 mmol/L (10-20); BUN (Urea Nitrogen) 6 mg/dL (8.4-25.7); Calc. Creatinine Clearance 88 mL/min (70-130); Calcium 7.9 mg/dL (7.8-10.44); Carbon Dioxide 22 mmol/L (23-31); Chloride 105 mmol/L (98-107); Glucose 78 mg/dL (80-115); Potassium 3.7 mmol/L (3.5-5.1); Sodium 134 mmol/L (136-145)
[2020-11-27] MEDS: Acetaminophen 325 MG TAB PO PRN (05:45)
[2020-11-27] MEDS ORDERED: Magnesium 2 GM/50 ML 2 GM in Premix Bag 1 BAG IVPB SCH (06:15)
[2020-11-27 07:04] VITALS: BP 105/63; TEMP 97.5
[2020-11-27] MEDS: Cholecalciferol 1,000 UNITS (25 MCG) TAB PO SCH (08:06)
[2020-11-27] MEDS: Enoxaparin Sodium 40 MG/0.4 ML SYRINGE SC SCH (08:07)
[2020-11-27] MEDS: Folic Acid/Vit B Comp W-C PO SCH (08:07)
[2020-11-27] MEDS: Senokot S 8.6-50 MG TAB PO SCH (08:08)
[2020-11-27] MEDS: Polyethylene Glycol 3350 17 GM Packet PO SCH (08:08)
== END 2020-11-27 08:51 | disposition home or self-care (01) | DRG 640 ==
LOC: ERS 15:58 → 2NO 19:17
PROVIDERS: ADMIT Student in an Organized Health Care Education/Training Program; ATTEND Internal Medicine
PROC: 0HQ1XZZ Repair Face Skin, External Approach (ICD-10-PCS; principal; 2020-11-22)
DX: E87.1 Hypo-osmolality and hyponatremia (principal); J18.9 Pneumonia, unspecified organism; I47.1 Supraventricular tachycardia; F10.288 Alcohol dependence with other alcohol-induced disorder; Z90.49 Acquired absence of other specified parts of digestive tract; Z20.822 Contact with and (suspected) exposure to COVID-19; Z23 Encounter for immunization; E87.6 Hypokalemia; K21.9 Gastro-esophageal reflux disease without esophagitis; W18.30XA Fall on same level, unspecified, initial encounter; R29.6 Repeated falls; S01.81XA Laceration without foreign body of other part of head, initial encounter; K70.30 Alcoholic cirrhosis of liver without ascites; E87.8 Other disorders of electrolyte and fluid balance, not elsewhere classified; E55.9 Vitamin D deficiency, unspecified; E53.8 Deficiency of other specified B group vitamins; N18.2 Chronic kidney disease, stage 2 (mild); D63.1 Anemia in chronic kidney disease; I12.9 Hypertensive chronic kidney disease with stage 1 through stage 4 chronic kidney disease, or unspecified chronic kidney disease; Z79.899 Other long term (current) drug therapy
CPT/HCPCS: 12011; 36415; 70450; 71045; 72125; 72170; 74176; 80048; 80053; 81001; 82306; 82550; 82607; 82746; 83690; 83735; 83930; 83935; 84100; 84300; 84443; 84484; 85025; 87635; 90471; 90715; 93005; 93306; 96365; 96366; 96368; J1650; J3411; J3475; J3480; J7042; J7050; U0003; U0005

== ENCOUNTER 2020-12-01 19:49 | Emergency (ER) | payer MEDICARE, MEDICAID ==
[~2020-12-01 19:49] MED LIST changes: -ISOVUE-370 76%-LOCM 1 ML ONE; +Iopamidol-370 76% 500 ML 1 ML ONE
== END 2020-12-01 22:16 | disposition home or self-care (01) ==
LOC: ERS 19:49
DX: R06.02 Shortness of breath (principal); K21.9 Gastro-esophageal reflux disease without esophagitis; I10 Essential (primary) hypertension; F17.220 Nicotine dependence, chewing tobacco, uncomplicated; Z79.899 Other long term (current) drug therapy
CPT/HCPCS: 71275; Q9967

== ENCOUNTER 2021-01-01 19:00 | Emergency (ER) | payer MEDICARE, MEDICAID ==
[2021-01-01 21:01] LABS: ALT (SGPT) 25 U/L (8-55); AST (SGOT) 41 U/L (5-34); Albumin 2.6 g/dL (3.4-4.8); Alkaline Phosphatase 127 U/L (40-110); Anion Gap 12 mmol/L (10-20); BUN (Urea Nitrogen) Less than 4 mg/dL (8.4-25.7); Bilirubin, Total 0.3 mg/dL (0.2-1.2); CK (CPK) 50 U/L (30-200); Calc. Creatinine Clearance 0 mL/min (70-130); Calcium 7.6 mg/dL (7.8-10.44); Carbon Dioxide 17 mmol/L (23-31); Chloride 113 mmol/L (98-107); Globulin 3.1 g/dL (2.4-3.5); Glucose 84 mg/dL (80-115); Potassium 4.4 mmol/L (3.5-5.1); Protein, Total 5.7 g/dL (5.8-8.1); Sodium 138 mmol/L (136-145)
[2021-01-01 21:27] LABS: Hemoglobin 11.1 g/dL (14.0-18.0); Mean Corpuscular Hemoglobin 36.2 pg (27.0-31.0); Mean Platelet Volume 5.2 fL (7.4-10.4); Platelet Count 254 thou/uL (130-400); RBC Distribution Width 14.3 % (11.5-14.5); Red Blood Cell (RBC) Count 3.08 mill/uL (4.70-6.10); White Blood Cell (WBC) Count 4.7 thou/uL (4.8-10.8)
[2021-01-01 21:47] LABS: #Basophils 0.1 thou/uL (0.0-0.2); #Eosinphils 0.1 thou/uL (0.0-0.7); #Lymphocytes 2.1 thou/uL (1.20-3.40); #Monocytes 0.4 thou/uL (0.11-0.59); %Basophils 1.5 % (0.0-1.0); %Eosinophils 1.5 % (0.0-10.0); %Lymphocytes 45.2 % (21.0-51.0); %Monocytes 8.6 % (0.0-10.0); %Neutrophils 43.2 % (42.0-75.0); MDiff Complete? YES; Macrocytosis SLIGHT = 6-15 cells (100X) (0-5/hpf); Platelet Morphology Comment Appears Adequate
== END 2021-01-01 21:46 | disposition home or self-care (01) ==
LOC: ERS 19:00
DX: R06.00 Dyspnea, unspecified (principal); K21.9 Gastro-esophageal reflux disease without esophagitis; I10 Essential (primary) hypertension; F17.220 Nicotine dependence, chewing tobacco, uncomplicated
CPT/HCPCS: 36415; 71045; 80053; 82550; 84484; 85025; 93005

== ENCOUNTER 2021-01-17 15:25 | Inpatient (IN) | payer MEDICARE, MEDICAID ==
[2021-01-17 16:19] LABS: Mean Corpuscular HGB CONC 36.3 g/dL (32.0-36.0); Mean Corpuscular Hemoglobin 36.3 pg (27.0-31.0); Mean Corpuscular Volume 99.9 fL (78.0-98.0); Mean Platelet Volume 5.7 fL (7.4-10.4); Platelet Count 291 thou/uL (130-400); RBC Distribution Width 13.2 % (11.5-14.5); Red Blood Cell (RBC) Count 3.59 mill/uL (4.70-6.10)
[2021-01-17 16:21] LABS: #Basophils 0.1 thou/uL (0.0-0.2); #Monocytes 0.9 thou/uL (0.11-0.59); #Neutrophils 3.9 thou/uL (1.40-6.50); %Basophils 0.9 % (0.0-1.0); %Eosinophils 0.2 % (0.0-10.0); %Lymphocytes 29.8 % (21.0-51.0); %Monocytes 12.9 % (0.0-10.0); %Neutrophils 56.3 % (42.0-75.0); White Blood Cell (WBC) Count 6.9 thou/uL (4.8-10.8)
[2021-01-17 16:53] LABS: AST (SGOT) 62 U/L (5-34); Albumin 2.7 g/dL (3.4-4.8); Alkaline Phosphatase 181 U/L (40-110); Anion Gap 22 mmol/L (10-20); BUN (Urea Nitrogen) 6 mg/dL (8.4-25.7); Bilirubin, Total 0.5 mg/dL (0.2-1.2); Calc. Creatinine Clearance 0 mL/min (70-130); Calcium 7.3 mg/dL (7.8-10.44); Carbon Dioxide 24 mmol/L (23-31); Globulin 2.7 g/dL (2.4-3.5); Glucose 82 mg/dL (80-115); Potassium 3.2 mmol/L (3.5-5.1); Protein, Total 5.4 g/dL (5.8-8.1)
[2021-01-17 17:03] LABS: ALT (SGPT) 33 U/L (8-55)
[2021-01-17 17:15] LABS: Chloride 68 mmol/L (98-107); Sodium 111 mmol/L (136-145)
[2021-01-17] MEDS ORDERED: Thiamine HCl 200 MG/2 ML VIAL SLOW IVP SCH (17:15)
[2021-01-17] MEDS ORDERED: Folic Acid 1 MG, Multivitamins, Adult 10 ML in Dextrose 5 %-0.45 % NaCl 1,000 ML IV SCH (17:30)
[2021-01-17] MEDS ORDERED: Ondansetron PF 4 MG/2 ML Vial IVP PRN (17:38)
[2021-01-17] MEDS ORDERED: Senokot S 8.6-50 MG TAB PO PRN (17:38)
[2021-01-17] MEDS ORDERED: Sodium Chloride 3% 250 ML IVPB SCH (18:15)
[2021-01-17 18:57] LABS: Anion Gap 20 mmol/L (10-20); BUN (Urea Nitrogen) 5 mg/dL (8.4-25.7); Calc. Creatinine Clearance 0 mL/min (70-130); Calcium 7.2 mg/dL (7.8-10.44); Carbon Dioxide 26 mmol/L (23-31); Glucose 76 mg/dL (80-115)
[2021-01-17] MEDS ORDERED: Enoxaparin Sodium 80 MG/0.8 ML SYRINGE ONE (19:04)
[2021-01-17 19:07] LABS: Chloride 68 mmol/L (98-107); Potassium 2.9 mmol/L (3.5-5.1); Sodium 111 mmol/L (136-145)
[2021-01-17] MEDS ORDERED: Potassium Chloride 20 MEQ TAB PO SCH ×3 (19:15→23:30)
[2021-01-17 19:29] LABS: Troponin I Less than 0.010 ng/mL (< 0.028)
[2021-01-17 20:07] LABS: SARS-CoV-2 NAA Rapid Test Not Detected (NotDetected)
[2021-01-17] MEDS ORDERED: Potassium Chloride 20 MEQ TAB ONE (20:38)
[2021-01-17 22:48] LABS: Anion Gap 16 mmol/L (10-20); BUN (Urea Nitrogen) 5 mg/dL (8.4-25.7); Calc. Creatinine Clearance 0 mL/min (70-130); Calcium 7.5 mg/dL (7.8-10.44); Carbon Dioxide 28 mmol/L (23-31); Glucose 76 mg/dL (80-115)
[2021-01-17 22:52] LABS: Troponin I Less than 0.010 ng/mL (< 0.028)
[2021-01-17 23:05] LABS: Chloride 72 mmol/L (98-107); Potassium 2.9 mmol/L (3.5-5.1); Sodium 113 mmol/L (136-145)
[2021-01-17 23:12] VITALS: BMI 25.9
[2021-01-17] MEDS ORDERED: Magnesium 2 GM/50 ML 2 GM in Premix Bag 1 BAG IVPB SCH (23:30)
[2021-01-17] MEDS ORDERED: Magnesium Oxide 400 MG TAB PO SCH (23:30)
[2021-01-17] MEDS: Famotidine/PF 20 mg/2ml Vial SLOW IVP SCH (23:44)
[2021-01-18] MEDS: Potassium Chloride 20 MEQ in Premix Bag 1 BAG IVPB SCH (00:56)
[2021-01-18] MEDS ORDERED: Thiamine 100 MG TAB PO SCH (01:30)
[2021-01-18] MEDS ORDERED: Folic Acid 1 MG TAB PO SCH (01:30)
[2021-01-18 02:10] LABS: Anion Gap 15 mmol/L (10-20); BUN (Urea Nitrogen) 5 mg/dL (8.4-25.7); Calc. Creatinine Clearance 94 mL/min (70-130); Calcium 7.3 mg/dL (7.8-10.44); Carbon Dioxide 23 mmol/L (23-31); Chloride 79 mmol/L (98-107); Glucose 71 mg/dL (80-115); Potassium 4.1 mmol/L (3.5-5.1); Sodium 113 mmol/L (136-145)
[2021-01-18] MEDS ORDERED: Diazepam 5 MG TAB PO PRN (02:54)
[2021-01-18] MEDS ORDERED: Thiamine HCl 200 MG/2 ML VIAL IM SCH (03:30)
[2021-01-18 04:20] LABS: Hemoglobin 12.2 g/dL (14.0-18.0); Mean Corpuscular HGB CONC 35.1 g/dL (32.0-36.0); Mean Corpuscular Hemoglobin 35.6 pg (27.0-31.0); Platelet Count 267 thou/uL (130-400); RBC Distribution Width 13.2 % (11.5-14.5); Red Blood Cell (RBC) Count 3.43 mill/uL (4.70-6.10); White Blood Cell (WBC) Count 7.6 thou/uL (4.8-10.8)
[2021-01-18 04:33] LABS: ALT (SGPT) 29 U/L (8-55); AST (SGOT) 58 U/L (5-34); Albumin 2.4 g/dL (3.4-4.8); Alkaline Phosphatase 161 U/L (40-110); Anion Gap 15 mmol/L (10-20); BUN (Urea Nitrogen) 6 mg/dL (8.4-25.7); Bilirubin, Total 0.9 mg/dL (0.2-1.2); Calc. Creatinine Clearance 98 mL/min (70-130); Calcium 7.7 mg/dL (7.8-10.44); Carbon Dioxide 26 mmol/L (23-31); Chloride 81 mmol/L (98-107); Globulin 2.6 g/dL (2.4-3.5); Glucose 74 mg/dL (80-115); Magnesium 1.3 mg/dL (1.6-2.6); Potassium 3.7 mmol/L (3.5-5.1); Sodium 118 mmol/L (136-145)
[2021-01-18 04:40] LABS: Band 5 % (5-11); Lymphocytes 15 % (21-51); MDiff Complete? YES; Monocytes 14 % (0-10); Neutrophil 65 % (42-75); Reactive Lymphocytes 1 % (0-10)
[2021-01-18] MEDS: HYDROcodone/Acetaminophen 5/325 mg Tablet PO PRN ×3 (06:40→21:07)
[2021-01-18 07:36] LABS: Anion Gap 15 mmol/L (10-20); BUN (Urea Nitrogen) 5 mg/dL (8.4-25.7); Calc. Creatinine Clearance 94 mL/min (70-130); Calcium 7.6 mg/dL (7.8-10.44); Carbon Dioxide 24 mmol/L (23-31); Chloride 85 mmol/L (98-107); Glucose 83 mg/dL (80-115); Potassium 3.9 mmol/L (3.5-5.1); Sodium 120 mmol/L (136-145)
[2021-01-18] MEDS ORDERED: Thiamine HCl 200 MG/2 ML VIAL SLOW IVP SCH (09:00)
[2021-01-18] MEDS ORDERED: Multivitamins, Adult 10 ML, Folic Acid 1 MG in Dextrose 5 %-0.45 % NaCl 1,000 ML IV SCH (09:00)
[2021-01-18] MEDS ORDERED: Enoxaparin Sodium 30 MG/0.3 ML SYRINGE SC SCH (09:00)
[2021-01-18] MEDS: Enoxaparin Sodium 80 MG/0.8 ML SYRINGE SC SCH ×2 (10:08→20:58)
[2021-01-18] MEDS: Multivitamin W/ Minerals 1 TAB PO SCH (10:08)
[2021-01-18] MEDS: Famotidine/PF 20 mg/2ml Vial SLOW IVP SCH ×2 (10:08→20:58)
[2021-01-18] MEDS: Folic Acid 1 MG TAB PO SCH (10:08)
[2021-01-18 11:17] LABS: Anion Gap 16 mmol/L (10-20); BUN (Urea Nitrogen) 6 mg/dL (8.4-25.7); Calc. Creatinine Clearance 92 mL/min (70-130); Calcium 7.8 mg/dL (7.8-10.44); Carbon Dioxide 26 mmol/L (23-31); Chloride 84 mmol/L (98-107); Glucose 104 mg/dL (80-115); Potassium 3.5 mmol/L (3.5-5.1); Sodium 122 mmol/L (136-145)
[2021-01-18] MEDS ORDERED: Docusate 100 MG CAP PO PRN (12:58)
[2021-01-18] MEDS: Acetaminophen 325 MG TAB PO PRN ×2 (14:37→21:07)
[2021-01-18] MEDS ORDERED: FOLIC ACID IV SCH (15:00)
[2021-01-18] MEDS ORDERED: MULTIVITAMINS IV SCH (15:00)
[2021-01-18] MEDS ORDERED: WATER IV SCH (15:00)
[2021-01-18] MEDS ORDERED: DEXTROSE 5% IV SCH (15:00)
[2021-01-18 16:21] LABS: Potassium 3.4 mmol/L (3.5-5.1)
[2021-01-18] MEDS ORDERED: Lorazepam 1 MG TAB PO SCH (22:00)
[2021-01-19 03:53] LABS: INR-International Normal Ratio 1.1; PTT 40.6 sec (22.9-36.1); Prothrombin Time 14.5 sec (12.0-14.7)
[2021-01-19] MEDS ORDERED: Diazepam 5 MG TAB PO PRN (04:00)
[2021-01-19 04:05] LABS: Anion Gap 11 mmol/L (10-20); BUN (Urea Nitrogen) 8 mg/dL (8.4-25.7); Calc. Creatinine Clearance 88 mL/min (70-130); Calcium 7.4 mg/dL (7.8-10.44); Carbon Dioxide 27 mmol/L (23-31); Chloride 84 mmol/L (98-107); Glucose 88 mg/dL (80-115); Magnesium 1.7 mg/dL (1.6-2.6)
[2021-01-19 04:09] LABS: Potassium 2.7 mmol/L (3.5-5.1); Sodium 119 mmol/L (136-145)
[2021-01-19 04:15] LABS: Band 3 % (5-11); Hemoglobin 10.5 g/dL (14.0-18.0); Lymphocytes 25 % (21-51); MDiff Complete? YES; Macrocytosis SLIGHT = 6-15 cells (100X) (0-5/hpf); Mean Corpuscular HGB CONC 35.2 g/dL (32.0-36.0); Mean Corpuscular Hemoglobin 36.6 pg (27.0-31.0); Mean Platelet Volume 6.2 fL (7.4-10.4); Monocytes 17 % (0-10); Neutrophil 55 % (42-75); Platelet Count 210 thou/uL (130-400); Platelet Morphology Comment Appears Adequate; RBC Distribution Width 13.4 % (11.5-14.5); Red Blood Cell (RBC) Count 2.87 mill/uL (4.70-6.10); White Blood Cell (WBC) Count 4.6 thou/uL (4.8-10.8)
[2021-01-19] MEDS ORDERED: Electrolyte Replacement Protocol FS PRN (05:15)
[2021-01-19] MEDS ORDERED: Magnesium 2 GM/50 ML 2 GM in Premix Bag 1 BAG IVPB SCH (05:15)
[2021-01-19] MEDS: Potassium Chloride 20 MEQ TAB PO SCH ×2 (05:48→08:52)
[2021-01-19] MEDS: Thiamine 100 MG TAB PO SCH (08:52)
[2021-01-19] MEDS: Multivitamin W/ Minerals 1 TAB PO SCH (08:52)
[2021-01-19] MEDS: Magnesium Oxide 400 MG TAB PO SCH (08:52)
[2021-01-19] MEDS: Folic Acid 1 MG TAB PO SCH (08:52)
[2021-01-19] MEDS: Famotidine/PF 20 mg/2ml Vial SLOW IVP SCH ×2 (08:53→20:11)
[2021-01-19] MEDS: Enoxaparin Sodium 80 MG/0.8 ML SYRINGE SC SCH (08:53)
[2021-01-19 09:36] LABS: Anion Gap 15 mmol/L (10-20); BUN (Urea Nitrogen) 6 mg/dL (8.4-25.7); Calc. Creatinine Clearance 87 mL/min (70-130); Calcium 7.7 mg/dL (7.8-10.44); Carbon Dioxide 25 mmol/L (23-31); Chloride 85 mmol/L (98-107); Glucose 131 mg/dL (80-115); Potassium 3.5 mmol/L (3.5-5.1); Sodium 121 mmol/L (136-145)
[2021-01-19] MEDS: Acetaminophen 325 MG TAB PO PRN ×2 (13:58→20:10)
[2021-01-19 17:02] LABS: Potassium 3.7 mmol/L (3.5-5.1)
[2021-01-19] MEDS: Apixaban 5 MG TAB PO SCH (20:10)
[2021-01-20 04:25] LABS: Hemoglobin 11.5 g/dL (14.0-18.0); Mean Corpuscular HGB CONC 35.2 g/dL (32.0-36.0); Mean Platelet Volume 6.7 fL (7.4-10.4); Platelet Count 216 thou/uL (130-400); RBC Distribution Width 13.4 % (11.5-14.5); Red Blood Cell (RBC) Count 3.12 mill/uL (4.70-6.10); White Blood Cell (WBC) Count 3.5 thou/uL (4.8-10.8)
[2021-01-20 04:54] LABS: Eosinophils 2 % (0-10); Lymphocytes 49 % (21-51); MDiff Complete? YES; Metamyelocyte 1 % (0-0); Monocytes 12 % (0-10); Neutrophil 35 % (42-75); Platelet Morphology Comment Appears Adequate
[2021-01-20 06:37] LABS: Calcium 7.9 mg/dL (7.8-10.44); Chloride 91 mmol/L (98-107); Potassium 3.9 mmol/L (3.5-5.1); Sodium 125 mmol/L (136-145)
[2021-01-20 06:38] LABS: Glucose 83 mg/dL (80-115)
[2021-01-20 06:39] LABS: Anion Gap 10 mmol/L (10-20); Carbon Dioxide 28 mmol/L (23-31)
[2021-01-20 06:41] LABS: Calc. Creatinine Clearance 86 mL/min (70-130)
[2021-01-20 06:42] LABS: BUN (Urea Nitrogen) 6 mg/dL (8.4-25.7)
[2021-01-20 06:43] LABS: Magnesium 1.9 mg/dL (1.6-2.6)
[2021-01-20] MEDS ORDERED: Magnesium 2 GM/50 ML 2 GM in Premix Bag 1 BAG IVPB SCH (08:15)
[2021-01-20] MEDS: Multivitamin W/ Minerals 1 TAB PO SCH (08:40)
[2021-01-20] MEDS: Thiamine 100 MG TAB PO SCH (08:40)
[2021-01-20] MEDS: Famotidine/PF 20 mg/2ml Vial SLOW IVP SCH ×2 (08:41→21:07)
[2021-01-20] MEDS: Apixaban 5 MG TAB PO SCH ×2 (08:41→21:07)
[2021-01-20] MEDS: Folic Acid 1 MG TAB PO SCH (08:41)
[2021-01-20] MEDS: Magnesium Oxide 400 MG TAB PO SCH (08:41)
[2021-01-20] MEDS: HYDROcodone/Acetaminophen 5/325 mg Tablet PO PRN (08:41)
[2021-01-20] MEDS: Acetaminophen 325 MG TAB PO PRN ×2 (17:08→22:58)
[2021-01-21] MEDS: Acetaminophen 325 MG TAB PO PRN ×3 (03:52→17:06)
[2021-01-21 04:09] LABS: Anion Gap 11 mmol/L (10-20); BUN (Urea Nitrogen) 6 mg/dL (8.4-25.7); Calc. Creatinine Clearance 90 mL/min (70-130); Carbon Dioxide 25 mmol/L (23-31); Chloride 100 mmol/L (98-107); Glucose 83 mg/dL (80-115); Magnesium 1.9 mg/dL (1.6-2.6); Potassium 3.8 mmol/L (3.5-5.1); Sodium 132 mmol/L (136-145)
[2021-01-21 05:07] LABS: Band 4 % (5-11); Hemoglobin 10.6 g/dL (14.0-18.0); Lymphocytes 40 % (21-51); MDiff Complete? YES; Mean Corpuscular HGB CONC 34.2 g/dL (32.0-36.0); Mean Corpuscular Hemoglobin 36.5 pg (27.0-31.0); Mean Platelet Volume 5.9 fL (7.4-10.4); Monocytes 11 % (0-10); Myelocyte 1 % (0-0); Neutrophil 44 % (42-75); Platelet Count 208 thou/uL (130-400); RBC Distribution Width 13.4 % (11.5-14.5); Red Blood Cell (RBC) Count 2.91 mill/uL (4.70-6.10); White Blood Cell (WBC) Count 4.8 thou/uL (4.8-10.8)
[2021-01-21] MEDS ORDERED: Magnesium 2 GM/50 ML 2 GM in Premix Bag 1 BAG IVPB SCH (06:15)
[2021-01-21] MEDS: Folic Acid 1 MG TAB PO SCH (10:04)
[2021-01-21] MEDS: Magnesium Oxide 400 MG TAB PO SCH (10:04)
[2021-01-21] MEDS: Multivitamin W/ Minerals 1 TAB PO SCH (10:04)
[2021-01-21] MEDS: Thiamine 100 MG TAB PO SCH (10:05)
[2021-01-21] MEDS: Apixaban 5 MG TAB PO SCH ×2 (10:05→20:51)
[2021-01-21] MEDS: Famotidine/PF 20 mg/2ml Vial SLOW IVP SCH ×2 (10:05→20:51)
[2021-01-22] MEDS: Acetaminophen 325 MG TAB PO PRN ×3 (00:58→19:44)
[2021-01-22] MEDS: HYDROcodone/Acetaminophen 5/325 mg Tablet PO PRN (00:59)
[2021-01-22 06:48] LABS: Anion Gap 12 mmol/L (10-20); Calc. Creatinine Clearance 94 mL/min (70-130); Calcium 8.2 mg/dL (7.8-10.44); Carbon Dioxide 23 mmol/L (23-31); Chloride 103 mmol/L (98-107); Glucose 86 mg/dL (80-115); Potassium 3.8 mmol/L (3.5-5.1); Sodium 134 mmol/L (136-145)
[2021-01-22 06:56] LABS: BUN (Urea Nitrogen) 6 mg/dL (8.4-25.7)
[2021-01-22] MEDS: Multivitamin W/ Minerals 1 TAB PO SCH (09:57)
[2021-01-22] MEDS: Magnesium Oxide 400 MG TAB PO SCH (09:57)
[2021-01-22] MEDS: Apixaban 5 MG TAB PO SCH ×2 (09:58→19:44)
[2021-01-22] MEDS: Famotidine/PF 20 mg/2ml Vial SLOW IVP SCH ×2 (09:58→19:44)
[2021-01-22] MEDS: Folic Acid 1 MG TAB PO SCH (09:58)
[2021-01-22] MEDS: Thiamine 100 MG TAB PO SCH (09:58)
[2021-01-22] MEDS ORDERED: Sodium Chloride 0.9% 250 ML IV SCH (10:30)
[2021-01-22] MEDS ORDERED: Melatonin 3 MG TAB PO SCH (21:00)
[2021-01-23] MEDS: HYDROcodone/Acetaminophen 5/325 mg Tablet PO PRN ×2 (04:09→09:50)
[2021-01-23 08:59] LABS: #Basophils 0.1 thou/uL (0.0-0.2); #Eosinphils 0.1 thou/uL (0.0-0.7); #Lymphocytes 2.3 thou/uL (1.20-3.40); #Monocytes 0.8 thou/uL (0.11-0.59); #Neutrophils 2.3 thou/uL (1.40-6.50); %Basophils 1.4 % (0.0-1.0); %Eosinophils 2.1 % (0.0-10.0); %Monocytes 14.5 % (0.0-10.0); Hemoglobin 11.3 g/dL (14.0-18.0); Mean Corpuscular HGB CONC 33.2 g/dL (32.0-36.0); Mean Corpuscular Hemoglobin 36.3 pg (27.0-31.0); Mean Platelet Volume 6.2 fL (7.4-10.4); Platelet Count 245 thou/uL (130-400); RBC Distribution Width 13.5 % (11.5-14.5); White Blood Cell (WBC) Count 5.6 thou/uL (4.8-10.8)
[2021-01-23 09:13] LABS: Anion Gap 12 mmol/L (10-20); BUN (Urea Nitrogen) 5 mg/dL (8.4-25.7); Calc. Creatinine Clearance 96 mL/min (70-130); Calcium 8.3 mg/dL (7.8-10.44); Carbon Dioxide 22 mmol/L (23-31); Chloride 107 mmol/L (98-107); Glucose 81 mg/dL (80-115); Magnesium 1.7 mg/dL (1.6-2.6); Potassium 3.8 mmol/L (3.5-5.1); Sodium 137 mmol/L (136-145)
[2021-01-23] MEDS ORDERED: Acetaminophen 325 MG TAB PO PRN (09:22)
[2021-01-23] MEDS ORDERED: Methocarbamol 500 MG TAB PO PRN (09:23)
[2021-01-23] MEDS: Famotidine/PF 20 mg/2ml Vial SLOW IVP SCH (09:32)
[2021-01-23] MEDS: Folic Acid 1 MG TAB PO SCH (09:33)
[2021-01-23] MEDS: Apixaban 5 MG TAB PO SCH (09:33)
[2021-01-23] MEDS: Thiamine 100 MG TAB PO SCH (09:33)
[2021-01-23] MEDS: Multivitamin W/ Minerals 1 TAB PO SCH (09:33)
[2021-01-23] MEDS: Magnesium Oxide 400 MG TAB PO SCH (09:33)
[2021-01-23] MEDS ORDERED: Magnesium 2 GM/50 ML 2 GM in Premix Bag 1 BAG IVPB SCH (10:00)
[2021-01-23 11:44] VITALS: BP 91/56; TEMP 98
== END 2021-01-23 15:30 | DRG 640 ==
LOC: ERS 15:25 → IMCU/EMU 17:38 → ONC 01-21 20:03
PROVIDERS: ADMIT Family Medicine; ATTEND Internal Medicine
PROC: HZ2ZZZZ Detoxification Services for Substance Abuse Treatment (ICD-10-PCS; principal; 2021-01-17)
DX: E87.1 Hypo-osmolality and hyponatremia (principal); I26.99 Other pulmonary embolism without acute cor pulmonale; I82.431 Acute embolism and thrombosis of right popliteal vein; F10.229 Alcohol dependence with intoxication, unspecified; Z20.822 Contact with and (suspected) exposure to COVID-19; K21.9 Gastro-esophageal reflux disease without esophagitis; F32.9 Major depressive disorder, single episode, unspecified; F17.220 Nicotine dependence, chewing tobacco, uncomplicated; K74.60 Unspecified cirrhosis of liver; E87.8 Other disorders of electrolyte and fluid balance, not elsewhere classified; E88.09 Other disorders of plasma-protein metabolism, not elsewhere classified; K59.00 Constipation, unspecified; N18.9 Chronic kidney disease, unspecified; I12.9 Hypertensive chronic kidney disease with stage 1 through stage 4 chronic kidney disease, or unspecified chronic kidney disease; D63.1 Anemia in chronic kidney disease; Z87.11 Personal history of peptic ulcer disease; Z90.49 Acquired absence of other specified parts of digestive tract; Z79.899 Other long term (current) drug therapy
CPT/HCPCS: 0240U; 36415; 71045; 71275; 80048; 80053; 83735; 83880; 83930; 83935; 84100; 84443; 84484; 85007; 85025; 85027; 85379; 85610; 85730; 87324; 87449; 93005; 93306; 93970; 94760; 96372; 96374; J1650; J2405; J2597; J3411; J3475; J7042; J7070; J7131; Q9967; S0028